=== PATIENT | female | born 1955 | race Two or more races ===

== ENCOUNTER → 2020-08-10 09:17 | Outpatient (BNVA) | payer OTHER, SELFPAY | PROVIDERS: Visit Provider Physician Assistant | DX: Z76.89 Persons encountering health services in other specified circumstances (principal) ==

== ENCOUNTER 2020-08-29 14:42 | Outpatient (REF) | payer OTHER, SELFPAY | END 2020-08-29 14:43 | disposition home or self-care (01) | LOC: HO.LAB 14:42 | PROVIDERS: PCP Internal Medicine Geriatric Medicine; Visit Provider Internal Medicine | DX: Z20.828 Contact with and (suspected) exposure to other viral communicable diseases (principal) | CPT/HCPCS: C9803; U0003 ==

== ENCOUNTER 2020-11-08 14:18 | Outpatient (REF) | payer MEDICARE, MEDICAID, SELFPAY ==
--- NOTE | ~2020-11-08 | MM_ITS ---
EXAMINATION: MM SCREENING DIGITAL BREAST TOMOSYNTHESIS, BILATERAL CLINICAL INFORMATION: Screening. Asymptomatic. The lifetime risk of breast cancer based on the Tyrer-Cuzick Model is 3%. COMPARISON: Mammography: 05/26/2019 ([place]). TECHNIQUE: Digital breast tomosynthesis is performed in both the craniocaudal and mediolateral oblique views along with computer-aided detection (CAD). Synthesized 2D images are generated from the tomosynthesis. FINDINGS: There are scattered areas of fibroglandular density (ACR BI-RADS breast composition Category b). There are no significant masses, abnormal calcifications, or other abnormalities. Parenchymal pattern is similar to prior studies. No significant changes. MM/MM tomosynthesis screening BI IMPRESSION: No mammographic evidence of malignancy. ASSESSMENT: BI-RADS 1: Negative RECOMMENDATION: Routine annual mammography screening. This patient's information was entered into a reminder system with a target due date for their next mammogram.
== END 2020-11-08 14:19 | disposition home or self-care (01) ==
LOC: HO.MAMMO 14:18
PROVIDERS: Visit Provider Nurse Practitioner Family
DX: Z12.31 Encounter for screening mammogram for malignant neoplasm of breast (principal)
CPT/HCPCS: 77063; 77067

== ENCOUNTER 2020-11-27 14:33 | Outpatient (REF) | payer MEDICARE, MEDICAID, SELFPAY | END 2020-11-27 14:34 | disposition home or self-care (01) | LOC: HO.LAB 14:33 | PROVIDERS: Visit Provider Internal Medicine | DX: Z20.822 Contact with and (suspected) exposure to COVID-19 (principal) | CPT/HCPCS: 36415; C9803; U0003; U0005 ==

== ENCOUNTER → 2022-01-01 10:37 | Outpatient (RCR) | payer OTHER, SELFPAY | END | disposition home or self-care (01) | LOC: HO.OT 06-14 10:16 | PROVIDERS: Visit Provider General Practice | DX: M65.342 Trigger finger, left ring finger (principal) | CPT/HCPCS: 97110; 97760 ==

== ENCOUNTER 2022-01-03 16:26 | Outpatient (REF) | payer OTHER, SELFPAY ==
--- NOTE | ~2022-01-03 | MM_ITS ---
EXAMINATION: MM SCREENING DIGITAL BREAST TOMOSYNTHESIS, BILATERAL CLINICAL INFORMATION: Screening. Asymptomatic. The lifetime risk of breast cancer based on the Tyrer-Cuzick Model is 3.2%. COMPARISON: Mammography: November 08, 2020 and May 26, 2019 TECHNIQUE: Digital breast tomosynthesis is performed in both the craniocaudal and mediolateral oblique views along with computer-aided detection (CAD). Synthesized 2D images are generated from the tomosynthesis. FINDINGS: The breasts are heterogeneously dense, which may obscure small masses (ACR BI-RADS breast composition Category c). There are no significant masses, abnormal calcifications, or other abnormalities. MM/MM tomosynthesis screening BI IMPRESSION: There are no significant changes from prior study. ASSESSMENT: BI-RADS 1: Negative RECOMMENDATION: Routine annual mammography screening. This patient's information was entered into a reminder system with a target due date for their next mammogram.
== END 2022-01-03 16:27 | disposition home or self-care (01) ==
LOC: HO.MAMMO 16:26
PROVIDERS: Visit Provider Internal Medicine Geriatric Medicine
DX: Z12.31 Encounter for screening mammogram for malignant neoplasm of breast (principal)
CPT/HCPCS: 77063; 77067

== ENCOUNTER → 2022-01-14 21:16 | Outpatient (REF) | payer OTHER, SELFPAY | LOC: HO.SL 21:16 | PROVIDERS: Visit Provider Registered Nurse | DX: G47.33 Obstructive sleep apnea (adult) (pediatric) (principal) | CPT/HCPCS: 95811 ==

== ENCOUNTER 2022-04-18 10:13 | Outpatient (REF) | payer OTHER, SELFPAY ==
--- NOTE | 2022-04-18 10:12 | EMG_ITS ---
Bilateral median and ulnar motor and sensory studies were performed. Bilateral radial sensory studies were performed and paraspinal muscles were tested with a needle. IMPRESSION: 1. Eens-ya-oegsudxt bilateral median neuropathy across carpal tunnel. 2. Mild bilateral ulnar neuropathy across cubital tunnel. 3. Bilateral Deepak-Delvin anastomosis and normal variant. MD MICKEY Dubon/KATHERINE / [id number]
== END 2022-04-18 10:14 | disposition home or self-care (01) ==
LOC: HO.NEURO 10:13
PROVIDERS: Visit Provider Registered Nurse
DX: R20.2 Paresthesia of skin (principal)
CPT/HCPCS: 95886; 95911

== ENCOUNTER → 2022-07-08 15:06 | Outpatient (BNVA) | payer OTHER, SELFPAY | PROVIDERS: Visit Provider Physician Assistant | DX: G56.02 Carpal tunnel syndrome, left upper limb (principal); G56.22 Lesion of ulnar nerve, left upper limb | CPT/HCPCS: 99202 ==

== ENCOUNTER → 2022-07-16 15:25 | Outpatient (BNVA) | payer OTHER, SELFPAY | PROVIDERS: PCP Registered Nurse; Visit Provider Surgery Vascular Surgery | DX: I83.12 Varicose veins of left lower extremity with inflammation (principal) | CPT/HCPCS: 99202 ==

== ENCOUNTER 2023-04-28 09:39 | Outpatient (REF) | payer OTHER, SELFPAY ==
--- NOTE | ~2023-04-28 | XR_ITS ---
EXAMINATION: XR KNEE, LEFT CLINICAL INFORMATION: Left knee pain for 3 months. COMPARISON: None available. TECHNIQUE: Four views of the left knee. FINDINGS: Mild tricompartmental degenerative joint changes are seen most pronounced in the medial femoral-tibial compartment. There is no acute fracture or dislocation. Possible trace suprapatellar joint effusion. The soft tissues are unremarkable. XR/XR knee LT 3V IMPRESSION: Mild tricompartmental degenerative joint changes most consistent with osteoarthritis. Possible trace suprapatellar joint effusion. No acute fracture.
== END 2023-04-28 09:40 | disposition home or self-care (01) ==
LOC: HO.HHCX 09:39
PROVIDERS: Visit Provider Internal Medicine
DX: M17.12 Unilateral primary osteoarthritis, left knee (principal)
CPT/HCPCS: 73562

== ENCOUNTER 2023-05-19 13:55 | Outpatient (AMB) | payer OTHER, SELFPAY ==
--- NOTE | 2023-05-19 13:59 | MHC.OFFVIS ---
Intake Intake Visit Reasons: New Prob- OA of left knee Intake Note: Debby is a 68 year old female who presents today for a new problem visit with complaints of left knee pain. Patient reports that she has had ongoing left knee pain for a few months now, she feels a stabbing pain as well as locking of the knee. She has tried Diclofenac in the past with mild relief, as well as a knee brace. She found mild relief with these. Biomedical Engineering Internship Required: Yes Biomedical Engineering Internship Name: [id number] Allergies Penicillins Allergy (Verified 07/16/22 15:32) hives HPI New Prob- OA of left knee HPI Details Debby is a Greenlandic speaking 68 year old female who presents today for a new problem visit with complaints of left knee pain. Interested in injection today. She describes pain with stairs and extended ambulation. She denies injury. 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 Site was prepped using aseptic technique. Patient tolerated the procedure well. Primary Site: left knee Approach Used: anterolateral Coding 28060 - Large joint Procedure code (CPT) selection complete Results Reviewed Results Reviewed: 05/19/23 14:29 BUPivacaine MPF 0.25 % [Sensorcaine-MPF 0.25% 10 ML] 10 ml .ROUTE .STK-MED ONE Lidocaine HCl 2 % MPF [Xylocaine 2 % MPF] 5 ml .ROUTE .STK-MED ONE dexAMETHasone sod phosphate [Decadron] 4 mg .ROUTE .STK-MED ONE I personally reviewed relevant radiographs. Moderate to severe medial comaprtment OA, left knee Assessment & Plan Assessment & Plan (1) Osteoarthritis of left knee: Code(s): M17.12 - Unilateral primary osteoarthritis, left knee Plan: 68 yo with left knee OA. She is limited by pain and I injected her knee. I dsicussed surgical and non surgical options including arthroplasty. She will return to see me for treatment if her pain continues. Coding Level of Care Code Est Pt Level 4 (93882) Diagnoses Osteoarthritis of left knee M17.12 CPT Codes Coding - 01829 Large joint: 32751 - Large joint ([id number])
== END 2023-05-19 14:39 | disposition home or self-care (01) ==
PROVIDERS: PCP Registered Nurse; Visit Provider Orthopaedic Surgery
DX: M17.12 Unilateral primary osteoarthritis, left knee (principal)
CPT/HCPCS: 20610; 99214

== ENCOUNTER → 2023-05-19 13:55 | Outpatient (BNVA) | payer OTHER, SELFPAY | PROVIDERS: PCP Registered Nurse; Visit Provider Orthopaedic Surgery | DX: M17.12 Unilateral primary osteoarthritis, left knee (principal) | CPT/HCPCS: 20610; 99212; J1100 ==

== ENCOUNTER 2023-06-02 10:24 | Outpatient (REF) | payer OTHER, SELFPAY ==
[2023-06-02 15:23] LABS: Vitamin B12 > 2000 pg/mL (200-900)
== END 2023-06-02 10:25 | disposition home or self-care (01) ==
LOC: HO.CHCLDS 10:24
PROVIDERS: Visit Provider Registered Nurse
DX: Z00.00 Encounter for general adult medical examination without abnormal findings (principal)
CPT/HCPCS: 36415; 82607

== ENCOUNTER 2023-06-24 11:47 | Outpatient (REF) | payer OTHER, SELFPAY ==
[2023-06-24 14:39] LABS: Vitamin B12 > 2000 pg/mL (200-900)
== END 2023-06-24 11:48 | disposition home or self-care (01) ==
LOC: HO.HHCL 11:47
PROVIDERS: Visit Provider Registered Nurse
DX: Z90.3 Acquired absence of stomach [part of] (principal)
CPT/HCPCS: 36415; 82607

== ENCOUNTER 2023-07-17 09:47 | Outpatient (AMB) | payer OTHER, SELFPAY ==
--- NOTE | 2023-07-17 10:49 | A.OFFVIS_ITS ---
Intake Intake Visit Reasons: ov- Osteoarthritis of left knee Intake Note: Debby is a 68 year old female who presents today for a follow up of her left knee, Last injection done 05/19/23. Patient reports that this injection was only helpful for about 2 days. She has been having increased pain, and is asking about other treatment options. Allergies Penicillins Allergy (Verified 07/16/22 15:32) hives HPI ov- Osteoarthritis of left knee HPI Details Debby is a 68 year old woman who returns to discuss her left knee OA pain. She was last seen, and injected, on 05/19/23, with only ~2 days of relief. She complains of pain with daily activity, worse with prolonged ambulation or using stairs. She found mild relief from NSAIDs or bracing. She feels that she cannot live with this pain as she is unable to ambulate without severe discomfort. The quality of her life suffers and she feels that nothing works. 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 Review of Systems Const All systems reviewed & are unremarkable except as noted in HPI and below Physical Exam Const General: no acute distress, alert and awake Orientation/consciousness: patient oriented x3 HEENT Head: Yes normocephalic and Yes atraumatic Eyes EOM: EOMs intact bilaterally Resp Effort & Inspection: normal respiratory effort and able to speak in complete sentences Cardio Jugular venous distension: no JVD Skin General skin exam: turgor normal Rashes: no rashes Neuro General: patient oriented x3 Extrem Other: TTP medial compartment Mild effusion Psych Appearance: grossly normal Affect: normal affect Attitude: cooperative Results Reviewed Results Reviewed: I personally reviewed relevant radiographs. Tricompartmental OA with Moderate to severe medial compartment OA, left knee Assessment & Plan Assessment & Plan (1) Osteoarthritis of left knee: Code(s): M17.12 - Unilateral primary osteoarthritis, left knee Plan: This is a 68 year old woman with moderate-severe left knee OA. She has pain with daily activity, worse with prolonged ambulation or using stairs. She has a hx of relief from steroid injections in the past, her most recent on 05/19/23 gave only ~2 days of relief. She has failed conservative treatment options and feels her QOL is diminished. I discussed her diagnosis and treatment options. She is 68 and would like to be more active. I recommend left TKA. I discussed the risks, benefits, and alternatives including, but not limited to, the risk of pain, infection, stiffness, need for further surgery as well as potential medical comp lications such as blood clots, pulmonary embolism and cardiac complications. I discussed the recovery timeline and process as well as the importance of PT. Debby is a good candidate for this surgery, and she wishes to proceed with this decision. She will speak with Zuleyka to schedule this procedure. Coding Level of Care Code Est Pt Level 4 (99962) Diagnoses Osteoarthritis of left knee M17.12
== END 2023-07-17 11:35 | disposition home or self-care (01) ==
PROVIDERS: PCP Registered Nurse; Visit Provider Orthopaedic Surgery
DX: M17.12 Unilateral primary osteoarthritis, left knee (principal)
CPT/HCPCS: 99214

== ENCOUNTER → 2023-07-17 09:47 | Outpatient (BNVA) | payer OTHER, SELFPAY | PROVIDERS: PCP Registered Nurse; Visit Provider Orthopaedic Surgery | DX: M17.12 Unilateral primary osteoarthritis, left knee (principal) | CPT/HCPCS: 99212 ==

== ENCOUNTER 2023-07-22 13:26 | Outpatient (AMB) | payer OTHER, SELFPAY ==
--- NOTE | 2023-07-22 13:42 | A.OFFVIS_ITS ---
Intake Vital Signs 07/22/23 13:43 Height 5 ft 2 in Weight 159 lb BMI 29.1 BP 117/70 Blood Pressure Location Lt brachial Position Sitting Pulse 55 Intake Visit Reasons: Abdominal pain Last seen 08/2020 Intake Note: Patient presents to in office visit today for abdominal pain. She reports that while she was in [facility] in October this year she underwent EGD and was diagnosed with Barrets esophagus, and found to have a hiatal hernia. She also was treated for H pylori while in [facility]. Patient reports GERD, epigastric burning and pain. She also reports occasional constipation and blood when wiping. Allergies Penicillins Allergy (Verified 07/22/23 13:51) hives Medication List - Last Reconciled 07/22/23 by Domi Ansari PA-C acetaminophen 1,000 mg PO Q8H PRN multivitamin with folic acid 400 mcg (Daily-Yumi (with folic acid)) 1 tab PO DAILY pantoprazole 40 mg PO DAILY HPI HPI Comments History of Present Illness Details A 68 y/o female s/p gastric sleeve- ( 2014), history of colon polyps last encounter 2019- last colonoscopy at about 7 years. she complains of acid reflux -dyspepsia pantoprazole -occasion was some swallow ing difficulty, unable to detail- dietary modification She describes EGD -done on [place] October 2022- bacteria-treated - never had caty she has records ([place]) from GI- - showing Barretts- to repeat 6 months-she also says she was to have surgery- she is unclear of the details Appetite is good- small portions-trying to maintain her weight Plans to go back to: The at some point have another weight loss surgery she is uncertain of any details. Bowels are normal No nausea, vomiting, hematemesis, hematochezia fever chills PFS Medical History (Updated 07/23/23 @ 09:32 by Domi Ansari PA-C) Osteoarthritis of left knee Left knee pain Vitamin D deficiency Surgical History (Updated 07/22/23 @ 14:22 by Domi Ansari PA-C) H/O colonoscopy History of esophagogastroduodenoscopy (EGD) H/O bariatric surgery History of total abdominal hysterectomy History of cholecystectomy Family History Unknown No family history of colorectal cancer Mother Uterus cancer Household Members Other:: Lives with her son Alcohol intake: never Patient Tobacco Use Status: Never used Tobacco Current occupational status: employed 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 Review of Systems Const All systems reviewed & are unremarkable except as noted in HPI and below Card Denies chest pain and Denies dyspnea Resp Denies dyspnea GI Denies abdominal pain, Reports dyspepsia, Reports heartburn, Denies diarrhea, Denies nausea and Denies vomiting Physical Exam Vital Signs: Last Vital Signs Pulse 55 07/22/23 13:43 BP 117/70 07/22/23 13:43 BMI result Body Mass Index 29.1 Const General: cooperative, healthy appearing, comfortable and no acute distress Orientation/consciousness: patient oriented x3 Limitations: language barrier Eyes Sclerae: sclerae normal Resp Effort & Inspection: normal respiratory effort and able to speak in complete sentences Auscultation: clear to auscultation bilaterally, no rales, no rhonchi and no wheezes Cardio Rate: regular rate Rhythm: regular rhythm Heart sounds: S1 normal heart sound present and S2 normal heart sound present GI Palpation (GI): Soft to palpation and nontender Auscultation: normal bowel sounds Neuro General: patient oriented x3 Extrem General: Yes full ROM Psych Appearance: grossly normal and well kempt Mental Status: mental status grossly normal Speech and movement: Normal speech and movement present and Clear speech present Affect: normal affect Attitude: cooperative Thought process: Normal thought process present Thought content: Normal thought content present Insight: Good insight present (Psych) Judgement: Good judgement present (Psych) Assessment & Plan Assessment & Plan (1) Horner's esophagus determined by endoscopy: Comment: GI hx- unclear- despite staff interpreter Code(s): K22.70 - Horner's esophagus without dysplasia (2) Colon polyps: Code(s): K63.5 - Polyp of colon Plan: Polyp surveillance colonoscopy (3) Acid reflux: Code(s): K21.9 - Gastro-esophageal reflux disease without esophagitis Plan: Continue PPI EGD Upper GI series (4) H/O bariatric surgery: Comment: Gastric sleeve,[id number]-[id number]-[id number] issues Code(s): Z98.84 - Bariatric surgery status Plan: EGD Plan UGI series EGD/ colon- MG prep labs Continue ppi Orders: Orders Complete Blood Count Auto Diff 07/22/23 K21.9 - Gastro-esophageal reflux disease without esophagitis, K22.70 - Horner's esophagus without dysplasia, K63.5 - Polyp of colon Comprehensive Met. Panel 07/22/23 K58.9 - Irritable bowel syndrome without diarrhea FL small bowel follow through 07/22/23 K21.9 - Gastro-esophageal reflux disease without esophagitis, Z98.84 - Bariatric surgery status EGD/[place] Combo - GI Use Only 07/22/23 K21.9 - Gastro-esophageal reflux disease without esophagitis, K22.70 - Horner's esophagus without dysplasia, K63.5 - Polyp of colon Medications: New bisacodyl (Dulcolax (bisacodyl)) Day before procedure, prep day Take 4 tablets by mouth upon awakening followed by large glass of water 20 mg (4 x 5 mg) PO ONCE 1 day 4 tabs 0RF colonoscopy prep Z12.11 - Encounter for screening for malignant neoplasm of colon polyethylene glycol 3350 (Miralax) Take as directed by mouth the day before your procedure. 238 grams PO ONCE 1 day PRN 238 grams 0RF laxative effect Patient Instructions: 68-year-old female GI history unclear-will get UGI for clarification, and see back She has well will be scheduled for a EGD/ colonoscopy She will continue PPI Avoid culprits She is agreeable with the plan Assisted by staff interpreter- Coding Level of Care Code New Pt Level 4 (59882) Diagnoses Horner's esophagus determined by endoscopy K22.70 Colon polyps K63.5 Acid reflux K21.9 H/O bariatric surgery Z98.84 Time Spent (min) 35 Comment [id number]
[2023-07-22 13:43] VITALS: BP 117/70; PULSE 55; BMI 29.1
== END 2023-07-22 14:37 | disposition home or self-care (01) ==
PROVIDERS: PCP Registered Nurse; Visit Provider Physician Assistant
DX: K22.70 Barrett's esophagus without dysplasia (principal); Z86.010 Personal history of colon polyps; K21.9 Gastro-esophageal reflux disease without esophagitis; Z98.84 Bariatric surgery status
CPT/HCPCS: 99214

== ENCOUNTER → 2023-07-22 13:26 | Outpatient (BNVA) | payer OTHER, SELFPAY | PROVIDERS: PCP Registered Nurse; Visit Provider Physician Assistant | DX: K22.70 Barrett's esophagus without dysplasia (principal); K63.5 Polyp of colon; K21.9 Gastro-esophageal reflux disease without esophagitis; Z98.84 Bariatric surgery status | CPT/HCPCS: 99212 ==

== ENCOUNTER 2023-08-01 09:16 | Outpatient (AMB) | payer OTHER, SELFPAY ==
[2023-08-01 09:29] VITALS: BP 116/74; PULSE 67; O2SAT 94; BMI 29.5
--- NOTE | 2023-08-01 09:29 | MHC.OFFVIS ---
Intake Vital Signs 08/01/23 09:29 Height 5 ft 2 in Weight 161 lb 8 oz BMI 29.5 BP 116/74 Blood Pressure Location Rt brachial Position Sitting Pulse 67 Pulse Source Pulse Oximeter Pulse Oximetry (%) 94 Oxygen Delivery Method Room Air Intake Visit Reasons: Obstructive sleep apnea Intake Note: Pt presents to the office today for a new patient visit for DODIE. Associate Sales Manager Required: Yes Associate Sales Manager Language: Secondary Spanish Teacher Name: Pamela ([id number]) Allergies Penicillins Allergy (Verified 08/01/23 09:33) hives HPI HPI Comments History of Present Illness Details 68 y/o female patient presents for new in-person visit to manage sleep apnea. clinical research physician Pamela [phone] utilized. Pt had split night sleep study done in Dec, 2019. The baseline portion of the sleep study was significant for a severe degree of sleep apnea. The AHI was 32/hr and oxygen garry was 74%. Pt trailed CPAP at 4-6 and her breathing and oxygenation stabilized with the both pressure. Pt started CPAP at 6cmH2O, however she is not tolerate the CPAP. She can't sleep with CPAP more than 2 hrs. She feels chocking and lack of oxygen. She tried melatonin but it did not help her to stay sleep. Sleep hygiene questionnaire: What is your usual sleep routine? Usual bedtime is at 9-10 pm; Usual wake up time is at 3, 4, 5 am. Do you take naps? No. Is your sleep environment cool, dark, and quiet? Yes. Do you exercise? No. Do you take caffeine or other stimulants? No. Do you use electronics in bed? Yes. What is your work schedule? 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 Review of Systems Const All systems reviewed & are unremarkable except as noted in HPI and below ENT Reports Normal hearing present Neuro Reports Normal hearing present Physical Exam Vital Signs: Last Vital Signs Pulse 67 08/01/23 09:29 BP 116/74 08/01/23 09:29 Pulse Ox 94 08/01/23 09:29 Oxygen Delivery Method Room Air 08/01/23 09:29 BMI result Body Mass Index 29.5 Const General: cooperative Nutritional Appearance: obese Orientation/consciousness: patient oriented x3 Limitations: language barrier Neck Neck: Yes full ROM and Yes supple Resp Effort & Inspection: normal respiratory effort and able to speak in complete sentences Neuro General: patient oriented x3, gait normal and moves all extremities Cranial nerves: Yes Bilaterally intact EOM present, Yes Normal facial strength present, Yes Midline tongue present, Yes Symmetric palate elevation present, Yes Normal hearing present and Yes Ability to bilaterally rotate head present Cognition (Neuro): normal cognition Gait exam (Neuro): Normal gait present Motor exam (neuro): 5/5 motor strength present throughout, Pronator motor function not present and no tremor noted Psych Appearance: grossly normal Mental Status: mental status grossly normal Speech and movement: Normal speech and movement present Affect: normal affect Attitude: cooperative Assessment & Plan Assessment & Plan (1) DODIE on CPAP: Comment: Severe degree of sleep apnea. The AHI was 32/hr and oxygen garry was 74% Code(s): G47.33 - Obstructive sleep apnea (adult) (pediatric) Plan Pt is advised to undergo in lab sleep study to reassess for the severe degree of sleep apnea. Will f/u with pt after study to discuss results and appropriate treatment options. Will consider to refer for inspire. Sleep hygiene education provided. Limit caffeine intake and electronic use before bedtime. Advised patient to try magnesium 400 mg q HS to help her sleep. Pt to call with any worsening concerns or questions. Orders: Orders RT PSG in-lab sleep study Today G47.33 - Obstructive sleep apnea (adult) (pediatric) Medications: New magnesium oxide 400 mg PO DAILY 30 days 30 tabs 2RF Coding Level of Care Code New Pt Level 3 (37336) Diagnoses DODIE on CPAP G47.33
== END 2023-08-01 10:22 | disposition home or self-care (01) ==
PROVIDERS: PCP Registered Nurse; Visit Provider Nurse Practitioner Family
DX: G47.33 Obstructive sleep apnea (adult) (pediatric) (principal)
CPT/HCPCS: 99203

== ENCOUNTER → 2023-08-01 09:16 | Outpatient (BNVA) | payer OTHER, SELFPAY | PROVIDERS: PCP Registered Nurse; Visit Provider Nurse Practitioner Family | DX: G47.33 Obstructive sleep apnea (adult) (pediatric) (principal) | CPT/HCPCS: 99202 ==

== ENCOUNTER → 2023-08-14 14:15 | Outpatient (BNV) | payer OTHER, SELFPAY | PROVIDERS: PCP Registered Nurse; Visit Provider Psychiatry & Neurology Neurology | DX: G47.33 Obstructive sleep apnea (adult) (pediatric) (principal) | CPT/HCPCS: 95810 ==

== ENCOUNTER → 2023-08-14 20:30 | Outpatient (REF) | payer OTHER, SELFPAY | LOC: HO.SL 20:30 | PROVIDERS: PCP Registered Nurse; Visit Provider Nurse Practitioner Family | DX: G47.33 Obstructive sleep apnea (adult) (pediatric) (principal) | CPT/HCPCS: 95810 ==

== ENCOUNTER → 2023-08-27 08:40 | Outpatient (BNVA) | payer OTHER, SELFPAY | PROVIDERS: PCP Registered Nurse; Visit Provider Orthopaedic Surgery ==

== ENCOUNTER 2023-09-11 14:39 | Outpatient (AMB) | payer OTHER, SELFPAY ==
--- NOTE | 2023-09-11 14:49 | MHC.OFFVIS ---
Intake Vital Signs 09/11/23 14:52 Height 5 ft 2 in Weight 160 lb 7.944 oz BMI 29.4 BP 102/70 Blood Pressure Location Lt brachial Position Sitting Pulse 49 L Intake Visit Reasons: Preop/ LTKA/ Patt Intake Note: NPV w/ EKG Technical Operations Vice President Required: Yes Technical Operations Vice President Language: Veneer Jointer Name: Toshia [id number] Accompanied by: Self / Same As Patient Allergies Penicillins Allergy (Verified 09/11/23 14:53) hives Medication List - Last Reconciled 09/11/23 by Az Holland MD acetaminophen 1,000 mg PO Q8H PRN bisacodyl (Dulcolax (bisacodyl)) 20 mg (4 x 5 mg) PO ONCE 1 day magnesium oxide 400 mg PO DAILY 30 days multivitamin with folic acid 400 mcg (Daily-Yumi (with folic acid)) 1 tab PO DAILY pantoprazole 40 mg PO DAILY polyethylene glycol 3350 (Miralax) 238 grams PO ONCE PRN 1 day walker Folding Front wheeled walker HPI HPI Comments History of Present Illness Details Debby is here for consultation regarding preoperative risk stratification for knee surgery. She does not have any known cardiac issues. No history of any coronary artery disease or myocardial infarction or cardiomyopathy. No major comorbidities. Within limits of her activity, she has not noticed any chest pain or shortness of breath or in fact anything cardiac sounding. She states she can walk as much as 30 minutes or so and has not noticed any symptoms from cardiac. 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 Review of Systems Const Denies weakness ENT Denies dizziness Card Denies chest pain, Denies chest pain with activity, Denies syncope, Denies rapid heart rate, Denies pedal edema, Denies edema, Denies leg edema, Denies lightheadedness, Denies palpitations, Denies dyspnea, Denies dyspnea on exertion and Denies orthopnea Resp Denies cough, Denies dyspnea and Denies dyspnea on exertion GI Denies hematochezia and Denies change in stool character Musc Denies abnormal gait, Denies muscle cramps, Denies muscle weakness, Denies numbness, Denies radiating pain into limb and Denies tingling Neuro Denies abnormal gait, Denies dizziness, Denies syncope, Denies numbness, Denies tingling and Denies weakness Endo Denies palpitations Physical Exam Vital Signs: Last Vital Signs Pulse 49 L 09/11/23 14:52 BP 102/70 09/11/23 14:52 BMI result Body Mass Index 29.4 Const General: comfortable and no acute distress Orientation/consciousness: patient oriented x3 HEENT Other: Unremarkable Head: Yes normal to inspection Neck Neck: Yes normal visual inspection Chest Chest palpation & inspection: normal inspection of the chest Resp Auscultation: clear to auscultation bilaterally Cardio Palpation: normal PMI Heart sounds: S1 normal heart sound present, S2 normal heart sound present, no gallops, no murmurs and no rubs GI Palpation (GI): Soft to palpation Back/Spine/Pelvis Other: unremarkable Skin General skin exam: no rashes or lesions noted Neuro General: patient oriented x3 Extrem General: Yes normal to inspection Psych Mental Status: mental status grossly normal Office Procedures EKG Details: EKG with sinus bradycardia at 49/Min; no significant ST-T changes and otherwise unremarkable. [place] [id number], Complete Assessment & Plan Assessment & Plan (1) Preoperative cardiovascular examination: Code(s): Z01.810 - Encounter for preprocedural cardiovascular examination (2) Sinus bradycardia: Code(s): R00.1 - Bradycardia, unspecified Plan Asymptomatic sinus bradycardia. She does not really have any symptoms at all. May proceed with knee surgery as planned. Low cardiac risk. Coding Level of Care Code New Pt Level 3 (35466) Diagnoses Preoperative cardiovascular examination Z01.810 Sinus bradycardia R00.1 CPT Codes EKG - CPT: 20164-[id number], Complete ([id number])
[2023-09-11 14:52] VITALS: BP 102/70; PULSE 49; BMI 29.4
== END 2023-09-11 15:08 | disposition home or self-care (01) ==
PROVIDERS: PCP Registered Nurse; Visit Provider Internal Medicine
DX: Z01.810 Encounter for preprocedural cardiovascular examination (principal); R00.1 Bradycardia, unspecified
CPT/HCPCS: 93010; 99203

== ENCOUNTER → 2023-09-11 14:39 | Outpatient (BNVA) | payer OTHER, SELFPAY | PROVIDERS: PCP Registered Nurse; Visit Provider Internal Medicine | DX: Z01.810 Encounter for preprocedural cardiovascular examination (principal); R00.1 Bradycardia, unspecified | CPT/HCPCS: 93005; 99202 ==

== ENCOUNTER 2023-09-18 12:18 | Outpatient (AMB) | payer OTHER, SELFPAY ==
--- NOTE | 2023-09-18 12:43 | MHC.OFFVIS ---
Intake Vital Signs 09/18/23 12:44 Height 5 ft 2 in Weight 160 lb BMI 29.3 Intake Visit Reasons: Preop LT TKA 09/24/23 NE Intake Note: Debby is a 68 year old female who presents today for a pre op appointment for her left TKA 09/24/23 NE. Allergies Penicillins Allergy (Intermediate, Verified 09/18/23 12:48) hives NSAIDS (Non-Steroidal Anti-Inflamma Allergy (Verified 09/18/23 12:48) Gastrointestinal Upset HPI Preop LT TKA 09/24/23 NE HPI Details 68-year-old female, who is Polish speaking, presents in the office today for her preoperative history and physical exam prior to a left total knee arthroplasty to be performed on 09/24/[address] Jay Beltre. 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 -Varicose veins of the left lower extremity -Osteoporosis -Elevated parathyroid hormone -Vitamin D deficiency Patient has a surgical history, as follows: -Hx of non-cataract eye surgery; left -Hx of carpal tunnel repair; right -History of esophagogastroduodenoscopy (EGD) -H/O bariatric surgery; Gastric sleeve,[id number] issues -History of total abdominal hysterectomy -History of cholecystectomy Patient has a social history, as follows: - Currently works at the [employer] Medical History (Updated 09/16/23 @ 12:36 by Uzma Mcnamara RN) Back pain Osteoporosis Elevated parathyroid hormone GERD (gastroesophageal reflux disease) Numbness and tingling in left arm DODIE on CPAP Osteoarthritis of left knee Left knee pain Vitamin D deficiency Surgical History (Updated 09/16/23 @ 12:28 by Uzma Mcnamara RN) Hx of non-cataract eye surgery Hx of carpal tunnel repair History of esophagogastroduodenoscopy (EGD) H/O bariatric surgery History of total abdominal hysterectomy History of cholecystectomy Family History Unknown No family history of colorectal cancer Mother Uterus cancer Social History (Updated 09/17/23 @ 15:46 by Uzma Mcnamara RN) Household Members: None Household Members Other:: Lives with her son Housing: Apartment Are you a primary nurse care manager to a significant other at home: No Do you presently have visiting nurse or other home services: No 75 years or older and lives alone: No Alcohol intake: never Comment: aware of trip hazard Patient Tobacco Use Status: Never used Tobacco Current occupational status: employed 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 Review of Systems Const All systems reviewed & are unremarkable except as noted in HPI and below Physical Exam Vital Signs: BMI result Body Mass Index 29.3 Const General: cooperative, healthy appearing, comfortable, no acute distress, well developed, alert and awake Orientation/consciousness: patient oriented x3 HEENT Head: Yes normal to inspection, Yes normocephalic and Yes atraumatic Eyes General: appearance normal, both eyes and all related structures EOM: EOMs intact bilaterally Neck Neck: Yes normal visual inspection and Yes no lymphadenopathy Resp Effort & Inspection: normal respiratory effort and able to speak in complete sentences Cardio Jugular venous distension: no JVD Rate: regular rate Peripheral pulses: Peripheral pulses 2+ throughout GI Inspection: Yes normal to inspection Palpation (GI): Soft to palpation Skin General skin exam: no rashes or lesions noted Rashes: no rashes Neuro General: patient oriented x3 Extrem Other: TTP medial compartment Mild effusion Psych Appearance: grossly normal Mental Status: mental status grossly normal Affect: normal affect Attitude: cooperative Assessment & Plan Assessment & Plan (1) Osteoarthritis of left knee: Code(s): M17.12 - Unilateral primary osteoarthritis, left knee Plan Ms. Guardado is a 68-year-old female, who is Polish speaking, presents in the office today for her preoperative history and physical exam prior to a left total knee arthroplasty to be performed on 09/24/[address] Jay Beltre. 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 I discussed in detail the procedure and what to expect pre and post operatively. We discussed the risks, benefits and alternatives to the surgery as well as the rehabilitation course. The risks; which include, but are not limited to infection, bleeding, nerve injury, ongoing pain, swelling, and stiffness, perioperative risk of injury to bones and soft tissues, and blood clots. I have answered all questions and with their understanding they have consented to move forward with a left total knee arthroplasty to be performed on 09/24/[address] Jay Beltre. Follow up will be at the post operative appointment on 10/09/2023 at 3:00 pm, or sooner if needed. Medications: Refilled [grab bars for the shower] As directed 1 ea 0RF left knee osteoarthritis Patient Instructions: Scribed for Radha Davis PA-C by Josefina Neves medical examiner, on 09/18/2023 at 12:28 pm, EST. Coding Level of Care Code Global (49698) Diagnoses Osteoarthritis of left knee M17.12
[2023-09-18 12:44] VITALS: BMI 29.3
== END 2023-09-18 13:09 | disposition home or self-care (01) ==
PROVIDERS: PCP Registered Nurse; Visit Provider Physician Assistant
DX: M17.12 Unilateral primary osteoarthritis, left knee (principal)
CPT/HCPCS: 99024

== ENCOUNTER → 2023-09-18 12:18 | Outpatient (BNVA) | payer OTHER, SELFPAY | PROVIDERS: PCP Registered Nurse; Visit Provider Physician Assistant | DX: Z01.818 Encounter for other preprocedural examination (principal); M17.12 Unilateral primary osteoarthritis, left knee | CPT/HCPCS: 99212 ==

== ENCOUNTER 2023-09-24 06:24 | Inpatient (IN) | payer OTHER, SELFPAY ==
[2023-09-16 12:05] VITALS: BP 127/76; PULSE 55; RESP 16; O2SAT 96; BMI 29.4
--- NOTE | 2023-09-16 12:48 | P.CONAN_ITS ---
Documented by User: Marilou Stone NP 09/23/23 12:11 HPI - Anesthesia Eval Consult details Narrative: 68yo F for Left?Knee Replacement Total, 09/24/23 PCP cleared. Cardiac cleared No recent illness No CP/SOB with walking ~30 mins until knee pain prevents Severe DODIE. Occassional CPAP. Encouraged to use every sleep leading up to surgery. [place] [facility] [place]. Well controlled with ppi PMFSH Active Problems Active Problems: All Active Problems (Updated 09/16/23 @ 12:36 by Uzma Mcnamara RN) Sinus bradycardia (Acute) Preoperative cardiovascular examination (Acute) DODIE on CPAP (Acute) Acid reflux (Acute) Colon polyps (Acute) Horner's esophagus determined by endoscopy (Acute) Varicose veins of left lower extremity with inflammation (Acute) Cubital tunnel syndrome on left (Acute) Carpal tunnel syndrome on left (Acute) Encounter for screening colonoscopy (Acute) H/O bariatric surgery (Acute) Osteoarthritis of left knee (Acute) Left knee pain (Acute) Vitamin D deficiency (Acute) Past Medical History Medical History Back pain Osteoporosis Elevated parathyroid hormone GERD (gastroesophageal reflux disease) Numbness and tingling in left arm DODIE on CPAP Osteoarthritis of left knee Left knee pain Vitamin D deficiency Family History Family History Unknown No family history of colorectal cancer Mother Uterus cancer Family history of problems with anesthesia: No Surgical History Surgical History Hx of non-cataract eye surgery Hx of carpal tunnel repair History of esophagogastroduodenoscopy (EGD) H/O bariatric surgery History of total abdominal hysterectomy History of cholecystectomy History of Problems with Anesthesia: No Social History Social History Household Members: None Household Members Other:: Lives with her son Housing: Apartment Are you a primary healthcare representative to a significant other at home: No Do you presently have visiting nurse or other home services: No Alcohol intake: never Comment: aware of trip hazard Patient Tobacco Use Status: Never used Tobacco Use of substances other than those prescribed or required for medical reasons: No Have you been hit, kicked, punched, or otherwise hurt by someone within the past year? 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 Meds Allergies Allergy/AdvReac Type Severity Reaction Status Date / Time Penicillins Allergy Intermediate hives Verified 09/24/23 06:54 NSAIDS (Non-Steroidal Allergy Gastrointestinal Verified 09/24/23 06:54 Anti-Inflamma Upset Home Medications Medication Instructions Recorded Confirmed Last Taken Type multivitamin with folic acid 400 1 tab PO DAILY 07/08/22 09/24/23 09/19/23 History mcg tablet (Daily-Yumi (with folic acid)) acetaminophen 500 mg tablet 1,000 mg PO Q8H PRN pain 07/22/23 09/16/23 Unknown History pantoprazole 40 mg granules 40 mg PO DAILY 07/22/23 09/16/23 09/24/23 History delayed-release for susp in packet cholecalciferol (vitamin D3) 25 25 mcg PO DAILY 09/16/23 09/24/23 09/19/23 His tory mcg (1,000 unit) capsule (Vitamin D3) Exam Height,Weight and Vital Signs: Height 5 ft 2 in Weight 73 kg Last Vital Signs Pulse 55 09/16/23 12:05 Resp 16 09/16/23 12:05 BP 127/76 09/16/23 12:05 Pulse Ox 96 09/16/23 12:05 O2 Del Method Room Air 09/16/23 12:05 Pertinent Lab Results Pertinent Lab Results: Lab Results 09/16/23 09/16/23 09/16/23 Range/Units 12:30 13:23 13:35 WBC 6.8 (4.8-10.8) X10*3/uL RBC 4.47 (4.20-5.50) X10*6/uL Hgb 13.8 (12.0-16.0) g/dl Hct 41.9 (37.0-47.0) % MCV 93.7 (80.0-98.0) fL MCH 30.9 (27.0-33.0) pg MCHC 32.9 (31.0-35.0) g/dl RDW 13.4 (11.0-16.0) % Plt Count 254 (160-400) X10*3/uL MPV 9.8 (9.4-12.3) fL Absolute Nucleated RBC 0.000 (0.0-0.012) X10*3/uL Nucleated RBC % (auto) 0.0 (0.0-0.2) /100WBC Sodium 140 (135-145) mmol/L Potassium 3.9 (3.3-5.1) mmol/L Chloride 104 (96-108) mmol/L Carbon Dioxide 29 (22-29) mmol/L Anion Gap 11 L (12-20) BUN 14 (9-16) mg/dL Creatinine 0.70 (0.5-1.4) mg/dL Estim Creat Clear Calc 70.9 Estimated GFR > 60 Random Glucose 93 (60-115) mg/dL Estimat Average Glucose 108 mg/dL Hemoglobin A1c % 5.4 (<6.0) % Calcium 9.2 (8.4-10.2) mg/dL Nasal Screen MRSA (PCR) NEGATIVE (Negative) Nasal S. aureus Screen NEGATIVE (Negative) Nasal MRSA/S.aureus Interp SEE NOTE Blood Type B Positive Antibody Screen NEGATIVE Narrative Narrative: EKG 09/2023 SB @ 49 Airway Mallampati Class: I TM Dist: >3cm Neck ROM: Full Loose/Missing/Broken Teeth: Yes (Molars pulled, permanent bridge upper) Heart: Ted, RR Lungs: CTAB Assessment and Plan Assessment Anesthesia Assessment: Anesthesia Plan Discussed and PAT Visit Final Anesthetic Review Family History of Problems with Anesthesia: No History of Problems with Anesthesia: No Documented by User: Kat Sin MD 09/24/23 08:06 [facility] Past Medical History Medical History Back pain Osteoporosis Elevated parathyroid hormone GERD (gastroesophageal reflux disease) Numbness and tingling in left arm DODIE on CPAP Osteoarthritis of left knee Left knee pain Vitamin D deficiency Family History Family History Unknown No family history of colorectal cancer Mother Uterus cancer Surgical History Surgical History Hx of non-cataract eye surgery Hx of carpal tunnel repair History of esophagogastroduodenoscopy (EGD) H/O bariatric surgery History of total abdominal hysterectomy History of cholecystectomy Social History Social History Household Members: None Household Members Other:: Lives with her son Housing: Apartment Are you a primary healthcare representative to a significant other at home: No Do you presently have visiting nurse or other home services: No Alcohol intake: never Comment: aware of trip hazard Patient Tobacco Use Status: Never used Tobacco Use of substances other than those prescribed or required for medical reasons: No Have you been hit, kicked, punched, or otherwise hurt by someone within the past year? 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 Meds Allergies Allergy/AdvReac Type Severity Reaction Status Date / Time Penicillins Allergy Intermediate hives Verified 09/24/23 06:54 NSAIDS (Non-Steroidal Allergy Gastrointestinal Verified 09/24/23 06:54 Anti-Inflamma Upset Home Medications Medication Instructions Recorded Confirmed Last Taken Type multivitamin with folic acid 400 1 tab PO DAILY 07/08/22 09/24/23 09/19/23 History mcg tablet (Daily-Yumi (with folic acid)) acetaminophen 500 mg tablet 1,000 mg PO Q8H PRN pain 07/22/23 09/16/23 Unknown History pantoprazole 40 mg granules 40 mg PO DAILY 07/22/23 09/16/23 09/24/23 History delayed-release for susp in packet cholecalciferol (vitamin D3) 25 25 mcg PO DAILY 09/16/23 09/24/23 09/19/23 History mcg (1,000 unit) capsule (Vitamin D3) Assessment and Plan Assessment Anesthesia Assessment: Chart Reviewed Final Anesthetic Review NPO: Yes ASA Class: III Final Preanesthetic Review: No Changes in Pt Med Stat, Meds/Allgs Chart Reviewed, Consent Obtained/Reviewed and Anes Risks/Benef Reviewed Patient Risk: Intermediate Procedure Risk: Intermediate Anesthetic Plan Anesthetic Plan: Spinal and Regional Block Disposition: Standard PACU
[2023-09-16 14:15] LABS: Hematocrit 41.9 % (37.0-47.0); Hemoglobin 13.8 g/dl (12.0-16.0); Mean Corpuscular HGB Conc 32.9 g/dl (31.0-35.0); Mean Corpuscular Hemoglobin 30.9 pg (27.0-33.0); Mean Corpuscular Volume 93.7 fL (80.0-98.0); Mean Platelet Volume 9.8 fL (9.4-12.3); Platelet Count 254 X10*3/uL (160-400); Red Blood Count 4.47 X10*6/uL (4.20-5.50); Red Cell Distribution Width 13.4 % (11.0-16.0); White Blood Count 6.8 X10*3/uL (4.8-10.8)
[2023-09-16 14:22] LABS: Estimated Average Glucose 108 mg/dL; Hemoglobin A1c % 5.4 % (<6.0)
[2023-09-16 14:38] LABS: Anion Gap 11 (12-20); Blood Urea Nitrogen 14 mg/dL (9-16); Calcium 9.2 mg/dL (8.4-10.2); Carbon Dioxide 29 mmol/L (22-29); Chloride 104 mmol/L (96-108); Creatinine Clr Calc Pharmacy 70.9; Estimated Glomerular Filt Rate > 60; Glucose Random 93 mg/dL (60-115); Potassium 3.9 mmol/L (3.3-5.1); Sodium 140 mmol/L (135-145)
[2023-09-16 15:00] LABS: MRSA Nasal PCR NEGATIVE (Negative); SA Nasal PCR NEGATIVE (Negative)
[2023-09-24] VITALS (13 sets, daily range): BP systolic 105–118; BP diastolic 57–68; PULSE 51–76; RESP 15–18; TEMP 35.9–36.7; O2SAT 93–98; BMI 29.4
--- NOTE | ~2023-09-24 | XR_ITS ---
EXAMINATION: XR KNEE, LEFT CLINICAL INFORMATION: Status post total knee arthroplasty COMPARISON: Left knee x-ray on 04/20/2023 TECHNIQUE: Three views of the left knee. FINDINGS: BONES: Bony structures are intact. There is no focal bone destruction or periosteal reaction seen. JOINTS: There is normal alignment of total knee arthroplasty prostheses with patellar resurfacing. SOFT TISSUE: Anterior left knee surgical skin herman are seen. Air fluid collection is seen in left knee joint space. XR/XR knee LT 2V IMPRESSION: 1. Interval successful left total knee arthroplasty with normal alignment of Left total knee arthroplasty prostheses. 2. No fracture or dislocation or signs of loosening are found. 3. Interval appearance of anterior left knee surgical skin herman and left knee joint postoperative air fluid collection.
[2023-09-24 07:02] LABS: Hematocrit 41.5 % (37.0-47.0); Hemoglobin 13.8 g/dl (12.0-16.0)
--- NOTE | 2023-09-24 07:15 | PHA.MEDREC ---
Pharmacy Consult ? Medication Reconciliation Pharmacy has completed the medication reconciliation. Reviewed med rec done by nursing
--- NOTE | 2023-09-24 07:32 | MHC.SHP ---
Pre-Procedural Eval Section A Date of Service: 09/24/23 The patient is an INPATIENT: No Changes since office visit: No Cold of Flu in the past 2 weeks, No New Medical Problems, No Changes in Medication and No Patient answered all questions The History & Physical has been completed within 30 days and I have reviewed it.: Yes Section B Chief Complaint: LT TKA Allergies: Allergies Allergy/AdvReac Type Severity Reaction Status Date / Time Penicillins Allergy Intermediate hives Verified 09/24/23 06:54 NSAIDS (Non-Steroidal Allergy Gastrointestinal Verified 09/24/23 06:54 Anti-Inflamma Upset Plan I have reviewed the history and physical and performed a pertinent physical examination on my patient. No changes have occurred unless specified. Time Spent With Patient Time: Total time managing care of this patient today ____ minutes.
[2023-09-24] MEDS: Lactated Ringers 1,000 ML 100 ML IVCONT ×3 (07:41→23:22)
--- NOTE | 2023-09-24 07:50 | PC.NURSE ---
[facility] called for CPAP Check. Confirmation # [id number].
--- NOTE | 2023-09-24 11:24 | P.BOP_ITS ---
Brief Operative Note Date of Service: 09/24/23 Pre-op diagnosis: left knee OA Post-op diagnosis: same Procedure: Left TKA Implants: Eitzen Triathlon press fit cruciate retaining (cemented) Surgeon: Jay Beltre MD Anesthesia: regional and spinal Was an Commercial Lines Account Executive used for this Procedure?: Yes Commercial [employer] Account Executive: Radha Davis Estimated blood loss (mL): 20 Tourniquet time (min): 45 IV fluids (mL): 800 Pathology: other Condition: stable Disposition: PACU
[2023-09-24] MEDS: HYDROmorphone HCl 0.5 MG/0.5 ML SYRINGE 0.25 MG IVPUSH ×2 (13:53→20:16)
[2023-09-24] MEDS: oxyCODONE HCl Immed Release 5 MG TABLET PO (16:05)
[2023-09-24] MEDS: ceFAZolin Sodium/Dextrose,Iso 2 GM/50 ML PIGGYBACK IV (16:07)
[2023-09-24] MEDS: Docusate Sodium 100 MG CAPSULE PO (20:17)
[2023-09-24] MEDS: 0.9 % Sodium Chloride Flush 3 ML SYRINGE IVFLUSH (20:17)
[2023-09-24] MEDS: Celecoxib 200 MG CAPSULE PO (20:17)
[2023-09-24] MEDS: oxyCODONE HCl ER 10 MG TAB.ER.12H PO (20:17)
[2023-09-25] MEDS: oxyCODONE HCl Immed Release 5 MG TABLET PO ×2 (03:00→10:31)
[2023-09-25 03:17] VITALS: BP 127/69; PULSE 69; RESP 16; TEMP 36.3; O2SAT 93
[2023-09-25 05:33] LABS: MANUAL DIFF FLAG NO
[2023-09-25 05:39] LABS: Basophils Percent Auto 0.1 % (0-2); Eosinophils Percent Auto 0.1 % (0-4); Hematocrit 39.6 % (37.0-47.0); Hemoglobin 13.2 g/dl (12.0-16.0); Imm Gran Abs Auto 0.04 X10*3/uL (0.00-0.03); Imm Gran Pct Auto 0.4 % (0.0-0.4); Lymphocytes Absolute Auto 1.2 X10*3/uL (1.2-4.9); Lymphocytes Percent Auto 11.5 % (20-40); Mean Corpuscular HGB Conc 33.3 g/dl (31.0-35.0); Mean Corpuscular Hemoglobin 31.6 pg (27.0-33.0); Mean Corpuscular Volume 94.7 fL (80.0-98.0); Mean Platelet Volume 10.1 fL (9.4-12.3); Monocytes Percent Auto 10.1 % (2-11); Neutrophils Absolute Auto 8.1 x10*3/uL (2.0-8.3); Neutrophils Percent Auto 77.8 % (45-73); Platelet Count 201 X10*3/uL (160-400); Red Blood Count 4.18 X10*6/uL (4.20-5.50); Red Cell Distribution Width 13.6 % (11.0-16.0); White Blood Count 10.3 X10*3/uL (4.8-10.8)
[2023-09-25 05:53] LABS: Anion Gap 11 (12-20); Blood Urea Nitrogen 12 mg/dL (9-16); Calcium 9.2 mg/dL (8.4-10.2); Carbon Dioxide 27 mmol/L (22-29); Chloride 101 mmol/L (96-108); Creatinine Clr Calc Pharmacy 74.1; Estimated Glomerular Filt Rate > 60; Glucose Fasting 132 mg/dL (60-99); Potassium 4.4 mmol/L (3.3-5.1); Sodium 135 mmol/L (135-145)
[2023-09-25] MEDS: HYDROmorphone HCl 0.5 MG/0.5 ML SYRINGE 0.25 MG IVPUSH (05:53)
[2023-09-25 07:28] VITALS: BP 127/69; PULSE 69; O2SAT 93
--- NOTE | 2023-09-25 07:32 | HO.PM.IMCN ---
History of Present Illness Data of Consult Service Date: 09/25/23 Requesting physician: Jay Beltre Primary Care Provider: VENITA Morrell HPI Reason for consult: routine medical management 68 y/o F with pmhx osteoporosis, GERD, DODIE on CPAP, osteoarthritis of left knee-consultation was called for medical management. She is status post left knee surgery due to OA, says she has some left knee pain otherwise denies any chest pain or shortness a breath or abdominal pain or fever or chills. Review of Systems Review of Systems: Yes all other systems are reviewed and are negative [facility] Medical History Back pain Osteoporosis Elevated parathyroid hormone GERD (gastroesophageal reflux disease) Numbness and tingling in left arm DODIE on CPAP Osteoarthritis of left knee Left knee pain Vitamin D deficiency Family History Unknown No family history of colorectal cancer Mother Uterus cancer Surgical History Hx of non-cataract eye surgery Hx of carpal tunnel repair History of esophagogastroduodenoscopy (EGD) H/O bariatric surgery History of total abdominal hysterectomy History of cholecystectomy Social History Household Members: Children Household Members Other:: Lives with her son Housing: House Are you a primary critical care paramedic to a significant other at home: No Do you presently have visiting nurse or other home services: No 75 years or older and lives alone: No Alcohol intake: never Comment: aware of trip hazard Patient Tobacco Use Status: Never used Tobacco Current occupational status: employed 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 Meds Allergies Allergy/AdvReac Type Severity Reaction Status Date / Time Penicillins Allergy Intermediate hives Verified 09/24/23 06:54 NSAIDS (Non-Steroidal Allergy Gastrointestinal Verified 09/24/23 06:54 Anti-Inflamma Upset Active Medications: Current Medications Acetaminophen (Acetaminophen 325 Mg Tablet) 650 mg PO Q6H PRN PRN Reason: Pain, Mild (Pain Scale 1-3) Celecoxib (Celecoxib 200 Mg Capsule) 200 mg PO BID [facility] Last Admin: 09/24/23 20:17 Dose: 200 mg Docusate Sodium (Docusate Sodium 100 Mg Capsule) 100 mg PO BID [facility] Last Admin: 09/24/23 20:17 Dose: 100 mg Enoxaparin Sodium (Enoxaparin Sodium 40 Mg/0.4 Ml Syringe) 40 mg SUBCUT Q24H [facility] Hydromorphone HCl (Hydromorphone Hcl 0.5 Mg/0.5 Ml Syringe) 0.25 mg IVPUSH Q4H PRN; Protocol PRN Reason: Pain, Severe (Pain Scale 7-10) Last Admin: 09/25/23 05:53 Dose: 0.25 mg Lactated Ringer's (Lr) 1,000 mls @ 100 mls/hr IVCONT .Q10H [facility] Last Admin: 09/24/23 23:22 Dose: 100 mls/hr Magnesium Oxide (Magnesium Oxide 400 Mg Tablet) 400 mg PO DAILY [facility] Omeprazole (Omeprazole 20 Mg Capsule.Dr) 20 mg PO DAILY@0630 [facility] Oxycodone HCl (Oxycodone Hcl Immed Release 5 Mg Tablet) 5 mg PO Q4H PRN PRN Reason: Pain, Moderate(Pain Scale 4-6) Last Admin: 09/25/23 03:00 Dose: 5 mg Oxycodone HCl (Oxycodone Hcl Er 10 Mg Tab.Er.12h) 10 mg PO BID [facility] Last Admin: 09/24/23 20:17 Dose: 10 mg Sodium Chloride (0.9 % Sodium Chloride Flush 3 Ml Syringe) 3 ml IVFLUSH QSHIFT [facility] Last Admin: 09/24/23 20:17 Dose: 3 ml Home Medications Medication Instructions Recorded Confirmed Last Taken Type multivitamin with folic acid 400 1 tab PO DAILY 07/08/22 09/24/23 09/19/23 History mcg tablet (Daily-Yumi (with folic acid)) pantoprazole 40 mg granules 40 mg PO DAILY 07/22/23 09/16/23 09/24/23 History delayed-release for susp in packet cholecalciferol (vitamin D3) 25 25 mcg PO DAILY 09/16/23 09/24/23 09/19/23 History mcg (1,000 unit) capsule (Vitamin D3) Physical Exam Vital Signs and Narrative: Vital Signs: Last Vital Signs Temp 97.4 F 09/25/23 03:17 Pulse 69 09/25/23 03:17 Resp 16 09/25/23 03:17 BP 127/69 09/25/23 03:17 Pulse Ox 93 09/25/23 03:17 O2 Del Method Room Air 09/25/23 03:17 O2 Flow Rate 6 09/24/23 11:44 BMI result Body Mass Index 29.4 Appearance: Alert.? Oriented X3.? cvs: rrr, [id number]. res: clear to auscultation ,no rhonchii or wheezing abd: no rebound or guarding ,nt, bs present. ext pulses present , no cyanosis left knee s/psurgery wrapped . neuro: axo3 , nonfocal. Results Labs 09/25/23 04:51 09/25/23 04:51 Labs: Laboratory Results - last 24 hr 09/25/23 04:51 MCV 94.7 MCH 31.6 MCHC 33.3 RDW 13.6 Plt Count 201 MPV 10.1 Immature Gran % (Auto) 0.4 Neut % (Auto) 77.8 H Lymph % (Auto) 11.5 L Meigs % (Auto) 10.1 Eos % (Auto) 0.1 Baso % (Auto) 0.1 Lymph # (Auto) 1.2 Meigs # (Auto) 1.0 Eos # (Auto) 0.0 Baso # (Auto) 0.0 Abs Immat Gran (auto) 0.04 H Absolute Neuts (auto) 8.1 Absolute Nucleated RBC 0.000 Nucleated RBC % (auto) 0.0 Anion Gap 11 L Estim Creat Clear Calc 74.1 Estimated GFR > 60 Fasting Glucose 132 H Calcium 9.2 Imaging Radiologist's Impressions: Impressions Knee X-Ray 09/24/23 12:44 IMPRESSION: 1. Interval successful left total knee arthroplasty with normal alignment of Left total knee arthroplasty prostheses. 2. No fracture or dislocation or signs of loosening are found. 3. Interval appearance of anterior left knee surgical skin herman and left knee joint postoperative air fluid collection. Assessment and Plan (1) Acid reflux: Qualifiers: Esophagitis presence: without esophagitis Qualified Code(s): K21.9 - Gastro-esophageal reflux disease without esophagitis Status: Acute (2) DODIE on CPAP: Status: Acute Plan 68 y/o F with pmhx osteoporosis, GERD, DODIE on CPAP, osteoarthritis of left knee-consultation was called for medical management. Left knee OA: S/P LTKA Pain and dvt prophylax management as per primary team. Gerd: continue omeprazole. dodie on cpap: if stay will add cpap Will sign off now please call us for any questions.
[2023-09-25 07:43] VITALS: BP 140/74; PULSE 66; RESP 18; TEMP 36.6; O2SAT 95
[2023-09-25] MEDS: Magnesium Oxide 400 MG TABLET PO (08:07)
[2023-09-25] MEDS: Omeprazole 20 MG CAPSULE.DR PO (08:07)
[2023-09-25] MEDS: Docusate Sodium 100 MG CAPSULE PO (08:07)
[2023-09-25] MEDS: oxyCODONE HCl ER 10 MG TAB.ER.12H PO (08:07)
[2023-09-25] MEDS: Lactated Ringers 1,000 ML 100 ML IVCONT (08:08)
[2023-09-25] MEDS: Celecoxib 200 MG CAPSULE PO (08:08)
--- NOTE | 2023-09-25 09:02 | PM.PNORT ---
Subjective Subjective Date of Service: 09/25/23 Interval history: POD1 s/p LTKA Patient is resting in bed comfortably No overnight events Pain is managed No additional complaints Physical Exam Vital Signs: Vital Signs: Last Vital Signs Temp 97.8 F 09/25/23 07:43 Pulse 66 09/25/23 07:43 Resp 18 09/25/23 07:43 BP 140/74 H 09/25/23 07:43 Pulse Ox 95 09/25/23 07:43 O2 Del Method Room Air 09/25/23 07:43 O2 Flow Rate 6 09/24/23 11:44 BMI result Body Mass Index 29.4 Const: General: cooperative, healthy appearing and no acute distress Resp: Effort & Inspection: normal respiratory effort and able to speak in complete sentences Cardio: Rate: regular rate Peripheral pulses: Peripheral pulses 2+ throughout GI: Palpation (GI): Soft to palpation Skin: Lesions: no lesions Rashes: no rashes Extrem: Other: left knee dressing is c/d/i. Able to dorsi/plantar flex. Calf is supple and nontender. Sensation intact. Pedal pulse intact. Procedures Date of Service Date of Service: 09/25/23 Progress Note: A&P Assessment and plan (1) Status post total knee replacement, left: Status: Acute Plan Continue pain mgmnt Begin Lovenox for dvt ppx begin PT for LTKA Dispo planning- PT, pain mgmnt, rehab placement, cleared for rehab from ortho perspective Time Spent With Patient Time: Total time managing care of this patient today ____ minutes. Quality Stroke Does the patient have a stroke diagnosis?: No VTE Prior VTE?: No VTE Risk Level:: Medical - moderate - high VTE Device Contraindication: N/A - Device Ordered VTE Drug Contraindication: N/A - Med Ordered
--- NOTE | 2023-09-25 09:32 | MHC.CM.PN ---
Addendum entered by Anabelle Thacker 09/25/23 12:25: TRANSPORT BOOKED FOR 1400 HOURS PT, RN, AND SNF AWARE Addendum entered by Anabelle Thacker 09/25/23 11:13: [facility] HAS CONFIRMED THEY CAN TAKE PT ON THE WAIVER ORTHO PA AWARE AND DC ORDERED CM AWAITING THE ARRIVAL OF A REFINERY OPERATOR [employer] TO DISCUSS DC TIME WITH PT BLS TRANSPORT WILL BE ARRANGED VIA [place] Original Note: CM INFORMED PT WILL NEED STR CM MET WITH PT WITH REFINERY OPERATOR [employer] TO DISCUSS PLAN PT AWARE THE SNF WILL REQUIRE A HCP AND SHE COMPLETED ONE NAMING DEBORAH GONZALEZ HER AGENT NOW ON FILE PT IS AWARE [facility] BOTH OFFERED A REHAB BED SHE HAS ACCEPTED THE BED AT [facility] SHE PREFERS TO BE IN [place] HER HOME THE SNF HAS SUBMITTED FOR AUTH HCP SENT TO SNF PT WILL NEED TO BRING HER CPAP WITH HER
[2023-09-25] MEDS: Enoxaparin Sodium 40 MG/0.4 ML SYRINGE SUBCUT (10:29)
--- NOTE | 2023-09-25 11:03 | P.DS_ITS ---
DS: Providers Provider Date of Service: 09/25/23 Date of admission: 09/24/23 06:24 Primary care physician: VENITA Morrell Consults: 09/24/23 12:53 Consult to Hospitalist Routine Comment: Consulting Provider: Hospitalist Reason For Exam: routine medical management DS: Diagnosis Discharge Diagnosis (1) Status post total knee replacement, left: Status: Acute DS: Summary Hospital Course Hospital Course: The patient underwent a successful left total knee arthroplasty, they were transferred to PACU and then to the floor to recover. During their stay, their vitals were stable, afebrile at 97.8. Labs were unremarkable, H/H 13.2/39.6. POD 1 they were started on Aspirin 325mg po bid for DVT ppx, they also received Physical Therapy services twice a day. Prior to discharge, their dressing was clean dry and intact, and the plan was to be discharged to short term rehab. Time Attestation Discharge coordination time: Less than 30 minutes Quality: Safe Use of Opioids Does Pt have an Active Cancer Diagnosis on the Problem List?: No Quality: Stroke Does the patient have a stroke diagnosis?: No Physical Exam Vital Signs: Vital Signs: Last Vital Signs Temp 97.8 F 09/25/23 07:43 Pulse 66 09/25/23 07:43 Resp 18 09/25/23 07:43 BP 140/74 H 09/25/23 07:43 Pulse Ox 95 09/25/23 07:43 O2 Del Method Room Air 09/25/23 07:43 O2 Flow Rate 6 09/24/23 11:44 BMI result Body Mass Index 29.4 Const: General: cooperative, healthy appearing and no acute distress Resp: Effort & Inspection: normal respiratory effort and able to speak in complete sentences Cardio: Rate: regular rate Peripheral pulses: Peripheral pulses 2+ throughout GI: Palpation (GI): Soft to palpation Skin: Lesions: no lesions Rashes: no rashes Extrem: Other: left knee dressing is c/d/i. Able to dorsi/plantar flex. Calf is supple and nontender. Sensation intact. Pedal pulse intact. DS: Data Data Completed and Pending Pending studies at discharge: Pending at discharge 09/24/23 10:39 Surgical [PTH] Routine Labs on day of discharge: Laboratory Results - last 24 hr 09/25/23 04:51 WBC 10.3 RBC 4.18 L Hgb 13.2 Hct 39.6 MCV 94.7 MCH 31.6 MCHC 33.3 RDW 13.6 Plt Count 201 MPV 10.1 Immature Gran % (Auto) 0.4 Neut % (Auto) 77.8 H Lymph % (Auto) 11.5 L [place] % (Auto) 10.1 Eos % (Auto) 0.1 Baso % (Auto) 0.1 Lymph # (Auto) 1.2 [place] # (Auto) 1.0 Eos # (Auto) 0.0 Baso # (Auto) 0.0 Abs Immat Gran (auto) 0.04 H Absolute Neuts (auto) 8.1 Absolute Nucleated RBC 0.000 Nucleated RBC % (auto) 0.0 Sodium 135 Potassium 4.4 Chloride 101 Carbon Dioxide 27 Anion Gap 11 L BUN 12 Creatinine 0.67 Estim Creat Clear Calc 74.1 Estimated GFR > 60 Fasting Glucose 132 H Calcium 9.2 Discharge Plan Discharge Anticipated Discharge Date/Time: 09/25/23 14:59 Patient Disposition: Xfer [facility] Discharge Diagnosis: s/p LTKA Referrals: Radha Davis PA-C [Physician Weight And Test Bar Clerk] - 2 Weeks (10/09/23 3:00 [facility] Orthopedic Surgeons Radha Davis PA-C) Discharge Medications: New celecoxib 200 mg Capsule 200 mg PO BID 30 Days Qty: 60 0RF acetaminophen 325 mg Tablet 650 mg PO Q6H PRN (Reason: Pain, Mild (Pain Scale 1-3)) 30 Days Qty: 240 0RF docusate sodium 100 mg Capsule 100 mg PO BID 30 Days Qty: 60 0RF oxycodone 5 mg Tablet 5 mg PO Q4H PRN (Reason: Pain, Moderate(Pain Scale 4-6)) 7 Days Qty: 42 0RF Rx Instructions: Partial Fill upon patient request. enoxaparin 40 mg/0.4 mL Syringe 40 mg subcut Q24H 42 Days Qty: 16.8 0RF Continued (DME) walker Misc See Rx Instructions .MEDSUPPLY Qty: 1 0RF Rx Instructions: Folding Front wheeled walker (DME) shower chair See Rx Instructions .ROUTE .MEDSUPPLY Qty: 1 0RF Rx Instructions: As directed (DME) commode See Rx Instructions .ROUTE .MEDSUPPLY Qty: 1 0RF Rx Instructions: versaframe commode cholecalciferol (vitamin D3) [Vitamin D3] 25 mcg (1,000 unit) Capsule 25 mcg PO DAILY multivitamin with folic acid [Daily-Yumi (with folic acid)] 400 mcg tablet 1 tab PO DAILY pantoprazole [address] for susp in packet 40 mg PO DAILY bisacodyl [Dulcolax (bisacodyl)] 5 mg tablet,delayed release (DR/EC) 20 mg PO ONCE 1 Days Qty: 4 0RF Rx Instructions: Day before procedure, prep day Take 4 tablets by mouth upon awakening followed by large glass of water polyethylene glycol 3350 [Miralax] 17 gram/dose powder 238 g PO ONCE PRN (Reason: laxative effect) 1 Days Qty: 238 0RF Rx Instructions: Take as directed by mouth the day before your procedure. (DME) grab bars for the shower See Rx Instructions .ROUTE .MEDSUPPLY Qty: 1 0RF Rx Instructions: As directed magnesium oxide 400 mg magnesium tablet 400 mg PO DAILY 30 Days Qty: 30 2RF Discontinued acetaminophen 500 mg tablet 1,000 mg PO Q8H PRN (Reason: pain) Discharge Orders: Discharge Order (Routine); Ordered 09/25/23 Ordered By: Radha Davis Diet: Advance to usual diet Activity on Discharge: Use cane or walker Stand Alone Forms: Patient Portal Discharge page Care Plan Goals: restore fxn to left knee Health Concerns: None Plan of Treatment: Physical Therapy for Total knee arthroplasty: WBAT, gait training, ROM 0-12, quad strength * Limit stair climbing * No showering, no tub bath-keep dressing clean, dry and intact * No driving x6 weeks * Continue Aspirin twice a day x 6 weeks * Follow up with [facility] Orthopedics in 2 weeks: 10/09/23 3:00 [facility] Orthopedic SurgeonsRadha Davis PA-C * --you will also have your first out patient PT eval on the day of your post op appt-so please plan on being in the office that day for an extended period of time. Assessment: Stable for discharge
--- NOTE | 2023-09-25 12:01 | W.PM.OPN ---
Operative Note Operative Note Date of Service: 09/24/23 Narrative: Date of Service: 09/24/23 Pre-op diagnosis: left knee OA Post-op diagnosis: same Procedure: Left TKA Implants: [place] Triathlon press fit cruciate retaining (cemented) Surgeon: Jay Beltre MD Anesthesia: regional and spinal Was an Head Of Design used for this Procedure?: Yes Head Of Design: Radha Davis Estimated blood loss (mL): 20 Tourniquet time (min): 45 IV fluids (mL): 800 Pathology: other Condition: stable Disposition: PACU Procedure in detail: The patient was brought to the operating room and prepped and draped in standard sterile fashion. A time-out was called to identify proper site proper procedure proper surgeon and IV antibiotics were administered. 1 g of IV tranexamic acid was administered. I began by making a midline incision to the retinaculum and performed a medial parapatellar arthrotomy. The patella was translated laterally and the knee was flexed up. The medial comaprtment and anterior compartment were eburnated. . I performed a small medial peel and resected the infrapatellar fat pad. [place]'s line was then used to drill my intramedullary femoral guide and my distal femur cut of 10 mm was made in 5 degrees of valgus while protecting the soft tissues. I then measured a # 3 femur and placed my cutting guide and made my anterior posterior and chamfer cuts protecting the soft tissues at all times. Once I was satisfied with my cuts I turned my attention to the tibia. I removed the meniscus medially and laterally and , using an external cutting guide, in line with the tibial crest and the third ray, I made my distal tibial cut in 3 deg slope of while protecting the PCL the posterior soft tissues at all times. An extension block was used to confirm appropriate amount of bony resection. I then sized a #3 tibia and once I was satisfied that there was complete tibial coverage I placed my trial and with the trial femur in place took the knee through range of motion. I was satisfied with the extension and flexion as well as the stability and balance at 0, 30 and 90 degrees. I then turned my attention to the patella where I removed 1 cm from the undersurface of the patella and then trialed a 27s patellar button. Again the knee was taken through range of motion I was satisfied with the tracking. One bag of bone cement was mixed on the back table and the patella was cemented. I then returned to the femur and drilled my femoral lug holes and prepared the tibia. A femoral bone plug was placed and the knee was irrigated copiously. I then press fit the patella, tibia and femur in standard fashion. I trialed different inserts until I selected a #9 insert. The final insert was placed and 9 local TXA was administered. A Werewolf cautery wand was used to maintain hemostasis over the capsule and meniscal beds, the gutters and peripatellar soft tissues. The knee was then closed with a running Quill suture, a 3 0 Vicryl and herman on the skin. Patient was then placed in sterile dressing and brought to recovery room in stable condition there were no known complications.
--- NOTE | 2023-09-25 15:00 | HO.POSTANES ---
Post Anesthesia Evaluation Post Anesthesia Evaluation Date of Service: 09/25/23 Vital Signs: Vital Signs Temp Pulse Resp BP Pulse Ox O2 Del Method 09/25/23 07:43 97.8 F 66 18 140/74 H 95 Room Air 09/25/23 07:28 69 127/69 93 09/25/23 03:17 97.4 F 69 16 127/69 93 Room Air Anesthesia: Spinal and Nerve Block Mental Status: Awake Pain Control: Satisfactory Nausea/Vomiting: None Hydration: Adequate Anesthesia-Related Issues: No Anes. Related Issues
== END 2023-09-25 14:22 | disposition skilled nursing facility (03) | DRG 470 ==
LOC: HO.SSSA 06:29 → HO.S3 11:39
PROVIDERS: Nurse Practitioner; Physician Assistant; Admitting Provider Orthopaedic Surgery; PCP Registered Nurse; Visit Provider Orthopaedic Surgery
PROC: 0SRD0J9 Replacement of Left Knee Joint with Synthetic Substitute, Cemented, Open Approach (ICD-10-PCS; CPT 27447; principal; 2023-09-24 08:40)
DX: M17.12 Unilateral primary osteoarthritis, left knee (principal); G89.18 Other acute postprocedural pain; K21.9 Gastro-esophageal reflux disease without esophagitis; G47.33 Obstructive sleep apnea (adult) (pediatric); Z79.899 Other long term (current) drug therapy
CPT/HCPCS: 36415; 73560; 80048; 83036; 85014; 85018; 85025; 85027; 86850; 86900; 86901; 87640; 87641; 88305; 88311; 97116; 97162; 97530; 99024; C1713; C1776; J0131; J0665; J0690; J1100; J1170; J1596; J1650; J2250; J2405; J2704; J7120

== ENCOUNTER → 2023-09-24 06:24 | Outpatient (BNV) | payer OTHER, SELFPAY | PROVIDERS: Admitting Provider Orthopaedic Surgery; PCP Registered Nurse; Visit Provider Orthopaedic Surgery | DX: Z96.652 Presence of left artificial knee joint (principal) | CPT/HCPCS: 27447; 99024 ==

== ENCOUNTER → 2023-09-24 06:24 | Outpatient (BNV) | payer OTHER, SELFPAY | PROVIDERS: Admitting Provider Orthopaedic Surgery; PCP Registered Nurse; Visit Provider Internal Medicine | DX: K21.9 Gastro-esophageal reflux disease without esophagitis (principal); G47.33 Obstructive sleep apnea (adult) (pediatric); Z47.1 Aftercare following joint replacement surgery | CPT/HCPCS: 99221 ==

== ENCOUNTER 2023-10-09 14:57 | Outpatient (AMB) | payer OTHER, SELFPAY ==
--- NOTE | 2023-10-09 08:42 | A.OFFVIS_ITS ---
Intake Intake Visit Reasons: PO-LT TKA 09/24/23 NE Intake Note: Dayo is a 68 year old female who presents today for a post op appointment s/p left TKA 09/24/22 NE. Patient reports she is doing well, however she is having discomfort where the herman are. She states that icing the knee helps her with the pain. Allergies Penicillins Allergy (Intermediate, Verified 10/09/23 15:07) hives NSAIDS (Non-Steroidal Anti-Inflamma Allergy (Verified 10/09/23 15:07) Gastrointestinal Upset HPI PO-LT TKA 09/24/23 NE HPI Details 68-year-old female returns to the office today status post left total knee arthroplasty 09/24/[address] Beltre. She remains in short-term rehab and will be discharged this coming Friday with home VNA. She states she is doing well with physical therapy she is working on her exercises daily and has no concerns today. [facility] Medical History Back pain Osteoporosis Elevated parathyroid hormone GERD (gastroesophageal reflux disease) Numbness and tingling in left arm DODIE on CPAP Osteoarthritis of left knee Left knee pain Vitamin D deficiency Surgical History Hx of non-cataract eye surgery Hx of carpal tunnel repair History of esophagogastroduodenoscopy (EGD) H/O bariatric surgery History of total abdominal hysterectomy History of cholecystectomy Family History Unknown No family history of colorectal cancer Mother Uterus cancer Social History Household Members: Children Household Members Other:: Lives with her son Housing: House Are you a primary healthcare social worker to a significant other at home: No Do you presently have visiting nurse or other home services: No 75 years or older and lives alone: No Alcohol intake: never Comment: aware of trip hazard Patient Tobacco Use Status: Never used Tobacco Current occupational status: employed 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 No erythema or drainage. Range of motion is 0-90 degrees. She has good quad activation with straight leg raise. Calf supple nontender. Neurovascular intact. Results Reviewed Results Reviewed: Brief Operative Note Date of Service: 09/24/23 Pre-op diagnosis: left knee OA Post-op diagnosis: same Procedure: Left TKA Implants: [place] Triathlon press fit cruciate retaining (cemented) Surgeon: Jay Beltre MD Assessment & Plan Assessment & Plan (1) Status post total knee replacement, left: Code(s): Z96.652 - Presence of left artificial knee joint Plan: Reynolds removed, steri strips applied. She will continue with physical therapy exercises and should have home VNA once discharged from rehab to continue working on ROM and quad strength. No driving for another 4 weeks. She will require ppx abx for dental procedures. She will f/u in 4 weeks, sooner if needed. Coding Level of Care Code Global (15458) Diagnoses Status post total knee replacement, left Z96.652
== END 2023-10-09 15:27 | disposition home or self-care (01) ==
PROVIDERS: PCP Registered Nurse; Visit Provider Physician Assistant
DX: Z96.652 Presence of left artificial knee joint (principal)
CPT/HCPCS: 99024

== ENCOUNTER → 2023-10-09 14:57 | Outpatient (BNVA) | payer OTHER, SELFPAY | PROVIDERS: PCP Registered Nurse; Visit Provider Physician Assistant | DX: Z47.1 Aftercare following joint replacement surgery (principal); Z96.652 Presence of left artificial knee joint | CPT/HCPCS: 99212 ==

== ENCOUNTER 2023-11-06 12:48 | Outpatient (AMB) | payer OTHER, SELFPAY ==
--- NOTE | 2023-11-06 13:05 | A.OFFVIS_ITS ---
Intake Intake Visit Reasons: PO-LT TKA 09/24/23 NE Intake Note: Debby a 68 year old female presents today for a postoperative left TKA 09/24/22 NE. Patient reports that she has been experiencing pain on both side of her knee, stating most of her pain is on the medial aspect of knee. She is scheduled to start outpatient PT on 11/20/23 at [facility]. Allergies Penicillins Allergy (Intermediate, Verified 11/06/23 13:11) hives NSAIDS (Non-Steroidal Anti-Inflamma Allergy (Verified 11/06/23 13:11) Gastrointestinal Upset HPI PO-LT TKA 09/24/23 NE HPI Details 68-year-old female who returns to the [facility] today with an business reporting developer for post-op left TKA, 09/24/[address] Beltre. She states she has pain at the medial aspect of her bilateral knees. She is scheduled for outpatient physical therapy starting from 11/20/23 at [facility]. She is doing well otherwise and has no other concerns today. [facility] Medical History Back pain Osteoporosis Elevated parathyroid hormone GERD (gastroesophageal reflux disease) Numbness and tingling in left arm DODIE on CPAP Osteoarthritis of left knee Left knee pain Vitamin D deficiency Surgical History Hx of non-cataract eye surgery Hx of carpal tunnel repair History of esophagogastroduodenoscopy (EGD) H/O bariatric surgery History of total abdominal hysterectomy History of cholecystectomy Family History Unknown No family history of colorectal cancer Mother Uterus cancer Social History Household Members: Children Household Members Other:: Lives with her son Housing: House Are you a primary child care cook to a significant other at home: No Do you presently have visiting nurse or other home services: No 75 years or older and lives alone: No Alcohol intake: never Comment: aware of trip hazard Patient Tobacco Use Status: Never used Tobacco Current occupational status: employed 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 She has small amount of redness and tenderness to palpation around the knee. ROM is 0-90 degrees. No extension lag noted. Calf supple, nontender. NVI. Assessment & Plan Assessment & Plan (1) Status post total knee replacement, left: Code(s): Z96.652 - Presence of left artificial knee joint Plan Dr. Beltre was available to see the patient with me today. There is no evidence of infection. I did stress the importance of working with physical therapy to improve her ROM and function. She will see me back in [address] Beltre and new x-rays, sooner if needed. Patient Instructions: Scribed for Carlene Velez PA-C, by Law Mcclendon medical assistant dermatology, on 11/06/2023 at 1:30 PM EST. Carlene Peres PA-C, have personally reviewed and agree with the information entered by the scribe. Coding Level of Care Code Global (41420) Diagnoses Status post total knee replacement, left Z96.652
== END 2023-11-06 13:35 | disposition home or self-care (01) ==
PROVIDERS: PCP Registered Nurse; Visit Provider Physician Assistant
DX: Z96.652 Presence of left artificial knee joint (principal)
CPT/HCPCS: 99024

== ENCOUNTER → 2023-11-06 12:48 | Outpatient (BNVA) | payer OTHER, SELFPAY | PROVIDERS: PCP Registered Nurse; Visit Provider Physician Assistant | DX: Z47.1 Aftercare following joint replacement surgery (principal); Z96.652 Presence of left artificial knee joint | CPT/HCPCS: 99212 ==

== ENCOUNTER 2023-11-07 09:25 | Outpatient (AMB) | payer OTHER, SELFPAY ==
--- NOTE | 2023-11-07 09:27 | A.OFFVIS_ITS ---
Intake Vital Signs 11/07/23 09:40 Height 5 ft 4 in Weight 160 lb 8 oz BMI 27.5 BP 124/74 Blood Pressure Location Rt brachial Position Sitting Pulse 78 Pulse Source Pulse Oximeter Pulse Oximetry (%) 94 Oxygen Delivery Method Room Air Intake Visit Reasons: 3M DODIE Intake Note: Patient presents for 3 month DODIE. Allergies Penicillins Allergy (Intermediate, Verified 11/07/23 09:37) hives NSAIDS (Non-Steroidal Anti-Inflamma Allergy (Verified 11/07/23 09:37) Gastrointestinal Upset HPI HPI Comments History of Present Illness Details 68 y/o female patient presents for follo w up of sleep study. edge trimmer ID #[id number] utilized. The PSG sleep study result was significant for a severe degree of sleep apnea. The AHI was 31/hr and oxygen garry was 69%. APAP [id number] ordered. However, she did not get CPAP, she did not pay for copay yet. She had knee replacement surgery done lately and was in rehab for a while. Pt states that she will pay the copay next month, holding CPAP order now. [facility] Medical History (Updated 11/09/23 @ 08:07 by Adria Ashford CNP) DODIE on CPAP Back pain Osteoporosis Elevated parathyroid hormone GERD (gastroesophageal reflux disease) Numbness and tingling in left arm DODIE on CPAP Osteoarthritis of left knee Left knee pain Vitamin D deficiency Surgical History (Updated 11/07/23 @ 09:40 by Radha Alvarez CMA) History of knee replacement Hx of non-cataract eye surgery Hx of carpal tunnel repair History of esophagogastroduodenoscopy (EGD) H/O bariatric surgery History of total abdominal hysterectomy History of cholecystectomy Family History Unknown No family history of colorectal cancer Mother Uterus cancer Social History Household Members: Children Household Members Other:: Lives with her son Housing: House Are you a primary lead care manager to a significant other at home: No Do you presently have visiting nurse or other home services: No 75 years or older and lives alone: No Alcohol intake: never Comment: aware of trip hazard Patient Tobacco Use Status: Never used Tobacco Current occupational status: employed 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 Review of Systems Const All systems reviewed & are unremarkable except as noted in HPI and below ENT Reports Normal hearing present Neuro Reports Normal hearing present Physical Exam Vital Signs: Last Vital Signs Pulse 78 11/07/23 09:40 BP 124/74 11/07/23 09:40 Pulse Ox 94 11/07/23 09:40 Oxygen Delivery Method Room Air 11/07/23 09:40 BMI result Body Mass Index 27.5 Const General: cooperative Nutritional Appearance: obese Orientation/consciousness: patient oriented x3 Limitations: language barrier Neck Neck: Yes full ROM and Yes supple Resp Effort & Inspection: normal respiratory effort and able to speak in complete sentences Neuro General: patient oriented x3, gait normal and moves all extremities Cranial nerves: Yes Bilaterally intact EOM present, Yes Normal facial strength present, Yes Midline tongue present, Yes Symmetric palate elevation present, Yes Normal hearing present and Yes Ability to bilaterally rotate head present Cognition (Neuro): normal cognition Gait exam (Neuro): Normal gait present Motor exam (neuro): 5/5 motor strength present throughout, Pronator motor function not present and no tremor noted Psych Appearance: grossly normal Mental Status: mental status grossly normal Speech and movement: Normal speech and movement present Affect: normal affect Attitude: cooperative Assessment & Plan Assessment & Plan (1) DODIE (obstructive sleep apnea): Comment: Severe degree of sleep apnea. The AHI was 31/hr and oxygen garry was 69% Code(s): G47.33 - Obstructive sleep apnea (adult) (pediatric) Plan Discussed regarding the sleep study result and untreated sleep apnea can increase chronic heart disease. Pt states that she will pay for the copay and will get CPAP next month. Stressed compliance, use CPAP nightly and more than 4 hrs. Coding Level of Care Code Est Pt Level 3 (52180) Diagnoses DODIE (obstructive sleep apnea) G47.33
[2023-11-07 09:40] VITALS: BP 124/74; PULSE 78; O2SAT 94; BMI 27.5
== END 2023-11-07 09:57 | disposition home or self-care (01) ==
PROVIDERS: PCP Registered Nurse; Visit Provider Nurse Practitioner Family
DX: G47.33 Obstructive sleep apnea (adult) (pediatric) (principal)
CPT/HCPCS: 99213

== ENCOUNTER → 2023-11-07 09:25 | Outpatient (BNVA) | payer OTHER, SELFPAY | PROVIDERS: PCP Registered Nurse; Visit Provider Nurse Practitioner Family | DX: G47.33 Obstructive sleep apnea (adult) (pediatric) (principal) | CPT/HCPCS: 99212 ==

== ENCOUNTER 2023-12-03 10:14 | Day surgery (SDC) | payer OTHER, SELFPAY ==
[2023-12-03] VITALS (14 sets, daily range): BP systolic 99–124; BP diastolic 55–82; PULSE 60–81; RESP 14–20; TEMP 36.4–36.9; O2SAT 95–100; BMI 30.5; BMI 28.5
--- NOTE | ~2023-12-03 | CT_ITS ---
EXAMINATION: CT ABDOMEN AND PELVIS WITH CONTRAST CLINICAL INFORMATION: Right lower quadrant pain COMPARISON: None available. TECHNIQUE: Multidetector volumetric images were obtained from the superior aspect of the liver through the pubic symphysis following administration 85 mL of Omnipaque 350 intravenous contrast. Sagittal and coronal reformatted images were obtained on the technologist's workstation. Oral contrast: No This CT examination was performed using dose optimization techniques as appropriate, variously including the following: *Automated exposure control *Adjustment of mA and/or kV according to patient size (this includes techniques or standardized protocols for targeted exams where dose is matched to indication/reason for exam; i.e. extremities or head) *Use of iterative reconstruction technique DLP: 503 mGy-cm FINDINGS: MOBILE HOME MECHANIC: Nonspecific bowel pattern. Multiple surgical clips, left hemipelvic and right iliac densities. LUNG BASES: Mild basilar atelectasis. Prominent heart. No pericardial effusion. LIVER, GALLBLADDER, AND BILIARY TREE: The liver is normal in size, shape, and attenuation. No focal hepatic lesion or biliary ductal dilatation is present. Status post cholecystectomy. PANCREAS: 1.2 cm pancreatic body cystic lesion. No pancreatic ductal dilatation, very pancreatic inflammatory changes or fluid. SPLEEN: Unremarkable. ADRENAL GLANDS: Unremarkable. KIDNEYS AND URETERS: The kidneys are normal in size, shape, and attenuation. No hydronephrosis, hydroureter, or calculi seen. No perinephric stranding. BLADDER: Decompressed. GASTROINTESTINAL TRACT: Hiatal hernia. Anastomotic suture line small caliber stomach. Lungs are mildly dilated left mid abdominal nonthickened small bowel loops measuring up to 2.9 cm in diameter. Possible cecal anastomotic suture lines and clips. Thickened appendix to 1.0 cm containing appendicolith. Surrounding inflammatory stranding and small amount of free pelvic fluid. Decompressed colon. ABDOMINAL WALL: Rectus diastasis LYMPH NODES: Normal. VASCULAR: Mild atherosclerotic calcifications not aneurysmal aorta and tortuous iliac arteries. Unremarkable inferior vena cava and iliac veins. Patent portal system. PELVIC VISCERA: Unremarkable. OSSEOUS AND SOFT TISSUE STRUCTURES: Buttock granulomata. Grade 1 anterolisthesis L4 on L5. CT/CT abdomen pelvis w IV con IMPRESSION: Acute appendicitis. 1.2 cm pancreatic body cystic lesion. Malignancy needs to be excluded. Pancreatic protocol MRI recommended. Fleischner guidelines were followed. At the time of this dictation, PSA service alerted to contact referring physician.
[2023-12-03 10:36] LABS: MANUAL DIFF FLAG NO
[2023-12-03 10:37] LABS: Basophils Percent Auto 0.3 % (0-2); Eosinophils Absolute Auto 0.1 X10*3/uL (0.0-0.4); Eosinophils Percent Auto 1.1 % (0-4); Hemoglobin 13.7 g/dl (12.0-16.0); Imm Gran Abs Auto 0.02 X10*3/uL (0.00-0.03); Imm Gran Pct Auto 0.2 % (0.0-0.4); Lymphocytes Absolute Auto 1.8 X10*3/uL (1.2-4.9); Lymphocytes Percent Auto 17.4 % (20-40); Mean Corpuscular HGB Conc 33.4 g/dl (31.0-35.0); Mean Corpuscular Hemoglobin 31.1 pg (27.0-33.0); Mean Corpuscular Volume 93.2 fL (80.0-98.0); Mean Platelet Volume 9.4 fL (9.4-12.3); Monocytes Absolute Auto 0.9 X10*3/uL (0.1-1.2); Monocytes Percent Auto 8.9 % (2-11); Neutrophils Absolute Auto 7.5 x10*3/uL (2.0-8.3); Neutrophils Percent Auto 72.1 % (45-73); Platelet Count 229 X10*3/uL (160-400); Red Cell Distribution Width 14.2 % (11.0-16.0); White Blood Count 10.4 X10*3/uL (4.8-10.8)
[2023-12-03 11:17] LABS: Influenza A PCR NEGATIVE (Negative); Influenza B PCR NEGATIVE (Negative); Resp Syncy Virus RNA Qual PCR NEGATIVE (Negative); SARS COV2 PCR INHOUSE NEGATIVE (Negative)
[2023-12-03 11:31] LABS: Alanine Aminotransferase 18 U/L (0-31); Albumin Level 3.7 g/dL (3.5-5.0); Alkaline Phosphatase 94 U/L (39-117); Anion Gap 12 (12-20); Aspartate Amino Transferase 26 U/L (5-31); Bilirubin Total 0.7 mg/dL (0.0-1.0); Blood Urea Nitrogen 19 mg/dL (9-16); Calcium 9.2 mg/dL (8.4-10.2); Carbon Dioxide 26 mmol/L (22-29); Chloride 101 mmol/L (96-108); Creatinine Clr Calc Pharmacy 51.8; Estimated Glomerular Filt Rate > 60; Glucose Random 99 mg/dL (60-115); Magnesium 2.3 mg/dL (1.6-2.6); Potassium 3.5 mmol/L (3.3-5.1); Sodium 135 mmol/L (135-145); Total Protein 7.2 g/dL (6.5-8.0)
--- NOTE | 2023-12-03 12:10 | ED_ITS ---
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 Patient states that over the last 3 days she has had right sided abdominal pain with chills and headaches. Patient denies any dizziness, lightheadedness, nausea, vomiting, fever, blurry vision, double vision, loss of vision, chest pain, difficulty breathing, shortness of breath, back pain, night sweats, pain with urination, increased urinary frequency, increased urinary urgency, blood in her urine or stool, syncope or a near syncopal episode, recent trauma or falls, bowel incontinence, bladder incontinence, bowel retention, bladder retention, or any other complaints at this time. MD elicited complaint: abdominal pain Pertinent past history: none Onset (ago): day(s) (3) Pain Consistency: constant Location: RLQ Severity: moderate Pain scale (0-10): 6 Quality: sharp Radiation: none Exacerbating factors: movement Relieving factors: nothing Associated symptoms: chills Related Data Home Medications Medication Instructions Recorded Confirmed multivitamin with folic acid 400 1 tab PO DAILY 07/08/22 09/24/23 mcg tablet (Daily-Yumi (with folic acid)) pantoprazole 40 mg granules 40 mg PO DAILY 07/22/23 09/16/23 delayed-release for susp in packet cholecalciferol (vitamin D3) 25 25 mcg PO DAILY 09/16/23 09/24/23 mcg (1,000 unit) capsule (Vitamin D3) Previous Rx's Medication Instructions Recorded bisacodyl 5 mg tablet,delayed 20 mg (4 x 5 mg) PO ONCE 07/22/23 release (Dulcolax (bisacodyl)) colonoscopy prep 1 day #4 tabs polyethylene glycol 3350 17 238 g PO ONCE PRN laxative effect 07/22/23 gram/dose oral powder (Miralax) 1 day #238 grams walker #1 ea 08/29/23 shower chair #1 ea 09/15/23 grab bars for the shower #1 ea 09/18/23 commode #1 ea 09/19/23 acetaminophen 325 mg tablet 650 mg (2 x 325 mg) PO Q6H PRN 09/25/23 Pain, Mild (Pain Scale 1-3) 30 days #240 tabs celecoxib 200 mg capsule 200 mg PO BID 30 days #60 caps 09/25/23 docusate sodium 100 mg capsule 100 mg PO BID 30 days #60 caps 09/25/23 enoxaparin 40 mg/0.4 mL 40 mg (0.4 mL) subcut Q24H 42 days 09/25/23 subcutaneous syringe #16.8 mL magnesium oxide 400 mg PO DAILY 30 days #30 tabs 10/27/23 Allergies Allergy/AdvReac Type Severity Reaction Status Date / Time NSAIDS (Non-Steroidal Allergy Intermediate Gastrointestinal Verified 12/03/23 14:36 Anti-Inflamma Upset Penicillins Allergy Intermediate hives Verified 12/03/23 14:36 Review of Systems Constitutional: Reports no additional constitutional complaints, Denies chills, Denies fever(s), Reports headache(s) and Denies night sweats Eyes: Reports no additional eye complaints, Denies blurry vision, Denies change in vision, Denies diplopia, Denies eye discharge, Denies loss of vision and Denies eye pain Denies dizziness and Reports headache(s) Cardiovascular: Reports no additional cardiovascular complaints, Denies chest pain, Denies lightheadedness, Denies Loss of Consciousness and Denies dyspnea Respiratory: Reports no additional respiratory complaints and Denies dyspnea Gastrointestinal: Reports no additional gastrointestinal complaints, Reports abdominal pain, Denies melena, Denies hematochezia, Denies change in bowel habits and Denies change in stool character Genitourinary: Denies hematuria, Denies urinary frequency, Denies dysuria, Denies urinary incontinence, Denies urinary hesitancy and Denies urinary urgency Musculoskeletal: Reports no additional musculoskeletal complaints, Denies numbness and Denies tingling Denies dizziness, Reports headache(s), Denies loss of vision, Denies numbness and Denies tingling Psychiatric: Reports no additional psychiatric complaints Endocrine: Reports no additional endocrine complaints Hematologic/Lymphatic: Reports no additional hematologic/lymphatic complaints Allergic/Immunologic: Reports no additional allergic/immunologic complaints PMFSH Past Medical History Attestation statement: The following information was validated with the patient. Source: old records reviewed and nursing notes reviewed Medical History Sinus bradycardia Preoperative cardiovascular examination Left knee pain Encounter for screening colonoscopy DODIE on CPAP Back pain Osteoporosis Elevated parathyroid hormone GERD (gastroesophageal reflux disease) Numbness and tingling in left arm DODIE on CPAP Osteoarthritis of left knee Vitamin D deficiency Surgical History History of knee replacement Hx of non-cataract eye surgery Hx of carpal tunnel repair History of esophagogastroduodenoscopy (EGD) H/O bariatric surgery History of total abdominal hysterectomy History of cholecystectomy Family History Family History Unknown No family history of colorectal cancer Mother Uterus cancer Social History Social History Household Members: Children Household Members Other:: Lives with her son Housing: House Are you a primary critical care nurse practitioner to a significant other at home: No Do you presently have visiting nurse or other home services: No 75 years or older and lives alone: No Alcohol intake: never Comment: aware of trip hazard Patient Tobacco Use Status: Never used Tobacco Advance Directives Date on File: 09/26/23 Current occupational status: employed 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 Physical Exam ED Vital Signs: Vital Signs - 24 hr 12/03/23 10:22 12/03/23 13:57 12/03/23 14:00 Temperature 97.9 F 97.9 F Pulse Rate 81 72 Respiratory Rate 20 18 18 Blood Pressure 124/82 121/73 Pulse Oximetry 98 98 Oxygen Delivery Method Room Air Room Air 12/03/23 14:44 Temperature 98.5 F Pulse Rate 75 Respiratory Rate 16 Blood Pressure 107/70 Pulse Oximetry 96 Oxygen Delivery Method Room Air BMI result Body Mass Index 28.5 Const General: cooperative, no acute distress, alert and awake Nutritional Appearance: well nourished Orientation/consciousness: patient oriented x3 Limitations: no limitations HENMT Head: Yes normal to inspection and Yes atraumatic Ears: hearing grossly normal bilaterally and external ears normal General nose exam: Normal external nose present, no nasal discharge noted and no epistaxis Face and sinus: Yes normal facial exam, No abrasion and No laceration Mouth: Normal oral and palatal mucosa present, no drooling and no muffled voice Eyes General: appearance normal, both eyes and all related structures Periorbital: periorbital findings normal Eyelids: Yes eyelids normal Conjunctivae: conjunctivae normal Pupils: Equal, round and reactive pupils present EOM: EOMs intact bilaterally Neck Neck: Yes normal visual inspection, Yes full ROM and Yes no lymphadenopathy Chest Chest palpation & inspection: normal inspection of the chest Resp Effort & Inspection: normal respiratory effort and able to speak in complete sentences GI Inspection: Yes normal to inspection Palpation (GI): Soft to palpation, not firm, Tenderness to palpation present (GI) in the RLQ, Guarding due to palpation present (GI) and not rigid Neuro General: patient oriented x3 and moves all extremities Cranial nerves: Yes Equal, round and reactive pupils present Cognition (Neuro): normal cognition Motor exam (neuro): 5/5 motor strength present throughout Sensory Exam: Normal double simultaneous stimulation for sensation Coordination: [id number] test normal Extrem General: Yes normal to inspection, Yes full ROM and Yes capillary refill normal Psych Appearance: grossly normal Mental Status: mental status grossly normal Affect: normal affect Attitude: cooperative Thought process: Normal thought process present Thought content: Normal thought content present Insight: Good insight present (Psych) Course Course Course Narrative: This is an RME: Additional HPI, ROS, PE not included below will be deferred to primary provider. This is a 68 y/o malay speaking female who presents to the ER with a complaint of right lower abdominal pain x 3 days. She endorses chills and subjective fevers. No urinary symptoms. Was seen by UC and was told to come to the ER due to concerns for appendicitis. TTP overlying RLQ. Plan: Labs, CT abd/pelvis Medical Decision Making Medical Decision Making MDM Narrative: Patient is a 68 year old assigned female at with a history of GERD and gastric sleeve years ago presenting to the emergency department today with abdominal pain. Patient's physical exam was as noted in the physical exam portion of this note. Patient's blood work was unremarkable. Patient's urine showed no acute process. Patient's CT abdomen/pelvis showed acute appendicitis as well as a 1.2cm pancreatic mass. I spoke to the general surgery team who recommended she have an appendectomy. I explained my physical exam findings as well as all test results to the patient and the patient's son. I answered all questions asked by the patient and the patient's son. I stressed the importance of the patient following up on the incidental 1.2cm pancreatic mass finding on her abdomen/pelvis CT on an outpatient basis with a GI specialist, her primary care provider, and the heme/onc team. Patient and the patient's son verbalized agreement and understanding with this treatment plan and transfer to the operating room. Differential Diagnosis Differential Diagnoses: The differential diagnosis associated with the presentation includes Appendicitis Abdominal pain Admission/Observation Consideration of admission/observation: Escalation of care including admission/observation considered Patient going to the OR with Dr. Navarrete Consult Healthcare Provider Management of the patient was discussed with: Restaurant Shift Leader (spoke with the surgical team as noted in the MDM Rationale portion of this note.) Lab Data [facility] Lab Attestation statement: I reviewed the patient's lab results. My interpretation of these results are in the MDM Rationale portion of this note. 12/03/23 10:30 12/03/23 10:30 Labs: Lab Results 12/03/23 12/03/23 Range/Units 10:30 14:12 WBC 10.4 (4.8-10.8) X10*3/uL RBC 4.40 (4.20-5.50) X10*6/uL Hgb 13.7 (12.0-16.0) g/dl Hct 41.0 (37.0-47.0) % MCV 93.2 (80.0-98.0) fL MCH 31.1 (27.0-33.0) pg MCHC 33.4 (31.0-35.0) g/dl RDW 14.2 (11.0-16.0) % Plt Count 229 (160-400) X10*3/uL MPV 9.4 (9.4-12.3) fL Immature Gran % (Auto) 0.2 (0.0-0.4) % Neut % (Auto) 72.1 (45-73) % Lymph % (Auto) 17.4 L (20-40) % Hardeman % (Auto) 8.9 (2-11) % Eos % (Auto) 1.1 (0-4) % Baso % (Auto) 0.3 (0-2) % Lymph # (Auto) 1.8 (1.2-4.9) X10*3/uL Hardeman # (Auto) 0.9 (0.1-1.2) X10*3/uL Eos # (Auto) 0.1 (0.0-0.4) X10*3/uL Baso # (Auto) 0.0 (0.0-0.2) X10*3/uL Abs Immat Gran (auto) 0.02 (0.00-0.03) X10*3/uL Absolute Neuts (auto) 7.5 (2.0-8.3) x10*3/uL Absolute Nucleated RBC 0.000 (0.0-0.012) X10*3/uL Nucleated RBC % (auto) 0.0 (0.0-0.2) /100WBC Sodium 135 (135-145) mmol/L Potassium 3.5 D (3.3-5.1) mmol/L Chloride 101 (96-108) mmol/L Carbon Dioxide 26 (22-29) mmol/L Anion Gap 12 (12-20) BUN 19 H (9-16) mg/dL Creatinine 0.90 (0.5-1.4) mg/dL Estim Creat Clear Calc 51.8 Estimated GFR > 60 Random Glucose 99 (60-115) mg/dL Calcium 9.2 (8.4-10.2) mg/dL Magnesium 2.3 (1.6-2.6) mg/dL Total Bilirubin 0.7 (0.0-1.0) mg/dL AST 26 (5-31) U/L ALT 18 (0-31) U/L Alkaline Phosphatase 94 (39-117) U/L Total Protein 7.2 (6.5-8.0) g/dL Albumin 3.7 (3.5-5.0) g/dL Amylase 61 (28-100) U/L Lipase 38 (8-78) U/L Urine Color Yellow Urine Appearance Clear Urine pH 5.0 (5.0-9.0) Ur Specific Clayton >= 1.030 H (1.005-1.025) Urine Protein Negative (Neg-Trace) mg/dL Urine Glucose (UA) Negative (Negative) mg/dL Urine Ketones 15 (Negative) mg/dL Urine Blood Small (1+) H (Negative) Urine Nitrite Negative (Negative) Ur Leukocyte Esterase Negative (Negative) Urine RBC 0-2 (0-2) /HPF Urine WBC 0-5 (0-5) /HPF Ur Squamous Epith Cells 0-2 (0-2) /HPF Urine Bacteria None Seen (None Seen) Hyaline Casts 0-2 (0-2) /LPF Influenza Type A (PCR) NEGATIVE (Negative) Influenza Type B (PCR) NEGATIVE (Negative) RSV RNA Qual (PCR) NEGATIVE (Negative) SARS-CoV-2 RNA (RT-PCR) NEGATIVE (Negative) Independent Interpretation I performed an independent interpretation of an: CT Scan Interpretation: My interpretation is in agreement with the radiologist's impression of this imaging study. - EXAMINATION: CT ABDOMEN AND PELVIS WITH CONTRAST CLINICAL INFORMATION: Right lower quadrant pain COMPARISON: None available. TECHNIQUE: Multidetector volumetric images were obtained from the superior aspect of the liver through the pubic symphysis following administration 85 mL of Omnipaque 350 intravenous contrast. Sagittal and coronal reformatted images were obtained on the technologist's workstation. Oral contrast: No This CT examination was performed using dose optimization techniques as appropriate, variously including the following: *Automated exposure control *Adjustment of mA and/or kV according to patient size (this includes techniques or standardized protocols for targeted exams where dose is matched to indication/reason for exam; i.e. extremities or head) *Use of iterative reconstruction technique DLP: 503 mGy-cm FINDINGS: STOCK PARTS FABRICATOR: Nonspecific bowel pattern. Multiple surgical clips, left hemipelvic and right iliac densities. LUNG BASES: Mild basilar atelectasis. Prominent heart. No pericardial effusion. LIVER, GALLBLADDER, AND BILIARY TREE: The liver is normal in size, shape, and attenuation. No focal hepatic lesion or biliary ductal dilatation is present. Status post cholecystectomy. PANCREAS: 1.2 cm pancreatic body cystic lesion. No pancreatic ductal dilatation, very pancreatic inflammatory changes or fluid. SPLEEN: Unremarkable. ADRENAL GLANDS: Unremarkable. KIDNEYS AND URETERS: The kidneys are normal in size, shape, and attenuation. No hydronephrosis, hydroureter, or calculi seen. No perinephric stranding. BLADDER: Decompressed. GASTROINTESTINAL TRACT: Hiatal hernia. Anastomotic suture line small caliber stomach. Lungs are mildly dilated left mid abdominal nonthickened small bowel loops measuring up to 2.9 cm in diameter. Possible cecal anastomotic suture lines and clips. Thickened appendix to 1.0 cm containing appendicolith. Surrounding inflammatory stranding and small amount of free pelvic fluid. Decompressed colon. ABDOMINAL WALL: Rectus diastasis LYMPH NODES: Normal. VASCULAR: Mild atherosclerotic calcifications not aneurysmal aorta and tortuous iliac arteries. Unremarkable inferior vena cava and iliac veins. Patent portal system. PELVIC VISCERA: Unremarkable. OSSEOUS AND SOFT TISSUE STRUCTURES: Buttock granulomata. Grade 1 anterolisthesis L4 on L5. CT/CT abdomen pelvis w IV con IMPRESSION: Acute appendicitis. 1.2 cm pancreatic body cystic lesion. Malignancy needs to be excluded. Pancreatic protocol MRI recommended. Fleischner guidelines were followed. At the time of this dictation, PSA service alerted to contact referring physician. Dictated By: Caitlin Barahona MD Signed By: Electronically signed by Caitlin Barahona MD 12/03/23 1326 Radiology Impression Discussion of test interpretation with radiology: I have reviewed the radiologist's reading. Independent Historian Clinical information obtained from an independent historian. History obtained from or confirmed by: Other (patient's son provided additional history and confirmed the history provided by the patient.) Medications Administered Generic Name Dose Route Start Last Admin Trade Name Freq PRN Reason Stop Dose Admin Lactated Ringer's 1,000 mls @ 100 mls/hr 12/03/23 14:00 12/03/23 14:46 Lr IVCONT 100 mls/hr .Q10H MATTI Administration Discontinued Medications Generic Name Dose Route Start Last Admin Trade Name Freq PRN Reason Stop Dose Admin Iohexol 100 ml 12/03/23 12:21 12/03/23 12:24 Iohexol 350 Mg/Ml 100 Ml Infus..Btl IV 12/03/23 12:22 85 ml ONCE ONE Administration Morphine Sulfate 4 mg 12/03/23 13:03 12/03/23 13:57 Morphine Sulfate 4 Mg/Ml Cartridge IVPUSH 12/03/23 13:04 4 mg ONCE ONE Administration Protocol Ondansetron HCl 4 mg 12/03/23 13:03 12/03/23 13:57 Ondansetron Hcl 4 Mg/2 Ml Vial IVPUSH 12/03/23 13:04 4 mg ONCE ONE Administration Critical Care Time Critical Care Time Critical Care Time: Yes Total Critical Care Time: 131 Attestation: I spent 131 minutes of Critical Care Time with this patient. This does not include time spent on separately reported billable procedures. Discharge Plan Discharge Clinical Impression: Acute appendicitis, Mass of pancreas Patient Disposition: Admitted As Inpatient Interventions: Admission Worksheet (ED) Last Done: 12/03/23 14:22 Discharge Date/Time: 12/03/23 14:20
[2023-12-03] MEDS: iohexoL 350 MG/ML 100 ML INFUS..BTL IV (12:24)
[2023-12-03] MEDS: Morphine Sulfate 4 MG/ML CARTRIDGE IVPUSH (13:57)
[2023-12-03] MEDS: ondansetron HCL 4 MG/2 ML VIAL IVPUSH (13:57)
--- NOTE | 2023-12-03 14:01 | PM.HPGS ---
History of Present Illness History of Present Illness Date of Service: 12/03/23 Chief complaint: Sent by Dr Taniya kirk pain & chills 3 days Narrative: Debby Gallardo is a 68 year old female presenting with complaints of abdominal pain in the right lower quadrant. The pain began on Friday and increased in severity over the next 2 days. She presented to the emergency department at [facility] yesterday but was never evaluated and subsequently went home. She was seen by [facility] today and diagnosed with possible appendicitis. Subsequent presentation to the emergency department at [facility] confirmed tenderness in the right lower quadrant and left lower quadrant, normal WBC but CT significant for inflamed appendix with fecalith. Incidentally noted was a pancreatic mass which will require further evaluation. Patient's past history is significant for laparoscopic sleeve gastrectomy performed in [place]. She is also status post hysterectomy and cholecystectomy. Review of Systems Review of Systems: Yes all other systems are reviewed and are negative Gastrointestinal: Gastrointestinal: Reports abdominal pain PMFSH Past Medical History Medical History Sinus bradycardia Preoperative cardiovascular examination Left knee pain Encounter for screening colonoscopy DODIE on CPAP Back pain Osteoporosis Elevated parathyroid hormone GERD (gastroesophageal reflux disease) Numbness and tingling in left arm DODIE on CPAP Osteoarthritis of left knee Vitamin D deficiency Family History Family History Unknown No family history of colorectal cancer Mother Uterus cancer Surgical History Surgical History History of knee replacement Hx of non-cataract eye surgery Hx of carpal tunnel repair History of esophagogastroduodenoscopy (EGD) H/O bariatric surgery History of total abdominal hysterectomy History of cholecystectomy Social History Social History Household Members: Children Household Members Other:: Lives with her son Housing: House Are you a primary career discovery teacher to a significant other at home: No Do you presently have visiting nurse or other home services: No Alcohol intake: never Comment: aware of trip hazard Patient Tobacco Use Status: Never used Tobacco Advance Directives: Yes Advance Directives on File: Yes Advance Directives Date on File: 09/26/23 Current occupational status: employed 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 Meds Allergies Allergy/AdvReac Type Severity Reaction Status Date / Time Penicillins Allergy Intermediate hives Verified 11/07/23 09:37 NSAIDS (Non-Steroidal Allergy Gastrointestinal Verified 11/07/23 09:37 Anti-Inflamma Upset Active Medications: Current Medications Lactated Ringer's (Lr) 1,000 mls @ 100 mls/hr IVCONT .Q10H MATTI Metronidazole (Flagyl) 500 mg in 100 mls @ 100 mls/hr IV PREOP ONE Stop: 12/03/23 14:56 Home Medications Medication Instructions Recorded Confirmed Last Taken Type multivitamin with folic acid 400 1 tab PO DAILY 07/08/22 09/24/23 09/19/23 History mcg tablet (Daily-Yumi (with folic acid)) pantoprazole 40 mg granules 40 mg PO DAILY 07/22/23 09/16/23 09/24/23 History delayed-release for susp in packet cholecalciferol (vitamin D3) 25 25 mcg PO DAILY 09/16/23 09/24/23 09/19/23 History mcg (1,000 unit) capsule (Vitamin D3) Physical Exam Vital Signs: Vital Signs: Last Vital Signs Temp 97.9 F 12/03/23 14:00 Pulse 72 12/03/23 14:00 Resp 18 12/03/23 14:00 BP 121/73 12/03/23 14:00 Pulse Ox 98 12/03/23 14:00 O2 Del Method Room Air 12/03/23 14:00 BMI result Body Mass Index 30.5 Const: General: cooperative and no acute distress Nutritional Appearance: well nourished Orientation/consciousness: patient oriented x3 Limitations: no limitations HEENT: Head: Yes normocephalic and Yes atraumatic Ears: hearing grossly normal bilaterally Resp: Effort & Inspection: normal respiratory effort, no audible wheezes, no cough and no respiratory distress Cardio: Jugular venous distension: no JVD GI: Inspection: Yes normal to inspection Palpation (GI): Soft to palpation, Tenderness to palpation present (GI) in the LLQ, in the RUQ, with rebound tenderness and Rovsing's sign positive, Guarding due to palpation present (GI), not rigid and No hepatosplenomegaly present Percussion: Yes normal to percussion Auscultation: normal bowel sounds Rectal Exam - Female: deferred Skin: Other: Warm, dry, no rash Neuro: General: patient oriented x3 Extrem: General: Yes no clubbing, cyanosis or edema Results Results Labs: Short CBC 12/03/23 Range/Units 10:30 WBC 10.4 (4.8-10.8) X10*3/uL Hgb 13.7 (12.0-16.0) g/dl Hct 41.0 (37.0-47.0) % Plt Count 229 (160-400) X10*3/uL BMP 12/03/23 10:30 Sodium 135 Potassium 3.5 D Chloride 101 Carbon Dioxide 26 BUN 19 H Creatinine 0.90 Calcium 9.2 Liver Function 12/03/23 Range/Units 10:30 Total Bilirubin 0.7 (0.0-1.0) mg/dL AST 26 (5-31) U/L ALT 18 (0-31) U/L Alkaline Phosphatase 94 (39-117) U/L Albumin 3.7 (3.5-5.0) g/dL Abdomen CT scan report/results: image reviewed CT scan - pelvis: image reviewed Assessment and Plan (1) Acute appendicitis: Qualifiers: Acute appendicitis type: with localized peritonitis Appendicitis gangrene presence: without gangrene Appendicitis perforation presence: without perforation Appendicitis abscess presence: without abscess Qualified Code(s): K35.30 - Acute appendicitis with localized peritonitis, without perforation or gangrene Status: Acute Plan 68-year-old female patient presenting with a 3 day history of abdominal pain radiating into the right lower quadrant found to be tender in the right lower quadrant. CT abdomen and pelvis confirmed acute appendicitis with a fecalith. WBC is normal. I recommended a laparoscopic or possible open appendectomy and after discussion of the procedure, risks, and alternatives, she consents to the procedure. She has been added onto the operative schedule for today. Quality Stroke Does the patient have a stroke diagnosis?: No VTE Prior VTE?: No VTE Risk Level:: Surgical - moderate VTE Device Contraindication: N/A - Device Ordered VTE Drug Contraindication: Treatment Not Indicated Procedures Date of Service Date of Service: 12/03/23
[2023-12-03 14:05] LABS: Amylase 61 U/L (28-100); Lipase 38 U/L (8-78)
[2023-12-03 14:23] LABS: Appearance Urine Clear; Color Urine Yellow; Glucose Urine UA Negative (Negative); Leukocyte Esterase Urine Negative (Negative); Nitrite Urine Negative (Negative); Specific Gravity - Urine >= 1.030 (1.005-1.025); UMIC TRIGGER UACC YES; Urine Blood Small (1+) (Negative); Urine Ketones 15 mg/dL (Negative); Urine Protein Negative (Neg-Trace)
--- NOTE | 2023-12-03 14:25 | HO.ANESPROP2 ---
HPI - Anesthesia Eval Consult details Narrative: 68 yo female patient with acute appendicitis.For laparoscopic appendectomy PMFSH Active Problems Active Problems: All Active Problems (Updated 12/03/23 @ 14:27 by Azalia Andre MD) Acute appendicitis (Acute). Denies nausea or vomiting DODIE (obstructive sleep apnea) (Acute)- severe. Not using CPAP Machine Status post total knee replacement, left (Acute) 09/2023. 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 (Acute) Varicose veins of left lower extremity with inflammation (Acute) Cubital tunnel syndrome on left (Acute) Carpal tunnel syndrome on left (Acute) H/O bariatric surgery (Acute) Osteoarthritis of left knee (Acute) Vitamin D deficiency (Acute) lncidental finding of pancreatic mass on CT scan which will require further evaluation Past Medical History Medical History (Updated 12/03/23 @ 15:45 by Azalia Andre MD) Sinus bradycardia Preoperative cardiovascular examination Left knee pain Encounter for screening colonoscopy DODIE on CPAP Back pain Osteoporosis Elevated parathyroid hormone GERD (gastroesophageal reflux disease) Numbness and tingling in left arm Osteoarthritis of left knee Vitamin D deficiency Family History Family History Unknown No family history of colorectal cancer Mother Uterus cancer Family history of problems with anesthesia: No Surgical History Surgical History History of knee replacement Hx of non-cataract eye surgery Hx of carpal tunnel repair History of esophagogastroduodenoscopy (EGD) H/O bariatric surgery History of total abdominal hysterectomy History of cholecystectomy History of Problems with Anesthesia: No Social History Social History Household Members: Children Household Members Other:: Lives with her son Housing: House Are you a primary certified social workers in health care to a significant other at home: No Do you presently have visiting nurse or other home services: No 75 years or older and lives alone: No Alcohol intake: never Comment: aware of trip hazard Patient Tobacco Use Status: Never used Tobacco Advance Directives Date on File: 09/26/23 Current occupational status: employed 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 Meds Allergies Allergy/AdvReac Type Severity Reaction Status Date / Time NSAIDS (Non-Steroidal Allergy Intermediate Gastrointestinal Verified 12/03/23 14:36 Anti-Inflamma Upset Penicillins Allergy Intermediate hives Verified 12/03/23 14:36 Active Medications: Current Medications Lactated Ringer's (Lr) 1,000 mls @ 100 mls/hr IVCONT .Q10H MATTI Metronidazole (Flagyl) 500 mg in 100 mls @ 100 mls/hr IV PREOP ONE Stop: 12/03/23 14:56 Home Medications Medication Instructions Recorded Confirmed Last Taken Type multivitamin with folic acid 400 1 tab PO DAILY 07/08/22 09/24/23 09/19/23 History mcg tablet (Daily-Yumi (with folic acid)) pantoprazole 40 mg granules 40 mg PO DAILY 07/22/23 09/16/23 09/24/23 History delayed-release for susp in packet cholecalciferol (vitamin D3) 25 25 mcg PO DAILY 09/16/23 09/24/23 09/19/23 History mcg (1,000 unit) capsule (Vitamin D3) Exam Height,Weight and Vital Signs: Height 5 ft 2 Weight 70.76 kg Last Vital Signs Temp 97.9 F 12/03/23 14:00 Pulse 72 12/03/23 14:00 Resp 18 12/03/23 14:00 BP 121/73 12/03/23 14:00 Pulse Ox 98 12/03/23 14:00 O2 Del Method Room Air 12/03/23 14:00 Vital Signs Temp Pulse Resp BP Pulse Ox O2 Del Method 12/03/23 14:44 98.5 F 75 16 107/70 96 Room Air 12/03/23 14:00 97.9 F 72 18 121/73 98 Room Air 12/03/23 13:57 18 12/03/23 10:22 97.9 F 81 20 124/82 98 Room Air Pertinent Lab Results Pertinent Lab Results: Laboratory Tests 12/03/23 12/03/23 10:30 14:12 WBC 10.4 RBC 4.40 Hgb 13.7 Hct 41.0 MCV 93.2 MCH 31.1 MCHC 33.4 RDW 14.2 Plt Count 229 MPV 9.4 Immature Gran % (Auto) 0.2 Neut % (Auto) 72.1 Lymph % (Auto) 17.4 L [place] % (Auto) 8.9 Eos % (Auto) 1.1 Baso % (Auto) 0.3 Lymph # (Auto) 1.8 [place] # (Auto) 0.9 Eos # (Auto) 0.1 Baso # (Auto) 0.0 Abs Immat Gran (auto) 0.02 Absolute Neuts (auto) 7.5 Absolute Nucleated RBC 0.000 Nucleated RBC % (auto) 0.0 Sodium 135 Potassium 3.5 D Chloride 101 Carbon Dioxide 26 Anion Gap 12 BUN 19 H Creatinine 0.90 Estim Creat Clear Calc 51.8 Estimated GFR > 60 Random Glucose 99 Calcium 9.2 Magnesium 2.3 Total Bilirubin 0.7 AST 26 ALT 18 Alkaline Phosphatase 94 Total Protein 7.2 Albumin 3.7 Amylase 61 Lipase 38 Urine Color Yellow Urine Appearance Clear Urine pH 5.0 Ur Specific [place] >= 1.030 H Urine Protein Negative Urine Glucose (UA) Negative Urine Ketones 15 Urine Blood Small (1+) H Urine Nitrite Negative Ur Leukocyte Esterase Negative Influenza Type A (PCR) NEGATIVE Influenza Type B (PCR) NEGATIVE RSV RNA Qual (PCR) NEGATIVE SARS-CoV-2 RNA (RT-PCR) NEGATIVE Airway Mallampati Class: II TM Dist: >3cm Neck ROM: Full Loose/Missing/Broken Teeth: No (Permanent bridge intact. Denies broken, loose teeth) Heart: RRR Lungs: CTAB Assessment and Plan Assessment Anesthesia Assessment: Anesthesia Plan Discussed and Chart Reviewed Final Anesthetic Review Family History of Problems with Anesthesia: No History of Problems with Anesthesia: No NPO: Yes ASA Class: III and Emergency Final Preanesthetic Review: No Changes in Pt Med Stat, Meds/Allgs Chart Reviewed, Consent Obtained/Reviewed and Anes Risks/Benef Reviewed Patient Risk: Intermediate Procedure Risk: Intermediate Assessment/Block/Sedation in : Assess/Block/Sedation- Anesthetic Plan Anesthetic Plan: GA Disposition: Standard PACU and Inp. Admit - Standard Bed
[2023-12-03 14:29] LABS: Bacteria Urine None Seen (None Seen); Hyaline Casts Urine 0-2 /LPF (0-2); RBC Urine 0-2 /HPF (0-2); Squamous Epithelial Cell Urine 0-2 /HPF (0-2); WBC Urine 0-5 /HPF (0-5)
--- NOTE | 2023-12-03 14:41 | P.OP_ITS ---
Operative Note Operative Note Date of Service: 12/03/23 Narrative: Preoperative diagnosis: Acute appendicitis Postoperative diagnosis: Same Procedure: Laparoscopic appendectomy Surgeon: Cesar Yeung MD Prestressed Concrete Laborer:Nicole Denson PA-C; JUSTA Freedman Anesthesia: General endotracheal Indications for procedure: 68-year-old female patient presenting with complaints of abdominal pain in the right lower quadrant of 2 days' duration. Patient was found to have tenderness in the right lower quadrant over McBurney's point. CT abdomen and pelvis confirmed acute appendicitis with fecalith. Operative findings: Dense adhesions from prior pelvic surgery requiring ext ensive lysis of adhesions. Dropped clip from previous procedure noted with an abdomen removed. Acute appendicitis with surrounding phlegmon but without perforation or abscess identified. Gangrenous appendix at base at site of fecalith. Specimen: Appendix Estimated blood loss: 3 mL Complications: None Procedure details: Patient was brought to the OR and placed in a supine position. After administering general anesthesia the patient's abdomen was prepped with ChloraPrep and draped in a sterile fashion. A surgical time-out was called and consent confirmed. Patient received preoperative antibiotics and Venodyne boots were in place. Local anesthesia consisting of 0.5% Sensorcaine with epinephrine was infiltrated in periumbilical region. A 5 mm incision was made below the umbilicus and carried down through subcutaneous tissue. A Veress needle was then inserted while elevating abdominal cavity with towel clips. After a positive drop test the abdomen was insufflated to a pressure of 15 mm of mercury. The Veress needle was removed and a 5 mm trocar inserted. The camera was then inserted in the abdomen explored. A 2nd 5 mm trocars placed in the lower midline. A 12 mm trocar was then placed in the left lower quadrant. The patient was then placed in a Trendelenburg position and rotated to the left. The dense adhesions were taken down off of the anterior abdominal wall using LigaSure to allow better visualization of the right lower quadrant. A drop clip was identified within the omentum and removed. This appears to be a hemoclip, previous procedure. The appendix was identified in the right lower quadrant and brought up using blunt dissecting clamps. The mesentery of the appendix was then divided using the LigaSure. The appendiceal artery was cauterized and divided using the LigaSure. Dissection was continued down to the base of the cecum. An Endo-EDGAR stapler with a purple reload was then used to divide the appendix at the base with the cecum. The appendix was then placed in Endo-Catch bag and brought out through the left lower quadrant incision. The abdomen was then irrigated with saline solution and suctioned dry. Wounds were checked for hemostasis. CO2 was then evacuated from the abdominal cavity and all trocars removed. Fascia was closed in the left lower quadrant incision using a [id number] 0 Polysorb suture. Skin was closed at all incisions using a subcuticular 4-0 Polysorb suture. Steri-Strips 2 x 2 gauze and Tegaderm were then applied. The patient tolerated the procedure well. Sponge, instrument, needle counts repo rted as correct. The patient was transferred to PACU in stable condition.
[2023-12-03] MEDS: Lactated Ringers 1,000 ML 100 ML IVCONT ×2 (14:46→18:21)
--- NOTE | 2023-12-03 15:07 | PC.NURSE ---
Per patient request, sayra Friend contacted via phone. Phuc made aware that patient is having surgical procedure today and is currently in the OR.
[2023-12-03] MEDS: Acetaminophen 1,000 MG/100 ML PIGGYBACK 400 MG IV ×3 (16:35→23:34)
[2023-12-03] MEDS: fentaNYL citrate/PF 100 MCG/2 ML VIAL 25 MCG IVPUSH ×2 (16:40→16:45)
[2023-12-03] MEDS: 0.9 % Sodium Chloride Flush 3 ML SYRINGE IVFLUSH (18:32)
[2023-12-04] MEDS: Lactated Ringers 1,000 ML 100 ML IVCONT (02:24)
[2023-12-04 02:41] VITALS: BP 98/60; PULSE 57; RESP 16; TEMP 36.7; O2SAT 96
[2023-12-04] MEDS: oxyCODONE HCl Immed Release 5 MG TABLET PO ×2 (02:57→16:12)
[2023-12-04] MEDS: Acetaminophen 1,000 MG/100 ML PIGGYBACK 400 MG IV ×2 (06:02→11:56)
[2023-12-04 06:56] VITALS: BP 97/53; PULSE 55; RESP 16; TEMP 36.5; O2SAT 93
--- NOTE | 2023-12-04 11:53 | P.DS_ITS ---
DS: Providers Provider Date of Service: 12/04/23 Primary care physician: VENITA Morrell Admitting clinician: Cesar Yeung Discharging clinician: Cesar Yeung DS: Diagnosis Discharge Diagnosis (1) Acute appendicitis: Status: Acute DS: Summary Hospital Course Hospital Course: 68-year-old female patient presenting to the emergency department with complaints of right lowerQuadrant abdominal pain. The pain began approximately 3 days prior to presentation in was located mainly in the right lower quadrant. Over the next several days the pain increased in severity and is associated with nausea and vomiting. She subsequently presented to the emergency department on 12/03/2023. Evaluation revealed a normal WBC however CT abdomen and pelvis was significant for a thickened appendix with fecalith. on examination she was noted to be tender in the right lower quadrant with localized rebound and guarding. Findings were suggestive of acute appendicitis. She was subsequently taken to the OR on 12/03/2023 for laparoscopic appendectomy. Operative findings were consistent with acute appendicitisWithout perforation. She underwent an uneventful appendectomy and subsequently transferred to PACU in stable condition. She tolerated regular diet on the evening of postoperative day 0. On postoperative day 1 she is tolerating regular diet and is comfortable using oral pain medication. She denies nausea or vomiting and was able to ambulate independently. She will be discharged to home today and will follow-up in the office in approximately 2 weeks. She will be given a prescription for oxycodone as needed for pain. She should also take MiraLax as needed for constipation. I recommended she call the office for follow-up appointment. She should also call for fever, chills, nausea, vomiting, or other abdominal symptoms. She was also noted to have a possible mass in the pancreas in the body which will need further workup. She will need to follow-up with Gastroenterology and oncology as an outpatient. Patient was informed of the findings by the ER Physician. Status at Discharge Functional status at discharge: independent ambulation Overall status at discharge: patient is back to baseline Time Attestation Discharge Coordination Time (in mins): 25 Quality: Safe Use of Opioids Does Pt have an Active Cancer Diagnosis on the Problem List?: No Quality: Stroke Does the patient have a stroke diagnosis?: No Physical Exam Vital Signs: Vital Signs: Last Vital Signs Temp 97.7 F 12/04/23 06:56 Pulse 55 12/04/23 06:56 Resp 16 12/04/23 06:56 BP 97/53 L 12/04/23 06:56 Pulse Ox 93 12/04/23 06:56 O2 Del Method Room Air 12/04/23 06:56 O2 Flow Rate 3 12/03/23 17:02 BMI result Body Mass Index 28.5 Const: General: no acute distress Nutritional Appearance: well nourished Orientation/consciousness: patient oriented x3 Limitations: no limitations Resp: Effort & Inspection: normal respiratory effort GI: Other: Soft and nondistended. Trocar incisions are clean, dry, and intact with intact dressings. Neuro: General: patient oriented x3 Extrem: Other: No peripheral edema DS: Data Data Completed and Pending Completed studies during hospitalization [Text1]: Procedures Introduction of Anesthetic Agent into Peripheral Nerves and Plexi, Percutaneous Approach (09/24/23) Replacement of Left Knee Joint with Synthetic Substitute, Cemented, Open Joseph valdez (09/24/23) Pending studies at discharge: Pending at discharge 12/03/23 15:57 Surgical [PTH] Routine Labs on day of discharge: Laboratory Results - last 24 hr 12/03/23 12/03/23 10:30 14:12 Amylase 61 Lipase 38 Urine Color Yellow Urine Appearance Clear Urine pH 5.0 Ur Specific [place] >= 1.030 H Urine Protein Negative Urine Glucose (UA) Negative Urine Ketones 15 Urine Blood Small (1+) H Urine Nitrite Negative Ur Leukocyte Esterase Negative Urine RBC 0-2 Urine WBC 0-5 Ur Squamous Epith Cells 0-2 Urine Bacteria None Seen Hyaline Casts 0-2 Discharge Plan Discharge Patient Disposition: Home, Self-Care Referrals: Cesar Yeung MD [Physician] - 2 Weeks Dot Landaverde FNP [Primary Care Provider] - 1 Week Discharge Medications: New oxycodone 5 mg tablet 5 mg PO Q6H PRN (Reason: pain (scale score 7-10)) Qty: 15 0RF Rx Instructions: Partial Fill upon patient request. Continued (DME) walker Misc See Rx Instructions .MEDSUPPLY Qty: 1 0RF Rx Instructions: Folding Front wheeled walker (DME) shower chair See Rx Instructions .ROUTE .MEDSUPPLY Qty: 1 0RF Rx Instructions: As directed (DME) commode See Rx Instructions .ROUTE .MEDSUPPLY Qty: 1 0RF Rx Instructions: versaframe commode magnesium oxide 400 mg magnesium tablet 400 mg PO DAILY 30 Days Qty: 30 2RF cholecalciferol (vitamin D3) [Vitamin D3] 25 mcg (1,000 unit) Capsule 25 mcg PO DAILY acetaminophen 325 mg Tablet 650 mg PO Q6H PRN (Reason: Pain, Mild (Pain Scale 1-3)) 30 Days Qty: 240 0RF multivitamin with folic acid [Daily-Yumi (with folic acid)] 400 mcg tablet 1 tab PO DAILY pantoprazole [address] for susp in packet 40 mg PO DAILY bisacodyl [Dulcolax (bisacodyl)] 5 mg tablet,delayed release (DR/EC) 20 mg PO ONCE 1 Days Qty: 4 0RF Rx Instructions: Day before procedure, prep day Take 4 tablets by mouth upon awakening followed by large glass of water polyethylene glycol 3350 [Miralax] 17 gram/dose powder 238 g PO ONCE PRN (Reason: laxative effect) 1 Days Qty: 238 0RF Rx Instructions: Take as directed by mouth the day before your procedure. (DME) grab bars for the shower See Rx Instructions .ROUTE .MEDSUPPLY Qty: 1 0RF Rx Instructions: As directed Discharge Orders: Discharge Order (Routine); Ordered 12/04/23 Ordered By: Cesar Yeung Diet: Advance to usual diet Activity on Discharge: No heavy lifting Activity Restrictions/Additional Instructions: No lifting > 10 pounds for 2 weeks No driving for one week Use warm compress or heating pad on low as needed Take Tylenol Extra-strength 1-2 tabs every 6 hours for the first day, then prn Oxycodone every 6-8 hours as needed for pain Miralax as needed for constipation Remove dressing in 3 days Follow up in office in two weeks. Print Language: Russian
[2023-12-04] MEDS: polyethylene glycoL 3350 17 GM POWD.PACK PO (11:55)
--- NOTE | 2023-12-04 12:50 | MHC.CM.PN ---
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
--- NOTE | 2023-12-04 14:39 | HO.POSTANES ---
Post Anesthesia Evaluation Post Anesthesia Evaluation Date of Service: 12/04/23 Vital Signs: Vital Signs Temp Pulse Resp BP Pulse Ox O2 Del Method 12/04/23 06:56 97.7 F 55 16 97/53 L 93 Room Air 12/04/23 02:41 98.1 F 57 16 98/60 96 Room Air Anesthesia: General Endotracheal-GETA Mental Status: Awake Pain Control: Satisfactory Nausea/Vomiting: None Hydration: Adequate Anesthesia-Related Issues: No Anes. Related Issues
[2023-12-04 14:56] VITALS: BP 102/58; PULSE 58; RESP 18; TEMP 36.7; O2SAT 94
--- NOTE | 2023-12-04 16:56 | PC.NURSE ---
Pt seen for discharge instructions at approx 1700. Waste Cotton Cleaner at beside with RN. Pt's son is also at bedside accompanying pt home. Pt A&Ox3. Pain addressed, rating pain at 7/10 s/p PRN oxycodone administration. Pt educated on activity level and medications upon discharge, as well as follow-up with Dr. Yeung. Discharge packet given to pt. Pt offers no questions or concerns.
== END 2023-12-04 17:41 | disposition home or self-care (01) ==
LOC: HO.ED 13:59 → HO.SSS 14:09 → HO.S3 15:35
PROVIDERS: Physician Assistant Medical; Emergency Provider Emergency Medicine; PCP Registered Nurse; Visit Provider Surgery
PROC: 0DTJ4ZZ Resection of Appendix, Percutaneous Endoscopic Approach (ICD-10-PCS; CPT 44970; principal; 2023-12-03 14:20)
DX: K35.80 Unspecified acute appendicitis (principal); K38.1 Appendicular concretions; N99.4 Postprocedural pelvic peritoneal adhesions; K86.2 Cyst of pancreas; K44.9 Diaphragmatic hernia without obstruction or gangrene; M62.08 Separation of muscle (nontraumatic), other site; J98.11 Atelectasis; Z98.890 Other specified postprocedural states; Z90.49 Acquired absence of other specified parts of digestive tract; Z98.84 Bariatric surgery status; Z11.52 Encounter for screening for COVID-19; Z20.828 Contact with and (suspected) exposure to other viral communicable diseases
CPT/HCPCS: 44970; 49329; 0241U; 74177; 80053; 81001; 82150; 83690; 83735; 85025; 88304; 96374; 96375; 99284; 99285; J0131; J0330; J0665; J1100; J1836; J2270; J2405; J2704; J3010; J7120; Q9967

== ENCOUNTER → 2023-12-03 14:07 | Outpatient (BNV) | payer OTHER, SELFPAY | PROVIDERS: Emergency Provider Emergency Medicine; PCP Registered Nurse; Visit Provider Surgery | DX: K35.30 Acute appendicitis with localized peritonitis, without perforation or gangrene (principal) | CPT/HCPCS: 44970; 99024; 99222 ==

== ENCOUNTER 2023-12-10 09:40 | Outpatient (AMB) | payer OTHER, SELFPAY ==
--- NOTE | 2023-12-10 09:41 | A.OFFVIS_ITS ---
Intake Vital Signs 12/10/23 09:56 Height 5 ft 2 in BP 132/70 Blood Pressure Location Rt brachial Position Sitting Pulse 65 Intake Visit Reasons: s/p lap appy Intake Note: This patient presents for a post-op assessment status post laparoscopic appendectomy. Pt c/o; reports pain LLQ, reports no appetite, reports no problems with bowel movements. 12/03/2023: Lap appendectomy Air Hammer Operator Required: Yes Air Hammer Operator Language: Pet Care Associate Name: Keyla Information Interpreted: non-clinical & clinical Accompanied by: Self / Same As Patient Allergies NSAIDS (Non-Steroidal Anti-Inflamma Allergy (Intermediate, Verified 12/10/23 10:03) Gastrointestinal Upset Penicillins Allergy (Intermediate, Verified 12/10/23 10:03) hives HPI s/p lap appy HPI Details 68-year-old female here for follow-up. She underwent laparoscopic appendectomy with Dr. Yeung last 12/03/2023. She is here for postop visit. She has good oral intake. She says she has pain on her incisions especially on the left lower quadrant. She seems to be doing well overall. [facility] Medical History Sinus bradycardia Preoperative cardiovascular examination Left knee pain Encounter for screening colonoscopy DODIE on CPAP Back pain Osteoporosis Elevated parathyroid hormone GERD (gastroesophageal reflux disease) Numbness and tingling in left arm Osteoarthritis of left knee Vitamin D deficiency Surgical History History of laparoscopic appendectomy (~12/03/23) History of knee replacement Hx of non-cataract eye surgery Hx of carpal tunnel repair History of esophagogastroduodenoscopy (EGD) H/O bariatric surgery History of total abdominal hysterectomy History of cholecystectomy Family History Unknown No family history of colorectal cancer Mother Uterus cancer Social History Household Members: Family Household Members Other:: Lives with her son Housing: House Are you a primary wild animal caretaker to a significant other at home: No Do you presently have visiting nurse or other home services: No 75 years or older and lives alone: No Alcohol intake: never Comment: aware of trip hazard Patient Tobacco Use Status: Never used Tobacco Advance Directives Date on File: 09/26/23 service: No Current occupational status: employed 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 Review of Systems Const Denies chills and Denies fever(s) Card Denies chest pain, Denies dyspnea and Denies dyspnea on exertion Resp Denies cough, Denies dyspnea and Denies dyspnea on exertion GI Denies hematochezia and Denies change in bowel habits Denies hematuria Musc Denies back pain and Denies limited range of motion Neuro Denies focal weakness and Denies convulsions Psych Denies depression and Denies mood swings Physical Exam Const Other: Using a cane - had left knee replacement last September, Resp Effort & Inspection: normal respiratory effort Cardio Rate: regular rate GI Other: All incisions clean and dry, not infected, some tenderness on incisions mostly in the left lower quadrant, no pus, some induration on the incision on the left lower quadrant likely from a hematoma or seroma but no cellulitis Palpation (GI): Soft to palpation, not firm and no guarding Assessment & Plan Assessment & Plan (1) Acute appendicitis: Code(s): K35.80 - Unspecified acute appendicitis Plan: Status post laparoscopic appendectomy. She seems to be doing well clinically. All incisions are well healed and not infected. She has a little bit of induration on the left lower quadrant incision which may be from a seroma or fat necrosis I instructed her on 1 compresses to the area. She is to avoid lifting. She is scheduled to see Dr. Yeung again in 2 weeks. She had a pancreatic cyst on CT scan and an MRI was recommended by the radiologist. I will schedule this for her. Coding Level of Care Code Global (27921) Diagnoses Acute appendicitis with localized peritonitis, without perforation, abscess, or gangrene K35.80
[2023-12-10 09:56] VITALS: BP 132/70; PULSE 65
== END 2023-12-10 09:59 | disposition home or self-care (01) ==
PROVIDERS: PCP Registered Nurse; Visit Provider Surgery
DX: K35.80 Unspecified acute appendicitis (principal)
CPT/HCPCS: 99024

== ENCOUNTER → 2023-12-10 09:40 | Outpatient (BNVA) | payer OTHER, SELFPAY | PROVIDERS: PCP Registered Nurse; Visit Provider Surgery | DX: K35.80 Unspecified acute appendicitis (principal) | CPT/HCPCS: 99212 ==

== ENCOUNTER 2023-12-12 12:14 | Outpatient (REF) | payer OTHER, SELFPAY ==
--- NOTE | ~2023-12-12 | XR_ITS ---
EXAMINATION: XR KNEE, LEFT CLINICAL INFORMATION: Pain in left knee COMPARISON: Left knee 09/24/2023 TECHNIQUE: Standing AP view both knees, lateral sunrise views of the left knee FINDINGS: No fracture. Small left knee joint effusion. There is normal alignment of the left total knee arthroplasty with patellar resurfacing. No evidence of periprosthetic lucency. There is mild narrowing of the right medial joint space compartment. XR/XR knee LT 3V IMPRESSION: 1. Satisfactory appearance of left total knee arthroplasty. 2. Mild osteoarthritis of the right knee.
== END 2023-12-12 12:15 | disposition home or self-care (01) ==
LOC: HO.HOSX 12:14
PROVIDERS: PCP Registered Nurse; Visit Provider Physician Assistant
DX: M25.562 Pain in left knee (principal); Z47.1 Aftercare following joint replacement surgery; Z96.652 Presence of left artificial knee joint
CPT/HCPCS: 73562; 99212

== ENCOUNTER 2023-12-12 12:14 | Outpatient (AMB) | payer OTHER, SELFPAY ==
--- NOTE | 2023-12-12 12:36 | A.OFFVIS_ITS ---
Intake Vital Signs 12/12/23 12:43 Height 5 ft 2 in Intake Visit Reasons: PO-LT TKA 09/24/23 NE Intake Note: Debby a 68 year old female who presents today for a post operative left TKA on 09/24/23 NE. Patient reports she is doing well however she continues to have pain at the medial aspect of left knee. She continues to work with PT. Allergies NSAIDS (Non-Steroidal Anti-Inflamma Allergy (Intermediate, Verified 12/12/23 12:42) Gastrointestinal Upset Penicillins Allergy (Intermediate, Verified 12/12/23 12:42) hives HPI PO-LT TKA 09/24/23 NE HPI Details 68-year-old female who returns to the [facility] today with an despatch clerk for post-op left TKA, 09/24/[address] Beltre. She states she has pain at the medial aspect of her knee however she is doing well otherwise. She continues to work with physical therapy as instructed. She has no other concerns today. [facility] Medical History Sinus bradycardia Preoperative cardiovascular examination Left knee pain Encounter for screening colonoscopy DODIE on CPAP Back pain Osteoporosis Elevated parathyroid hormone GERD (gastroesophageal reflux disease) Numbness and tingling in left arm Osteoarthritis of left knee Vitamin D deficiency Surgical History History of laparoscopic appendectomy (~12/03/23) History of knee replacement Hx of non-cataract eye surgery Hx of carpal tunnel repair History of esophagogastroduodenoscopy (EGD) H/O bariatric surgery History of total abdominal hysterectomy History of cholecystectomy Family History Unknown No family history of colorectal cancer Mother Uterus cancer Social History Household Members: Family Household Members Other:: Lives with her son Housing: House Are you a primary child care counselor to a significant other at home: No Do you presently have visiting nurse or other home services: No 75 years or older and lives alone: No Alcohol intake: never Comment: aware of trip hazard Patient Tobacco Use Status: Never used Tobacco Advance Directives Date on File: 09/26/23 service: No Current occupational status: employed 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 She does have a moderate sized joint effusion. She also has significant tenderness over the medial aspect of the knee. No surrounding erythema. ROM is 0-115 degrees. Calf supple, nontender. NVI. Results Reviewed Results Reviewed: Xrays were obtained in the office today and personally reviewed by me of the left knee show intact prosthesis without evidence of loosening. Assessment & Plan Assessment & Plan (1) Status post total knee replacement, left: Code(s): Z96.652 - Presence of left artificial knee joint Plan A prescription of Celebrex was sent to her pharmacy which she will take twice a day for 2 weeks to see if it helps with her swelling. She will return to see Dr. Beltre in 2 weeks to evaluate the swelling and discomfort. She is content with this plan and will see back as discussed. Orders: Orders XR knee LT 3V Today M25.562 - Pain in left knee Medications: New celecoxib (Celebrex) 200 mg PO BID 60 caps 3RF 30 days Patient Instructions: Scribed for Carlene Velez PA-C, by Law [facility] medical and health services manager, on 12/12/2023 at 12:30 PM EST. ICarlene PA-C, have personally reviewed and agree with the information entered by the scribe. Coding Level of Care Code Global (52384) Diagnoses Status post total knee replacement, left Z96.652
== END 2023-12-12 13:08 | disposition home or self-care (01) ==
LOC: HO.HOS 12:14
PROVIDERS: PCP Registered Nurse; Visit Provider Physician Assistant
DX: Z96.652 Presence of left artificial knee joint (principal)
CPT/HCPCS: 99024

== ENCOUNTER 2023-12-23 07:31 | Outpatient (REF) | payer OTHER, SELFPAY ==
--- NOTE | ~2023-12-23 | FL_ITS ---
EXAMINATION: FL SMALL BOWEL SERIES CLINICAL INFORMATION: Abdominal pain COMPARISON: None available. Correlation made with CT abdomen and pelvis 12/03/2023. TECHNIQUE: Following a fox farmer image of the abdomen, contrast was administered orally, and interval abdominal radiographs were performed to assess for contrast progression through the small bowel. Following contrast transit through the small bowel and into the colon, the patient was placed on the fluoroscopy table, and multiple spot images were obtained. FINDINGS: Sign Maker image of the abdomen demonstrates a normal bowel gas pattern. Surgical clips are present in the right upper quadrant, left upper quadrant, and right lower quadrant. Injection granulomata are seen in the left buttocks. Chain sutures are seen in the region of the proximal stomach from prior sleeve procedure. Mild linear atelectasis in the left lung base. Mild elevation of the right hemidiaphragm. Immediate overhead view demonstrates normal contrast transit into the proximal ileum, with normal caliber of small bowel and normal feathery appearance of the jejunum. Contrast is seen in the colon at 30 minutes. Spot images demonstrate small bowel loops are of normal caliber throughout the abdomen and pelvis. The jejunal and ileal fold patterns are normal, without evidence of abnormal thickening. No strictures or masses are seen. The terminal ileum demonstrates a normal appearance. Transverse colon is slightly redundant. FLUOROSCOPY TIME: 1 minute 4 seconds DOSE AREA PRODUCT: 2586 uGy-m2 (microgray-meter squared) FL/FL small bowel follow through IMPRESSION: 1. Unremarkable small bowel series. No obstruction or small bowel dilatation. No strictures or masses are present. 2. Contrast seen in the colon at the 30 minute film, slightly rapid transit of uncertain significance.
== END 2023-12-23 07:32 | disposition home or self-care (01) ==
LOC: HO.XRAY 07:31
PROVIDERS: PCP Registered Nurse; Visit Provider Physician Assistant
DX: K21.9 Gastro-esophageal reflux disease without esophagitis (principal); Z98.84 Bariatric surgery status
CPT/HCPCS: 74250

== ENCOUNTER → 2023-12-23 07:33 | Outpatient (BNV) | payer OTHER, SELFPAY | PROVIDERS: PCP Registered Nurse; Visit Provider Physician Assistant Surgical | DX: R10.9 Unspecified abdominal pain (principal) | CPT/HCPCS: 74250 ==

== ENCOUNTER 2023-12-25 14:55 | Outpatient (REF) | payer OTHER, SELFPAY ==
--- NOTE | ~2023-12-25 | MR_ITS ---
EXAMINATION: MR ABDOMEN WITHOUT AND WITH CONTRAST CLINICAL INFORMATION: Pancreatic lesion. COMPARISON: CT abdomen/pelvis 12/03/2023 TECHNIQUE: MR abdomen was performed without and with use of 7 mL intravenous Gadavist gadolinium contrast. Postcontrast images are performed in multiphase dynamic sequences. Imaging was performed in 3 planes. MRCP was also performed. FINDINGS: LUNG BASES: No pleural or pericardial effusion. LIVER, GALLBLADDER, AND BILIARY TREE: Loss of signal on opposed phase imaging compatible with hepatic steatosis. No focal hepatic lesion or biliary ductal dilatation is present. The gallbladder is surgically absent. PANCREAS: Cystic lesion in the body of the pancreas measures 1.1 x 1.2 x 1.2 cm. No definite communication with the main pancreatic duct. No abnormal enhancement. No dilatation of the main pancreatic duct. SPLEEN: Not enlarged. Surgical clips in the splenic hilum. ADRENAL GLANDS: No adrenal mass. KIDNEYS AND URETERS: The kidneys are normal in size, shape, and enhance symmetrically. No hydronephrosis. No perinephric stranding. GASTROINTESTINAL TRACT: Status post sleeve gastrectomy. No bowel obstruction. No ascites or fluid collection. LYMPH NODES: No bulky lymphadenopathy. VASCULAR: Normal caliber abdominal aorta. MR/MR abdomen wo/w con IMPRESSION: 1.1 x 1.2 x 1.2 cm cystic lesion in the body of the pancreas. No abnormal enhancement. No definite communication with the main pancreatic duct. Follow-up imaging in 24 months is advised. Hepatic steatosis.
[2023-12-25] MEDS: gadobutroL 7.5 ML VIAL IVPUSH (15:57)
== END 2023-12-25 14:56 | disposition home or self-care (01) ==
LOC: HO.MRI 14:55
PROVIDERS: PCP Registered Nurse; Visit Provider Registered Nurse
DX: K86.9 Disease of pancreas, unspecified (principal)
CPT/HCPCS: 74183; A9585

== ENCOUNTER 2024-01-02 09:39 | Outpatient (AMB) | payer OTHER, SELFPAY ==
--- NOTE | 2024-01-02 10:00 | MHC.OFFVIS ---
Vital Signs 01/02/24 10:00 Height 5 ft 2 in Intake Visit Reasons: PO-LT TKA-pain and swelling-DOS 09/24/23 Allergies NSAIDS (Non-Steroidal Anti-Inflamma Allergy (Intermediate, Verified 12/12/23 12:42) Gastrointestinal Upset Penicillins Allergy (Intermediate, Verified 12/12/23 12:42) hives HPI HPI PO-LT TKA-pain and swelling-DOS 09/24/23: Details: 3 mo post op mild swelling but denies fever/chills/pain she is going to the gym and feels improvement daily [facility] Medical History Acute appendicitis Sinus bradycardia Preoperative cardiovascular examination Left knee pain Encounter for screening colonoscopy DODIE on CPAP Back pain Osteoporosis Elevated parathyroid hormone GERD (gastroesophageal reflux disease) Numbness and tingling in left arm Osteoarthritis of left knee Vitamin D deficiency Surgical History History of laparoscopic appendectomy (12/03/23) History of knee replacement Hx of non-cataract eye surgery Hx of carpal tunnel repair History of esophagogastroduodenoscopy (EGD) H/O bariatric surgery History of total abdominal hysterectomy History of cholecystectomy Family History Unknown No family history of colorectal cancer Mother Uterus cancer Social History Household Members: Family Household Members Other:: Lives with her son Housing: House Are you a primary healthcare economics manager to a significant other at home: No Do you presently have visiting nurse or other home services: No 75 years or older and lives alone: No Alcohol intake: never Comment: aware of trip hazard Patient Tobacco Use Status: Never used Tobacco Advance Directives Date on File: 09/26/23 service: No Current occupational status: employed 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
== END 2024-01-02 11:05 | disposition home or self-care (01) ==
PROVIDERS: PCP Registered Nurse; Visit Provider Orthopaedic Surgery
DX: Z47.1 Aftercare following joint replacement surgery (principal); Z96.652 Presence of left artificial knee joint
CPT/HCPCS: 99212

== ENCOUNTER → 2024-01-02 09:39 | Outpatient (BNVA) | payer OTHER, SELFPAY | PROVIDERS: PCP Registered Nurse; Visit Provider Orthopaedic Surgery | DX: Z47.1 Aftercare following joint replacement surgery (principal); Z96.652 Presence of left artificial knee joint | CPT/HCPCS: 99212 ==

== ENCOUNTER → 2024-01-06 10:28 | Outpatient (BNVA) | payer OTHER, SELFPAY | PROVIDERS: PCP Registered Nurse; Visit Provider Surgery | DX: Z09 Encounter for follow-up examination after completed treatment for conditions other than malignant neoplasm (principal); Z87.19 Personal history of other diseases of the digestive system | CPT/HCPCS: 99212 ==

== ENCOUNTER 2024-01-06 10:29 | Outpatient (AMB) | payer OTHER, SELFPAY ==
--- OUTSIDE RECORDS SUMMARY | 2024-01-06 10:30 | XMS_ITS | Continuity of Care Document ---
Author Organization [facility] ter Address [address] [place] [address]- Care Team Providers Care Band Tier Name Role Phone Not on Staff, PCP Primary Care Physician Unavail able Encounter [facility] [place] Date(s): 12/02/23 - 12/03/[address] [address]- Discharge Disposition: A-D/C AMA Attending Physician: Usha Wilson DO Admitting Physician: Usha Wilson DO Referring Physician: Not on Staff, Referring MD Allergies, Adverse Reactions, Alerts Substance Reaction Severity Status penicillin Active Vital Signs Most recent to oldest [Reference Range]: 1 2 Height 157.2 cm (12/02/23 4:53 PM) 157.2 cm (12/02/23 2:04 PM) Oxygen Saturation [94-100 %] 93 % *L* (12/02/23 4:53 PM) 95 % (12/02/23 2:04 PM) Pulse Rate [55-90 bpm] 93 bpm *H* (12/02/23 4:53 PM) 110 bpm *H* (12/02/23 2:04 PM) Blood Pressure [90-138/55-84 mm Hg] 112/ 61mm Hg (12/02/23 4:53 PM) 102/57mm Hg (12/02/23 2:04 PM) Respiratory Rate [16-30 br/min] 18 br/mi n (12/02/23 4:53 PM) 18 br/min (12/02/23 2:04 PM) Temperature [96.8-100.4 DegF] 99.8 DegF (12/02/23 4:53 PM) 100.1 DegF (12/02/23 2:04 PM) Mode of Delivery (Oxygen) Room air (12/02/23 4:53 PM) Room air (12/02/23 2:04 PM) Blood pressure sites Arm, left (12/02/23 4:53 PM) Arm, left (12/02/23 2:04 PM) Temperature Route Oral (12/02/23 4:53 PM) Oral (12/02/23 2:04 PM) Dry Weight 70.8 kg (12/02/23 4:53 PM) 70.8 kg (12/02/23 2:04 PM) Dry Weight Obtained Via Patient/family s tated (12/02/23 2:04 PM) Patient Care team information Care Team Personnel Name: Not on Staff, PCP Position: S Physician (General Medicine) Member Role: PCP
--- NOTE | 2024-01-06 10:37 | A.OFFVIS_ITS ---
Vital Signs 01/06/24 10:45 Height 5 ft 2 in Weight 159 lb BMI 29.1 BP 117/72 Blood Pressure Location Rt brachial Position Sitting Pulse 68 Intake Visit Reasons: one month follow up visit, post lap appy Intake Note: This patient presents for a one month follow-up status post laparoscopic appendectomy. Pt c/o; reports no complaints. Consumer Marketing Specialist Required: Yes Consumer Marketing Specialist Language: Cloud Security Architect Name: Keyla Information Interpreted: non-clinical & clinical Accompanied by: Self / Same As Patient Allergies NSAIDS (Non-Steroidal Anti-Inflamma Allergy (Intermediate, Verified 12/12/23 12:42) Gastrointestinal Upset Penicillins Allergy (Intermediate, Verified 12/12/23 12:42) hives Medication List - Last Reconciled 01/06/24 by Cesar Yeung MD acetaminophen 650 mg (2 x 325 mg) PO Q6H PRN 30 days bisacodyl (Dulcolax (bisacodyl)) 20 mg (4 x 5 mg) PO ONCE 1 day celecoxib (Celebrex) 200 mg PO BID 30 days cholecalciferol (vitamin D3) (Vitamin D3) 25 mcg PO DAILY [commode versaframe commode] docusate sodium (Colace) 100 mg PO DAILY [grab bars for the shower As directed] magnesium oxide 400 mg PO DAILY 30 days multivitamin with folic acid 400 mcg (Daily-Yumi (with folic acid)) 1 tab PO DAILY oxycodone 5 mg PO Q6H PRN pantoprazole DR 40 mg PO DAILY polyethylene glycol 3350 (Miralax) 238 grams PO ONCE PRN 1 day [shower chair As directed] walker Folding Front wheeled walker HPI Comments Details: 68-year-old female patient returning following a laparoscopic appendectomy for acute appendicitis. She was incidentally noted to have a cystic lesion of the pancreas for which he subsequently underwent MRI. Pathology of the appendix revealed: Appendix, appendectomy: -Acute gangrenous appendicitis with mucosal hyperplasia (see comment). Comment: The entire appendix has been submitted for histologic evaluation. The proximal margin is necrotic with no mucosa present for evaluation. The mucosal hyperplasia appears localized to a portion of the mucosa. There is no dysplasia and no mucus extravasation. The lesion does not have features of low-grade appendiceal mucinous neoplasm. However, appendiceal hyperplastic lesions can be associated with colonic neoplasia and screening colonoscopy is warranted. Patient was provided with a copy of the pathology report. Patient is due to follow up with Gastroenterology next week to discuss colonoscopy as well. [facility] Medical History Acute appendicitis Sinus bradycardia Preoperative cardiovascular examination Left knee pain Encounter for screening colonoscopy DODIE on CPAP Back pain Osteoporosis Elevated parathyroid hormone GERD (gastroesophageal reflux disease) Numbness and tingling in left arm Osteoarthritis of left knee Vitamin D deficiency Surgical History History of laparoscopic appendectomy (12/03/23) History of knee replacement Hx of non-cataract eye surgery Hx of carpal tunnel repair History of esophagogastroduodenoscopy (EGD) H/O bariatric surgery History of total abdominal hysterectomy History of cholecystectomy Family History Unknown No family history of colorectal cancer Mother Uterus cancer Social History Household Members: Family Household Members Other:: Lives with her son Housing: House Are you a primary intensive care anaesthetist to a significant other at home: No Do you presently have visiting nurse or other home services: No 75 years or older and lives alone: No Alcohol intake: never Comment: aware of trip hazard Patient Tobacco Use Status: Never used Tobacco Advance Directives Date on File: 09/26/23 service: No Current occupational status: employed 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 Skin Other: Warm, dry, no rash Neuro General: patient oriented x3 Extrem Other: No edema Assessment & Plan Assessment & Plan (1) Acute appendicitis: Code(s): K35.80 - Unspecified acute appendicitis Category: Medical Qualifiers: Acute appendicitis type: with localized peritonitis Appendicitis gangrene presence: with gangrene Appendicitis perforation presence: without perforation Appendicitis abscess presence: without abscess Qualified Code(s): K35.31 - Acute appendicitis with localized peritonitis and gangrene, without perforation Plan 68-year-old female patient status post laparoscopic appendectomy for acute appendicitis. Pathology as noted above, colonoscopy recommended. Patient due to follow-up with Gastroenterology next week. Patient is wounds are well healed with no evidence of infection or hernia. She may resume normal activity without restrictions. She should follow up as needed. Coding Level of Care Code Global (60403) Diagnoses Acute appendicitis with localized peritonitis and gangrene, without perforation or abscess K35.31 Acute appendicitis type: with localized peritonitis Appendicitis gangrene presence: with gangrene Appendicitis perforation presence: without perforation Appendicitis abscess presence: without abscess
[2024-01-06 10:45] VITALS: BP 117/72; PULSE 68; BMI 29.1
== END 2024-01-06 10:55 | disposition home or self-care (01) ==
PROVIDERS: PCP Registered Nurse; Visit Provider Surgery
DX: K35.31 Acute appendicitis with localized peritonitis and gangrene, without perforation (principal)
CPT/HCPCS: 99024

== ENCOUNTER 2024-01-12 10:00 | Outpatient (RCR) | payer OTHER, SELFPAY ==
--- NOTE | 2023-11-12 12:04 | MHC.PT.EP ---
[employer] [employer] [place] Office [place] Office [place] Office [address] [phone] F: [phone] F: [phone] F: [phone] F: [phone] Physical Therapy Plan of Care Date of Evaluation: 11/12/23 Date of Surgery: 09/24/23 Diagnosis: S/P L TKA Assessment: Debby is a 68 year old female who is referred to PT for s/p L TKA . She had the surgery on 09/24/23. She is 7 weeks post op. She had home PT after surgery. She was d/c from home PT last week. On PT examination she presented with TTP along medial joint line, along suture site and proximal tibia- L side, 7/10 pain with prolonged sitting, standing, walking and stairs, decreased L knee ROM, decreased L LE strength, altered posture, balance and gait. She lives with her son but is by herself most of the day. She does not work. She is independent with ADLs but needs frequent rest breaks. She would benefit from skilled PT to address the aforementioned impairments and improve tolerance to functional activities. Frequency and Duration: The patient will be seen 2/week for 5 weeks Short Term Goals: 1. Pt will have 50% decrease in pain which will enable her to sit without pain in 2 weeks. 2. Pt will be able to move her knee through full range of motion without pain which will enable her to negotiate stairs without difficulty in 3 weeks. Tire Worker Goals: 1. Pt will demonstrate an increase in muscle strength by 1 grade which will enable her to ambulate without AD in 5 weeks. 2. Pt will be independent with all HEP for symptom management and maintenance following d/c in 5 weeks. Treatment Plan: Modalities to reduce pain, spasms and effusion. Manual therapy to restore motion and function. Therapeutic exercise to improve strength and flexibility. Neuromuscular re-education for posture and balance. Therapeutic activities to return to functional activities of daily living. Electronically signed by: Thelma Triana PT DPT Please sign and return to therapist. Thank you for your referral.
--- NOTE | 2024-04-13 08:26 | MHC.PT.DC ---
[facility] [place] Office [place] Office [place] Office [address] [phone] F: [phone] F: [phone] F: [phone] F: [phone] Physical Therapy Discharge Report Diagnosis: S/P L TKA Date of Surgery: 09/24/23 Date of Evaluation: 11/12/23 Date of Discharge: 04/13/24 Treatments to Date: 16 Cancellations to Date: 0 No Shows to Date: 1 Discharge Status: Achieved Goals Improved Function Independent with HEP Discharge Summary: Debby completed 16 PT visits and made significant improvements. She has achieved all goals set for her. She is therefore being d/c from PT. Electronically signed by: Thelma Tirana, PT DPT Please sign and return to therapist. Thank you for your referral.
== END 2024-04-13 08:27 | disposition home or self-care (01) ==
LOC: HO.PT 10:00
PROVIDERS: PCP Internal Medicine Geriatric Medicine; Visit Provider Physician Assistant
DX: Z96.652 Presence of left artificial knee joint (principal)
CPT/HCPCS: 97110; 97140; 97161; 97530

== ENCOUNTER 2024-01-15 07:16 | Outpatient (AMB) | payer OTHER, SELFPAY ==
--- NOTE | 2024-01-15 07:25 | MHC.OFFVIS ---
Vital Signs 01/15/24 07:28 Height 5 ft 2 in Weight 157 lb BMI 28.7 BP 99/46 L Blood Pressure Location Lt brachial Position Sitting Pulse 73 Intake Visit Reasons: follow up acid reflex Intake Note: Patient follow up for GERD. Patient cc: fullness, acid reflex with burning sensation on and off, nauseas, abdominal pain and some constipation. Denies any other GI issues. Catering Convention Services Manager Required: Yes Accompanied by: Self / Same As Patient Allergies NSAIDS (Non-Steroidal Anti-Inflamma Allergy (Intermediate, Verified 01/15/24 07:24) Gastrointestinal Upset Penicillins Allergy (Intermediate, Verified 01/15/24 07:24) hives Medication List - Last Reconciled 01/15/24 by Domi Ansari PA-C acetaminophen 650 mg (2 x 325 mg) PO Q6H PRN 30 days bisacodyl (Dulcolax (bisacodyl)) 20 mg (4 x 5 mg) PO ONCE 1 day celecoxib (Celebrex) 200 mg PO BID 30 days cholecalciferol (vitamin D3) (Vitamin D3) 25 mcg PO DAILY [commode versaframe commode] docusate sodium (Colace) 100 mg PO DAILY [grab bars for the shower As directed] magnesium oxide 400 mg PO DAILY 30 days multivitamin with folic acid 400 mcg (Daily-Yumi (with folic acid)) 1 tab PO DAILY pantoprazole DR 40 mg PO DAILY polyethylene glycol 3350 (Miralax) 238 grams PO ONCE PRN 1 day [shower chair As directed] walker Folding Front wheeled walker HPI Comments Details: A 68 y/o female seen 09/2022- with acid reflux- referred for EGD/ colon- she dis not follow through She described EGD -done on October 2022- bacteria-treated - never had caty she has records ([place]) from GI- - showing Bar[place]- to repeat 6 months-she also says she was to have surgery- she is unclear of the details-we discussed no further details She has history of colon polyps Sjhe had a TKR -09/2023- appendectomy 4in November-recovery has gone very well Had an MRI -incidental pancratic lesion- repeat -24 mos Pantoprazole for acid reflux- some benefit she is made dietary modifications Appetite is good- sometimes not great- Bowel- good with bowel regimen- No N/V/ d- abdominal pain hematemesis, hematochezia fever PFSH Medical History (Updated 01/15/24 @ 08:35 by Domi Ansari PA-C) Acute appendicitis Sinus bradycardia Preoperative cardiovascular examination Left knee pain Encounter for screening colonoscopy DODIE on CPAP Back pain Osteoporosis Elevated parathyroid hormone GERD (gastroesophageal reflux disease) Numbness and tingling in left arm Osteoarthritis of left knee Vitamin D deficiency Surgical History History of laparoscopic appendectomy (12/03/23) History of knee replacement Hx of non-cataract eye surgery Hx of carpal tunnel repair History of esophagogastroduodenoscopy (EGD) H/O bariatric surgery History of total abdominal hysterectomy History of cholecystectomy Family History Unknown No family history of colorectal cancer Mother Uterus cancer Social History Household Members: Family Household Members Other:: Lives with her son Housing: House Are you a primary physician primary care sports medicine to a significant other at home: No Do you presently have visiting nurse or other home services: No 75 years or older and lives alone: No Alcohol intake: never Comment: aware of trip hazard Patient Tobacco Use Status: Never used Tobacco Advance Directives Date on File: 09/26/23 service: No Current occupational status: employed 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 Review of Systems Const All systems reviewed & are unremarkable except as noted in HPI and below Card Denies chest pain and Denies dyspnea Resp Denies dyspnea GI Denies abdominal pain, Denies hematochezia, Reports constipation, Reports heartburn, Denies nausea and Denies vomiting Musc Reports abnormal gait, Reports joint swelling and Reports limited range of motion Neuro Reports abnormal gait Physical Exam Vital Signs: Last Vital Signs Pulse 73 01/15/24 07:28 BP 99/46 L 01/15/24 07:28 BMI result Body Mass Index 28.7 Const General: cooperative, healthy appearing, comfortable and no acute distress Orientation/consciousness: patient oriented x3 Limitations: language barrier and ambulation with cane Eyes Sclerae: sclerae normal Resp Effort & Inspection: normal respiratory effort and able to speak in complete sentences Auscultation: no rales, no rhonchi and no wheezes Cardio Rate: regular rate Rhythm: regular rhythm Heart sounds: S1 normal heart sound present and S2 normal heart sound present GI Palpation (GI): Soft to palpation and nontender Auscultation: normal bowel sounds Skin General skin exam: no rashes or lesions noted Neuro General: patient oriented x3 Psych Appearance: grossly normal and well kempt Mental Status: mental status grossly normal Speech and movement: Normal speech and movement present and Clear speech present Affect: normal affect Attitude: cooperative Thought process: Normal thought process present Thought content: Normal thought content present Insight: Good insight present (Psych) Judgement: Good judgement present (Psych) Results Reviewed Results Reviewed: Seen by Sonali Sotelo- 01/06/24 post-op MR/MR abdomen wo/w con IMPRESSION: 1.1 x 1.2 x 1.2 cm cystic lesion in the body of the pancreas. No abnormal enhancement. No definite communication with the main pancreatic duct. Follow-up imaging in 24 months is advised. Hepatic steatosis. FL/FL small bowel follow through IMPRESSION: 1. Unremarkable small bowel series. No obstruction or small bowel dilatation. No strictures or masses are present. 2. Contrast seen in the colon at the 30 minute film, slightly rapid transit of uncertain significance. 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: Comment: GI hx- unclear- despite course developer Code(s): K22.70 - Horner's esophagus without dysplasia Category: Medical Plan: Will reschedule EGD and colonoscopy (3) H/O bariatric surgery: Comment: Gastric sleeve,2969-[id number] issues Code(s): Z98.84 - Bariatric surgery status Category: Surgical (4) Colon polyps: Comment: GI history unclear history of colon polyps Will reschedule colonoscopy Discussed procedures, rare risks need for escort Code(s): K63.5 - Polyp of colon Category: Medical Plan: Polyp surveillance colonoscopy Plan EGD and colonoscopy anesthesia consult DODIE Continue consistent bowel regimen Continue PPI Reflux precautions reviewed Place reminder for MRI 1 year pancreatic lesion Medications: New psyllium husk (Metamucil) mix into at least 8 oz of water or juice before administering 1 tbsp PO DAILY 30 days PRN 660 grams 5RF constipation Refilled bisacodyl (Dulcolax (bisacodyl)) Day before procedure, prep day Take 4 tablets by mouth upon awakening followed by large glass of water 20 mg (4 x 5 mg) PO ONCE 1 day 4 tabs 0RF colonoscopy prep Z12.11 - Encounter for screening for malignant neoplasm of colon polyethylene glycol 3350 (Miralax) Take as directed by mouth the day before your procedure. 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
[2024-01-15 07:28] VITALS: BP 99/46; PULSE 73; BMI 28.7
== END 2024-01-15 09:06 | disposition home or self-care (01) ==
PROVIDERS: PCP Registered Nurse; Visit Provider Physician Assistant
DX: K86.89 Other specified diseases of pancreas (principal); K22.70 Barrett's esophagus without dysplasia; Z98.84 Bariatric surgery status; K63.5 Polyp of colon
CPT/HCPCS: 99214

== ENCOUNTER → 2024-01-15 07:16 | Outpatient (BNVA) | payer OTHER, SELFPAY | PROVIDERS: PCP Registered Nurse; Visit Provider Physician Assistant | DX: K86.89 Other specified diseases of pancreas (principal); K22.70 Barrett's esophagus without dysplasia; K21.9 Gastro-esophageal reflux disease without esophagitis; Z79.899 Other long term (current) drug therapy; Z98.84 Bariatric surgery status | CPT/HCPCS: 99212 ==

== ENCOUNTER 2024-03-01 09:55 | Outpatient (AMB) | payer OTHER, SELFPAY ==
--- NOTE | 2024-03-01 10:04 | A.OFFVIS_ITS ---
Vital Signs 03/01/24 10:17 Height 5 ft 2 in Weight 157 lb BMI 28.7 Intake Visit Reasons: ov-LT TKA-pain and swelling-DOS 09/24/23 Intake Note: Debby is a 69 year old female who presents today for a follow up s/p Left TKA 09/24/23. Patient reports she is doing well, she started going to the gym and would like to know what exercises she should do that would not hurt her knee. She has been taking the celecoxib as needed. She is requesting another refill on her stool softners. Jewelry Racker Required: Yes Jewelry Racker Name: [id number] Allergies NSAIDS (Non-Steroidal Anti-Inflamma Allergy (Intermediate, Verified 03/01/24 10:16) Gastrointestinal Upset Penicillins Allergy (Intermediate, Verified 03/01/24 10:16) hives HPI HPI ov-LT TKA-pain and swelling-DOS 09/24/23: Details: Debby is a 69 year old female who presents today for a follow up s/p Left TKA 09/24/23. Patient reports she is doing well, she started going to the gym and would like to know what exercises she should do that would not hurt her knee. She has been taking the celecoxib as needed. She is requesting another refill on her stool softners [facility] Medical History Acute appendicitis Sinus bradycardia Preoperative cardiovascular examination Left knee pain Encounter for screening colonoscopy DODIE on CPAP Back pain Osteoporosis Elevated parathyroid hormone GERD (gastroesophageal reflux disease) Numbness and tingling in left arm Osteoarthritis of left knee Vitamin D deficiency Surgical History History of laparoscopic appendectomy (12/03/23) History of knee replacement Hx of non-cataract eye surgery Hx of carpal tunnel repair History of esophagogastroduodenoscopy (EGD) H/O bariatric surgery History of total abdominal hysterectomy History of cholecystectomy Family History Unknown No family history of colorectal cancer Mother Uterus cancer Social History Household Members: Family Household Members Other:: Lives with her son Housing: House Are you a primary after school caregiver to a significant other at home: No Do you presently have visiting nurse or other home services: No 75 years or older and lives alone: No Alcohol intake: never Comment: aware of trip hazard Patient Tobacco Use Status: Never used Tobacco Advance Directives Date on File: 09/26/23 service: No Current occupational status: employed 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 She is much improved from prior and we had a long discussion regarding knee friendly exercises. She is going on holiday in about 3 months and worried about the walking she will have to do. I recommend that she rides a stationary bike, walk and aquatic exercises are also recommended. She expressed understanding and she will follow up as needed. Coding Level of Care Code Est Pt Level 3 (27146) Diagnoses Status post total knee replacement, left Z96.652
[2024-03-01 10:17] VITALS: BMI 28.7
== END 2024-03-01 10:36 | disposition home or self-care (01) ==
PROVIDERS: PCP Registered Nurse; Visit Provider Orthopaedic Surgery
DX: Z47.1 Aftercare following joint replacement surgery (principal); Z96.652 Presence of left artificial knee joint
CPT/HCPCS: 99213

== ENCOUNTER → 2024-03-01 09:55 | Outpatient (BNVA) | payer OTHER, SELFPAY | PROVIDERS: PCP Registered Nurse; Visit Provider Orthopaedic Surgery | DX: M25.562 Pain in left knee (principal); Z96.652 Presence of left artificial knee joint | CPT/HCPCS: 99212 ==

== ENCOUNTER 2024-05-06 08:45 | Outpatient (AMB) | payer OTHER, SELFPAY ==
--- NOTE | 2024-05-06 08:49 | MHC.OFFVIS ---
Vital Signs 05/06/24 08:50 Height 5 ft 2 in Weight 162 lb 4 oz BMI 29.7 BP 120/80 Blood Pressure Location Rt brachial Position Sitting Respiration 16 Pulse 66 Pulse Source Pulse Oximeter Pulse Oximetry (%) 97 Oxygen Delivery Method Room Air Intake Visit Reasons: follow up DODIE Intake Note: Pt presents to the office for a 6 month follow up for DODIE. Pipe Bowls Paint Trimmer Required: Yes Pipe Bowls Paint Trimmer Services: Pipe Bowls Paint Trimmer Present Pipe Bowls Paint Trimmer Name: Alia, MALENA Allergies NSAIDS (Non-Steroidal Anti-Inflamma Allergy (Intermediate, Verified 05/06/24 08:50) Gastrointestinal Upset Penicillins Allergy (Intermediate, Verified 05/06/24 08:50) hives Medication List - Last Reconciled 05/06/24 by Marva Hunt MD acetaminophen 650 mg (2 x 325 mg) PO Q6H PRN 30 days alendronate 10 mg PO DAILY bisacodyl (Dulcolax (bisacodyl)) 20 mg (4 x 5 mg) PO ONCE 1 day bupropion HCl 100 mg PO BID celecoxib 200 mg PO BID cholecalciferol (vitamin D3) (Vitamin D3) 25 mcg PO DAILY [commode versaframe commode] docusate sodium (Colace) 100 mg PO DAILY gabapentin 300 mg PO BEDTIME [grab bars for the shower As directed] magnesium oxide 400 mg PO DAILY 30 days multivitamin with folic acid 400 mcg (Daily-Yumi (with folic acid)) 1 tab PO DAILY pantoprazole DR 40 mg PO DAILY polyethylene glycol 3350 (Miralax) 238 grams PO ONCE PRN 1 day psyllium husk (Metamucil) 1 tbsp PO DAILY PRN 30 days [shower chair As directed] walker Folding Front wheeled walker HPI Comments Details: 69 y/o female patient presents for follow up of sleep apnea. she did not start CPAP due to concern of not being able to sleep and copay. sign language interpreter ID #[id number] utilized. The PSG sleep study result was significant for a severe degree of sleep apnea. The AHI was 31/hr and oxygen garry was 69%. [facility] Medical History Acute appendicitis Sinus bradycardia Preoperative cardiovascular examination Left knee pain Encounter for screening colonoscopy DODIE on CPAP Back pain Osteoporosis Elevated parathyroid hormone GERD (gastroesophageal reflux disease) Numbness and tingling in left arm Osteoarthritis of left knee Vitamin D deficiency Surgical History History of laparoscopic appendectomy (12/03/23) History of knee replacement Hx of non-cataract eye surgery Hx of carpal tunnel repair History of esophagogastroduodenoscopy (EGD) H/O bariatric surgery History of total abdominal hysterectomy History of cholecystectomy Family History Unknown No family history of colorectal cancer Mother Uterus cancer Social History Household Members: Family Household Members Other:: Lives with her son Housing: House Are you a primary auto care center manager to a significant other at home: No Do you presently have visiting nurse or other home services: No 75 years or older and lives alone: No Alcohol intake: never Comment: aware of trip hazard Patient Tobacco Use Status: Never used Tobacco Advance Directives Date on File: 09/26/23 service: No Current occupational status: employed 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 Review of Systems ENT Reports Normal hearing present Neuro Reports Normal hearing present Physical Exam Vital Signs: Last Vital Signs Pulse 66 05/06/24 08:50 Resp 16 05/06/24 08:50 BP 120/80 05/06/24 08:50 Pulse Ox 97 05/06/24 08:50 Oxygen Delivery Method Room Air 05/06/24 08:50 BMI result Body Mass Index 29.7 Const General: cooperative Nutritional Appearance: obese Orientation/consciousness: patient oriented x3 Limitations: language barrier Neck Neck: Yes full ROM and Yes supple Resp Effort & Inspection: normal respiratory effort and able to speak in complete sentences Neuro General: patient oriented x3, gait normal and moves all extremities Cranial nerves: Yes Bilaterally intact EOM present, Yes Normal facial strength present, Yes Midline tongue present, Yes Symmetric palate elevation present, Yes Normal hearing present and Yes Ability to bilaterally rotate head present Cognition (Neuro): normal cognition Gait exam (Neuro): Normal gait present Motor exam (neuro): 5/5 motor strength present throughout, Pronator motor function not present and no tremor noted Assessment & Plan Assessment & Plan (1) DODIE (obstructive sleep apnea): Comment: Severe degree of sleep apnea. The AHI was 31/hr and oxygen garry was 69% Code(s): G47.33 - Obstructive sleep apnea (adult) (pediatric) Category: Medical Plan Discussed regarding the sleep study result and untreated sleep apnea can increase chronic heart disease, HTN, increase risk of stroke etc.. Will resend prescription for CPAP to. regional home care Stressed compliance, use CPAP nightly and more than 4 hrs. Info on [employer] ( [employer] ) given. Medications: New gabapentin 300 mg PO BEDTIME 30 caps 6RF Coding Level of Care Code Est Pt Level 4 (24541) Diagnoses DODIE (obstructive sleep apnea) G47.33
[2024-05-06 08:50] VITALS: BP 120/80; PULSE 66; RESP 16; O2SAT 97; BMI 29.7
== END 2024-05-06 09:14 | disposition home or self-care (01) ==
PROVIDERS: PCP Registered Nurse; Visit Provider Psychiatry & Neurology Neurology
DX: G47.33 Obstructive sleep apnea (adult) (pediatric) (principal)
CPT/HCPCS: 99214

== ENCOUNTER → 2024-05-06 08:45 | Outpatient (BNVA) | payer OTHER, SELFPAY | PROVIDERS: PCP Registered Nurse; Visit Provider Psychiatry & Neurology Neurology | DX: G47.33 Obstructive sleep apnea (adult) (pediatric) (principal) | CPT/HCPCS: 99212 ==

== ENCOUNTER 2024-06-21 12:59 | Outpatient (AMB) | payer OTHER, SELFPAY ==
--- NOTE | 2024-06-21 13:05 | MHC.OFFVIS ---
Intake Visit Reasons: NewProb- Chronic B/L Shoulder pain Intake Note: Debby is a 69 year old -- hand dominant female who presents today for a new problem visit with complaints of bilateral shoulder pain. Allergies NSAIDS (Non-Steroidal Anti-Inflamma Allergy (Intermediate, Verified 05/06/24 08:50) Gastrointestinal Upset Penicillins Allergy (Intermediate, Verified 05/06/24 08:50) hives HPI HPI NewProb- Chronic B/L Shoulder pain: Details: Debby comes in today with complaints of right > left bilateral shoulder pain. She denies injury. She describes pain with lifting and with trying jeff sleep. There is no associated numbness or tingling. She has not been treated for this. [facility] Medical History Acute appendicitis Sinus bradycardia Preoperative cardiovascular examination Left knee pain Encounter for screening colonoscopy DODIE on CPAP Back pain Osteoporosis Elevated parathyroid hormone GERD (gastroesophageal reflux disease) Numbness and tingling in left arm Osteoarthritis of left knee Vitamin D deficiency Surgical History History of laparoscopic appendectomy (12/03/23) History of knee replacement Hx of non-cataract eye surgery Hx of carpal tunnel repair History of esophagogastroduodenoscopy (EGD) H/O bariatric surgery History of total abdominal hysterectomy History of cholecystectomy Family History Unknown No family history of colorectal cancer Mother Uterus cancer Social History Household Members: Family Household Members Other:: Lives with her son Housing: House Are you a primary chronic care nurse to a significant other at home: No Do you presently have visiting nurse or other home services: No 75 years or older and lives alone: No Alcohol intake: never Comment: aware of trip hazard Patient Tobacco Use Status: Never used Tobacco Advance Directives Date on File: 09/26/23 service: No Current occupational status: employed 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 Physical Exam Const General: cooperative, healthy appearing, no acute distress and well groomed Orientation/consciousness: oriented to person and oriented to place HEENT Head: Yes normal to inspection, Yes normocephalic and Yes atraumatic Eyes General: appearance normal, both eyes and all related structures Alignment and Position: alignment normal Conjunctivae: conjunctivae normal EOM: EOMs intact bilaterally Neck Neck: Yes normal visual inspection and Yes trachea midline Resp Other: No rerpiratory distress Effort & Inspection: normal respiratory effort and able to speak in complete sentences Cardio Other: Palpable radial pulse with no appreciable rythmic abnormalities GI Other: No abdominal distension Back/Spine/Pelvis Cervical Spine: normal cervical lordosis and cervical ROM normal Skin General skin exam: no rashes or lesions noted Neuro General: oriented to person, oriented to place and gait normal Extrem Other: 45/90/150/L5 + H/N R>L Neg EC Assessment & Plan Assessment & Plan (1) Impingement syndrome of right shoulder: Code(s): M75.41 - Impingement syndrome of right shoulder Category: Medical Plan: Bilateral shoulder pain at night wihout trauma. Discussed injections but will wait. PT ordered. F/u post PT if pain persists. Orders: Orders PT Evaluation and Treatment 06/21/24 M75.41 - Impingement syndrome of right shoulder Coding Level of Care Code Est Pt Level 3 (64957) Diagnoses Impingement syndrome of right shoulder M75.41
== END 2024-06-21 13:44 | disposition home or self-care (01) ==
PROVIDERS: PCP Registered Nurse; Visit Provider Orthopaedic Surgery
DX: M75.41 Impingement syndrome of right shoulder (principal)
CPT/HCPCS: 99213

== ENCOUNTER → 2024-06-21 12:59 | Outpatient (BNVA) | payer OTHER, SELFPAY | PROVIDERS: PCP Registered Nurse; Visit Provider Orthopaedic Surgery | DX: M75.41 Impingement syndrome of right shoulder (principal) | CPT/HCPCS: 99212 ==

== ENCOUNTER 2024-07-15 08:07 | Outpatient (REF) | payer OTHER, SELFPAY ==
[2024-07-15] MEDS: gadobutroL 7.5 ML VIAL IVPUSH (09:06)
== END 2024-07-15 08:08 | disposition home or self-care (01) ==
LOC: HO.MRI 08:07
PROVIDERS: PCP Registered Nurse; Visit Provider Physician Assistant
DX: K86.89 Other specified diseases of pancreas (principal)
CPT/HCPCS: 74183; A9585

== ENCOUNTER 2024-07-20 06:44 | Day surgery (SDC) | payer OTHER, SELFPAY ==
[2024-07-15 16:46] VITALS: BMI 29.6
--- NOTE | 2024-07-16 14:32 | P.CONAN_ITS ---
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 (Acute) Varicose veins of left lower extremity with inflammation (Acute) Cubital tunnel syndrome on left (Acute) Carpal tunnel syndrome on left (Acute) H/O bariatric surgery (Acute) Osteoarthritis of left knee (Acute) Vitamin D deficiency (Acute) Past Medical History Medical History Hx of thyroid nodule Acute appendicitis Back pain Osteoporosis Elevated parathyroid hormone GERD (gastroesophageal reflux disease) Numbness and tingling in left arm Sinus bradycardia Preoperative cardiovascular examination DODIE on CPAP Osteoarthritis of left knee Left knee pain Encounter for screening colonoscopy Vitamin D deficiency Family History Family History Unknown No family history of colorectal cancer Mother Uterus cancer Family history of problems with anesthesia: No Surgical History Surgical History History of total left knee replacement (TKR) (09/24/23) History of laparoscopic appendectomy (12/03/23) Hx of non-cataract eye surgery Hx of carpal tunnel repair History of esophagogastroduodenoscopy (EGD) H/O bariatric surgery History of total abdominal hysterectomy History of cholecystectomy History of Problems with Anesthesia: No Social History Social History Household Members: Family Household Members Other:: Lives with her son Housing: House Are you a primary student career development specialist to a significant other at home: No Do you presently have visiting nurse or other home services: No 75 years or older and lives alone: No Alcohol intake: never Comment: aware of trip hazard Patient Tobacco Use Status: Never used Tobacco Advance Directives Date on File: 09/26/23 service: No Current occupational status: unemployed Sexual orientation: Straight/Heterosexual Gender identity: Female Meds Allergies Allergy/AdvReac Type Severity Reaction Status Date / Time NSAIDS (Non-Steroidal Allergy Intermediate Gastrointestinal Verified 07/21/24 08:05 Anti-Inflamma Upset Penicillins Allergy Intermediate hives Verified 07/21/24 08:05 Home Medications ?Medication ?Instructions ?Recorded ?Confirmed ?Last Taken ?Type multivitamin with folic acid 400 1 tab PO DAILY 07/08/22 05/06/24 12/01/23 History mcg tablet (Daily-Yumi (with folic acid)) pantoprazole 40 mg granules 40 mg PO DAILY 07/22/23 05/06/24 12/03/23 History delayed-release for susp in packet cholecalciferol (vitamin D3) 25 25 mcg PO DAILY 09/16/23 05/06/24 12/01/23 History mcg (1,000 unit) capsule (Vitamin D3) alendronate 10 mg tablet 10 mg PO DAILY 05/06/24 05/06/24 Unknown History bupropion HCl 100 mg tablet 100 mg PO BID 05/06/24 05/06/24 Unknown History Exam Height,Weight and Vital Signs: Height 5 ft 2 in Weight 73.482 kg Assessment and Plan Assessment Anesthesia Assessment: Chart Reviewed Final Anesthetic Review Family History of Problems with Anesthesia: No History of Problems with Anesthesia: No
[2024-07-20 07:24] VITALS: BMI 28.2
[2024-07-20 07:39] VITALS: BP 128/70; PULSE 50; RESP 15; TEMP 36.7; O2SAT 95
[2024-07-20] MEDS: Lactated Ringers 1,000 ML 100 ML IVCONT (07:49)
--- NOTE | 2024-07-20 07:55 | P.CONAN_ITS ---
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 (Acute) Varicose veins of left lower extremity with inflammation (Acute) Cubital tunnel syndrome on left (Acute) Carpal tunnel syndrome on left (Acute) H/O bariatric surgery (Acute) Osteoarthritis of left knee (Acute) Vitamin D deficiency (Acute) Past Medical History Medical History Hx of thyroid nodule Acute appendicitis Back pain Osteoporosis Elevated parathyroid hormone GERD (gastroesophageal reflux disease) Numbness and tingling in left arm Sinus bradycardia Preoperative cardiovascular examination DODIE on CPAP Osteoarthritis of left knee Left knee pain Encounter for screening colonoscopy Vitamin D deficiency Functional capacity: independent ambulation Family History Family History Unknown No family history of colorectal cancer Mother Uterus cancer Family history of problems with anesthesia: No Surgical History Surgical History History of total left knee replacement (TKR) (09/24/23) History of laparoscopic appendectomy (12/03/23) Hx of non-cataract eye surgery Hx of carpal tunnel repair History of esophagogastroduodenoscopy (EGD) H/O bariatric surgery History of total abdominal hysterectomy History of cholecystectomy History of Problems with Anesthesia: No Social History Social History Household Members: Family Household Members Other:: Lives with her son Housing: House Are you a primary career law clerk to a significant other at home: No Do you presently have visiting nurse or other home services: No Alcohol intake: never Comment: aware of trip hazard Patient Tobacco Use Status: Never used Tobacco Use of substances other than those prescribed or required for medical reasons: No Are you DNR?: No Advance Directives: No Advance Directives Information Provided: Yes Advance Directives Date on File: 09/26/23 Recently lost weight without trying: No service: No Current occupational status: employed 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 Meds Allergies Allergy/AdvReac Type Severity Reaction Status Date / Time NSAIDS (Non-Steroidal Allergy Intermediate Gastrointestinal Verified 07/20/24 07:18 Anti-Inflamma Upset Penicillins Allergy Intermediate hives Verified 07/20/24 07:18 Active Medications: Current Medications Lactated Ringer's (Lr) 1,000 mls @ 100 mls/hr IVCONT .Q10H MATTI Last Admin: 07/20/24 07:49 Dose: 100 mls/hr Home Medications ?Medication ?Instructions ?Recorded ?Confirmed ?Last Taken ?Type multivitamin with folic acid 400 1 tab PO DAILY 07/08/22 05/06/24 12/01/23 History mcg tablet (Daily-Yumi (with folic acid)) pantoprazole 40 mg granules 40 mg PO DAILY 07/22/23 05/06/24 12/03/23 History delayed-release for susp in packet cholecalciferol (vitamin D3) 25 25 mcg PO DAILY 09/16/23 05/06/24 12/01/23 History mcg (1,000 unit) capsule (Vitamin D3) alendronate 10 mg tablet 10 mg PO DAILY 05/06/24 05/06/24 Unknown History bupropion HCl 100 mg tablet 100 mg PO BID 05/06/24 05/06/24 Unknown History Exam Height,Weight and Vital Signs: Height 5 ft 2 in Weight 69.853 kg Last Vital Signs Temp 98.0 F 07/20/24 07:39 Pulse 50 07/20/24 07:39 Resp 15 07/20/24 07:39 BP 128/70 07/20/24 07:39 Pulse Ox 95 07/20/24 07:39 O2 Del Method Room Air 07/20/24 07:39 Airway Mallampati Class: II TM Dist: >3cm Neck ROM: Full Heart: RRR Lungs: CTA Assessment and Plan Assessment Anesthesia Assessment: Anesthesia Plan Discussed and Chart Reviewed Final Anesthetic Review Family History of Problems with Anesthesia: No History of Problems with Anesthesia: No NPO: Yes ASA Class: II Final Preanesthetic Review: Meds/Allgs Chart Reviewed, Consent Obtained/Reviewed and Anes Risks/Benef Reviewed Patient Risk: Low Procedure Risk: Low Anesthetic Plan Anesthetic Plan: MAC: Disposition: Standard PACU
--- NOTE | 2024-07-20 08:03 | MHC.SHP ---
Pre-Procedural Eval Section A - 24 Hr Update-Section A only Date of Service: 07/20/24 Section B - Complete if H&P > 30 days Chief Complaint: Horner's esophagus, history of polyps Details of Present Illness: Acute appendicitis Sinus bradycardia Preoperative cardiovascular examination Left knee pain Encounter for screening colonoscopy DODIE on CPAP Back pain Osteoporosis Elevated parathyroid hormone GERD (gastroesophageal reflux disease) Numbness and tingling in left arm Osteoarthritis of left knee Vitamin D deficiency Surgical History History of laparoscopic appendectomy (12/03/23) History of knee replacement Hx of non-cataract eye surgery Hx of carpal tunnel repair History of esophagogastroduodenoscopy (EGD) H/O bariatric surgery History of total abdominal hysterectomy History of cholecystectomy Present Medications: see Short Stay Collaborative assessment Allergies: Allergies Allergy/AdvReac Type Severity Reaction Status Date / Time NSAIDS (Non-Steroidal Allergy Intermediate Gastrointestinal Verified 07/20/24 07:18 Anti-Inflamma Upset Penicillins Allergy Intermediate hives Verified 07/20/24 07:18 Review of Systems Review of Systems Comment: 10 point ROS negative Exam Exam Comment: Gen appear: No acute distress HEENT: no icterus Chest: No overt resp distress Abd: soft, nontender, nondistended Psych: Stable affect, answering questions appropriately Neuro: A/Ox3 noted to move all extremities spontaneously Ext: no peripheral edema Plan Diagnosis/Plan: Unchanged I have reviewed the history and physical and performed a pertinent physical examination on my patient. No changes have occurred unless specified. Time Spent With Patient Time: Total time managing care of this patient today ____ minutes.
[2024-07-20 09:27] VITALS: BP 96/56; PULSE 70; RESP 16; TEMP 36.6; O2SAT 96
--- NOTE | 2024-07-20 09:29 | P.OPN-COLO_ITS ---
Colonoscopy Operative Note Operative Note Date of Service: 07/20/24 Narrative: Procedure: Upper endoscopy and colonoscopy Indication: Hx of BE, hx of polyps Endoscopist: Cuca Wheat MD Anesthesia Provider: Dr Citlalli Connor Anesthesia type: MAC Instrument: [id number] and [id number]-[id number] EGD Procedure:?? The procedure, indications, preparation and potential complications were reviewed with the patient, who indicated understanding and gave written informed consent to proceed with the help of end frazer. The endoscope was introduced through the mouth, and advanced to the 2nd part of the duodenum. The mucosa was carefully examined on slow withdrawal of the endoscope. The patient tolerated the procedure well. There were no immediate complications.? EGD Findings:? * Esophagus:? Normal esophageal mucosa was noted. The Z-line was at 35 cm and mildly irregular. Cold forceps biopsies were taken from GEJ to rule out rea's esophagus. * Stomach:? Erythema and erosions in the cardia. Also noted was erythema in a reticular pattern suspicious for H pylori infection vs atrophic gastritis. Retroflexion was performed in the cardia that showed Hill grade II hiatal hernia. Random cold forceps biopsies were taken from the stomach. * Duodenum:? Normal duodenal mucosa. Cold forceps biopsies were taken from the duodenal bulb and 2nd portion of the duodenum to rule out celiac sprue. Colonoscopy Procedure:? The patient was then turned for the colonoscopy. A digital rectal exam was performed which was normal.? A distal attachment cap was affixed to the tip of the scope and the colonoscope was then inserted through the anus and advanced through the colon and advanced to the cecum at 75 cm and terminal ileum.? Appendiceal orifice and ileocecal valve were identified. Mucosa was carefully examined under high definition white light as the instrument was slowly withdrawn in a retrograde panoramic fashion. Retroflexion was performed in rectum. The procedure was not difficult. The quality of the prep was BBPS: 3+2+3 = adequate Withdrawal time 9 minutes Limitations: No limitations Findings: Mucosa: Loss of normal vascular pattern and mild edema was noted throughout the colon. R>L. Cold forceps biopsies were taken to rule out microscopic colitis. Protruding lesions: * Small internal hemorrhoids without stigmata of recent bleeding. Excavated lesions: * Scattered few diverticula in sigmoid colon. Impression: 1. Irregular Z line (biopsy) 2. Hiatal hernia 3. Gastritis (biopsy) 4. Normal duodenum (biopsy) 5. Normal colon and terminal ileum mucosa (biopsy) 6. Internal and external hemorrhoids 7. Diverticulosis Recommendations:?? * Follow-up path results * Avoid NSAIDs * H Pylori treatment if biopsies + * Repeat colonoscopy for CRC screening in 10 years.
[2024-07-20 09:42] VITALS: BP 113/78; PULSE 65; RESP 16; O2SAT 98
[2024-07-20 09:57] VITALS: BP 122/75; PULSE 66; RESP 16; TEMP 36.6; O2SAT 98
--- NOTE | 2024-07-20 11:08 | HO.POSTANES ---
Post Anesthesia Evaluation Post Anesthesia Evaluation Date of Service: 07/20/24 Vital Signs: Vital Signs Temp Pulse Resp BP Pulse Ox O2 Del Method 07/20/24 09:57 97.9 F 66 16 122/75 98 Room Air 07/20/24 09:42 65 16 113/78 98 Room Air 07/20/24 09:27 97.9 F 70 16 96/56 L 96 Room Air 07/20/24 07:39 98.0 F 50 15 128/70 95 Room Air Anesthesia: Monitored Mental Status: Awake Pain Control: Satisfactory Nausea/Vomiting: None Hydration: Adequate Anesthesia-Related Issues: No Anes. Related Issues
== END 2024-07-20 11:06 | disposition home or self-care (01) ==
PROVIDERS: PCP Registered Nurse; Visit Provider Internal Medicine
PROC: (CPT 45380; principal; 2024-07-20 08:20)
DX: Z12.11 Encounter for screening for malignant neoplasm of colon (principal); Z86.0101 Personal history of adenomatous and serrated colon polyps; K57.30 Diverticulosis of large intestine without perforation or abscess without bleeding; K64.8 Other hemorrhoids; K64.4 Residual hemorrhoidal skin tags; K63.5 Polyp of colon; K21.9 Gastro-esophageal reflux disease without esophagitis; K22.70 Barrett's esophagus without dysplasia; K44.9 Diaphragmatic hernia without obstruction or gangrene; K22.89 Other specified disease of esophagus; K29.50 Unspecified chronic gastritis without bleeding; Q39.8 Other congenital malformations of esophagus; M81.0 Age-related osteoporosis without current pathological fracture; G47.33 Obstructive sleep apnea (adult) (pediatric); Z79.899 Other long term (current) drug therapy; Z99.89 Dependence on other enabling machines and devices; Z98.84 Bariatric surgery status; Z90.49 Acquired absence of other specified parts of digestive tract; Z56.0 Unemployment, unspecified; Z88.0 Allergy status to penicillin; Z88.6 Allergy status to analgesic agent
CPT/HCPCS: 45380; 43239; 88305; 88313; 88341; 88342; J2003; J2704

== ENCOUNTER → 2024-07-20 06:44 | Outpatient (BNV) | payer OTHER, SELFPAY | PROVIDERS: PCP Registered Nurse; Visit Provider Internal Medicine | DX: Z12.11 Encounter for screening for malignant neoplasm of colon (principal); Z86.0100 Personal history of colon polyps, unspecified; K57.30 Diverticulosis of large intestine without perforation or abscess without bleeding; K64.8 Other hemorrhoids; K22.70 Barrett's esophagus without dysplasia; K29.70 Gastritis, unspecified, without bleeding | CPT/HCPCS: 43239; 45380 ==

== ENCOUNTER 2024-07-21 07:56 | Outpatient (AMB) | payer OTHER, SELFPAY ==
--- NOTE | 2024-07-21 08:03 | A.OFFVIS_ITS ---
Vital Signs 07/21/24 08:04 Height 5 ft 2 in Weight 156 lb BMI 28.5 Intake Visit Reasons: New patient [facility]OP [facility]OPER annual exam / per yoon Intake Note: no concerns Nuisance Wildlife Control Operator Required: Yes Nuisance Wildlife Control Operator Language: Restaurant Operations Manager Services: Nuisance Wildlife Control Operator Present (in person) Information Interpreted: non-clinical & clinical Manager Of Regulatory Affairs: Manager Of Regulatory Affairs Present (Yoon Ramachandran CARLEE ) Accompanied by: Self / Same As Patient Allergies NSAIDS (Non-Steroidal Anti-Inflamma Allergy (Intermediate, Verified 07/21/24 08:05) Gastrointestinal Upset Penicillins Allergy (Intermediate, Verified 07/21/24 08:05) hives Post menopausal: Yes HPI Comments Details: Presenting for annual exam. No complaints. Last Pap/HPV was many years ago, no history of abnormal Pap smear, the patient is status post hysterectomy 26 years ago Last Mammogram was in 01/20 was BI-RADS 1 Last Colonoscopy was done yesterday Last DEXA scan was 2 years ago and was started on alendronate, no reports available [facility] Medical History Hx of thyroid nodule Acute appendicitis Back pain Osteoporosis Elevated parathyroid hormone GERD (gastroesophageal reflux disease) Numbness and tingling in left arm Sinus bradycardia Preoperative cardiovascular examination DODIE on CPAP Osteoarthritis of left knee Left knee pain Encounter for screening colonoscopy Vitamin D deficiency Surgical History History of total left knee replacement (TKR) (09/24/23) History of laparoscopic appendectomy (12/03/23) Hx of non-cataract eye surgery Hx of carpal tunnel repair History of esophagogastroduodenoscopy (EGD) H/O bariatric surgery History of total abdominal hysterectomy History of cholecystectomy Family History Unknown No family history of colorectal cancer Mother Uterus cancer Social History Household Members: Family Household Members Other:: Lives with her son Housing: House Are you a primary women's health care nurse practitioner to a significant other at home: No Do you presently have visiting nurse or other home services: No Alcohol intake: never Comment: aware of trip hazard Patient Tobacco Use Status: Never used Tobacco Advance Directives Date on File: 01/26/24 service: No Current occupational status: unemployed Sexual orientation: Straight/Heterosexual Gender identity: Female Female Reproductive History Menstrual Menopause type: surgical Total pregnancies: 5 Full term: 3 Number of Living Children: 3 Ab spontaneous: 2 Review of Systems Const All systems reviewed & are unremarkable except as noted in HPI and below Card Reports as per HPI and Reports no additional complaints Resp Reports as per HPI and Reports no additional complaints GI Reports as per HPI and Reports no additional complaints Reports as per HPI Physical Exam Vital Signs: BMI result Body Mass Index 28.5 Const General: cooperative, healthy appearing and comfortable General: Yes bladder normal to palpation External Female Exam: No lesion Speculum Exam - Vagina: normal appearance of the vagina, normal vaginal discharge, not erythematous and other (Greenish vaginal discharge) Speculum Exam - Cervix: Cervix absent Bimanual exam- vagina & uterus: bladder normal to palpation and uterus absent Bimanual Exam- Adnexa, other: Other (No masses detected) Assessment & Plan Assessment & Plan (1) Well woman exam: Code(s): Z01.419 - Encounter for gynecological examination (general) (routine) without abnormal findings Category: Medical Plan: Co testing not indicated since the patient 's age is above 65 with no history of abnormal Pap smears last 25 years. Counseled the patient about the recommended dietary allowance of 1200 mg of Calcium & 800 IU of vitamin D. Mammogram ordered. Will order DEXA scan . The patient was instructed to perform monthly self-breast exams and to schedule a 2 week DEXA scan follow-up appointment and an annual exam in a year; All questions answered and the patient verbalized understanding. (2) Vaginal discharge: Code(s): N89.8 - Other specified noninflammatory disorders of vagina Category: Medical Plan: BV panel collected, will check the results and treat accordingly Orders: Orders XR DEXA axial skeleton Today Z78.0 - Asymptomatic menopausal state MM tomosynthesis screening BI Today Z12.31 - Encounter for screening mammogram for malignant neoplasm of breast Coding Level of Care Code New Pt Prev Care >65yr (50210) Diagnoses Well woman exam Z01.419 Vaginal discharge N89.8
[2024-07-21 08:04] VITALS: BMI 28.5
== END 2024-07-21 08:45 | disposition home or self-care (01) ==
LOC: HO.HWS 07:56
PROVIDERS: PCP Registered Nurse; Visit Provider Obstetrics & Gynecology
DX: Z01.419 Encounter for gynecological examination (general) (routine) without abnormal findings (principal); N89.8 Other specified noninflammatory disorders of vagina
CPT/HCPCS: 99387

== ENCOUNTER 2024-07-21 07:56 | Outpatient (REF) | payer OTHER, SELFPAY ==
[2024-07-22 11:45] LABS: Bacterial Vaginosis PCR NEGATIVE (Negative); Candida Group PCR NOT DETECTED (Not Detect); Candida glab krusei PCR NOT DETECTED (Not Detect); Trichomonas vaginalis PCR NOT DETECTED (Not Detect)
== END 2024-07-21 07:57 | disposition home or self-care (01) ==
LOC: HO.LNP 07:56
PROVIDERS: PCP Registered Nurse; Visit Provider Obstetrics & Gynecology
DX: N89.8 Other specified noninflammatory disorders of vagina (principal); Z01.419 Encounter for gynecological examination (general) (routine) without abnormal findings
CPT/HCPCS: 0352U; 99387

== ENCOUNTER 2024-08-04 09:56 | Outpatient (RCR) | payer OTHER, SELFPAY ==
--- NOTE | 2024-07-13 13:02 | MHC.PT.EP ---
[facility] [place] Office [place] Office [place] Office [address] [phone] F: [phone] F: [phone] F: [phone] F: [phone] Physical Therapy Plan of Care Date of Evaluation: 07/12/24 Date of Surgery: n/a Diagnosis: Impingement syndrome of right shoulder Assessment: Pt is a pleasant 69yo F who presents to PT with right shoulder pain. She presents to PT with current impairments in pain, decreased shoulder ROM, decreased UE strength, soft tissue restrictions, and impaired posture. She is limited functionally by lifting, reaching, reaching behind back, overhead ADLs, and sleeping. She is a good candidate for skilled PT in order to address current impairments to facilitate return to PLOF. She is recommended to be seen 2x/week for 4 weeks and will be reassessed at that time Frequency and Duration: The patient will be seen 2x/week for 4 weeks Short Term Goals: Pt will be I with HEP to promote self management of symptoms Pt will improve R shoulder AROM flexion by at least 10 degrees Networks Software Consultant Goals: Pt will achieve shoulder AROM flexion 130 degrees to assist with reaching Pt will perform overhead ADLs with minimal to no compensation Pt will demonstrate improvements in function as evidenced by statistically significant improvement in SPADI outcome measure Treatment Plan: Modalities to reduce pain, spasms and effusion. Manual therapy to restore motion and function. Therapeutic exercise to improve strength and flexibility. Neuromuscular re-education for posture and balance. Therapeutic activities to return to functional activities of daily living. Electronically signed by: Pati Owusu, PT, DPT Please sign and return to therapist. Thank you for your referral.
--- NOTE | 2024-08-04 16:27 | MHC.PT.DC ---
[facility] [place] Office [place] Office [place] Office [address] [phone] F: [phone] F: [phone] F: [phone] F: [phone] Physical Therapy Discharge Report Diagnosis: Impingement syndrome of right shoulder Date of Surgery: n/a Date of Evaluation: 07/12/24 Date of Discharge: 08/04/24 Treatments to Date: 4 Cancellations to Date: No Shows to Date: Discharge Status: Improved Function Independent with HEP Discharge Summary: Pt is motivated to participate in PT and has made progress. She is going away for > 1 month and therefore today is her last day of PT. We reviewed her exercises and she demonstrates good form overall. I provided pt with printed, updated copy of HEP and yellow theraband and discussed the importance of continuing with HEP to tolerance. I discussed with pt that if she continues to have pain when she returns from vacation to follow up with her doctor for new referral to PT as appropriate. Pt reports no further questions or concerns for PT at this time Electronically signed by: Pati Owusu, PT, DPT Please sign and return to therapist. Thank you for your referral.
== END 2024-08-04 16:26 | disposition home or self-care (01) ==
LOC: HO.PT 09:56
PROVIDERS: PCP Registered Nurse; Visit Provider Orthopaedic Surgery
DX: M75.41 Impingement syndrome of right shoulder (principal)
CPT/HCPCS: 97110; 97140; 97162

== ENCOUNTER 2024-10-05 08:59 | Outpatient (REF) | payer OTHER, SELFPAY ==
--- NOTE | ~2024-10-05 | MM_ITS ---
EXAMINATION: MM SCREENING DIGITAL BREAST TOMOSYNTHESIS, BILATERAL CLINICAL INFORMATION: Screening. Asymptomatic. COMPARISON: Mammography: Comparison is made with available priors TECHNIQUE: Digital breast mammography with tomosynthesis is performed in both the craniocaudal and mediolateral oblique views along with computer-aided detection (CAD). FINDINGS: The breasts are heterogeneously dense, which may obscure small masses (ACR BI-RADS breast composition Category c). There are no significant masses, abnormal calcifications, or other abnormalities. MM/MM tomosynthesis screening BI IMPRESSION: No mammographic evidence of malignancy. ASSESSMENT: BI-RADS BI-RADS 1 - Negative RECOMMENDATION: Routine annual mammography screening. 1 year F/U This examination should not preclude the clinical evaluation of a suspicious palpable abnormality. This patient's information was entered into a reminder system with a target due date for their next mammogram. Electronically signed by: Luba Ontiveros DO 10/11/2024 05:07 PM ADI
--- NOTE | ~2024-10-05 | MM_ITS ---
EXAMINATION: DXA BONE DENSITY AXIAL HISTORY: Estrogen deficiency TECHNIQUE: [employer] Dual energy absorptiometry (DEXA) of the lumbar spine, total left hip, and femoral neck was performed. COMPARISON: Comparison is made with the prior examination dated 04/06/2020. FINDINGS: The bone mineral density of the lumbar spine is 0.867 with a T-score of -2.6, and a Z-score of -1.2. This represents a BMD change of -8.4% compared to the prior exam. This is statistically significant. The bone mineral density of the left total hip is 0.800 with a T-score of -1.6, and a Z-score of -0.3. This represents BMD change of -5.2% compared to the prior exam. This is statistically significant. The bone mineral density of the left femoral neck is 0.695 with a T-score of -2.5, and a Z-score of -0.9. This represents BMD change of -5.6% compared to the prior exam. MM/XR DEXA axial skeleton IMPRESSION: Based on bone mineral density, and according to World Health Organization (WHO) criteria, the diagnosis is consistent with osteoporosis. All bone density values are in grams per centimeter squared (g/cm2). Statistically, 68% of repeat scans fall within 1 SD (+/- 0.010 g/cm2 for AP spine L1-L4) and 1 SD (+/- 0.012 g/cm2 for femur total) FRAX is a trademark of the [employer] [place] for Metabolic Bone Disease, a World Health Organization (WHO) Collaborating Center. Electronically signed by: Wilfredo Rodas MD 10/07/2024 07:31 AM [facility]
--- OUTSIDE RECORDS SUMMARY | 2024-10-05 09:20 | XMS_ITS | Encounter Summary ---
Author Organization [employer] Address [address] [place] [address] Care Team Providers Care Fitter Type Bar And Segment Name Role Phone Dot Landaverde VENITA Primary Care Provider [phone] Encounter Details Date Type Department Care Team (Late st Contact Info) Description 07/15/2024 Orders Only [facility] External Provider, [facility] Social History Tobacco Use Types Packs/Day Years Used Date Smoking Tobacco: Never Passive Smoke Exposure: Never Smokeless Tobacco: Never Alcohol Answer Date Recorded Frequency of Alcohol Consumption Not on file 12/08/2023 Average Number of Drinks Not on file 024 Frequency of Binge Drinking Not on file 04/2024 Score 0 12/08/2023 Depression Answer Date Recorded Patient Health Questionnaire-9 Score 5 12/08/2023 Patient Health Questionnaire-9 Score 5 12/08/2023 Last PHQ-9: Questionnaire Data Not on file 0 12/08/2023 Housing Stability Answer Date Recorded What is your housing situation today? I have viola chamberlain 12/08/[address] you li ve. Do you have problems with any of the following? None of the above 12/08/2023 Food Insecurity Answer Date Recorded Within the past 12 months, y ou worried that your food would run out before you got money to buy more: Never True 12/08/2023 Within the past 12 months,th e food you bought just didn't last and you didn't have enough money to get more: Never True 04/2024 Transportation Answer Date Recorded In the past 12 months, has l ack of transportation kept you from medical appts, meetings, work or from getting things needed for daily living? No 12/08/2023 Utilities Answer Date Recorded In the past 12 months, has t he electric, gas, oil or water company threatened to shut off services in your home? No 12/08/2023 Depression Answer Date Recorded Patient Health Questionnaire-2 Score 2 12/08/2023 Comments No Sex and Gender Information Value Date Recorded Sex Assigned at Female 07/01/2022 10:36 AM EDT Legal Sex Female 10:36 AM EDT Gender Identity Female 07/01/2022 10:36 AM EDT Sexual Orientation Straight 07/01/2022 10 :36 AM EDT documented as of this encounter Plan of Treatment Upcoming Encounters Date Type Department Care Team (Late st Contact Info) Description 10/08/2024 10:00 AM EST Office Visit [facility] [address] [place] [address] Dot Landaverde, VENITA [address] [place] [address] documented as of this encounter Procedures Procedure Name Priority Date/Time Associated Diagnosis Comments MR ABDOMEN W AND WO CONTRAST Routine 07/15/2024 8:29 AM EST documented in this encounter Results * MR Abdomen w/ and w/o Contrast (07/15/2024 8:29 AM EST) Anatomical Region Laterality Modality Abdomen Magnetic Resonan ce 07/15/2024 8:29 AM EST Narrative 09/13/2024 2:31 PM EST ? [facility] ?[address] ?[place] [address] ? Magnetic Resonance Report ? Signed ? Patient: Sami,Debby ?MR#: [id number] ?? 7 ? : 1955 ?Acct:[id number] ? Age/Sex: 69 / F ?ADM Date: 11/14/24 ? Loc: HO.MRI ? Attending Dr: Domi Ansari PA-C ? Ordering Physician: Domi Ansari PA-C ?? Date of Service: 07/15/24 ?? Procedure(s): MR abdomen wo/w con ?? Accession Number(s): [id number] ? cc: Domi Ansari PA-C; Dot Landaverde ? EXAMINATION: ?? MR ABDOMEN WITHOUT AND WITH CONTRAST ?? MR CHOLANGIOPANCREATOGRAPHY ? CLINICAL INFORMATION: ?? Follow-up pancreatic cyst ? COMPARISON: ?? MRI abdomen on 12/25/2023 ? TECHNIQUE: ?? Examination was performed in a high field strength MRI scanner. ?? Multiplanar multisequence MR imaging of the abdomen was performed ?? without IV contrast enhancement. ?? Multiphasic Axial T1-weighted fat-suppressed images of the upper ?? abdomen were obtained after IV injection of 7 mL Gadavist. Coronal ?? T1-weighted fat-suppressed images of the abdomen were obtained ?? following the dynamic axial series. ? MR cholangiopancreatography was performed with heavily T2 weighted ?? sequences. ?? 3-dimensional reconstruction of image data was performed. This was ?? performed under concurrent direct supervision and monitoring by ?? radiologist. ?? Maximum intensity projection images were constructed. ? FINDINGS: ?? MR CHOLANGIOPANCREATOGRAPHY: ?? Gallbladder is surgically absent. ?? Bilateral intra hepatic bile ducts, common hepatic duct and common bile ?? duct are normal in size without filling defects. ? Pancreatic duct is normal in size. There is connection between the ?? pancreatic body cyst and the pancreatic duct. ? LIVER: The liver shows no focal lesion. ? The calculated hepatic fat percentage is 3.0%, compatible with normal. ? PANCREAS: A persistent lobulated T2 hyperintense nonenhancing cystic ?? lesion with a single septation is seen in mid pancreatic body measuring ?? 1.0 cm in AP diameter, 1.3 cm in width, 1.6 cm in vertical height ?? (previously 1.1 x 1.2 x 1.2 cm), series 5 image #18, series 3 image ?? #16.. ? SPLEEN: Spleen is normal in size without focal lesion. ? ADRENAL: Bilateral adrenal glands are normal in shape and size. ? KIDNEYS: Bilateral kidneys are normal in size without focal lesion. ? Mild grade one L4-L5 anterolisthesis with exposure of intervertebral ?? disc is seen. ? MR/MR abdomen wo/w con ?? IMPRESSION: ?? 1. 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 Follow-up pre ?? and postcontrast MRI abdomen with MRCP sequence every 2 years x5 to ?? document stability over 10 years is recommended by [employer] [employer] ?? radiology. ?? 2. ??Status post cholecystectomy. ?? 3. ??Mild grade one L4-L5 anterolisthesis with exposure of ?? intervertebral disc. ? Electronically signed by: ??Juliet Verduzco MD ??09/13/2024 02:29 PM EST ?? RP ? Dictated By: ?Juliet Verduzco ? Signed By: ?<Electronically signed by Juliet Verduzco in OV> ? 09/13/24 1429 ? DD/ 0829 ? TD/TT: 07/15/24 0849 ? Services Advisor: ? Procedure Note Nolan, Image - 09/13/2024 [place] [address] Magnetic Resonance Report Signed Patient: Heydi Gallardo#: [id number] 7 : 1955cct:[id number] Age/Sex: 69 / FADM Date: 07/15/24 Loc: HO.MRI Attending Dr: Domi Ansari PA-C Ordering Physician: Domi Ansari PA-C Date of Service: 07/15/24 Procedure(s): MR abdomen wo/w con Accession Number(s): [id number] cc: Domi Ansari PA-C; Dot Landaverde EXAMINATION: MR ABDOMEN WITHOUT AND WITH CONTRAST MR CHOLANGIOPANCREATOGRAPHY CLINICAL INFORMATION: Follow-up pancreatic cyst COMPARISON: MRI abdomen on 12/25/2023 TECHNIQUE: Examination was performed in a high field strength MRI scanner. Multiplanar multisequence MR imaging of the abdomen was performed without IV contrast enhancement. Multiphasic Axial T1-weighted fat-suppressed images of the upper abdomen were obtained after IV injection of 7 mL Gadavist. Coronal T1-weighted fat-suppressed images of the abdomen were obtained following the dynamic axial series. MR cholangiopancreatography was performed with heavily T2 weighted sequences. 3-dimensional reconstruction of image data was performed. This was performed under concurrent direct supervision and monitoring by radiologist. Maximum intensity projection images were constructed. FINDINGS: MR CHOLANGIOPANCREATOGRAPHY: Gallbladder is surgically absent. Bilateral intra hepatic bile ducts, common hepatic duct and common bile duct are normal in size without filling defects. Pancreatic duct is normal in size. There is connection between the pancreatic body cyst and the pancreatic duct. LIVER: The liver shows no focal lesion. The calculated hepatic fat percentage is 3.0%, compatible with normal. PANCREAS: A persistent lobulated T2 hyperintense nonenhancing cystic lesion with a single septation is seen in mid pancreatic body measuring 1.0 cm in AP diameter, 1.3 cm in width, 1.6 cm in vertical height (previously 1.1 x 1.2 x 1.2 cm), series 5 image #18, series 3 image #16.. SPLEEN: Spleen is normal in size without focal lesion. ADRENAL: Bilateral adrenal glands are normal in shape and size. KIDNEYS: Bilateral kidneys are normal in size without focal lesion. Mild grade one L4-L5 anterolisthesis with exposure of intervertebral disc is seen. MR/MR abdomen wo/w con IMPRESSION: 1. 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 Follow-up pre and postcontrast MRI abdomen with MRCP sequence every 2 years x5 to document stability over 10 years is recommended by [employer] [employer]. 2. Status post cholecystectomy. 3. Mild grade one L4-L5 anterolisthesis with exposure of intervertebral disc. Electronically signed by: Juliet Verduzco MD 09/13/2024 02:29 PM [facility] Dictated By: Juliet Verduzco Signed By: <Electronically signed by Juliet Verduzco in OV> 09/13/24 1429 DD/ 0829 TD/TT: 07/15/24 0849 Services Advisor: [facility] External Provider IMG MRI PROCEDURES Final Result documented in this encounter Visit Diagnoses Not on filedocumented in this encounter Additional Health Concerns Assessment Noted Time PHQ-9 Depression Total Score: 5 12/08/19 24 10:24 AM EDT documented as of this encounter Care Teams Fitter Type Bar And Segment Relationship Specialty Start Date End Date Dot Landaverde FNP [address] [place] [address] PCP - General Family Medicine 06/22/21 documented as of this encounter
--- OUTSIDE RECORDS SUMMARY | 2024-10-05 09:20 | XMS_ITS | Clinical Summary ---
Author Organization [facility] Address [address] [place] [address] Care Team Providers Care .Net Developer Name Role Phone Name, Alfredo SORENSON Primary Care Provider [phone] Surgical History Surgery Date Site/Laterality Comments GASTRIC BYPASS 05/2015 PROCEDURE: MD GASTRIC RSTCV W/BYP W/SM INT RCNSTJ LIMIT ABSRPJ OTHER SURGICAL HISTORY PROCEDURE: MD TOTAL ABDOMINAL HYSTERECT W/WO RMVL TUBE OVARY; COMMENT: 43 yo CHOLECYSTECTOMY PROCEDURE: HISTORICAL CHOLECYSTECTOMY; COMMENT: 43 yo COLONOSCOPY 03/25/2017 PROCEDURE: HISTORICAL COLONOSCOPY; COMMENT: polyp CARPAL TUNNEL RELEASE 01/19/2019 Right PROCEDURE: MD NEUROPLASTY &/TRANSPOS MEDIAN NRV CARPAL TUNNE; COMMENT: Dr. Mullins Medical History Medical History Date Comments Hypertension DX:Hypertension; COMMENT: no longer on meds since gastric bypass Osteoporosis 12/31/2016 DX:Osteoporosis Family History Medical History Relation Name Comments No Known Problems Aunt Arthritis Mother Hypertension Mother diabetes, endom etrial CA No Known Problems Other No Known Problems Uncle Blindness Neg Hx Cataracts Neg Hx Glaucoma Neg Hx Macular degeneration Neg Hx Strabismus Neg Hx Relation Name Status Comments Aunt Mother Other Uncle Social History Tobacco Use Types Packs/Day Years Used Date Smoking Tobacco: Never Smokeless Tobacco: Never Alcohol Use Standard Drinks/Week Comments No 0 (1 standard drink = 0.6 oz pur e alcohol) Sex and Gender Information Value Date Recorded Sex Assigned at Not on file Gender Identity Not on file Sexual Orientation Not on file Obstetrics History Plan of Treatment Health Maintenance Due Date Last Done Comments Zoster Vaccines (1 of 2) 08/26/2012 07/01/2012 Pneumococcal Vaccine: 65+ Ye ars (1 of 1 - PCV) 2019 Breast Cancer Screening 05/26/2021 05/26/2019 DTaP,Tdap,and Td Vaccines (2 - Td or Tdap) 07/01/2022 07/01/2012 Cholesterol Screening (Lipid Panel) 08/14/2022 Colorectal Cancer Screening: Colonoscopy 08/14/2022 Depression Screening 08/14/2022 Falls Risk Assessment 08/14/2022 Hepatitis C Screening 08/14/2022 Hypertension/CHF/CAD Annual BMP Blood Test 08/14/2022 Social Influencers of Health Screening 08/14/2022 COVID-19 Vaccine ( - 2023-2 5 season) 2024 Influenza Vaccine (#1) 2024 07/01/2012 Osteoporosis Screening (Bone Density Screening) 04/01/2028 04/01/2018 RSV Immunization Patients 60 + Years Old (1 - 1-dose 75+ series) 2029 Varicella Vaccines Aged Out 07/01/2012 No longer eligible based on patient's age to complete this topic HIB Vaccines Aged Out No longer eligi ble based on patient's age to complete this topic HPV Vaccines Aged Out No longer eligi ble based on patient's age to complete this topic Hepatitis A Vaccines Aged Out No long er eligible based on patient's age to complete this topic Hepatitis B Vaccines Aged Out No long er eligible based on patient's age to complete this topic IPV Vaccines Aged Out No longer eligi ble based on patient's age to complete this topic MMR Vaccines Aged Out No longer eligi ble based on patient's age to complete this topic Meningococcal ACWY Vaccine Aged Out N o longer eligible based on patient's age to complete this topic RSV Immunization Patients Un chris 20 months Aged Out No longer eligible b ased on patient's age to complete this topic Procedures Procedure Name Priority Date/Time Associated Diagnosis Comments SCR MAMMO BI INCL CAD Routine 05/26/2019 4:13 PM EDT Encounter for screening mammogram for malignant neoplasm of breast DXA BONE DENSITY STUDY 1+ SITS AXIAL SKEL Routine 04/01/2018 11:44 AM EDT Age-related osteoporosis without current pathological fracture from Last 3 Months or Most Recently Relevant to Health Maintenance Results * SCR MAMMO BI INCL CAD (05/26/2019 4:13 PM EDT) Anatomical Region Laterality Modality Radiographic Carie ging 12/18/2018 1:43 PM EDT Narrative 05/27/2019 9:34 AM EDT This is a summary report. The complete report is available in the patient's medical record. If you cannot access the medical record, please contact the sending organization for a detailed fax or copy. Baseline screening, full field digital mammography, reviewed with CAD. ??The breasts are composed of fatty and fibroglandular tissue. ??No suspicious mass, architectural distortion or suspicious calcifications are identified. IMPRESSION: : No mammographic evidence of malignancy. BIRADS 1-Negative; N. 5 year breast cancer risk assessment 1.6 % Lifetime breast cancer risk assessment 6.5 % Breast cancer risk category Low (<15%) Procedure Note Manoj Reyes - 08/20/2022 This is a summary report. The complete report is available in thepatient's medical record. If you cannot access the medical record, pleasecontact the sending organization for a detailed fax or copy. Baseline screening, full field digital mammography, reviewed with CAD.The breasts are composed of fatty and fibroglandular tissue. Nosuspicious mass, architectural distortion or suspicious calcifications areidentified. IMPRESSION: : No mammographic evidence of malignancy. BIRADS 1-Negative; N. 5 year breast cancer risk assessment 1.6 % Lifetime breast cancer risk assessment 6.5 % Breast cancer risk category Low (<15%) Opal Garcia NP IMG XR PROCEDURES * DXA BONE DENSITY STUDY 1+ SITS AXIAL [facility] (04/01/2018 11:44 AM EDT) Anatomical Region Laterality Modality Bone Densitometr y 01/31/2018 1:06 PM EDT Narrative 04/01/2018 4:06 PM EDT DEXA SCAN: Lumbar Spine T-score is -2.2. ?? (SD relative to 20-29 y/o adult) Z-score is -0.5. ??(SD relative to age matched peers) This is considered osteopenia by WHO criteria. Left Femoral Neck T-score is -2.0. Z-score is -0.7. This is considered osteopenia by WHO criteria. Comparison exam(s): None available. IMPRESSION: Osteopenia by WHO criteria. This patient has a 5.6% risk of major osteoporotic fracture and a 0.7% risk of hip fracture over the next 10 years. (World Health Organization Fracture Risk Assessment) [facility] Department of Internal Medicine recommends using National Osteoporosis Foundation (NOF) guidelines in treatment decisions related to osteoporosis. NOF guidelines suggest considering treatment for postmenopausal women and men aged 50 or older presenting with the following: History of hip or vertebral fracture. T-score = -2.5 (DXA) at the femoral neck, total hip, or spine, after appropriate evaluation to exclude secondary causes. Low bone mass (T-score between -1.0 and -2.5 at the femoral neck or spine) AND a 10-year probability of a hip fracture = 3% OR a 10-year probability of a major osteoporosis-related fracture = 20% based on the [place]-adapted WHO algorithm Please note that all treatment decisions require clinical judgment and consideration of individual patient factors, including patient preferences, co-morbidities, previous drug use, risk factors not captured in the FRAX model (e.g., frailty, falls, vitamin D deficiency, increased bone turnover, interval significant decline in bone density) and possible under- or over-estimation of fracture risk by FRAX. Optional alternative screening schedule based on estephania Andrews., [facility] September 19, 2011 for patients with osteopenia (based on hip BMD T-score) is as follows: * ??advanced osteopenia (T scores -2.00 to -2.49), BMD testing every year * ??moderate osteopenia (T scores -1.50 to -1.99), BMD testing every 5 years mild osteopenia or normal BMD (T scores -1.50 and higher), BMD testing every 15 years Procedure Note Deborah Hodge, - 08/20/2022 DEXA SCAN: Lumbar Spine T-score is -2.2. (SD relative to 20-29 y/o adult) Z-score is -0.5. (SD relative to age matched peers) This is considered osteopenia by WHO criteria. Left Femoral Neck T-score is -2.0. Z-score is -0.7. This is considered osteopenia by WHO criteria. Comparison exam(s): None available. IMPRESSION: Osteopenia by WHO criteria. This patient has a 5.6% risk of majorosteoporotic fracture and a 0.7% risk of hip fracture over the next 10 years. (WorldHealth Organization Fracture Risk Assessment) [facility] Department of Internal Medicine recommendsusing National Osteoporosis Foundation (NOF) guidelines in treatment decisions related toosteoporosis. NOF guidelines suggest considering treatment for postmenopausal women and menaged 50 or older presenting with the following: History of hip or vertebral fracture. T-score = -2.5 (DXA) at the femoral neck, total hip, or spine, afterappropriate evaluation to exclude secondary causes. Low bone mass (T-score between -1.0 and -2.5 at the femoral neck or spine)AND a 10-year probability of a hip fracture = 3% OR a 10-year probability of a majorosteoporosis-related fracture = 20% based on the [place]-adapted WHO algorithm Please note that all treatment decisions require clinical judgment andconsideration of individual patient factors, including patient preferences, co- morbidities,previous drug use, risk factors not captured in the FRAX model (e.g., frailty, falls, vitaminD deficiency, increased bone turnover, interval significant decline in bone density) andpossible under- or over-estimation of fracture risk by FRAX. Optional alternative screening schedule based on douglas Andrews al., [facility] 2011 for patients with osteopenia (based on hip BMD T-score) is as follows: * advanced osteopenia (T scores -2.00 to -2.49), BMD testing every year * moderate osteopenia (T scores -1.50 to -1.99), BMD testing every 5years mild osteopenia or normal BMD (T scores -1.50 and higher), BMD testingevery 15 years Usha CLARK IMG DXA PROCEDURES from Last 3 Months or Most Recently Relevant to Health Maintenance Care Teams .Net Developer Relationship Specialty Start Date End Date Name, MD Alfredo [address] [place], [place] PCP - General Internal Medicine 10/31/19
--- OUTSIDE RECORDS SUMMARY | 2024-10-05 09:20 | XMS_ITS | Clinical Summary ---
Author Organization [employer] Address [address] [place] [address] Care Team Providers Care Talent Acquisition Associate Name Role Phone Dot Landaverde VENITA Primary Care Provider [phone] Allergies Active Allergy Reactions Criticality Noted Date Comments Nsaids High 11/12/2019 Other reaction(s): GI Problems Penicillin G 11/12/2019 Medications Acetaminophen Extra Strength 500 MG tablet TAKE 1-2 (500MG) BY ORAL ROUTE EVERY 8 HOURS NEEDED FOR PAIN 2 Active capsaicin (Zostrix) 0.025 % cream APPLY BY TOPICAL ROUTE UP TO 3 TIMES EVERY DAY TO THE AFFECTED AREA(S) NEEDED FOR PAIN 2 Active Diclofenac Sodium (Voltaren) 1 % gel Apply thin layer to left knee as needed for joint pain 50 g 2 3 Active calcium citrate 250 MG tablet Take 1 tablet (250 mg) by mouth Once daily. 90 tablet 1 3 Active celecoxib (CeleBREX) 200 MG capsuleIndications :Primary osteoarthritis of left knee TAKE 1 CAPSULE IF NEEDED EACH DAY FOR MODERATE PAIN. CAUTION SHOULD ONLY BE USED FOR A SHORT PERIOD. 30 capsule 4 Active buPROPion XL (Wellbutrin XL) 300 MG 24 hr tabletIndications: BMI 29.0-29.9,adult Take 300 mg by mouth Once per day. 4 Active gabapentin (Neurontin) 300 MG capsuleIndications :Sleep difficulties Take 1 capsule (300 mg) by mouth at bedtime. 90 capsule 1 4 025 Active Bisacodyl EC 5 MG EC tablet Take 1 tablet (5 mg) by mouth if needed each day for constipation. 90 tablet 1 4 Active cholecalciferol VITAMIN D (Vitamin D-3) 50 MCG (2000 UT) capsuleIndications :Vitamin D deficiency Take 1 capsule (50 mcg) by mouth Once per day. 90 capsule 1 4 Active alendronate (Fosamax) 70 MG tablet PLEASE SEE ATTACHED FOR DETAILED DIRECTIONS Active magnesium oxide (Mag-Ox) 400 (240 Mg) MG tablet Take 400 mg by mouth Once per day. 4 Active pantoprazole (ProtoNix) 40 MG EC tablet TAKE 1 TABLET BY MOUTH BEFORE BREAKFAST. DO NOT CRUSH, CHEW OR SPLIT. 90 tablet 1 4 Active Multiple Vitamin (Daily-Yumi Multivitamin) tablet TAKE 1 TABLET BY MOUTH EVERY DAY WITH FOOD 90 tablet 1 4 Active cyanocobalamin (Vitamin B-12) 1000 MCG tablet TAKE 1 TABLET BY MOUTH EVERY MORNING 90 tablet 1 4 Active Active Problems Problem Noted Date Diagnosed Date Osteoarthritis of right knee 05/20/2024 Overview (05/20/2024): 12/12/23: XR bilat knees showed mild oA right knee BMI 29.0-29.9,adult 05/20/2024 Assessment & Plan (05/20/2024 12:18 PM EDT): Following with [facility] for weight management History of gastric sleeve Continues with bupropion 300mg daily. Reports that med has been helpful for her anxiety as well as for helping her to not gain more weight. Denies med SE. Continues going to gym, aquatic therapy 2x/week Healthy, well balanced nutrition If BMI greater than 27, may try for GLP-1 authorization through [facility] per consult note Sleep difficulties 05/20/2024 Overview (05/20/2024): Magnesium 400mg nightly Gabapentin 300mg nightly. Reviewed med safety and SE. Chronic pain of both shoulders 05/20/2024 Overview (05/20/2024): Referral to [facility] Ortho and physical therapy placed on 05/19/24 Assessment & Plan (05/20/2024 12:27 PM EDT): Cont symptomatic management Hx of total knee arthroplasty, left 12/11/2023 Overview (12/11/2023): Left TKA 09/24/23 at [facility] w/ Dr. Beltre. Indication: OA Per ortho, plan for prophylactic abx prior to dental procedures Assessment & Plan (05/20/2024 12:00 PM EDT): Completed physical therapy sessions, and continues with home exercises Ambulating with cane Pancreatic lesion 12/11/2023 Overview (05/20/2024): 12/03/23: Incidental finding of 1.2 cm pancreatic body cystic lesion. Malignancy needs to be excluded. Urgent MRI ordered for further eval MRI 12/25/23: 1.1 x 1.2 x 1.2 cm cystic lesion in the body of the pancreas. No abnormal enhancement. No definite communication with the main pancreatic duct. Follow-up imaging in 24 months is advised. Currently following with [facility] GI with plan for routine repeat MRI Assessment & Plan (05/20/2024 12:04 PM EDT): -Currently following with [facility] GI. Plan for repeat MRI in 6 months per consult note in December 2023 History of appendectomy 12/11/2023 Overview (12/11/2023): Emergency appendectomy completed 12/03/23 Assessment & Plan (12/11/2023 12:06 PM EDT): Scheduled for follow up visit 12/10/23 with [facility] Surgeons No active sign of infx of incisions, avoid lifting. Elevated parathyroid hormone 06/09/2023 Overview (06/09/2023): ?? Noted during medical evaluation in [facility]. Comprehensive workup including ultrasound, biopsy, and PET scan negative for malignancy ?? Recommended follow up blood work (PTH) in Sep 2023 Other osteoporosis without current pathological fracture 06/09/2023 Assessment & Plan (05/20/2024 12:15 PM EDT): 04/2020: DEXA impression: osteopenia. 11/08/2022: Bone Density scan record from [facility] with impression of osteoporosis -Pt reports received Prolia injection while in [facility], continues on calcium and Vit D (through multivitamin) supplementation -Established with [facility] Wei - Dr. Gregg. Per consult note December 2023: denosumab not very effective on the hips (T-score -2.4 in hips). Suggested transition to alendronate 70mg weekly. Pt reports tolerating well -Next DXA: 11/08/24 at [place] Assessment & Plan (07/06/2023 11:36 AM EST): 04/2020: DEXA impression: osteopenia. 11/08/2022: Bone Density scan record from [facility] with impression of osteoporosis -Pt reports received Prolia injection while in [facility], continues on calcium and Vit D (through multivitamin) supplementation -With hx of Prolia injection, interruption or discontinuation of therapy may increase risk of fracture. Referral to Endo placed in Jun 2023, initial consult pending Assessment & Plan (06/09/2023 2:53 PM EDT): DEXA: 04/2020 osteopenia. Due April 2022. Previously ordered -Pt received ?Prolia injection while in [facility], continues on calcium and Vit D (through multivitamin) supplementation -If indeed was Prolia, interruption or discontinuation of therapy may increase risk of fracture -Will request most recent DEXA and refer to Endo given tx of bone health and PTH Healthcare maintenance 06/02/2023 Overview (05/20/2024): Pap: Total hysterectomy with ?bilateral oopherectomy (discrepancy about date, encouraged pt to please bring in any records or documentation). Pt interested in pelvic exam, referral to [facility] MORTGAGE COORDINATOR as requested. Colonoscopy: 2016 at [facility]. Pt reports normal, notes requested. Scheduled 07/19/24 at [facility] for colonoscopy. Mammogram: 01/03/22 BIRADS 1 DEXA: 04/2020 osteopenia. Subsequently completed in DR mares/ impression of osteoporosis. Plan to repeat DXA scan 11/08/24 at [place] OPH: UTD per patient report, follows with Dr. Craven. Dental: Established with dental home in [place], reports UTD with appts and care. Outstanding IZ: Flu, pneumococcal, Tdap, RSV, COVID, Zoster declined History of total hysterectomy 04/28/2023 Vitamin D deficiency 04/28/2023 Overview (05/20/2024): Tx with course of high dose Vit D 50,000 units weekly by Endo starting approx Oct 2023 Currently on Vit D 2000 units daily Following with [facility] Endo - Dr. Gregg Primary osteoarthritis of left knee 04/28/2023 Overview (12/11/2023): Left knee XR 04/28/23: IMPRESSION: Mild tricompartmental degenerative joint changes most consistent with osteoarthritis. Possible trace suprapatellar joint effusion. No acute fracture. Followed by [facility] Ortho - Dr. Beltre. Received steroid injection on 05/19/23 S/P left TKA on 09/24/[address] Beltre at [facility] ED. Per Ortho, pt will require prophylactic abx for dental procedures Assessment & Plan (09/01/2023 5:24 PM EST): -DME request for cane placed 07/06/23 -DME request for shower chair placed 09/01/23 -Plan for upcoming TKA 09/24/23 through [facility] Ortho Assessment & Plan (07/06/2023 11:34 AM EST): DME request for cane placed 07/06/23 Assessment & Plan (04/28/2023 9:46 AM EDT): Has effusion, ro ligament compromise. Counseled to walk with cane, avoid stressing left knee. Immobilization with bandage, can use knee brace once effusion is down. Elevate leg, I gave her a letter to be out of work for this week, avodi negotiating stairs. Refer to PT and orthopedics Order Xrays knee Will rx Celebrex given previous GI intolerance to other NSAIDs, can use tylenol prn + Diclofenac gel Counted to avoid opiates rx by provider in [facility], she has rx for tapenatdol which she says is only suing rarely for severe pain Obstructive sleep apnea syndrome 06/18/2022 Assessment & Plan (12/11/2023 11:47 AM EDT): - Sleep study: completed 01/14/22 at [facility] - Impression: The baseline portion of the sleep study was significant for a severe degree of sleep apnea. The total AHI was 32/hr and average oxygen was 91% with oxygen garry at 74%. Patient was trialed on CPAP 4 and 6 cm of water. The breathing and oxygenation improved with both settings. Recommendations: Start Patient on CPAP 6cm of water and follow up to ensure compliance and therapy response. - Pt received CPAP machine, and referred to sleep medicine 06/18/22 for further titrations and monitoring - Currently following with [facility] Neurology & Sleep Assessment & Plan (07/06/2023 11:38 AM EST): - Sleep study: completed 01/14/22 at [facility] - Impression: The baseline portion of the sleep study was significant for a severe degree of sleep apnea. The total AHI was 32/hr and average oxygen was 91% with oxygen garry at 74%. Patient was trialed on CPAP 4 and 6 cm of water. The breathing and oxygenation improved with both settings. Recommendations: Start Patient on CPAP 6cm of water and follow up to ensure compliance and therapy response. - Pt received CPAP machine, and referred to sleep medicine 06/18/22 for further titrations and monitoring. However, has not yet established -Re-referral sent 07/04/23 Assessment & Plan (06/09/2023 2:36 PM EDT): - Sleep study: completed 01/14/22 at [facility] - Impression: The baseline portion of the sleep study was significant for a severe degree of sleep apnea. The total AHI was 32/hr and average oxygen was 91% with oxygen garry at 74%. Patient was trialed on CPAP 4 and 6 cm of water. The breathing and oxygenation improved with both settings. Recommendations: Start Patient on CPAP 6cm of water and follow up to ensure compliance and therapy response. - Pt received CPAP machine, and referred to sleep medicine for further titrations and monitoring History of sleeve gastrectomy 12/04/2021 Assessment & Plan (06/09/2023 2:34 PM EDT): ?? History of sleeve gastrectomy, pt interested in revision with gastric bypass ?? Referred to Dr. Banks for further eval on 06/09/23 Encounters Date Type Department Care Team Description 08/17/2024 Telephone [facility] MEDICINE [address] [place] [address] Dot Landaverde FNP Med Refill 08/11/2024 Telephone [facility] MED & PEDS [address] [place] [address] Dot Landaverde FNP Reschedule 08/06/2024 Telephone [facility] [address] [place] [address] Dot Landaverde FNP Medication Question 07/21/2024 Orders Only [address] [address] Provider, MD Zoila 07/20/2024 Orders Only GENERIC EXTERNAL DATA DEPARTMENT Provider, Generic External Data 07/19/[address] [address] Dot Landaverde FNP Appointment Request 07/15/2024 Orders Only [facility] External Provider, [facility] from Last 3 Months Immunizations Name Administration Dates Next Due Influenza High-dose Quadrivalent Preservative Fr ee 05/17/2022 Pfizer Covid-19 Vaccine 12+ Bivalent 08/06/2022 Pfizer Covid-19 Vaccine 12+ john-sucrose (Rene Lynn ap) 06/07/2022,05/17/2022 Social History Tobacco Use Types Packs/Day Years Used Date Smoking Tobacco: Never Passive Smoke Exposure: Never Smokeless Tobacco: Never Tobacco Cessation:Counseling Given: Not Answered Alcohol Answer Date Recorded Frequency of Alcohol [...] your housing situation today? I have viola sing 12/08/[address] you li [...] Orientation Straight 07/01/2022 10 :36 AM EDT Last Filed Vital Signs Vital Sign Reading Time Taken Comments Blood Pressure 118/75 05/19/2024 10:58 AM EDT Pulse 55 05/19/2024 10:58 AM EDT Temperature 36.3 ??C (97.3 ??F) 05/19/2024 10:58 AM E DT Respiratory Rate 18 05/19/2024 10:58 AM EDT Oxygen Saturation 98% 05/19/2024 10:58 AM EDT Inhaled Oxygen Concentration - - Weight 73.5 kg (162 lb 2 oz) 05/19/2024 10:58 AM EDT Height 157.5 cm (5' 2 ) 05/19/2024 10:58 AM EDT Body Mass Index 29.65 05/19/2024 10:58 AM EDT Plan of Treatment Upcoming Encounters Date Type Department Care Team (Late st Contact Info) Description 10/08/2024 10:00 AM EST Office Visit [facility] MED & PEDS [address] [place] [address] Dot Landaverde, REINSURANCE CLAIMS ANALYST [address] [place] [address] Health Maintenance Due Date Last Done Comments CT Colonography 1955 FIT DNA/Cologuard 1955 FIT 1955 FOBT 1955 Sigmoidoscopy 1955 Mammogram 01/04/2024 01/03/2022, 11/08/2020 Alcohol/Substance Use Screening 12/07/2024 12/08/2023 Depression Screening 12/07/2024 12/08/2023, 12/08/2023 Pneumococcal Vaccine: 50+ Years (1 of 1 - PCV) 12/07/2024 Postponed from 12/31 (Patient Refused) SDOH Screening 12/07/2024 12/08/2023 Influenza Vaccine (#1) 2025 , 07/01/2012 Postponed from 05/02/2024 (Patient Refused) COVID-19 Vaccine (4 - 2023-2 5 season) 2025 08/06/2022, 06/07/2022, 05/17/2022 Postponed from 05/02/2024 (Patient Refused) DTaP/Tdap/Td Vaccines (2 - T d or Tdap) 05/20/2025 07/01/2012 Postponed from 07/01 (Patient Refused) Tobacco Screening 05/20/2025 05/20/2024 Zoster Vaccines (1 of 2) 05/20/2025 Pos tponed from 01/21/2004 (Patient Refused) Lipid Panel 02/05/2027 02/05/2022 RSV Patients and Patients Aged 60 years or older (1 - 1-dose 75+ series) 2029 Colonoscopy 07/20/2034 07/20/2024 Colorectal Cancer Screening 07/20/2034 Hepatitis C Screening Completed 02/05/2022 , 11/19/2019 HIB Vaccines Aged Out No longer eligi [...] patient's age to complete this topic Meningococcal Vaccine Aged Out No amanda suzan eligible based on patient's age to complete this topic RSV under 20 months Aged Out No longe r eligible based on patient's age to complete this topic Rotavirus Vaccines Aged Out No longer eligible based on patient's age to complete this topic Procedures Procedure Name Priority Date/Time Associated Diagnosis Comments BACTERIAL VAGINOSIS PANEL Routine 07/21/2024 7:46 AM EST HM COLONOSCOPY Routine 07/20/2024 3:14 PM EST HEMATOXYLIN AND EOSIN STAIN Routine 07/20/2024 9:09 AM EST MR ABDOMEN W AND WO CONTRAST Routine 07/15/2024 8:29 AM EST ZZZ HISTORICAL HEPATITIS C AB W/REFL TO HCV RNA, QN, PCR Routine 02/05/2022 8:19 AM EDT LIPID PANEL, STANDARD Routine 02/05/2022 8:19 AM EDT MAMMOGRAM GENERIC Routine 01/03/2022 4:4 5 PM EDT from Last 3 Months or Most Recently Relevant to Health Maintenance Results * Bacterial Vaginosis (07/21/2024 7:46 AM EST) TRICHOMONAS VAGINALIS DETECTION BY PCR NOT DETECTED Not Detect [facility] BACTERIAL VAGINOSIS DETECTION BY PCR NEGATIVE Negative [facility] Comment:The BV organism targ ets of the Xpert Xpress MVP test can becommensal in women; Xpert Xpress MVP positive results forbacterial vaginosis should be considered in conjunction withother clinical and patient information to determine thedisease status. Organisms that are not detected by the XpertXpress MVP test have also been reported to be associatedwith BV and aerobic vaginitis.The Xpert Xpress MVP test performance has not been evaluatedin patients under the age of 14. SALLY GROUP DETECTION BY PCR NOT DETECTED Not Detect [facility] Sally glab krusei PCR NOT DETECTED Not Detect [facility] 07/21/2024 7:46 AM EST 07/21/2024 3:42 PM EST Generic External Data Provider LAB MICROBIOLOGY - GENERAL ORDERABLES Final Result [facility] [address] [place] [address] [phone] * Hm Colonoscopy (07/20/2024 3:14 PM EST) Historical Provider HEALTH MAINTENANCE Final Result * Hematoxylin and Eosin Stain (07/20/2024 9:09 AM EST) 07/20/2024 9:09 AM EST 07/20/2024 9:43 AM EST Narrative [facility] - 08/02/2024 3:01 PM EST ----- ------- Name: Debby Gallardo ?Age/Sex: 69/F ? : 1955 Unit#: [id number] ?? Attend Dr: Cuca Wheat MD ?Re07/20/24 ?Status: DEP SDC ? Location: HO.SSS ?Disch: ? ----- ------- SPEC : [id number] ? RECD: 07/20/24 ? STATUS: ??SOUT ? REQ NUM: [id number] ? GARETH: 07/20/24 ? SUBM DR: Cuca Wheat MD ? ENTERED: ??07/20/24 ?SP TYPE: Surgical ? OTHR DR: Dot Landaverde REINSURANCE CLAIMS ANALYST ? ORDERED: ??HE Stain/15, Gross Micro L4/5, IHC, Add. immunos, Special st. 2/3, H. pylori, ?AB/PAS/3 COMMENTS: Block B sent to [facility] for Gastrin IHC on 07/22/24. ?Addendum Addendum ??1 ?Entered: 08/02/24-1500 By immunohistochemistry on part B, gastrin immunostain is nonreactive in one of the tissue fragments, consistent with atrophic gastritis. ??No other changes are made to the diagnoses. Technical services for immunohistochemistry studies performed at [facility] [employer] [address] Jag Manjarrez [place]; [place] #[id number] Addendum Signed (signature on file) Onesimo Billy MD 08/02/24 1501 ? ----- ------- ? Diagnosis ?? A. ??Duodenum, biopsy: ??Duodenal mucosa within normal limits. ? B. ??Stomach, random, biopsy: ??Antral-type mucosa with moderate chronic inactive ?? inflammation; no Helicobacter organisms seen. ? C. ??GE junction, biopsy: ?- Cardiofundic-type mucosa with moderate chronic inactive inflammation; no intestinal ?? metaplasia seen. ?- Squamous mucosa within normal limits. ? D. ??Colon, right, biopsy: ??Colonic mucosa within normal limits. ? E. ??Colon, left, biopsy: ??Colonic mucosa within normal limits. ? Comment: ??Gastrin immunostain is underway to evaluate for atrophic gastritis in part B; ?? results will be addended. 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 CONTINUED ON NEXT PAGE ----- ------- Name: Debby Gallardo ?Age/Sex: 69/F ? : 1955 Unit#: [id number] ?? Attend Dr: Cuca Wheat MD ?Re07/20/24 ?Status: DEP SDC ? Location: HO.SSS ?Disch: ? ----- ------- SPEC : [id number] ? RECD: 07/20/24 ? STATUS: ??SOUT ? REQ NUM: [id number] ? GARETH: 07/20/24 ? SUBM DR: Cuca Wheat MD ? ENTERED: ??07/20/24 ?SP TYPE: Surgical ? OTHR DR: Dot Landaverde REINSURANCE CLAIMS ANALYST ? ORDERED: ??HE Stain/15, Gross Micro L4/5, IHC, Add. immunos, Special st. 2/3, H. pylori, ?AB/PAS/3 COMMENTS: Block B sent to [facility] for Gastrin IHC on 07/22/24. ?Microscopic Description A-E. ??Microscopic sections examined. ??No metaplastic changes are seen, supported by AB/PAS stains (A, B and C); no Helicobacter organisms are seen, supported by H. pylori immunostain (B). ? Material Received ?? A. Duodenum bx's ?? B. Random gastric bx ?? C. GE junction bx r/o Horner's ?? D. Right side colon ?? E. Left side colon ? Gross Description Received in 5 parts. A. ??Received in formalin labeled ?duodenum biopsies? are 3 fragments of faust-white soft tissue measuring 0.3-0.4 cm in greatest dimension which are wrapped in lens paper and entirely submitted for microscopic examination, 3 pieces in cassette A. B. Received in formalin labeled ?random gastric biopsy? is a fragment of faust-white soft tissue measuring 0.3 cm in greatest dimension which is wrapped in lens paper and entirely submitted for microscopic examination, 1 piece in cassette B. C. Received in formalin labeled ?GE junction biopsy R/0 Horner's? are 4 fragments of faust- white soft tissue measuring 0.2-0.4 cm in greatest dimension which are wrapped in lens paper and entirely submitted for microscopic examination, 4 pieces in cassette C. D. Received in formalin labeled ?right side colon? are 3 fragments of faust-white soft tissue measuring 0.2-0.3 cm in greatest dimension which are wrapped in lens paper and entirely submitted for microscopic examination, 3 pieces in cassette D. E. Received in formalin labeled ?left side colon? are 4 fragments of translucent, faust-white soft tissue measuring 0.3-0.4 cm in greatest dimension which are wrapped in lens paper and entirely submitted for microscopic examination, 4 pieces in cassette E. ??smc Special studies ordered and performed: Immunostain for H. pylori on B; AB/PAS stains on A, B and C ? CONTINUED ON NEXT PAGE ----- ------- Name: Debby Gallardo ?Age/Sex: 69/F ? : 1955 Unit#: [id number] ?? Attend Dr: Cuca Wheat MD ?Re07/20/24 ?Status: DEP SDC ? Location: HO.SSS ?Disch: ? ----- ------- SPEC : [id number] ? RECD: 07/20/24 ? STATUS: ??SOUT ? REQ NUM: [id number] ? GARETH: 07/20/24 ? SUBM DR: Cuca Wheat MD ? ENTERED: ??07/20/24 ?SP TYPE: Surgical ? OTHR DR: Dot LandaverdeP ? ORDERED: ??HE Stain/15, Gross Micro L4/5, IHC, Add. immunos, Special st. 2/3, H. pylori, ?AB/PAS/3 COMMENTS: Block B sent to [facility] for Gastrin IHC on 07/22/24. ? Copies To: ?? Dot Landaverde REINSURANCE CLAIMS ANALYST ?? [address] [facility] ?? [place] [address] ?? [phone] ?? Cuca Wheat MD ?? [facility] Gastroenterology Services ?? [address] ?? [place] [address] ?? [phone] ?? [email or web address] ----- ------- Signed (signature on file) Onesimo Billy MD 07/22/24 1023 ? ----- ------- ? END OF REPORT ? us Generic External Data Provider LAB BLOOD ORDERAB LES Final Result [facility] [address] [place] [address] [phone] * MR Abdomen w/ and w/o Contrast (07/15/2024 8:29 AM EST) Anatomical Region Laterality Modality Abdomen Magnetic Resonan ce 07/15/2024 8:29 AM EST Narrative 09/13/2024 2:31 PM EST ? [facility] ?[address] ?[place] [address] ? Magnetic Resonance Report ? Signed ? Patient: Sami,Debby ?MR#: [id number] ?? 7 ? : 1955 ?Acct:[id number] ? Age/Sex: 69 / F ?ADM Date: 07/15/24 ? Loc: HO.MRI ? Attending Dr: Domi Ansari PA-C ? Ordering Physician: Domi Ansari PA-C ?? Date of Service: 07/15/24 ?? Procedure(s): MR abdomen wo/w con ?? Accession Number(s): [id number] ? cc: Domi Ansari PA-C; Dot Landaverde [...] stability over 10 years is recommended by [employer] ?? radiology. ?? 2. ??Status post cholecystectomy. ?? 3. ??Mild grade one L4-L5 anterolisthesis with exposure of ?? intervertebral disc. ? Electronically signed by: ??Juliet Verduzco MD ??09/13/2024 02:29 PM EST ? Dictated By: ?Juliet Verduzco ? Signed By: ?<Electronically signed by Juliet Verduzco in [place]> ? 09/13/24 1429 ? DD/ 0829 ? TD/TT: 07/15/24 0849 ? Cold Water Machine Operator: ? Procedure Note Lior Francisco - 09/13/[address] [address] Magnetic Resonance Report Signed Patient: Heydi Gallardo#: [id number] 7 : 4Acct:[id number] Age/Sex: 69 / FADM Date: 07/15/24 Loc: HO.MRI Attending Dr: Domi Ansari PA-C Ordering Physician: Domi Ansari PA-C Date of Service: 07/15/24 Procedure(s): MR abdomen wo/w con Accession Number(s): [id number] cc: Domi Ansari PA-C; Dot Landaverde EXAMINATION: [...] stability over 10 years is recommended by [employer]. 2. Status post cholecystectomy. 3. Mild grade one L4-L5 anterolisthesis with exposure of intervertebral disc. Electronically signed by: Juliet Verduzco MD 09/13/2024 02:29 PM [facility] Dictated By: Juliet Verduzco Signed By: <Electronically signed by Juliet Verduzco in OV> 09/13/24 1429 DD/ 0829 TD/TT: 07/15/24 0849 Cold Water Machine Operator: [facility] External Provider IMG MRI PROCEDURES Final Result * HEPATITIS C AB W/REFL TO HCV RNA, QN, PCR (02/05/2022 8:19 AM EDT) HEPATITIS C ANTIBODY NON-REACT MARY NON-REACT [facility] INDEX 0.02 <1.00 [facility] Comment: ?? HCV antibody was non-reactive. There is no laboratory ?? evidence of HCV infection. ?? In most cases, no further action is required. However, if recent HCV exposure is suspected, a test for HCV RNA (test code 40913) is suggested. ?? For additional information please refer to http://education.[employer]/faq/SXX47i7 (This link is being provided for informational/ educational purposes only.) ?? 02/05/2022 8:19 AM EDT Dot Landaverde REINSURANCE CLAIMS ANALYST HISTORICAL/NON ORDERABLE LABS Final Result [facility] [address] * LIPID PANEL, STANDARD (02/05/2022 8:19 AM EDT) Chol/HDLC Ratio 2.3 <5.0 (calc) [facility] Cholesterol, Total 170 <200 mg/dL [facility] HDL Cholesterol 73 > OR = 50 mg/dL [facility] LDL Cholesterol 79 mg/dL (calc) [facility] Comment: Reference range: <100 ?? Desirable range <100 mg/dL for primary prevention; ?? <70 mg/dL for patients with CHD or diabetic patients ?? with > or = 2 CHD risk factors. ?? LDL-C is now calculated using the Deepak-Navarrete ?? calculation, which is a validated novel method providing ?? better accuracy than the Friedewald equation in the ?? estimation of LDL-C. ?? Deepak LOPEZ et al. OREN. 2013;310(19): 1104-6882 ?? (http://[employer]ellarray/faq/DVY028) Non-HDL Cholesterol 97 <130 mg/dL (calc) [facility] Comment: For patients with diabetes plus 1 major ASCVD risk ?? factor, treating to a non-HDL-C goal of <100 mg/dL ?? (LDL-C of <70 mg/dL) is considered a therapeutic ?? option. Triglycerides 99 <150 mg/dL [facility] 02/05/2022 8:19 AM EDT Dot NATHAN LAB BLOOD ORDERABLES Final Res ult [facility] [address] * Mammography Report 1 (01/03/2022 4:45 PM EDT) Anatomical Region Laterality Modality Breast Bilateral Mammography 01/03/2022 4:45 PM EDT Narrative 01/07/2022 10:31 AM EDT Refer to the Notes tab for result details [facility] Procedure: Mammography Report 1 Procedure Note Provider, MD Zoila - 11/24/2022 Refer to the Notes tab for result details [facility] Procedure: Mammography Report 1 Dot NATHAN IMG BI PROCEDURES Final Result from Last 3 Months or Most Recently Relevant to Health Maintenance Insurance DUAL COMPLETE Care Teams Talent Acquisition Associate Relationship Specialty Start Date End Date Dot Landaverde FNP [address] [place] [address] PCP - General Family Medicine 06/22/21
--- OUTSIDE RECORDS SUMMARY | 2024-10-05 09:20 | XMS_ITS | Encounter Summary ---
Author Organization [employer] Address [address] [facility] 7t [place] [address] Care Team Providers Care Electronic Funds Transfer Coordinator Name Role Phone Dot Landaverde Primary Care Provider Reason for Visit * Reason Onset Date Comments Call Back Request 10/31/2023 Encounter Details Date Type Department Care Team (Late st Contact Info) Description 10/31/2023 Telephone [facility] MED & PEDS [address] [place] [address] Dot Landaverde FNP [address] [place] [address] Call Back Request Social History Tobacco Use Types Packs/Day Years Used Date Smoking Tobacco: Never Passive Smoke Exposure: Never Smokeless Tobacco: Never Comments Unknown Sex and Gender Information Value Date Recorded Sex Assigned at Female 07/01/2022 10:36 AM EDT Legal Sex Female 10:36 AM EDT Gender Identity Female 07/01/2022 10:36 AM EDT Sexual Orientation Straight 07/01/2022 10 :36 AM EDT documented as of this encounter Miscellaneous Notes * Telephone Encounter - Vivienne Conte - 10/31/2023 4:22 PM EST Tc from afshan with [facility] states pt was admitted on 07/26 and discharged on 10/14 from rehab. Afshan is requesting to speak with a nurse to review discharge medication Please contact afshan at [phone] documented in this encounter Plan of Treatment Upcoming Encounters Date Type Department Care Team (Late st Contact Info) Description 10/08/2024 10:00 AM EST Office Visit [facility] [address] [place], [place] [phone] Dot Landaverde FNP [address] [place] [address] documented as of this encounter Visit Diagnoses Not on filedocumented in this encounter Care Teams Electronic Funds Transfer Coordinator Relationship Specialty Start Date End Date Dot Landaverde FNP [address] [place] [address] PCP - General Family Medicine 06/22/21 documented as of this encounter
--- OUTSIDE RECORDS SUMMARY | 2024-10-05 09:20 | XMS_ITS | Encounter Summary ---
Author Organization [employer] Address [address] [facility] [place] [address] Care Team Providers Care Double End Sewer Name Role Phone Dot Landaverde Primary Care Provider [phone] Reason for Visit * Reason Onset Date Comments FYI 12/16/2023 Encounter Details Date Type Department Care Team ([facility] st Contact Info) Description 12/16/2023 Telephone [facility] MEDICINE [address] [place] [address] Dot Landaverde FNP [address] [place] [address] Social History Tobacco Use Types Packs/Day Years [...] encounter Miscellaneous Notes * Telephone Encounter - Claudine Pollard RN - 12/18/2023 2:56 PM EDT Telephone call placed to [facility] GI x3. They stated they got our V/M. Pt's appt has been pushed up to 12/31/23 at 1:30 and pt is aware. It is a colonoscopy consultation appt at which time they will schedule colonoscopy. * Telephone Encounter - Liudmila Barker RN - 12/17/2023 9:29 AM EDT TCx2PM placed to [facility] at [phone] per provider regarding appt/referral. No answer. Message left for [facility] to return call to [facility]. RN will forward to [facility] Team Nurses to third attempt. TCx1AM placed to [facility] at [phone] regarding message below per Dot NATHAN (GI referral noted 12/11/23.) No answer. Voice message left for return call to [facility]. RN will forward to [facility] Team Nurses to make second attempt. Please call [facility] - pt needs to be scheduled for colonoscopy due to abnormal findings on appendix path 12/03/23: However, appendiceal hyperplastic lesions can be associated with colonic neoplasia andscreening colonoscopy is warranted. Please let me know if they need new referral or anything on my end. Thank you! * Telephone Encounter - VENITA Morrell - 12/17/2023 7:52 AM EDT Please call [facility] - pt needs to be scheduled for colonoscopy due to abnormal findings on appendix path 12/03/23: However, appendiceal hyperplastic lesions can be associated with colonic neoplasia andscreening colonoscopy is warranted. Please let me know if they need new referral or anything on my end. Thank you! * Telephone Encounter - Hiral Smith - 12/16/2023 2:41 PM EDT Tc from [facility] Jean Marie Toney Jr, MD gastroenterology office would like to inform PCP that pt is has established care with [facility] Domi Ansari and pt will need to follow up with thatoffice and pt is scheduled for 03/17/24 and appt will be cancelled. Please contact at [phone] documented in this encounter Plan of Treatment Upcoming Encounters Date Type Department Care Team ([facility] st Contact Info) Description 10/08/2024 10:00 AM EST Office Visit [facility] MED & PEDS [address] [place] [address] Dot Landaverde FNP [address] [place] [address] documented as of this encounter Visit Diagnoses Not on filedocumented in this encounter Additional Health Concerns Assessment Noted Time PHQ-9 Depression Total Score: 5 12/08/19 10:24 AM EDT documented as of this encounter Care Teams Double End Sewer Relationship Specialty Start Date End Date Dot Landaverde FNP [address] [place] [address] PCP - General Family Medicine 06/22/21 documented as of this encounter
--- OUTSIDE RECORDS SUMMARY | 2024-10-05 09:20 | XMS_ITS | Encounter Summary ---
Author Organization [employer] Address [address] [facility] [address] [address] [place] [address] Care Team Providers Care Conveyor Attendant Name Role Phone Akhil Dot ELECTRICAL INSTRUMENT REPAIRER Primary Care Provider [phone] Encounter Details Date Type Department Care Team ([facility] st Contact Info) Description 07/21/[address] [facility] MEDICINE [address] [place] [address] Provider, MD Zoila Social History Tobacco Use Types Packs/Day Years [...] Upcoming Encounters Date Type Department Care Team ([facility] st Contact Info) Description 10/08/2024 10:00 AM EST Office Visit [facility] MED & PEDS [address] [place] [address] Dot Landaverde, ELECTRICAL INSTRUMENT REPAIRER [address] [place] [address] documented as of this encounter Procedures Procedure Name Priority Date/Time Associated Diagnosis Comments BACTERIAL VAGINOSIS PANEL Routine 07/21/2024 7:46 AM EST COLONOSCOPY Routine 07/20/2024 3:14 PM EST documented in this encounter Results * Bacterial Vaginosis (07/21/2024 7:46 AM EST) TRICHOMONAS VAGINALIS DETECTION BY PCR NOT DETECTED Not Detect [facility] BACTERIAL VAGINOSIS DETECTION BY PCR NEGATIVE Negative [facility] Comment:The BV organism targ ets [...] DETECTION BY PCR NOT DETECTED Not Detect [facility] Sally glab krusei PCR NOT DETECTED Not Detect [facility] 07/21/2024 7:46 AM EST 07/21/2024 3:42 PM EST us Generic External Data Provider LAB MICROBIOLOGY - GENERAL ORDERABLES Final Result [facility] [address] [place] [address] [phone] * Colonoscopy (07/20/2024 3:14 PM EST) us Historical Provider MD HEALTH MAINTENANCE Final Result documented in this encounter Visit Diagnoses Not on filedocumented in this encounter Additional Health Concerns Assessment Noted Time PHQ-9 Depression Total Score: 5 12/08/19 24 10:24 AM EDT documented as of this encounter Care Teams Conveyor Attendant Relationship Specialty Start Date End Date Dot Landaverde FNP [address] [place] [address] PCP - General Family Medicine 06/22/21 documented as of this encounter
== END 2024-10-05 09:00 | disposition home or self-care (01) ==
LOC: HO.MAMMO 08:59
PROVIDERS: PCP Registered Nurse; Visit Provider Obstetrics & Gynecology
DX: Z12.31 Encounter for screening mammogram for malignant neoplasm of breast (principal); Z13.820 Encounter for screening for osteoporosis; Z78.0 Asymptomatic menopausal state
CPT/HCPCS: 77063; 77067; 77080

== ENCOUNTER → 2024-10-05 09:15 | Outpatient (BNV) | CPT/HCPCS: 77063; 77067 ==

== ENCOUNTER 2024-10-26 08:14 | Outpatient (AMB) | payer OTHER, SELFPAY ==
--- OUTSIDE RECORDS SUMMARY | 2024-10-26 08:33 | XMS_ITS | Encounter Summary ---
Author Organization [employer] Address [address] [facility] [address] [place] [address] Care Team Providers Care Security Analyst Name Role Phone Dot Landaverde VENITA Primary Care Provider [phone] Encounter Details Date Type Department Care Team (Late st Contact Info) Description 10/05/2024 Orders Only [facility] External Provider, [facility] Social History Tobacco Use Types Packs/Day Years Used Date Smoking Tobacco: Never Passive Smoke Exposure: Never Smokeless Tobacco: Never Depression Answer Date Recorded Patient Health Questionnaire-9 [...] as of this encounter Plan of Treatment Not on file documented as of this encounter Procedures Procedure Name Priority Date/Time Associated Diagnosis Comments BD DEXA AXIAL Routine 10/05/2024 9:15 AM EST BI MAMMOGRAM SCREENING TOMOSYNTHESIS BILATERAL Routine 10/05/2024 9:02 AM EST documented in this encounter Results * BD DEXA Axial (10/05/2024 9:15 AM EST) Anatomical Region Laterality Modality Body Radiographic Carie ging 10/05/2024 9:15 AM EST Narrative 10/07/2024 7:34 AM EST ? [facility] ? [address] ?[place] [address] ? Mammography Report ? Signed ? Patient: Sami,Debby ?MR#: [id number] ?? 7 ? : 1955 ?Acct:[id number] ? Age/Sex: 69 / F ?ADM Date: 02/04/25 ? Loc: HO.MAMMO ? Attending Dr: Amandeep Sullivan MD ? Ordering Physician: Amandeep Sullivan MD ?Results: ? Date of Service: /04/25 ?Follow Up: ? Procedure(s): XR DEXA axial skeleton ?? Accession Number(s): [id number] ? cc: Dot Landaverde; Amandeep Sullivan MD ? EXAMINATION: ??DXA BONE DENSITY AXIAL ? HISTORY: ??Estrogen deficiency ? TECHNIQUE: [employer]ainers Dual energy absorptiometry (DEXA) ?? of the lumbar spine, total left hip, and femoral neck was performed. ? COMPARISON: Comparison is made with the prior examination dated ?? 04/06/2020. ? FINDINGS: ? The bone mineral density of the lumbar spine is 0.867 with a T-score of ?? -2.6, and a Z-score of -1.2. ? This represents a BMD change of -8.4% compared to the prior exam. ??This ?? is statistically significant. ? The bone mineral density of the left total hip is 0.800 with a T-score ?? of -1.6, and a Z-score of -0.3. ? This represents BMD change of -5.2% compared to the prior exam. ??This ?? is statistically significant. ? The bone mineral density of the left femoral neck is 0.695 with a ?? T-score of -2.5, and a Z-score of -0.9. ? This represents BMD change of -5.6% compared to the prior exam. ? MM/XR DEXA axial skeleton ?? IMPRESSION: ?? Based on bone mineral density, and according to World Health ?? Organization (WHO) criteria, the diagnosis is consistent with ?? osteoporosis. ? All bone density values are in grams per centimeter squared (g/cm2). ?? Statistically, 68% of repeat scans fall within 1 SD (+/- 0.010 g/cm2 ?? for AP spine L1-L4) and 1 SD (+/- 0.012 g/cm2 for femur total) ?? FRAX is a trademark of the [employer]'s ?? [place] for Metabolic Bone Disease, a World Health Organization (WHO) ?? Collaborating Center. ? Electronically signed by: ??Wilfredo Rodas MD ??10/07/2024 07:31 AM EST ?? RP ? Dictated By: ?Wilfredo Rodas MD ? Signed By: ?<Electronically signed by Wilfredo Rodas MD in OV> ?10/07/2431 ? DD/ 0915 ? TD/TT: 10/05/24 0945 ? Grapple Skidder Operator: ? Procedure Note Donotuseinterpreter, Image - 10/07/2024 [facility] [address] [place] [address] Mammography Report Signed Patient: Heydi Gallardo#: [id number] 7 : 4Acct:[id number] Age/Sex: 69 / FADM Date: 10/05/24 Loc: MAMMO Attending Dr: Amandeep Sullivan MD Ordering Physician: Amandeep Sullivan MDResults: Date of Service: 10/05/24Follow Up: Procedure(s): XR DEXA axial skeleton Accession Number(s): [id number] cc: Dot Landaverde; Amandeep Sullivan MD EXAMINATION: DXA BONE DENSITY AXIAL HISTORY: Estrogen deficiency TECHNIQUE: [employer]ainers Dual energy absorptiometry (DEXA) of the lumbar spine, total left hip, and femoral neck was performed. COMPARISON: Comparison is made with the prior examination dated 04/06/2020. FINDINGS: The bone mineral density of the lumbar spine is 0.867 with a T-score of -2.6, and a Z-score of -1.2. This represents a BMD change of -8.4% compared to the prior exam. This is statistically significant. The bone mineral density of the left total hip is 0.800 with a T-score of -1.6, and a Z-score of -0.3. This represents BMD change of -5.2% compared to the prior exam. This is statistically significant. The bone mineral density of the left femoral neck is 0.695 with a T-score of -2.5, and a Z-score of -0.9. This represents BMD change of -5.6% compared to the prior exam. MM/XR DEXA axial skeleton IMPRESSION: Based on bone mineral density, and according to World Health Organization (WHO) criteria, the diagnosis is consistent with osteoporosis. All bone density values are in grams per centimeter squared (g/cm2). Statistically, 68% of repeat scans fall within 1 SD (+/- 0.010 g/cm2 for AP spine L1-L4) and 1 SD (+/- 0.012 g/cm2 for femur total) FRAX is a trademark of the [employer] [place] for Metabolic Bone Disease, a World Health Organization (WHO) Collaborating Center. Electronically signed by: Wilfredo Rodas MD 10/07/2024 07:31 AM EST Dictated By: Wilfredo Rodas MD Signed By: <Electronically signed by Wilfredo Rodas MD in OV> 10/07/24 0731 DD/ 0915 TD/TT: 10/05/24 0945 Grapple Skidder Operator: [facility] External Provider IMG DXA PROCEDURES Edited Result - Final * BI Mammogram Screening Tomosynthesis Bilateral (10/05/2024 9:02 AM EST) Anatomical Region Laterality Modality Breast Bilateral Mammography 10/05/2024 9:02 AM EST Narrative 10/11/2024 5:10 PM EST ? [facility] ? [address] ?[place] [address] ? Mammography Report ? Signed ? Patient: Sami,Debby ?MR#: [id number] ?? 7 ? : 1955 ?Acct:[id number] ? Age/Sex: 69 / F ?ADM Date: 02/04/25 ? Loc: HO.MAMMO ? Attending Dr: Amandeep Sullivan MD ? Ordering Physician: Amandeep Sullivan MD ?Results: 1Negativ ?? e ? Date of Service: 10/05/24 ?Follow Up: 1 Year From Orig ?? inal Mammogram ? Procedure(s): MM tomosynthesis screening BI ?? Accession Number(s): [id number] ? cc: Dot LandaverdeP; Amandeep Sullivan MD ? EXAMINATION: ?? MM SCREENING DIGITAL BREAST TOMOSYNTHESIS, BILATERAL ? CLINICAL INFORMATION: ? Screening. Asymptomatic. ? COMPARISON: ?? Mammography: Comparison is made with available priors ? TECHNIQUE: ?? Digital breast mammography with tomosynthesis is performed in both the ?? craniocaudal and mediolateral oblique views along with computer-aided ?? detection (CAD). ? FINDINGS: ?? The breasts are heterogeneously dense, which may obscure small masses ?? (ACR BI-RADS breast composition Category c). ? There are no significant masses, abnormal calcifications, or other ?? abnormalities. ? MM/MM tomosynthesis screening BI ?? IMPRESSION: ?? No mammographic evidence of malignancy. ? ASSESSMENT: ? BI-RADS BI-RADS 1 - Negative ? RECOMMENDATION: ?? Routine annual mammography screening. ? 1 year F/U ? This examination should not preclude the clinical evaluation of a ?? suspicious palpable abnormality. ? This patient's information was entered into a reminder system with a ?? target due date for their next mammogram. ? Electronically signed by: ??Luba Ontiveros DO ??10/11/2024 05:07 PM EST ?? RP ? Dictated By: ?Luba Ontiveros DO ? Signed By: ?<Electronically signed by Luba Ontiveros, DO in OV> ? 10/11/241706 ? DD/ 1 ? TD/TT: 10/05/24 0932 ? Grapple Skidder Operator: ? Procedure Note Donnelidater, Image - 10/11/2024 [facility] [address] [place] [address] Mammography Report Signed Patient: Heydi Gallardo#: [id number] 7 : 4Acct:[id number] Age/Sex: 69 / FADM Date: 10/05/24 Loc: HO.MAMMO Attending Dr: Amandeep Sullivan MD Ordering Physician: Amandeep Sullivan MDResults: 1Negativ e Date of Service: 10/05/24Follow Up: 1 Year From Orig inal Mammogram Procedure(s): MM tomosynthesis screening BI Accession Number(s): [id number] cc: Dot Landaverde; Amandeep Sullivan MD EXAMINATION: MM SCREENING DIGITAL BREAST TOMOSYNTHESIS, BILATERAL CLINICAL INFORMATION: Screening. Asymptomatic. COMPARISON: Mammography: Comparison is made with available priors TECHNIQUE: Digital breast mammography with tomosynthesis is performed in both the craniocaudal and mediolateral oblique views along with computer-aided detection (CAD). FINDINGS: The breasts are heterogeneously dense, which may obscure small masses (ACR BI-RADS breast composition Category c). There are no significant masses, abnormal calcifications, or other abnormalities. MM/MM tomosynthesis screening BI IMPRESSION: No mammographic evidence of malignancy. ASSESSMENT: BI-RADS BI-RADS 1 - Negative RECOMMENDATION: Routine annual mammography screening. 1 year F/U This examination should not preclude the clinical evaluation of a suspicious palpable abnormality. This patient's information was entered into a reminder system with a target due date for their next mammogram. Electronically signed by: Luba Ontiveros DO 10/11/2024 05:07 PM [facility] Dictated By: Luba Ontiveros DO Signed By: <Electronically signed by Luba Ontiveros DO in OV> 10/11/24 1707 DD/ 0902 TD/TT: 10/05/24 0932 Grapple Skidder Operator: [facility] External Provider IMG BI PROCEDURES Final Result documented in this encounter Visit Diagnoses Not on filedocumented in this encounter Additional Health Concerns Assessment Noted Time PHQ-9 Depression Total Score: 5 12/08/19 24 10:24 AM EDT documented as of this encounter Care Teams Security Analyst Relationship Specialty Start Date End Date Dot Landaverde FNP [address] [place] [address] PCP - General Family Medicine 06/22/21 documented as of this encounter
--- OUTSIDE RECORDS SUMMARY | 2024-10-26 08:33 | XMS_ITS | Encounter Summary ---
Author Organization [employer] Address [address] [facility] 7t [place] [address] Care Team Providers Care Medical Office Worker Name Role Phone Dot Pedraza Primary Care Provider [phone] Reason for Referral * Consultation (Routine) - Closed Specialty Diagnoses / Procedures Referred By Kathrin joseph Referred To Contact Physical Therapy Diagnoses Impingement syndrome of right shoulder Chronic bilateral low back pain without sciatica Dot Pedraza FNP [address] [place] [address] Phone: tel: fax: [facility] Physical Therapy [address] [place] [address] Phone: tel: fax: Referral ID Status Reason Start Date Expiration Date V isits Requested Visits Authorized [id number] Closed Specialty Services Required 10/08/2024 10/08/2025 1 1 Encounter Details Date Type Department Care Team (Late st Contact Info) Description 10/08/2024 Telephone [facility] [employer] [address] [place] [address] Dot Pedraza FNP [address] [place] [address] Social History Tobacco Use Types Packs/Day Years [...] as of this encounter Miscellaneous Notes * Addendum Note - VENITA Morrell - 10/08/2024 4:54 PM ESTAddended by: DOT PEDRAZA on: 10/08/2024 04:54 PM Modules accepted: Orders * Telephone Encounter - VENITA Morrell - 10/08/2024 4:53 PM EST Thanks for checking! Physical therapy please (I just corrected the referral details). * Telephone Encounter - Debby Brenner - 10/08/2024 3:25 PM EST Good afternoon Dot, do you wish for patient to receive PT or be seen at [facility] orthopedics? Please advise, thank you. documented in this encounter Plan of Treatment Scheduled Referrals Name Type Priority Associated Diagnoses Orde r Schedule Referral to Physical Therapy Outpatient Referral Routine Impingement syndrome of right shoulder Chronic bilateral low back pain without sciatica Expected: 10/08/2024 (Approximate), Expires: 10/08/2025 documented as of this encounter Visit Diagnoses Diagnosis Impingement syndrome of right shoulder- Primary Chronic bilateral low back pain without sciatica documented in this encounter Additional Health Concerns Assessment Noted Time PHQ-9 Depression Total Score: 5 12/08/19 24 10:24 AM EDT documented as of this encounter Care Teams Medical Office Worker Relationship Specialty Start Date End Date Dot Pedraza FNP [address] [place] [id number] PCP - General Family Medicine 06/22/21 documented as of this encounter
--- OUTSIDE RECORDS SUMMARY | 2024-10-26 08:33 | XMS_ITS | Encounter Summary ---
Author Organization [employer] Address [address] [facility] [address] [address] [place] [address] Care Team Providers Care Iron Setter Name Role Phone Dot Landaverde VENITA Primary Care Provider [phone] Encounter Details Date Type Department Care Team (Latest Contact Info) Description 10/08/2024 Travel Social History Tobacco Use Types Packs/Day Years [...] on file documented as of this encounter Visit Diagnoses Not on filedocumented in this encounter Additional Health Concerns Assessment Noted Time PHQ-9 Depression Total Score: 5 12/08/19 24 10:24 AM EDT documented as of this encounter Care Teams Iron Setter Relationship Specialty Start Date End Date Dot Landaverde FNP [address] [place] [id number] PCP - General Family Medicine 06/22/21 documented as of this encounter
--- OUTSIDE RECORDS SUMMARY | 2024-10-26 08:33 | XMS_ITS | Encounter Summary ---
Author Organization [facility] Address [address] [facility] 7t [place] [address] Care Team Providers Care Carton And Can Supply Supervisor Name Role Phone Dot Landaverde Primary Care Provider [phone] Reason for Referral * Consultation (Routine) - Authorized Specialty Diagnoses / Procedures Referred By Kathrin joseph Referred To Contact Podiatry Diagnoses Abnormality of nail surface Dot Landaverde FNP [address] [place] [address] Phone: tel: fax: Kushal Sprague DPM [address] [place] [phone] Phone: tel: fax: Referral ID Status Reason Start Date Expiration Date Visits Requested Visits Authorized [id number] Authorized Specialty Services Required 10/08/2024 10/08/2025 1 1 Encounter Details Date Type Department Care Team (Latest Contact Info) Description 10/08/2024 10:00 AM EST Office Visit [facility] [address] [place], [place] [phone] Dot Landaverde FNP [address] [place], [place] [phone] Abnormality of nail surface (Primary Dx); BMI 29.0-29.9,adult; Vitamin D deficiency; Impingement syndrome of right shoulder; Chronic bilateral low back pain without sciatica; Sleep difficulties; Healthcare maintenance; Other osteoporosis without current pathological fracture; Chronic gastroesophageal reflux disease Social History Tobacco Use Types Packs/Day Years [...] AM EDT documented as of this encounter Last Filed Vital Signs Vital Sign Reading Time Taken Comments Blood Pressure 127/75 10/08/2024 9:32 AM EST Pulse 60 10/08/2024 9:32 AM EST Temperature 36.3 ??C (97.4 ??F) 10/08/2024 9:32 AM ES T Respiratory Rate 18 10/08/2024 9:32 AM EST Oxygen Saturation 96% 10/08/2024 9:32 AM EST Inhaled Oxygen Concentration - - Weight 74.1 kg (163 lb 6 oz) 10/08/2024 9:32 AM EST Height 158.8 cm (5' 2.5 ) 10/08/2024 9:32 AM EST Body Mass Index 29.41 10/08/2024 9:32 AM EST documented in this encounter Progress Notes * Dotliliana Landaverde, INSTRUCTOR PHYSICAL EDUCATION - 10/08/2024 10:00 AM EST Subjective Patient ID: Debby Gallardo is a 69 y.o. female with a history of DODIE, Vit D deficiency, gastric sleeve, total hysterectomy, left TKA, appendectomy, pancreatic lesion, and cholecystectomy who presents to the office for follow up visit - chronic conditions. HPI: Last PCP appt: 05/19/24. Reports that she traveled to [place] since last visit for vacation. While abroad, had acrylic toe nails, and when the acrylic was removed, left toe nails very weak and pulled off top half of nail. Currently has artificial superficial nail, painted. Reports tender and sensitive to palpation. No sign of infection. Interested in podiatry eval, referral placed. Impingement syndrome of right shoulder - following with Ortho. Received benefit with physical therapy and interested in returning to sessions. Also with chronic low back pain. Using heating pads at night, APAP PRN. No bowel/bladder incontinence or saddle paresthesia. Following with multiple specialists below, see A/P for latest updates. Specialists: Endo - [facility] (Dr. Gregg) - Following for Vit D deficiency, osteoporosis, and elevated PTH Surgery - [facility] (Dr. Pinon) - s/p appendectomy Ortho - [facility] (Dr. Beltre) - s/p Left TKA Neurology & Sleep - [facility] Gastro - [facility] (EDUARDO Ansari) - GERD, incidental finding of pancreatic mass OPH - Dr. 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 Fresh vegetable smoothie every morning. Living: Lives with adult son, when living in [facility]. Sexual activity: Not currently sexually active (last partner was her late ) Mental Health: Reports she has been doing well overall, denies SI/HI/thoughts of self harm Review of Systems Constitutional: Negative for chills and fever. HENT: Negative for congestion and sore throat. Respiratory: Negative for cough, shortness of breath and wheezing. Cardiovascular: Negative for chest pain and palpitations. Gastrointestinal: Negative for diarrhea, nausea and vomiting. Musculoskeletal: Positive for arthralgias and back pain. Neurological: Negative for dizziness. Psychiatric/Behavioral: Negative for suicidal ideas. Objective Visit Vitals BP 127/75 (BP Location: Left arm, Patient Position: Sitting, BP Cuff Size: Adult) Pulse 60 Temp 97.4 ??F (36.3 ??C) (Oral) Resp 18 Ht 5' 2.5 (1.588 m) Wt 163 lb 6 oz (74.1 kg) SpO2 96% BMI 29.41 kg/m?? OB Status Hysterectomy Smoking Status Never BSA 1.81 m?? Physical Exam Constitutional: Appearance: Normal appearance. HENT: Head: Atraumatic. Right Ear: External ear normal. Left Ear: External ear normal. Cardiovascular: Rate and Rhythm: Normal rate and regular rhythm. Pulmonary: Effort: Pulmonary effort is normal. Breath sounds: Normal breath sounds. Musculoskeletal: Lumbar back: Tenderness present. No bony tenderness. Comments: Back: no erythema, edema, or ecchymosis. TTP along paraspinal muscles lumbar region bilat Feet: Comments: Toe nails with nail persian, mild sensitivity to palpation over distal nail of bilateral great toe nails. No erythema, edema, or discharge. Neurological: Mental Status: She is alert and oriented to person, place, and time. Psychiatric: Mood and Affect: Mood normal. Behavior: Behavior normal. Assessment/Plan Problem List Items Addressed This Visit Nervous Sleep difficulties Overview Magnesium 400mg nightly Gabapentin 300mg nightly. Reviewed med safety and SE. Relevant Medications gabapentin (Neurontin) 300 MG capsule Digestive Chronic gastroesophageal reflux disease Overview Continues with pantoprazole 40 mg daily Following with [facility] GI - EDUARDO Ansari/Dr. Wheat EGD completed Jul 2024 - demonstrated grade II hiatal hernia and mild gastritis Musculoskeletal Other osteoporosis without current pathological fracture Current Assessment & Plan 04/2020: DEXA impression: osteopenia. 11/08/2022: Bone Density scan record from [facility] with impression of osteoporosis 10/05/24: DEXA impression: osteoporosis -Pt reports received Prolia injection while in [facility], continues on calcium and Vit D -Established with [facility] Endo - Dr. Gregg. Per consult note December 2023: denosumab not very effective on the hips (T-score -2.4 in hips). Suggested transition to alendronate 70mg weekly. Pt reports tolerating well Impingement syndrome of right shoulder Current Assessment & Plan Evaluated by [facility] Ortho-Dr. Beltre-June 2024 Plan for physical therapy, with consideration of injection after PT if pain persists Received benefit with PT, will refer to continue sessions at [facility] Relevant Orders Referral to Physical Therapy Endocrine/Metabolic Vitamin D deficiency Overview Tx with course of high dose Vit D 50,000 units weekly by Endo starting approx Oct 2023 Currently on Vit D 2000 units daily Following with [facility] Endo - Dr. Gregg Relevant Medications cholecalciferol VITAMIN D (Vitamin D-3) 50 MCG (1999) capsule BMI 29.0-29.9,adult Current Assessment & Plan Following with [facility] for weight management - HUMAN RES[employer] OPERATIONS DIRECTOR Yoko Milan. History of gastric sleeve Continues with bupropion 300mg daily. Reports that med has been helpful for her anxiety as well as for helping her to not gain more weight. Denies med SE. Continues going to gym, aquatic therapy 2x/week Healthy, well balanced nutrition Relevant Medications buPROPion XL (Wellbutrin XL) 300 MG 24 hr tablet Other Healthcare maintenance Overview Pap: s/p total hysterectomy, no records but pelvis exam completed Jul 2024 at [facility] and no cervix visualized on exam. Colonoscopy: 07/20/24 at [facility], repeat in 10 years Mammogram: 01/03/22 BIRADS 1 DEXA: 04/2020 osteopenia. Subsequently completed in DR mares/ impression of osteoporosis. Completed , osteoporisis. OPH: UTD per patient report, follows with Dr. Craven. Dental: Established with dental home in [place], reports UTD with appts and care. Outstanding IZ: Flu, pneumococcal, Tdap, RSV, COVID, Zoster declined Other Visit Diagnoses Abnormality of nail surface - Primary Relevant Orders Referral to Podiatry Chronic bilateral low back pain without sciatica Relevant Orders Referral to Physical Therapy Follow up: 3 months (extended), sooner as needed documented in this encounter Miscellaneous Notes * Assessment & Plan Note - VENITA Morrell - 10/08/2024 10:37 AM EST Associated Problem(s): BMI 29.0-29.9,adult Following with [facility] for weight management - HUMAN RESOURCES OPERATIONS DIRECTOR Yoko Milan. History of gastric sleeve Continues with bupropion 300mg daily. Reports that med has been helpful for her anxiety as well as for helping her to not gain more weight. Denies med SE. Continues going to gym, aquatic therapy 2x/week Healthy, well balanced nutrition * Assessment & Plan Note - VENITA Morrell - 10/08/2024 10:37 AM EST Associated Problem(s): Other osteoporosis without current pathological fracture 04/2020: DEXA impression: osteopenia. 11/08/2022: Bone Density scan record from [facility] with impression of osteoporosis 10/05/24: DEXA impression: osteoporosis -Pt reports received Prolia injection while in [facility], continues on calcium and Vit D -Established with [facility] Endo - Dr. Gregg. Per consult note December 2023: denosumab not very effective on the hips (T-score -2.4 in hips). Suggested transition to alendronate 70mg weekly. Pt reports tolerating well * Assessment & Plan Note - VENITA Morrell - 10/08/2024 10:17 AM EST Associated Problem(s): Impingement syndrome of right shoulder Evaluated by [facility] Ortho-Dr. Beltre-June 2024 Plan for physical therapy, with consideration of injection after PT if pain persists Received benefit with PT, will refer to continue sessions at [facility] documented in this encounter Plan of Treatment Scheduled Referrals Name Type Priority Associated Diagnoses Orde r Schedule Referral to Podiatry Outpatient Referral Routine Abnormality of nail surface Expected: 10/08/2024 (Approximate), Expires: 10/08/2025 documented as of this encounter Visit Diagnoses Diagnosis Abnormality of nail surface- Primary BMI 29.0-29.9,adult Vitamin D deficiency Impingement syndrome of right shoulder Chronic bilateral low back pain without sciatica Sleep difficulties Healthcare maintenance Other osteoporosis without current pathological fracture Chronic gastroesophageal reflux disease documented in this encounter Additional Health Concerns Assessment Noted Time PHQ-9 Depression Total Score: 5 12/08/19 24 10:24 AM EDT documented as of this encounter Care Teams Carton And Can Supply Supervisor Relationship Specialty Start Date End Date Dot Landaverde FNP [address] [place] [id number] PCP - General Family Medicine 06/22/21 documented as of this encounter
--- OUTSIDE RECORDS SUMMARY | 2024-10-26 08:33 | XMS_ITS | Encounter Summary ---
Author Organization [employer] Address [address] [facility] [address] [place] [address] Care Team Providers Care County Supervisor Name Role Phone Dot Landaverde UPPER DOUBLER Primary Care Provider [phone] Reason for Visit * Reason Onset Date Comments Chart Prep 10/05/2024 Encounter Details Date Type Department Care Team ([facility] st Contact Info) Description 10/05/2024 Telephone [facility] MED & PEDS [address] [place] [address] Benigno Paz MA Chart Prep Social History Tobacco Use Types Packs/Day Years [...] encounter Miscellaneous Notes * Telephone Encounter - Benigno Austin MA - 10/05/2024 5:14 PM EST Chart Prep Labs: done Images: done Vaccines due: no updates Referrals: complete Screenings: mammogram Overdue care gaps: Sbirt, SDOH, PHQ-9 documented in this encounter Plan of Treatment Not on file documented as of this encounter Visit Diagnoses Not on filedocumented in this encounter Additional Health Concerns Assessment Noted Time PHQ-9 Depression Total Score: 5 12/08/19 24 10:24 AM EDT documented as of this encounter Care Teams County Supervisor Relationship Specialty Start Date End Date Dot Landaverde FNP [address] [place] [address] PCP - General Family Medicine 06/22/21 documented as of this encounter
--- OUTSIDE RECORDS SUMMARY | 2024-10-26 08:33 | XMS_ITS ---
Author Organization [facility] Address [address] [place] [id number] Care Team Providers Care Panel Flow Machine Operator Name Role Phone KEIRA PEDRAZA MD Primary Care Provider Unavailhuber Toney Jr, Jean Marie Unavailable REASON FOR VISIT HYPERPLASTIC APPENDIX Encounters Encounter Location Date Provider Diagnosis [facility] [address] [place] [id number] 03/17/2024 Jean Marie Toney Jr PLAN OF TREATMENT No Information
--- OUTSIDE RECORDS SUMMARY | 2024-10-26 08:34 | XMS_ITS | Clinical Summary ---
Author Organization [employer] Address [address] [facility] [address] [place] [address] Care Team Providers Care Global Position System Technician Name Role Phone Dot Landaverde VENITA Primary Care Provider [phone] Allergies Active Allergy Reactions Criticality Noted Date Comments Nsaids High 11/12/2019 Other reaction(s): GI Problems Penicillin G 11/12/2019 Medications capsaicin (Zostrix) 0.025 % cream APPLY BY TOPICAL ROUTE UP TO 3 TIMES EVERY DAY TO THE AFFECTED AREA(S) NEEDED FOR PAIN 022 Active Diclofenac Sodium (Voltaren) 1 % gel Apply thin layer to left knee as needed for joint pain 50 g 2 023 Active calcium citrate 250 MG tablet Take 1 tablet (250 mg) by mouth Once daily. 90 tablet 1 023 Active celecoxib (CeleBREX) 200 MG capsuleIndication s:Primary osteoarthritis of left knee TAKE 1 CAPSULE IF NEEDED EACH DAY FOR MODERATE PAIN. CAUTION SHOULD ONLY BE USED FOR A SHORT PERIOD. 30 capsule 024 Active Bisacodyl EC 5 MG EC tablet Take 1 tablet (5 mg) by mouth if needed each day for constipation. 90 tablet 1 024 Active alendronate (Fosamax) 70 MG tablet PLEASE SEE ATTACHED FOR DETAILED DIRECTIONS Active magnesium oxide (Mag-Ox) 400 (240 Mg) MG tablet Take 400 mg by mouth Once per day. 024 Active cyanocobalamin (Vitamin B-12) 1000 MCG tablet TAKE 1 TABLET BY MOUTH EVERY MORNING 90 tablet 1 024 Active buPROPion XL (Wellbutrin XL) 300 MG 24 hr tabletIndications :BMI 29.0-29.9,adult Take 1 tablet (300 mg) by mouth Once per day. 90 tablet 1 025 Active Multiple Vitamin (Daily-Yumi Multivitamin) tablet TAKE 1 TABLET BY MOUTH EVERY DAY WITH FOOD 90 tablet 1 025 Active cholecalciferol VITAMIN D (Vitamin D-3) 50 MCG (2000 UT) capsuleIndication s:Vitamin D deficiency Take 1 capsule (50 mcg) by mouth Once per day. 90 capsule 1 025 Active pantoprazole (ProtoNix) 40 MG EC tablet TAKE 1 TABLET BY MOUTH BEFORE BREAKFAST. DO NOT CRUSH, CHEW OR SPLIT. 90 tablet 1 025 Active Acetaminophen Extra Strength 500 MG tablet TAKE 1-2 (500MG) BY ORAL ROUTE EVERY 8 HOURS NEEDED FOR PAIN 100 tablet 2 025 Active gabapentin (Neurontin) 300 MG capsuleIndication s:Sleep difficulties Take 1 capsule (300 mg) by mouth at bedtime. 90 capsule 1 025 2025 Active Acetaminophen Extra Strength 500 MG tablet TAKE 1-2 (500MG) BY ORAL ROUTE EVERY 8 HOURS NEEDED FOR PAIN 022 2024 Discontinued(R eorder (will not trigger notification to Pharmacy)) buPROPion XL (Wellbutrin XL) 300 MG 24 hr tabletIndications :BMI 29.0-29.9,adult Take 300 mg by mouth Once per day. 024 2024 Discontinued(R eorder (will not trigger notification to Pharmacy)) gabapentin (Neurontin) 300 MG capsuleIndication s:Sleep difficulties Take 1 capsule (300 mg) by mouth at bedtime. 90 capsule 1 024 2024 Discontinued(R eorder (will not trigger notification to Pharmacy)) cholecalciferol VITAMIN D (Vitamin D-3) 50 MCG (2000 UT) capsuleIndication s:Vitamin D deficiency Take 1 capsule (50 mcg) by mouth Once per day. 90 capsule 1 024 2024 Discontinued(R eorder (will not trigger notification to Pharmacy)) pantoprazole (ProtoNix) 40 MG EC tablet TAKE 1 TABLET BY MOUTH BEFORE BREAKFAST. DO NOT CRUSH, CHEW OR SPLIT. 90 tablet 1 10/01/31 Discontinued(R eorder (will not trigger notification to Pharmacy)) Multiple Vitamin (Daily-Yumi Multivitamin) tablet TAKE 1 TABLET BY MOUTH EVERY DAY WITH FOOD 90 tablet 1 2024 Discontinued(R eorder (will not trigger notification to Pharmacy)) Active Problems Problem Noted Date Diagnosed Date Impingement syndrome of right shoulder Assessment & Plan (10/08/2024 10:17 AM EST): Evaluated by [facility] Ortho-Dr. Beltre-June 2024 Plan for physical therapy, with consideration of injection after PT if pain persists Received benefit with PT, will refer to continue sessions at [facility] Chronic gastroesophageal reflux disease 10/08/19 Overview (10/08/2024): Continues with pantoprazole 40 mg daily Following with [facility] GI - EDUARDO Ansari/Dr. Wheat EGChio completed Jul 2024 - demonstrated grade II hiatal hernia and mild gastritis Osteoarthritis of right knee 05/20/2024 Overview (05/20/2024): 12/12/23: XR bilat knees showed mild oA right knee BMI 29.0-29.9,adult 05/20/2024 Assessment & Plan (10/08/2024 10:37 AM EST): Following with [facility] for weight management - DISTILLATION OPERATOR HELPER Yoko Milan. History of gastric sleeve Continues with bupropion 300mg daily. Reports that med has been helpful for her anxiety as well as for helping her to not gain more weight. Denies med SE. Continues going to gym, aquatic therapy 2x/week Healthy, well balanced nutrition Assessment & Plan (05/20/2024 12:18 PM EDT): Following with [facility] for weight management History of gastric sleeve Continues with bupropion 300mg daily. Reports that med has been helpful for her anxiety as well as for helping her to not gain more weight. Denies med SE. Continues going to gym, aquatic therapy 2x/week Healthy, well balanced nutrition If BMI greater than 27, may try for GLP-1 authorization through [facility] per consult note Sleep difficulties 05/20/2024 Overview (05/20/2024): Magnesium 400mg nightly Gabapentin 300mg nightly. Reviewed med safety and SE. Hx of total knee arthroplasty, left 12/11/2023 Overview (12/11/2023): Left TKA 09/24/23 at [facility] w/ Dr. Beltre. Indication: OA Per ortho, [...] 24 months is advised. Currently following with [facility] GI with plan for routine repeat MRI Assessment & Plan (05/20/2024 12:04 PM EDT): -Currently following with [facility] GI. Plan for repeat MRI in 6 months per consult note in December 2023 History of appendectomy 12/11/2023 Overview (12/11/2023): Emergency appendectomy completed 12/03/23 Assessment & Plan (12/11/2023 12:06 PM EDT): Scheduled for follow up visit 12/10/23 with [facility] Surgeons No active sign of infx of incisions, avoid lifting. Elevated parathyroid hormone 06/09/2023 Overview (06/09/2023): ?? Noted during medical evaluation in [facility]. Comprehensive workup including ultrasound, biopsy, and PET scan negative for malignancy ?? Recommended follow up blood work (PTH) in Sep 2023 Other osteoporosis without current pathological fracture 06/09/2023 Assessment & Plan (10/08/2024 10:37 AM EST): 04/2020: DEXA impression: osteopenia. 11/08/2022: Bone Density scan record from [facility] with impression of osteoporosis 10/05/24: DEXA impression: osteoporosis -Pt reports received Prolia injection while in [facility], continues on calcium and Vit D -Established with [facility] Wei Gregg. Per consult note December 2023: denosumab not very effective on the hips (T-score -2.4 in hips). Suggested transition to alendronate 70mg weekly. Pt reports tolerating well Assessment & Plan (05/20/2024 12:15 PM EDT): 04/2020: DEXA impression: osteopenia. 11/08/2022: Bone Density scan record from [facility] with impression of osteoporosis -Pt reports received Prolia injection while in [facility], continues on calcium and Vit D (through multivitamin) supplementation -Established with [facility] Wei Gregg. Per consult note December 2023: denosumab not very effective on the hips (T-score -2.4 in hips). Suggested transition to alendronate 70mg weekly. Pt reports tolerating well -Next DXA: 11/08/24 at [place] Assessment & Plan (07/06/2023 11:36 AM EST): 04/2020: DEXA impression: osteopenia. 11/08/2022: Bone Density scan record from [facility] with impression of osteoporosis -Pt reports received Prolia injection while in [facility], continues on calcium and Vit D (through multivitamin) supplementation -With hx of Prolia injection, interruption or discontinuation of therapy may increase risk of fracture. Referral to Endo placed in Jun 2023, initial consult pending Assessment & Plan (06/09/2023 2:53 PM EDT): DEXA: 04/2020 osteopenia. Due April 2022. Previously ordered -Pt received ?Prolia injection while in [facility], continues on calcium and Vit D (through multivitamin) supplementation -If indeed was Prolia, interruption or discontinuation of therapy may increase risk of fracture -Will request most recent DEXA and refer to Endo given tx of bone health and PTH Healthcare maintenance 06/02/2023 Overview (10/08/2024): Pap: s/p total hysterectomy, no records but pelvis exam completed Jul 2024 at [facility] and no cervix visualized on exam. Colonoscopy: 07/20/24 at [facility], repeat in 10 years Mammogram: 01/03/22 BIRADS 1 DEXA: 04/2020 osteopenia. Subsequently completed in DR mares/ impression of osteoporosis. Completed Oct 2024, osteoporisis. OPH: UTD per patient report, follows with Dr. Craven. Dental: Established with dental home in [place], reports UTD with appts and care. Outstanding IZ: Flu, pneumococcal, Tdap, RSV, COVID, Zoster declined History of total hysterectomy 04/28/2023 Vitamin D deficiency 04/28/2023 Overview (05/20/2024): Tx with course of high dose Vit D 50,000 units weekly by Endo starting approx Oct 2023 Currently on Vit D 2000 units daily Following with [facility] Endo - Dr. Gregg Primary osteoarthritis of left knee 04/28/2023 Overview (12/11/2023): Left knee XR 04/28/23: IMPRESSION: Mild tricompartmental degenerative joint changes most consistent with osteoarthritis. Possible trace suprapatellar joint effusion. No acute fracture. Followed by [facility] Ortho - Dr. Beltre. Received steroid injection on 05/19/23 S/P left TKA on 09/24/[address] Beltre at [facility] ED. Per Ortho, pt will require prophylactic abx for dental procedures Assessment & Plan (09/01/2023 5:24 PM EST): -DME request for cane placed 07/06/23 -DME request for shower chair placed 09/01/23 -Plan for upcoming TKA 09/24/23 through [facility] Ortho Assessment & Plan (07/06/2023 11:34 AM [...] to avoid opiates rx by provider in [facility], she has rx for tapenatdol which she says is only suing rarely for severe pain Obstructive sleep apnea syndrome 06/18/2022 Assessment & Plan (12/11/2023 11:47 AM EDT): - Sleep study: completed 01/14/22 at [facility] - Impression: The baseline portion of the [...] titrations and monitoring - Currently following with [facility] Neurology & Sleep Assessment & Plan (07/06/2023 11:38 AM EST): - Sleep study: completed 01/14/22 at [facility] - Impression: The baseline portion of the [...] EDT): - Sleep study: completed 01/14/22 at [facility] - Impression: The baseline portion of the [...] Dr. Banks for further eval on 06/09/23 Resolved Problems Problem Noted Date Diagnosed Date Resolved Date Chronic pain of both shoulders 05/20/2024 10/08/2024 Overview (05/20/2024): Referral to [facility] Ortho and physical therapy placed on 05/19/24 Assessment & Plan (05/20/2024 12:27 PM EDT): Cont symptomatic management Encounters Date Type Department Care Team Description 10/08/2024 10:00 AM EST Office Visit [facility] MED & PEDS [address] [place] [address] Dot Landaverde FNP Abnormality of nail surface (Primary Dx); BMI 29.0-29.9,adult; Vitamin D deficiency; Impingement syndrome of right shoulder; Chronic bilateral low back pain without sciatica; Sleep difficulties; Healthcare maintenance; Other osteoporosis without current pathological fracture; Chronic gastroesophageal reflux disease 10/08/2024 Telephone [facility] [employer] [facility] [address] [place], [place] [phone] Dot Landaverde FNP 10/08/2024 Travel 10/05/2024 Orders Only [facility] External Provider, [facility] 10/05/2024 Telephone [facility] MED & PEDS [address] [place], [place] [phone] Benigno Paz MA Chart Prep 08/17/2024 Telephone [facility] MEDICINE [address] [place] [address] Dot Landaverde FNP Med Refill 08/11/2024 Telephone [facility] & PEDS [address] [place] [address] Dot Landaverde FNP Reschedule 08/06/2024 Telephone [facility] [address] [place] [address] Dot Landaverde FNP Medication Question from Last 3 Months Immunizations Name Administration Dates Next Due Influenza High-dose Quadrivalent Preservative Fr ee 05/17/2022 Pfizer Covid-19 Vaccine 12+ Bivalent 08/06/2022 Pfizer Covid-19 Vaccine 12+ john-sucrose (Rene voss) 06/07/2022,05/17/2022 Social History Tobacco Use Types Packs/Day Years Used Date Smoking Tobacco: Never Passive Smoke Exposure: Never Smokeless Tobacco: Never Tobacco Cessation:Counseling Given: Not Answered Depression Answer Date Recorded Patient Health Questionnaire-9 [...] Mass Index 29.41 10/08/2024 9:32 AM EST Plan of Treatment Health Maintenance Due Date Last Done Comments CT Colonography 1955 FIT DNA/Cologuard 1955 FIT 1955 FOBT 1955 Sigmoidoscopy 1955 Alcohol/Substance Use Screening 12/07/2024 12/08/2023 Depression Screening [...] 05/20/2025 07/01/2012 Postponed from 07/01 (Patient Refused) Zoster Vaccines (1 of 2) 05/20/2025 Pos tponed from 01/21/2004 (Patient Refused) Mammogram 10/05/2025 10/05/2024, 01/03/2022, 11/08/2020 Tobacco Screening 10/08/2025 10/08/2024 Lipid Panel 02/05/2027 02/05/2022 RSV Patients and [...] TOMOSYNTHESIS BILATERAL Routine 10/05/2024 9:02 AM EST HM COLONOSCOPY Routine 07/20/2024 3:14 PM EST ZZZ HISTORICAL HEPATITIS C AB W/REFL TO HCV RNA, QN, PCR Routine 02/05/2022 8:19 AM EDT LIPID PANEL, STANDARD Routine 02/05/2022 8:19 AM EDT from Last 3 Months or Most Recently Relevant to Health Maintenance Results * BD DEXA Axial (10/05/2024 9:15 AM EST) Anatomical Region Laterality Modality Body Radiographic Carie ging 10/05/2024 9:15 AM EST Narrative 10/07/2024 7:34 AM EST ? [place] [facility] ? [address] ?[place] [address] ? Mammography Report ? Signed ? Patient: Sami,Debby ?MR#: [id number] ?? 7 ? : 1955 ?Acct:[id number] ? Age/Sex: 69 / F ?ADM Date: 10/05/24 ? Loc: HO.MAMMO ? Attending Dr: Amandeep Sullivan MD ? Ordering Physician: Amandeep Sullivan MD ?Results: ? Date of Service: 10/05/24 ?Follow Up: ? Procedure(s): XR DEXA axial skeleton ?? Accession Number(s): [id number] ? cc: Dot Landaverde INTERNATIONAL AFFAIRS VICE PRESIDENT; Amandeep Sullivan MD ? EXAMINATION: ??DXA BONE DENSITY AXIAL ? HISTORY: ??Estrogen deficiency ? TECHNIQUE: [employer] Dual energy absorptiometry (DEXA) ?? of the [...] is a trademark of the [employer]'s ?? [facility] Metabolic Bone Disease, a World Health Organization (WHO) ?? Collaborating Center. ? Electronically signed by: ??Wilfredo Rodas MD ??10/07/2024 07:31 AM EST ?? RP ? Dictated By: ?Wilfredo Rodas MD ? Signed By: ?<Electronically signed by Wilfredo Rodas MD in OV> ?10/07/24 0731 ? DD/ 0915 ? TD/TT: 10/05/24 0945 ? Can Line Examiner: ? Procedure Note Nolan, Image - 10/07/2024 [facility] [facility] [address] [place] [address] Mammography Report Signed Patient: Heydi Gallardo#: [id number] 7 : 4Acct:[id number] Age/Sex: 69 / FADM Date: 10/05/24 Loc: [facility] Attending Dr: Amandeep Sullivan MD Ordering Physician: Amandeep Sullivanesults: Date of Service: 10/05/24Follow Up: Procedure(s): XR DEXA axial skeleton Accession Number(s): [id number] cc: Dot Landaverde; Amandeep Sullivan MD EXAMINATION: DXA BONE DENSITY AXIAL HISTORY: Estrogen deficiency TECHNIQUE: [employer] Dual energy absorptiometry (DEXA) of the lumbar [...] of the [employer]'s [facility] Metabolic [employer] Disease, a World Health Organization (WHO) Collaborating Center. Electronically signed by: Wilfredo Rodas MD 10/07/2024 07:31 AM EST RP Dictated By: Wilfredo Rodas MD Signed By: <Electronically signed by Wilfredo Rodas MD in OV> 10/07/24 0731 DD/ TD/TT: 10/05/24 0945 Can Line Examiner: [facility] External Provider IMG DXA PROCEDURES Edited Result - Final * BI Mammogram Screening Tomosynthesis Bilateral (10/05/2024 9:02 AM EST) Anatomical Region Laterality Modality Breast Bilateral Mammography 10/05/2024 9:02 AM EST Narrative 10/11/2024 5:10 PM EST ? [facility] ? [address] ?[place] [address] ? Mammography Report ? Signed ? Patient: Sami,Debby ?MR#: [id number] ?? 7 ? : 1955 ?Acct:[id number] ? Age/Sex: 69 / F ?ADM Date: 10/05/ ? Loc: HO.MAMMO ? Attending Dr: Amandeep Sullivan MD ? Ordering Physician: Amandeep Sullivan MD ?Results: 1Negativ ?? e ? Date of Service: // ?Follow Up: 1 Year From Orig ?? inal Mammogram ? Procedure(s): MM tomosynthesis screening BI ?? Accession Number(s): [id number] ? cc: Dot LandaverdeP; Amandeep Sullivan MD [...] ??Luba Ontiveros DO ??10/11/2024 05:07 PM EST ? Dictated By: ?Luba Ontiveros DO ? Signed By: ?<Electronically signed by Luba Ontiveros DO in OV> ? 10/11/24 1707 ? DD/ 0902 ? TD/TT: 10/05/24 0932 ? Can Line Examiner: ? Procedure Note Nolan, Image - 10/11/2024 [facility] [address] [place] [address] [place] [address] Mammography Report Signed Patient: Heydi Gallardo#: [id number] 7 : 4Acct:[id number] Age/Sex: 69 / FADM Date: 10/05/24 Loc: ZEINAO Attending Dr: Amandeep Sullivan MD Ordering Physician: Amandeep Sullivan MDResults: 1Negativ e Date of Service: 10/05/24Follow Up: 1 Year From Orig inal Mammogram Procedure(s): MM tomosynthesis screening BI Accession Number(s): [id number] cc: Dot Landaverde; Amandeep Sullivan MD EXAMINATION: [...] by: Luba Ontiveros DO 10/11/2024 05:07 PM EST Dictated By: Luba Ontiveros DO Signed By: <Electronically signed by Luba Ontiveros DO in OV> 10/11/24 1707 DD/ 0902 TD/TT: 10/05/24 0932 Can Line Examiner: [facility] External Provider IMG BI PROCEDURES Final Result * Hm Colonoscopy (07/20/2024 3:14 PM EST) Historical Provider HEALTH MAINTENANCE Final Result * HEPATITIS C AB W/REFL TO HCV RNA, QN, PCR (02/05/2022 8:19 AM EDT) HEPATITIS C ANTIBODY NON-REACT MARY NON-REACT MARY [facility] INDEX 0.02 <1.00 [facility] Comment: ?? HCV antibody was non-reactive. There is no laboratory ?? evidence of HCV infection. ?? In most cases, no further action is required. However, if recent HCV exposure is suspected, a test for HCV RNA (test code 89470) is suggested. ?? For additional information please refer to http://[employer].I-CAN Systems/faq/JXF03y2 (This link is being provided for informational/ educational purposes only.) ?? 02/05/2022 8:19 AM EDT Dot Landaverde INTERNATIONAL AFFAIRS VICE PRESIDENT HISTORICAL/NON ORDERABLE LABS Final Result [facility] [address] * LIPID PANEL, STANDARD (02/05/2022 8:19 AM EDT) Chol/HDLC Ratio 2.3 <5.0 (calc) [facility] Cholesterol, Total 170 <200 mg/dL [facility] HDL Cholesterol 73 > OR = 50 mg/dL [facility] LDL Cholesterol 79 mg/dL (calc) [facility] Comment: Reference range: <100 ?? Desirable range <100 mg/dL for primary prevention; ?? <70 mg/dL for patients with CHD or diabetic patients ?? with > or = 2 CHD risk factors. ?? LDL-C is now calculated using the Viral ?? calculation, which is a validated novel method providing ?? better accuracy than the Friedewald equation in the ?? estimation of LDL-C. ?? Deepak LOPEZ et al. OREN. 2013;310(19): 2409-2086 ?? (http://[employer].A's Child/faq/FFF363) Non-HDL Cholesterol 97 <130 mg/dL (calc) [facility] Comment: For patients with diabetes plus 1 major ASCVD risk ?? factor, treating to a non-HDL-C goal of <100 mg/dL ?? (LDL-C of <70 mg/dL) is considered a therapeutic ?? option. Triglycerides 99 <150 mg/dL [facility] 02/05/2022 8:19 AM EDT us Dot NATHAN LAB BLOOD ORDERABLES Final Res [facility] [address] from Last 3 Months or Most Recently Relevant to Health Maintenance Insurance DUAL COMPLETE Care Teams Global Position System Technician Relationship Specialty Start Date End Date Dot Landaverde FNP [address] [place] [id number] PCP - General Family Medicine 06/22/21
--- OUTSIDE RECORDS SUMMARY | 2024-10-26 08:34 | XMS_ITS | Patient Health Record ---
Author Organization [facility] Address [address] [place] [phone] Care Team Providers Care Casing In Line Feeder Name Role Phone KEILA SORENSON, KEIRA Primary Care Provider Trey Toney Jr, Jean Marie Denise [phone] REASON FOR REFERRAL No Information SOCIAL HISTORY Sex Assigned At : Social History Observation Description Sex Assigned At Unknown Encounters Encounter Location Date Provider Diagnosis [facility] [address] [facility] [address] [place] [phone] 03/17/2024 Jean Marie Toney Jr PLAN OF TREATMENT No Information Insurance Providers Payer Name Payer Address Payer Phone Subscriber Number Group Number Insured Name Patient Relationship to Insured Coverage Start Date Coverage End Date [facility] [address] [address] [place] [address] [phone] [id number] [employer] Self - patient is the insured
--- OUTSIDE RECORDS SUMMARY | 2024-10-26 08:34 | XMS_ITS | Encounter Summary ---
Author Organization [employer] Address [address] [place] [address] Care Team Providers Care Tool Room Lathe Operator Name Role Phone Dot Landaevrde Primary Care Provider Encounter Details Date Type Department Care Team (Late st Contact Info) Description 07/21/2024 Orders Only [facility] MEDICINE [address] [place] [address] Provider, MD Zoila Social History Tobacco Use [...] HM COLONOSCOPY Routine 07/20/2024 3:14 PM EST documented in this encounter Results * Bacterial Vaginosis (07/21/2024 7:46 AM EST) TRICHOMONAS VAGINALIS DETECTION BY PCR NOT DETECTED Not Detect [facility] BACTERIAL VAGINOSIS DETECTION BY PCR NEGATIVE Negative [facility] Comment:The BV organism targ ets [...] DETECTION BY PCR NOT DETECTED Not Detect [facility] Sally glab krusei PCR NOT DETECTED Not Detect [facility] 07/21/2024 7:46 AM EST 07/21/2024 3:42 PM EST us Generic External Data Provider LAB MICROBIOLOGY - GENERAL ORDERABLES Final Result [facility] [address] [place] [phone] * Colonoscopy (07/20/2024 3:14 PM EST) us Historical Provider HEALTH MAINTENANCE Final Result documented in this encounter Visit Diagnoses Not on filedocumented in this encounter Additional Health Concerns Assessment Noted Time PHQ-9 Depression Total Score: 5 12/08/19 24 10:24 AM EDT documented as of this encounter Care Teams Tool Room Lathe Operator Relationship Specialty Start Date End Date Dot Landaverde FNP [address] [place] [address] PCP - General Family Medicine 06/22/21 documented as of this encounter
--- OUTSIDE RECORDS SUMMARY | 2024-10-26 08:35 | XMS_ITS | Encounter Summary ---
Author Organization [facility] Address [address] 7 [place] [address] Care Team Providers Care Stringer Up Soldering Machine Name Role Phone Dot Landaverde Primary Care Provider [phone] Reason for Visit * Reason Onset Date Comments Call Back Request 10/31/2023 Encounter Details Date Type Department Care Team ([facility] st Contact Info) Description 10/31/2023 Telephone [facility] [address] [place] [address] Dot Landaverde FNP [address] [place] [address] Call Back Request Social History Tobacco Use [...] 4:22 PM EST Tc from afshan with [facility] states pt was admitted on 07/26 and discharged on 10/14 from rehab. Afshan is requesting to speak with a nurse to review discharge medication Please contact afshan at [phone] documented in this encounter Plan of Treatment Not on file documented as of this encounter Visit Diagnoses Not on filedocumented in this encounter Care Teams Stringer Up Soldering Machine Relationship Specialty Start Date End Date Dot Landaverde FNP [address] [place] [address] PCP - General Family Medicine 06/22/21 documented as of this encounter
--- OUTSIDE RECORDS SUMMARY | 2024-10-26 08:35 | XMS_ITS | Clinical Summary ---
Author Organization [address] [facility] Address [address] [place] [address] Phone Care Team Providers Care Bobcat Driver/Labor Name Role Phone Name, Alfredo SORENSON Primary Care Provider [phone] Surgical History Surgery Date Site/Laterality Comments GASTRIC BYPASS 05/2015 PROCEDURE: SC GASTRIC RSTCV W/BYP W/SM INT RCNSTJ LIMIT ABSRPJ OTHER SURGICAL HISTORY PROCEDURE: SC TOTAL ABDOMINAL HYSTERECT W/WO RMVL TUBE OVARY; COMMENT: 43 yo CHOLECYSTECTOMY PROCEDURE: HISTORICAL CHOLECYSTECTOMY; COMMENT: 43 yo COLONOSCOPY 03/25/2017 PROCEDURE: HISTORICAL COLONOSCOPY; COMMENT: polyp CARPAL TUNNEL RELEASE 01/19/2019 Right PROCEDURE: SC NEUROPLASTY &/TRANSPOS MEDIAN NRV CARPAL TUNNE; COMMENT: [...] drink = 0.6 oz pur e alcohol) Comments Unknown Sex and Gender Information Value Date Recorded Sex Assigned at Not on file Legal Sex Female 5:41 PM EST Gender Identity Not on file Sexual Orientation Not on file Obstetrics History Plan of Treatment Upcoming Encounters Date Type Department Care Team ([facility] Contact Info) Description 12/13/2024 3:15 PM EDT Consult Orthopedic Surgery [facility] [address] [place] [id number] Kushal Sprague, DPM [address] [place] [address] Health Maintenance Due Date Last Done Comments Pneumococcal Vaccine: 50+ Ye ars (1 of 1 - PCV) 01/21/2004 Zoster Vaccines (1 of 2) 08/26/2012 07/01/2012 Breast Cancer Screening 05/26/2021 05/26/2019 DTaP,Tdap,and Td Vaccines (2 - Td or Tdap) 07/01/2022 07/01/2012 Cholesterol Screening (Lipid Panel) 08/14/2022 Colorectal Cancer Screening: Colonoscopy 08/14/2022 Depression Screening 08/14/2022 Falls Risk Assessment 08/14/2022 Hepatitis C Screening 08/14/2022 Hypertension/CHF/CAD Annual BMP Blood Test 08/14/2022 Medicare Annual Wellness Visit 08/14/2022 Social Influencers of Health Screening 08/14/2022 COVID-19 Vaccine (1 - 2023-2 5 season) 2024 Influenza Vaccine [...] patient's age to complete this topic Meningococcal B Vacine Aged Out No lo nger eligible based on patient's age to complete [...] (<15%) Opal Garcia NP IMG XR PROCEDURES Final Result * DXA BONE DENSITY STUDY 1+ SITS AXIAL SKEL (04/01/2018 11:44 AM EDT) Anatomical Region Laterality [...] (World Health Organization Fracture Risk Assessment) [facility] Department of Internal Medicine recommends using National [...] alternative screening schedule based on estephania Andrews., [facility] September 19, 2011 for patients with osteopenia (based on hip BMD T-score) is as follows: * ??advanced osteopenia (T scores -2.00 to -2.49), BMD testing every year * ??moderate osteopenia (T scores -1.50 to -1.99), BMD testing every 5 years mild osteopenia or normal BMD (T scores -1.50 and higher), BMD testing every 15 years Procedure Note Deborah Hodge DO - 08/20/2022 DEXA SCAN: Lumbar Spine T-score [...] years. (WorldHealth Organization Fracture Risk Assessment) [facility] Department of Internal Medicine recommendsusing National Osteoporosis [...] alternative screening schedule based on estephania Andrews., NEJMJanuary 2011 for patients with osteopenia (based on hip BMD T-score) is as follows: * advanced osteopenia (T scores -2.00 to -2.49), BMD testing every year * moderate osteopenia (T scores -1.50 to -1.99), BMD testing every 5years mild osteopenia or normal BMD (T scores -1.50 and higher), BMD testingevery 15 years Usha CLARK IMG DXA PROCEDURES Final Re sult from Last 3 Months or Most Recently Relevant to Health Maintenance Insurance MEDICAID - [place] [employer] MEDICARE [facility] [place] [id number] Care Teams Bobcat Driver/Labor Relationship Specialty Start Date End Date Name, MD Alfredo [address] [place], [place] PCP - General Internal Medicine 10/31/19
--- NOTE | 2024-10-26 08:41 | A.OFFVIS_ITS ---
Vital Signs 10/26/24 08:42 Height 5 ft 2 in Weight 156 lb BMI 28.5 Intake Visit Reasons: DEXA follow up Tapering Machine Operator Required: Yes Tapering Machine Operator Language: [employer]: Tapering Machine Operator Present (in person) Tapering Machine Operator Name: Blanca BEJARANO Information Interpreted: non-clinical & clinical Accompanied by: Self / Same As Patient Allergies NSAIDS (Non-Steroidal Anti-Inflamma Allergy (Intermediate, Verified 10/26/24 08:43) Gastrointestinal Upset Penicillins Allergy (Intermediate, Verified 10/26/24 08:43) hives Post menopausal: Yes HPI Comments Details: Presenting for DEXA scan follow-up which showed the following: The bone mineral density of the lumbar spine is 0.867 with a T-score of -2.6, and a Z-score of -1.2. This represents a BMD change of -8.4% compared to the prior exam. This is statistically significant. The bone mineral density of the left total hip is 0.800 with a T-score of -1.6, and a Z-score of -0.3. This represents BMD change of -5.2% compared to the prior exam. This is statistically significant. The bone mineral density of the left femoral neck is 0.695 with a T-score of -2.5, and a Z-score of -0.9. This represents BMD change of -5.6% compared to the prior exam. [place] [facility] [place], [place] DEXA scan showed osteporosis according to the pt, Alendronate 10 mg po qd was started, no records avaiable [facility] Medical History Hx of thyroid nodule Acute appendicitis Back pain Osteoporosis Elevated parathyroid hormone GERD (gastroesophageal reflux disease) Numbness and tingling in left arm Sinus bradycardia Preoperative cardiovascular examination DODIE on CPAP Osteoarthritis of left knee Left knee pain Encounter for screening colonoscopy Vitamin D deficiency Surgical History History of total left knee replacement (TKR) (09/24/23) History of laparoscopic appendectomy (12/03/23) Hx of non-cataract eye surgery Hx of carpal tunnel repair History of esophagogastroduodenoscopy (EGD) H/O bariatric surgery History of total abdominal hysterectomy History of cholecystectomy Family History Unknown No family history of colorectal cancer Mother Uterus cancer Social History Household Members: Family Household Members Other:: Lives with her son Housing: House Are you a primary tire care manager to a significant other at home: No Do you presently have visiting nurse or other home services: No 75 years or older and lives alone: No Alcohol intake: never Comment: aware of trip hazard Patient Tobacco Use Status: Never used Tobacco Advance Directives Date on File: 09/26/23 service: No Current occupational status: unemployed Sexual orientation: Straight/Heterosexual Gender identity: Female Review of Systems Const All systems reviewed & are unremarkable except as noted in HPI and below Reports as per HPI and Reports no additional complaints GI Reports no additional complaints Reports no additional complaints Physical Exam Vital Signs: BMI result Body Mass Index 28.5 Assessment & Plan Assessment & Plan (1) Osteoporosis: Code(s): M81.0 - Age-related osteoporosis without current pathological fracture Category: Medical Plan: Discussed with the patient the finding on DEXA scan showing a bone mineral density of more than 5% compare to DEXA scan done in 04/2020. in all measured sites, since the patient is on alendronate with worsening bone mineral density, will refer to Rheumatology for further management. Instructed the patient to call our office back in case a referral appointment is not scheduled, missed or canceled so that we will assist on rescheduling another appointment, the patient verbalized understanding agreed with the plan. Orders: Referrals Rheumatology Referral M81.0 - Age-related osteoporosis without current pathological fracture Coding Level of Care Code Est Pt Level 3 (34569) Diagnoses Osteoporosis M81.0
[2024-10-26 08:42] VITALS: BMI 28.5
== END 2024-10-26 08:55 | disposition home or self-care (01) ==
LOC: HO.HWS 08:14
PROVIDERS: PCP Registered Nurse; Visit Provider Obstetrics & Gynecology
DX: M81.0 Age-related osteoporosis without current pathological fracture (principal)
CPT/HCPCS: 99213

== ENCOUNTER → 2024-10-26 08:14 | Outpatient (BNVA) | payer OTHER, SELFPAY | PROVIDERS: PCP Registered Nurse; Visit Provider Obstetrics & Gynecology | DX: M81.0 Age-related osteoporosis without current pathological fracture (principal) | CPT/HCPCS: 99212 ==

== ENCOUNTER 2024-11-22 08:45 | Outpatient (AMB) | payer OTHER, SELFPAY ==
--- NOTE | 2024-11-22 09:04 | MHC.OFFVIS ---
Vital Signs 11/22/24 09:07 Height 5 ft 2 in Weight 167 lb 2 oz BMI 30.6 BP 104/70 Blood Pressure Location Lt brachial Position Sitting Pulse 86 Pulse Source Pulse Oximeter Pulse Oximetry (%) 97 Oxygen Delivery Method Room Air Intake Visit Reasons: follow up DODIE Intake Note: Patient presents for follow up DODIE. using CPAP.concerns with stress Veneer Jointer Offbearer Required: Yes Veneer Jointer Offbearer Name: Katlin [id number] Information Interpreted: non-clinical & clinical Allergies NSAIDS (Non-Steroidal Anti-Inflamma Allergy (Intermediate, Verified 11/22/24 09:14) Gastrointestinal Upset Penicillins Allergy (Intermediate, Verified 11/22/24 09:14) hives HPI Comments Details: 69 y/o female patient presents for follow up of PSG results and severe sleep apnea. 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 The AHI was 31/hr and oxygen garry was 69%. Sleep is intermittent and poor, wakes up fatigued most days. Mask has been tight around her face and leaves indentations, so she has difficulty using it at night. She goes to sleep at 12 midnight and 5-6 am, with one bathroom break, snores loudly, choking and gasping for air. Denies parasomnias Denies RLS, numbness tingling pain, she had a TKR last year. Memory word finding on going, denies forgetting names getting lost while driving. Mood is normal. Diet is normal. She cleans her mask, changes the filters and replaces distilled water in reservoir as needed. DODIE Compliance Data Requested: 09/25/2024 - 11/22/2024 [facility] Medical History (Updated 11/22/24 @ 10:09 by Barrett Dao PA-C) Fatigue due to sleep pattern disturbance Left knee pain Hx of thyroid nodule Acute appendicitis Back pain Osteoporosis Elevated parathyroid hormone GERD (gastroesophageal reflux disease) Numbness and tingling in left arm Sinus bradycardia Preoperative cardiovascular examination DODIE on CPAP Osteoarthritis of left knee Encounter for screening colonoscopy Vitamin D deficiency Surgical History History of total left knee replacement (TKR) (09/24/23) History of laparoscopic appendectomy (12/03/23) Hx of non-cataract eye surgery Hx of carpal tunnel repair History of esophagogastroduodenoscopy (EGD) H/O bariatric surgery History of total abdominal hysterectomy History of cholecystectomy Family History Unknown No family history of colorectal cancer Mother Uterus cancer Other Left knee pain Social History Household Members: Family Household Members Other:: Lives with her son Housing: House Are you a primary healthcare customer service to a significant other at home: No Do you presently have visiting nurse or other home services: No 75 years or older and lives alone: No Alcohol intake: never Comment: aware of trip hazard Patient Tobacco Use Status: Never used Tobacco Advance Directives Date on File: 09/26/23 service: No Current occupational status: unemployed Sexual orientation: Straight/Heterosexual Gender identity: Female Review of Systems ENT Reports Normal hearing present Neuro Reports Normal hearing present Physical Exam Vital Signs: Last Vital Signs Pulse 86 11/22/24 09:07 BP 104/70 11/22/24 09:07 Pulse Ox 97 11/22/24 09:07 Oxygen Delivery Method Room Air 11/22/24 09:07 BMI result Body Mass Index 30.6 Const General: cooperative Nutritional Appearance: obese Orientation/consciousness: patient oriented x3 Limitations: language barrier Eyes Pupils: Equal, round and reactive pupils present Neck Neck: Yes full ROM and Yes supple Resp Effort & Inspection: normal respiratory effort and able to speak in complete sentences Neuro General: patient oriented x3, gait normal and moves all extremities Cranial nerves: Yes Equal, round and reactive pupils present, Yes Bilaterally intact EOM present, Yes Normal facial strength present, Yes Midline tongue present, Yes Symmetric palate elevation present, Yes Normal hearing present and Yes Ability to bilaterally rotate head present Cognition (Neuro): normal cognition Gait exam (Neuro): Normal gait present Motor exam (neuro): Pronator motor function not present, no tremor noted, Abnormal motor strength present and Abnormal muscle tone present Deep tendon reflexes (DTR's): Right triceps reflex intensity grade: 2+, Left triceps reflex intensity grade: 2+, Rt Biceps (C5, C6): 2+, Left biceps reflex intensity grade: 2+, Right brachioradialis reflex intensity grade: 2+, Left brachioradialis reflex intensity grade: 2+, Right patellar reflex intensity grade: 2+ and Left patellar reflex intensity grade: 2+ Coordination: [id number] test normal Extrem Right upper extremity: shoulder/upper arm (RUE pain on ext and flexion) Left lower extremity: knee (L. knee pain on extension / flexion) Details: tenderness and swelling Psych Appearance: grossly normal Thought process: Normal thought process present Thought content: Normal thought content present Results Reviewed Results Reviewed: 2021 NCS /EMG IMPRESSION: 1. [id number] bilateral median neuropathy across carpal tunnel. 2. Mild bilateral ulnar neuropathy across cubital tunnel. 3. Bilateral Deepak-Delvin anastomosis and normal variant. CPAP Compliance Data: Assessment & Plan Assessment & Plan (1) Fatigue due to sleep pattern disturbance: Code(s): R53.83 - Other fatigue; G47.9 - Sleep disorder, unspecified Category: Medical (2) Fatigue due to sleep pattern disturbance: Code(s): R53.83 - Other fatigue; G47.9 - Sleep disorder, unspecified Category: Medical (3) Fatigue due to sleep pattern disturbance: Code(s): R53.83 - Other fatigue; G47.9 - Sleep disorder, unspecified Category: Medical (4) Fatigue due to sleep pattern disturbance: Code(s): R53.83 - Other fatigue; G47.9 - Sleep disorder, unspecified Category: Medical (5) Left knee pain: Code(s): M25.562 - Pain in left knee Category: Medical Qualifiers: Chronicity: chronic Qualified Code(s): M25.562 - Pain in left knee; G89.29 - Other chronic pain (6) DODIE (obstructive sleep apnea): Comment: Severe degree of sleep apnea. The AHI was 31/hr and oxygen garry was 69% Code(s): G47.33 - Obstructive sleep apnea (adult) (pediatric) Category: Medical Plan DODIE Will send prescription for nose mask trial. Stressed compliance, use CPAP nightly and more than 4 hrs. PT for Knee pain, encouraged patient to wear a knee brace when traversing stairs. Fatigue, Labs r/o deficiencies Orders: Orders PT Evaluation and Treatment Today M25.562 - Pain in left knee Ferritin Today G47.9 - Sleep disorder, unspecified, R53.83 - Other fatigue Homocysteine Today G47.9 - Sleep disorder, unspecified, R53.83 - Other fatigue IRON PROFILE Today G47.9 - Sleep disorder, unspecified, R53.83 - Other fatigue Complete Blood Count no Diff Today G47.9 - Sleep disorder, unspecified, R53.83 - Other fatigue Comprehensive Met. Panel Today G47.9 - Sleep disorder, unspecified, R53.83 - Other fatigue Hemoglobin A1c Today G47.9 - Sleep disorder, unspecified, R53.83 - Other fatigue Methylmalonic Acid Today G47.9 - Sleep disorder, unspecified, R53.83 - Other fatigue Vitamin D 25-OH Total Today E55.9 - Vitamin D deficiency, unspecified Vitamin B12 and Folate Today G47.9 - Sleep disorder, unspecified, R53.83 - Other fatigue TSH reflex Free T4 Today G47.9 - Sleep disorder, unspecified, R53.83 - Other fatigue Lipid Panel with Reflex Today G47.9 - Sleep disorder, unspecified, R53.83 - Other fatigue Patient Instructions: Patient Education: Discussed regarding the sleep study result and untreated sleep apnea can increase chronic heart disease, HTN, increase risk of stroke and Alzheimer's dementia. CPAP Compliance was emphasized today as PSG showed severe sleep apnea AHI 31, and O2 was Garry at 69%, will send for a nose mask fitting and adjustment of mask. Fatigue, complete labs to r/o deficiencies. PT for L. Knee Pain, strengthening and wearing a brace. Coding Level of Care Code Est Pt Level 4 (67292) Diagnoses Fatigue due to sleep pattern disturbance R53.83; G47.9 Chronic pain of left knee M25.562; G89.29 Chronicity: chronic DODIE (obstructive sleep apnea) G47.33 Time Spent (min) 20
[2024-11-22 09:07] VITALS: BP 104/70; PULSE 86; O2SAT 97; BMI 30.6
== END 2024-11-22 09:54 | disposition home or self-care (01) ==
LOC: HO.HSMS 08:45
PROVIDERS: Absent Provider Physician Assistant Medical; PCP Registered Nurse; Visit Provider Physician Assistant Medical
DX: R53.83 Other fatigue (principal); G47.9 Sleep disorder, unspecified; M25.562 Pain in left knee; G89.29 Other chronic pain; G47.33 Obstructive sleep apnea (adult) (pediatric)
CPT/HCPCS: 99214

== ENCOUNTER → 2024-11-22 08:45 | Outpatient (BNVA) | payer OTHER, SELFPAY | PROVIDERS: Absent Provider Physician Assistant Medical; PCP Registered Nurse; Visit Provider Physician Assistant Medical | DX: G47.33 Obstructive sleep apnea (adult) (pediatric) (principal); R53.83 Other fatigue; M25.562 Pain in left knee; G89.29 Other chronic pain; E55.9 Vitamin D deficiency, unspecified; Z99.89 Dependence on other enabling machines and devices | CPT/HCPCS: 99212 ==

== ENCOUNTER 2024-12-21 09:09 | Outpatient (RCR) | payer OTHER, SELFPAY ==
--- NOTE | 2024-11-23 13:25 | MHC.PT.EP ---
[facility] [place] Office [place] Office [place] Office [address] Shanthi Phillips [address] [phone] F: [phone] F: [phone] F: [phone] F: [phone] Physical Therapy Plan of Care Date of Evaluation: 11/19/24 Date of Surgery: Diagnosis: 69 y/o female with chronic R shoulder pain and low back pain. Referral for [facility] for further management, thank you signed by VENITA Morrell date of referral 10/08/24 [ End ] Assessment: Pt is a RHD Namibian speaking female with PMH significant for VIT D deficiency, osteoporosis, elevated PTH, s/p appendectomy, s/p L TKA 09/23, GERD, incidental finding of pancreatic mass, referred to PT for treatment of chronic back pain and chronic R shoulder pain. Pt reports worsening pain and inability to raise R UE when lifting. Pt expresses history of having x-rays in [place]. Pt is s/p L TKA with decreased AROM flexion. Pt reports intolerance for household tasks such as cleaning, bending. Poor tolerance for prolonged walking. Pt would benefit from attending skilled PT services 2x/week x 4 weeks. Pt may benefit from orthopedic referral to rule out RTC pathology as pt has poor PROM/AROM tolerance and reports near constant pain in her R shoulder and bilateral LE. Pt's lack of L knee/hip AROM flexion ROM may be contributing factor for L lumbar sx. 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 Frequency and Duration: The patient will be seen 2x/week x 4 weeks Short Term Goals: 1. Pt will demonstrate AAROM R shoulder flexion to 110 degrees. (IR: AROM 70, PROM 90 limited by pain). 2. Pt will demonstrate AAROM L knee flexion to 115 degrees. (IR: 100 with pain in lumbar region). 3. Pt will demonstrate a hooklying bridge with good tolerance/ability. 4. Pt will demonstrate centralization of sx to the L LE. Tubular Splitting Machine Tender Goals: 1. I HEP self care for lower back/R shoulder. 2. Strengthen hip abd to 5/5. (IR: sx 3/5) 3. Pt will rise from chair on first attempt with min UE support with good dynamic balance. (IR: Increased trunk flexion with stand). 4. Pt will demonstrate R shoulder strength 5/5 flexion/abd. Treatment Plan: Modalities to reduce pain, spasms and effusion. Manual therapy to restore motion and function. Therapeutic exercise to improve strength and flexibility. Neuromuscular re-education for posture and balance. Therapeutic activities to return to functional activities of daily living. Electronically signed by: Belgica Stanley, PT, DPT Please sign and return to therapist. Thank you for your referral.
--- NOTE | 2024-12-09 12:04 | MHC.PT.OD ---
[facility] [place] Office [place] [facility] [place] Office [address] Shanthi Phillips [address] [phone] F: [phone] F: [phone] F: [phone] F: [phone] Physical Therapy Daily Note Diagnosis: 69 y/o female with chronic R shoulder pain and low back pain. Referral for [facility] for further management, thank you signed by VENITA Morrell date of referral 10/08/24 [ End ] Date of Surgery: Date of Evaluation: 11/19/24 Date of Treatment: 12/09/24 Treatments to Date: Cancellations to Date: No Shows to Date: Authorized Visits: 7 Insurance End Date: Precautions/ Contraindications:[place] speaking needs handcrew foreman hx TKA - hx osteoporosis Subjective: Pt reports her back and knee are doing better. Ongoing R shoulder pain. Pain Score and Location: 8 10 Objective Flowsheet: Tests & Measures R shoulder flexion 95 degrees R shoulder abduction 90 degrees sx Apley ER C6 sx APley IR L4=3 Exercises SEATED on SCI-FIT bike seat #5 for gentle revolution/warm-up for warm-up x 10 minutes. Review of AAROM flexion for stretch x 5R x 20 sec hold. AAROM cane scaption x 5R x 20 sec hold, isometric scapular retraction x 2 sets 10R, education and encouragement for patient to contact PCP office to request/inquire about orthopedic referral due to ongoing sx, Positioned in sitting with pillow support under R UE for STM at start of session in effort to address/pain STM to R UT/lateral arm in effort to increase tissue extensibility. Self care, benefit of getting back into walking program, aquatic program, movement every hour, avoidance of sitting/standing too long in one position. Modalities Assessment: 12/09/24: Pt has attended 7 session of PT to date, reports ongoing R shoulder pain at rest, worse at night. Pt continues to be unable to lift arm laterally and has difficulty reaching overhead. 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 Due to history of lifting injury, duration of onset, ongoing sx, and severe pain at night, no signficant change in ROM with AAROM program, pt will benefit from an orthopedic referral to address concern for R RTC pathology. Pt was educated to call her PCP office to express ongoing sx and was encouraged to make a follow up appt (reports she is not scheduled until January of this year). Pt will be decreasing her frequency to 1x/week from 2x/week. 12/07/24: Pt presents with her friend during session (friend spoke S, panish/Occitan). Pt defer handcrew foreman. Pt challenged with SL hip abd. Ongoing shoulder pain, therapist recommending patient follow up with PCP for R shoulder pain- may benefit from orthopedic referral due to limited gains. 12/03/24 Pt improving in flexibility/strength overall. Pt reports good compliance with HEP. Issued SL open book and trunk rotation for HEP program this date. 11/30/24: Pt was challenged with 4 way resisted hip/trunk exercise but reports she is doing better with respect of her knee/back. She was given information about a restorator in effort to obtain a pedal cycle for home/self-care. 11/25/24: Pt progressing in AAROM of R shoulder in supine today ~110 flexion but reports near constant pain rated as 7/10. Pt reports mutiple areas of pain back, R shoulder, and L knee. 11/23/24: Pt with positive response to home program. Pt to research ice pack to obtain for home due to positive response- using ice for self-care management of sx. Pt is a RHD [place] speaking female with PMH significant for VIT D deficiency, osteoporosis, elevated PTH, s/p appendectomy, s/p L TKA 09/23, GERD, incidental finding of pancreatic mass, referred to PT for treatment of chronic back pain and chronic R shoulder pain. Pt reports worsening pain and inability to raise R UE when lifting. Pt expresses history of having xrays in [place]. Pt is s/p L TKA with decreased AROM flexion. Pt reports intolerance for household tasks such as cleaning, bending. Poor tolerance for prolonged walking. Pt would benefit from attending skilled PT services 2x/week x 4 weeks to address impairments, activities, and mobility tolerance to resume PLOF. Pt may benefit from orthopedic referral to rule out RTC pathology as pt has poor PROM/AROM tolerance and reports near constant pain in her R shoulder and bilateral LE. Pt's lack of L knee/hip AROM flexion ROM may be contributing factor for L lumbar sx. 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 PT Plan: 2x/week x 4 weeks lumbar stab program, flexibility L LE, manual therapy Has not had xrays L hip- poor tolerance for PROM L hip ER/IR; sx L lumbar with PROM L hip Short Term Goals: 1. Pt will demonstrate AAROM R shoulder flexion to 110 degrees. (IR: AROM 70, PROM 90 limited by pain). 2. Pt will demonstrate AAROM L knee flexion to 115 degrees. (IR: 100 with pain in lumbar region). 3. Pt will demonstrate a hooklying bridge with good tolerance/ability. 4. Pt will demonstrate centralization of sx to the L LE. Bioinformatics Technician Goals: 1. I HEP self care for lower back/R shoulder. 2. Strengthen hip abd to 5/5. (IR: sx 3/5) 3. Pt will rise from chair on first attempt with min UE support with good dynamic balance. (IR: Increased trunk flexion with stand). 4. Pt will demonstrate R shoulder strength 5/5 flexion/abd. Electronically signed by: Belgica Stanley, PT, DPT
== END 2024-12-27 07:02 | disposition home or self-care (01) ==
LOC: HO.PTS 09:09
PROVIDERS: PCP Registered Nurse; Visit Provider Registered Nurse
DX: M75.41 Impingement syndrome of right shoulder (principal); M54.50 Low back pain, unspecified; G89.29 Other chronic pain
CPT/HCPCS: 97110; 97140; 97162; 97530; 97535

== ENCOUNTER 2025-01-27 14:16 | Outpatient (REF) | payer OTHER, SELFPAY ==
--- OUTSIDE RECORDS SUMMARY | 2025-01-27 14:24 | XMS_ITS ---
Author Organization [facility] Address [address] [place] [phone] Care Team Providers Care Fuel Assembler Name Role Phone KEILA SORENSON, KEIRA Primary Care Provider Trey Toney Jr, Jean Marie Denise [phone] REASON FOR VISIT HYPERPLASTIC APPENDIX Encounters Encounter Location Date Provider Diagnosis [facility] [address] [place] [phone] 03/17/2024 Jean Marie Toney Jr Plan Of Treatment No Information Progress Notes * MILDRED IQBALDOB:1955 (70 yo F)Acc No.[id number]:03/17/2024 Progress Notes Patient:?MILDRED IQBAL Provider:?Jean Marie Toney MD :1955???Age:69 Y???Sex:Female D ate:03/17/2024 Address:[address] [place], [place] [id number] Pcp:KEIRA PEDRAZA MD Subjective: * Chief Complaints: * ???1. HYPERPLASTIC APPENDIX. * Medical History:? Objective: * Vitals:? Assessment: Plan: * Treatment: * * The named appointment provid er may or may not be the originator of this progress note, and it is not deemed complete until electronically signed by the appointment provider. Sign off status: Pending * Provider:?Jean Marie Toney MD Date:?0 03/17/2024 Generated for Yaneth elliott/Gracy/eTjoellensmitting on:?01/27/2025 08:47 AM EDT
[2025-01-27 17:36] LABS: MANUAL DIFF FLAG NO
[2025-01-27 17:46] LABS: Basophils Percent Auto 0.5 % (0-2); Eosinophils Absolute Auto 0.2 X10*3/uL (0.0-0.4); Eosinophils Percent Auto 3.4 % (0-4); Hematocrit 39.6 % (37.0-47.0); Imm Gran Abs Auto 0.01 X10*3/uL (0.00-0.03); Imm Gran Pct Auto 0.2 % (0.0-0.4); Lymphocytes Absolute Auto 2.3 X10*3/uL (1.2-4.9); Lymphocytes Percent Auto 38.7 % (20-40); Mean Corpuscular HGB Conc 32.8 g/dl (31.0-35.0); Mean Corpuscular Hemoglobin 31.3 pg (27.0-33.0); Mean Corpuscular Volume 95.2 fL (80.0-98.0); Mean Platelet Volume 10.1 fL (9.4-12.3); Monocytes Absolute Auto 0.6 X10*3/uL (0.1-1.2); Monocytes Percent Auto 10.7 % (2-11); Neutrophils Absolute Auto 2.7 x10*3/uL (2.0-8.3); Neutrophils Percent Auto 46.5 % (45-73); Platelet Count 227 X10*3/uL (160-400); Red Blood Count 4.16 X10*6/uL (4.20-5.50); Red Cell Distribution Width 14.5 % (11.0-16.0); White Blood Count 5.8 X10*3/uL (4.8-10.8)
[2025-01-27 18:04] LABS: Alanine Aminotransferase 12 U/L (0-31); Albumin Level 3.6 g/dL (3.5-5.0); Alkaline Phosphatase 76 U/L (39-117); Anion Gap 9 (12-20); Aspartate Amino Transferase 27 U/L (5-31); Bilirubin Total 0.3 mg/dL (0.0-1.0); Blood Urea Nitrogen 14 mg/dL (9-16); Calcium 9.1 mg/dL (8.4-10.2); Carbon Dioxide 29 mmol/L (22-29); Chloride 109 mmol/L (96-108); Cholesterol 178 mg/dL (<200); Estimated Glomerular Filt Rate > 60; Glucose Random 85 mg/dL (60-115); HDL Cholesterol 62 mg/dL (>40); LDL Cholesterol Calculated 81 mg/dL (<100); Potassium 4.2 mmol/L (3.3-5.1); Sodium 143 mmol/L (135-145); Total Protein 6.5 g/dL (6.5-8.0); Triglycerides 175 mg/dL (<150)
[2025-01-27 18:20] LABS: TSH reflex Free T4 1.44 uIU/mL (0.32-4.0)
[2025-01-30 18:58] LABS: TS Negative Control Passed; TS Panel A 0; TS Panel B 0; TS Positive Control Passed; TSpotTB Negative (Negative)
== END 2025-01-27 14:17 | disposition home or self-care (01) ==
LOC: HO.CHCLDS 14:16
PROVIDERS: Visit Provider Internal Medicine
DX: Z00.00 Encounter for general adult medical examination without abnormal findings (principal)
CPT/HCPCS: 36415; 80053; 80061; 84443; 85025; 86481

== ENCOUNTER 2025-01-31 08:25 | Outpatient (REF) | payer OTHER, SELFPAY ==
--- NOTE | ~2025-01-31 | XR_ITS ---
EXAMINATION: XR SHOULDER, RIGHT CLINICAL INFORMATION: M25.519 - Pain in unspecified shoulder COMPARISON: November 19, 2019 TECHNIQUE: AP external rotation, Grashey, scapular Y, and axillary views of the right shoulder. FINDINGS: AC joint is intact with minimal degenerative irregularity. Small marginal osteophytes are present along the humeral head that are similar to the prior. On the axillary view, there is short linear calcific density projecting anterior to the margin of the humeral head No abnormalities are evident. No fractures are seen.. XR/XR shoulder RT min 2V IMPRESSION: Short linear calcific density is present on the axillary view adjacent to the margin of the anterior humeral head that could represent calcific tendinitis or less likely a small avulsion fracture associated with subscapularis tendon. There are mild degenerative changes involving the humeral head and AC joint. Electronically signed by: Wiley Ramirez MD 01/31/2025 12:27 PM EDT
== END 2025-01-31 08:26 | disposition home or self-care (01) ==
LOC: HO.HOSX 08:25
PROVIDERS: PCP Registered Nurse; Visit Provider Orthopaedic Surgery
DX: M25.511 Pain in right shoulder (principal); S49.91XA Unspecified injury of right shoulder and upper arm, initial encounter
CPT/HCPCS: 73030; 99212

== ENCOUNTER 2025-01-31 08:25 | Outpatient (AMB) | payer OTHER, SELFPAY ==
--- NOTE | 2025-01-31 08:27 | A.OFFVIS_ITS ---
Vital Signs 01/31/25 08:28 Height 5 ft 2 in Weight 167 lb BMI 30.5 Intake Visit Reasons: OV-RT shoulder pain f/u Intake Note: Debby is a 69 year old right hand dominant female who presents today for a follow up of her right shoulder pain. At her last visit physical therapy was ordered & if it was unhelpful we would consider injection today. Patient reports that physical therapy did not provide the results she expected. She declines cortisone injection, but she would like an xray of her shoulder Manager Home Healthcare Required: Yes Manager Home Healthcare Name: Lissett BEJARANO LM Allergies NSAIDS (Non-Steroidal Anti-Inflamma Allergy (Intermediate, Verified 01/31/25 08:45) Gastrointestinal Upset Penicillins Allergy (Intermediate, Verified 01/31/25 08:45) hives HPI HPI OV-RT shoulder pain f/u: Details: Debby is a 69 year old right hand dominant female who presents today for a follow up of her right shoulder pain. At her last visit physical therapy was ordered & if it was unhelpful we would consider injection today. Patient reports that physical therapy did not provide the results she expected. She declines cortisone injection, but she would like an xray of her shoulder PFSH Medical History (Updated 01/31/25 @ 17:19 by Jay Beltre MD) Fatigue due to sleep pattern disturbance Left knee pain Hx of thyroid nodule Acute appendicitis Back pain Osteoporosis Elevated parathyroid hormone GERD (gastroesophageal reflux disease) Numbness and tingling in left arm Sinus bradycardia Preoperative cardiovascular examination DODIE on CPAP Osteoarthritis of left knee Encounter for screening colonoscopy Vitamin D deficiency Surgical History History of total left knee replacement (TKR) (09/24/23) History of laparoscopic appendectomy (12/03/23) Hx of non-cataract eye surgery Hx of carpal tunnel repair History of esophagogastroduodenoscopy (EGD) H/O bariatric surgery History of total abdominal hysterectomy History of cholecystectomy Family History Unknown No family history of colorectal cancer Mother Uterus cancer Other Left knee pain Social History Household Members: Family Household Members Other:: Lives with her son Housing: House Are you a primary residential care facility manager to a significant other at home: No Do you presently have visiting nurse or other home services: No 75 years or older and lives alone: No Alcohol intake: never Comment: aware of trip hazard Patient Tobacco Use Status: Never used Tobacco Advance Directives Date on File: 09/26/23 service: No Current occupational status: unemployed Sexual orientation: Straight/Heterosexual Gender identity: Female Physical Exam Vital Signs: BMI result Body Mass Index 30.5 Extrem Other: On examination she has a 4+/5 empty can and positive Mckeon and Neer with external rotation to 45 degrees. Negative lift-off. Results Reviewed Results Reviewed: I personally reviewed relevant radiographs. IMPRESSION: Short linear calcific density is present on the axillary view adjacent to the margin of the anterior humeral head that could represent calcific tendinitis or less likely a small avulsion fracture associated with subscapularis tendon. There are mild degenerative changes involving the humeral head and AC joint. Assessment & Plan Assessment & Plan (1) Injury of right deltoid region: Code(s): S49.91XA - Unspecified injury of right shoulder and upper arm, initial encounter Category: Medical Plan: 70-year-old woman with pain in the right shoulder. She can not get through her day without discomfort. She is very frustrated. She does not want another steroid injection as they were not helpful in the contralateral side and she wants to know what the root cause is. Physical therapy has not helped. I ordered an MRI of the right shoulder. Orders: Orders XR shoulder RT min 2V Today M25.519 - Pain in unspecified shoulder MR shoulder RT wo con Today M24.811 - Other specific joint derangements of right shoulder, not elsewhere classified Coding Level of Care Code Est Pt Level 3 (78351) Diagnoses Injury of right deltoid region S49.91XA
[2025-01-31 08:28] VITALS: BMI 30.5
--- OUTSIDE RECORDS SUMMARY | 2025-01-31 08:36 | XMS_ITS ---
Author Organization [facility] Address [address] [place] [phone] Care Team Providers Care Roller Printing Supervisor Name Role Phone KEILA SORENSON, KEIRA Primary Care Provider Trey Toney Jr, Jean Marie Denise [phone] REASON FOR VISIT HYPERPLASTIC APPENDIX Encounters Encounter Location Date Provider Diagnosis [facility] [address] [place] [phone] 03/17/2024 Jean Marie Toney Jr Plan Of Treatment No Information Progress Notes * MILDRED IQBALDOB:1955 (70 yo F)Acc No.[id number]:03/17/2024 Progress Notes Patient:?MILDRED IQBAL Provider:?Jean Marie Toney MD :1955???Age:69 Y???Sex:Female D ate:03/17/2024 Address:[address] [place], [place] [id number] Pcp:KEIRA PEDRAZA MD Subjective: * Chief Complaints: [...] MD Date:?0 03/17/2024 Generated for Yaneth elliott/Gracy/eTjoellensmitting on:?01/31/2025 08:36 AM EDT
== END 2025-01-31 10:18 | disposition home or self-care (01) ==
LOC: HO.HOS 08:25
PROVIDERS: PCP Registered Nurse; Visit Provider Orthopaedic Surgery
DX: S49.91XA Unspecified injury of right shoulder and upper arm, initial encounter (principal)
CPT/HCPCS: 99213

== ENCOUNTER → 2025-01-31 09:16 | Outpatient (BNV) | payer OTHER, SELFPAY | PROVIDERS: PCP Registered Nurse; Visit Provider Radiology Diagnostic Radiology | DX: M25.511 Pain in right shoulder (principal); M25.711 Osteophyte, right shoulder | CPT/HCPCS: 73030 ==

== ENCOUNTER → 2025-02-22 07:18 | Outpatient (BNV) | payer OTHER, SELFPAY | PROVIDERS: PCP Registered Nurse; Visit Provider Radiology Diagnostic Radiology | DX: M75.121 Complete rotator cuff tear or rupture of right shoulder, not specified as traumatic (principal) | CPT/HCPCS: 73221 ==

== ENCOUNTER 2025-02-22 07:20 | Outpatient (REF) | payer OTHER, SELFPAY ==
--- OUTSIDE RECORDS SUMMARY | 2024-03-17 07:00 | XMS_ITS ---
Author Organization [facility] Address [address] [place] [address] Care Team Providers Care Returned Case Inspector Name Role Phone KEILA SORENSON, KEIRA Primary Care Provider Unavailhuber Toney Jr, Jean Marie Denise [phone] REASON FOR VISIT HYPERPLASTIC APPENDIX Encounters Encounter Location Date Provider Diagnosis [facility] [address] [place] [phone] 03/17/2024 Jean Marie Toney Jr Plan Of Treatment No Information Progress Notes * MILDRED IQBALDOB:1955 (70 yo F)Acc No.[id number]:03/17/2024 Progress Notes Patient: MILDRED PRASAD Provider: Noemi Toney MD :1955 A ge:69 Y S ex:Female Date:03/17/2024 Address:[address] [place] [address] , [place], [place] Pcp:KEIRA PEDRAZA MD Subjective: * Chief Complaints: [...] 0 03/17/2024 Generated for Albai earl/Gracy/eTransmitting on: 02/22/2025 07:23 AM EDT
--- NOTE | ~2025-02-22 | MR_ITS ---
EXAMINATION: MR SHOULDER WITHOUT CONTRAST, RIGHT TECHNIQUE: Multiplanar multisequence imaging through an upper extremity joint without contrast. INDICATION: Rotator cuff tear PRIOR: None FINDINGS: Rotator Cuff: There is a full-thickness tear of supraspinatus and infraspinatus tendons with 2.5 cm retraction. There is a shallow partial thickness undersurface tear of subscapularis tendon near the lesser tuberosity. Labrum: Labrum is degenerated and frayed Long biceps tendon: Long biceps tendon is thinned and indistinct in the upper biceps groove. Acromioclavicular joint: There is a small subacromial spur. There is mild degenerative hypertrophy of AC joint. Acromial morphology is curved, type II. Axillary pouch: Axillary pouch is mildly thickened. Articular cartilage: There is a deep undulating partial-thickness articular cartilage defect involving the inferomedial 1 cm of humeral head. There is likely a small focal full-thickness articular cartilage defect in the far inferior glenoid with an adjacent degenerative cyst in the marrow. Bones/Marrow: Minimal reactive marrow signal is present posterior greater tuberosity. Soft tissues: There is generalized mild fatty streaking of shoulder musculature consistent with deconditioning. MR/MR shoulder RT wo con IMPRESSION: There is a full-thickness tear of supraspinatus and infraspinatus tendons with 2.5 cm retraction. Subscapularis is partially torn on the undersurface, likely involving less than half the tendon thickness. Mild AC joint arthropathy and small subacromial spur. Degenerated and partially torn long biceps tendon through the biceps groove. Grade III chondromalacia involving inferomedial humeral head and a focal full-thickness articular cartilage defect in the inferior glenoid with adjacent degenerative cyst. Possible adhesive capsulitis: Axillary pouch is thickened with increased intrinsic signal which can be present in asymptomatic individuals but is also present in those with adhesive capsulitis. Posterior labrum is degenerated and frayed. Electronically signed by: Wiley Ramriez MD 02/22/2025 10:28 AM EDT
== END 2025-02-22 07:21 | disposition home or self-care (01) ==
LOC: HO.MRI 07:20
PROVIDERS: PCP Registered Nurse; Visit Provider Orthopaedic Surgery
DX: M24.811 Other specific joint derangements of right shoulder, not elsewhere classified (principal); G47.33 Obstructive sleep apnea (adult) (pediatric); R53.83 Other fatigue
CPT/HCPCS: 73221; 99212

== ENCOUNTER 2025-02-22 08:35 | Outpatient (AMB) | payer OTHER, SELFPAY ==
[2025-02-22 08:38] VITALS: BP 122/74; PULSE 66; O2SAT 96; BMI 31.1
--- NOTE | 2025-02-22 08:38 | MHC.OFFVIS ---
Vital Signs 02/22/25 08:38 Height 5 ft 2 in Weight 170 lb 4 oz BMI 31.1 BP 122/74 Blood Pressure Location Rt brachial Position Sitting Pulse 66 Pulse Source Pulse Oximeter Pulse Oximetry (%) 96 Oxygen Delivery Method Room Air Intake Visit Reasons: 3 mo follow up Intake Note: Patient presents follow up DODIE. Compliance requested Product Development Carpenter Required: Yes Product Development Carpenter Language: Banquet Manager Name: Naren Mazariegos([id number]) Allergies NSAIDS (Non-Steroidal Anti-Inflamma Allergy (Intermediate, Verified 02/22/25 08:41) Gastrointestinal Upset Penicillins Allergy (Intermediate, Verified 02/22/25 08:41) hives HPI Comments Details: 70 y/o female patient presents for follow up of titration results and severe sleep apnea. per diem interpreter helps with history on IPAD. 01/2022 Split night study completed, breathing and oxygen stabilized on cpap of 6cmH20. Sep 2023 PSG c/w severe dodie AHI was 32/hr and oxygen garry was 69%. Labs pending DODIE Compliance Report 10/2024- 01/2025 Total Avg use is 75/90 days and >4 hours is 17 days Daily Avg usage is 2hours 40min press APAP [id number] EPR3 Press 6cmH20 and Leaks 0.1cm varies AHI is 3.0 She goes to sleep at 12 midnight and 5-6 am, with one bathroom break, snores loudly, choking and gasping for air, the pressures are still not great for her. She has been having trouble with her cpap company [employer], she has not received supplies in months and is using the same mask over and over again. Her sleep is intermittent at best, it is difficult since she is very stressed out due to her sons' friend's living situation at her home. They are not paying the rent and it has been 6 months now. Her sleep continues to suffer, she wakes up fatigued most days. She puts the mask on 2 hours before sleeping and uses it daily, now she is trying to use it for 3 hours or more daily. Her mask has been tight around her face and leaves indentations, we discussed calling the company or stopping by for new supplies. Denies parasomnias. RLS, mild numbness and tingling pain now and she had a TKR last year and now is ambulating with a cane, however improved mobility. Memory is poor with regards to stm, word finding difficulties but denies forgetting names getting lost while driving. Mood is low today. Diet is normal. She cleans her mask daily, changes the filters and replaces distilled water in reservoir as needed. [facility] Medical History Fatigue due to sleep pattern disturbance Left knee pain Hx of thyroid nodule Acute appendicitis Back pain Osteoporosis Elevated parathyroid hormone GERD (gastroesophageal reflux disease) Numbness and tingling in left arm Sinus bradycardia Preoperative cardiovascular examination DODIE on CPAP Osteoarthritis of left knee Encounter for screening colonoscopy Vitamin D deficiency Surgical History History of total left knee replacement (TKR) (09/24/23) History of laparoscopic appendectomy (12/03/23) Hx of non-cataract eye surgery Hx of carpal tunnel repair History of esophagogastroduodenoscopy (EGD) H/O bariatric surgery History of total abdominal hysterectomy History of cholecystectomy Family History Unknown No family history of colorectal cancer Mother Uterus cancer Other Left knee pain Social History Household Members: Family Household Members Other:: Lives with her son Housing: House Are you a primary ambulatory care nurse to a significant other at home: No Do you presently have visiting nurse or other home services: No 75 years or older and lives alone: No Alcohol intake: never Comment: aware of trip hazard Patient Tobacco Use Status: Never used Tobacco Advance Directives Date on File: 09/26/23 service: No Current occupational status: unemployed Sexual orientation: Straight/Heterosexual Gender identity: Female Review of Systems ENT Reports Normal hearing present Neuro Reports Normal hearing present Physical Exam Vital Signs: Last Vital Signs Pulse 66 02/22/25 08:38 BP 122/74 02/22/25 08:38 Pulse Ox 96 02/22/25 08:38 Oxygen Delivery Method Room Air 02/22/25 08:38 BMI result Body Mass Index 31.1 Const General: cooperative Nutritional Appearance: obese Orientation/consciousness: patient oriented x3 Limitations: language barrier Eyes Pupils: Equal, round and reactive pupils present Neck Neck: Yes full ROM and Yes supple Resp Effort & Inspection: normal respiratory effort and able to speak in complete sentences Neuro General: patient oriented x3, gait normal and moves all extremities Cranial nerves: Yes Equal, round and reactive pupils present, Yes Bilaterally intact EOM present, Yes Normal facial strength present, Yes Midline tongue present, Yes Symmetric palate elevation present, Yes Normal hearing present and Yes Ability to bilaterally rotate head present Cognition (Neuro): normal cognition Gait exam (Neuro): Normal gait present Motor exam (neuro): Pronator motor function not present, no tremor noted, Abnormal motor strength present and Abnormal muscle tone present Psych Appearance: grossly normal Thought process: Normal thought process present Thought content: Normal thought content present Results Reviewed Results Reviewed: DODIE Compliance Report 10/2024- 01/2025 Total Avg use is 75/90 days and >4 hours is 17 days Daily Avg usage is 2hours 40min press APAP [id number] EPR3 Press 6cmH20 and Leaks 0.1cm varies AHI is 3.0 04/2022 Bilateral median and ulnar motor and sensory studies were performed. Bilateral radial sensory studies were performed and paraspinal muscles were tested with a needle. IMPRESSION: 1. [id number] bilateral median neuropathy across carpal tunnel. 2. Mild bilateral ulnar neuropathy across cubital tunnel. 3. Bilateral Deepak-Delvin anastomosis and normal variant. Assessment & Plan Assessment & Plan (1) DODIE (obstructive sleep apnea): Comment: Severe degree of sleep apnea. The AHI was 31/hr and oxygen garry was 69% Code(s): G47.33 - Obstructive sleep apnea (adult) (pediatric) Category: Medical (2) Fatigue due to sleep pattern disturbance: Code(s): R53.83 - Other fatigue; G47.9 - Sleep disorder, unspecified Category: Medical (3) Fatigue due to sleep pattern disturbance: Code(s): R53.83 - Other fatigue; G47.9 - Sleep disorder, unspecified Category: Medical Plan DODIE Will send Rx for titration study overnight as patient still having trouble with her pressures and mask is deteriorated. Compliance continues to improve, we are now at 3 hours. RLS mild and improved with Gabapentin 300- 400mg po daily at bedtime. Fatigue, Labs r/o deficiencies are still pending 10/2024. b12? Vit D? Folate? Cbc/cmp?/ mma/ homocysteine? Continue Magnesium citrate 400mg PO daily Magnesium Glycinate is also okay. May hold mg if loose stools. Continue B6 200mg po daily at bedtime for RLS symptoms. F/u in 3 months Orders: Orders RT PSG in-lab sleep titration Today G47.33 - Obstructive sleep apnea (adult) (pediatric) Patient Instructions: Sleep Hygiene provided: set a scheduled bedtime and wake time to help regulate the circadian rhythm and balance the release of pituitary hormones. Sleep in a dark room, temperatures below 68 degrees, and no devices n bed. Limit caffeinated products 6 hours prior to bed, and limit fluids 2-4 hours prior to bed. Gentle night yoga, diffusing essential oils, and playing soft music can be relaxing. Coding Level of Care Code Est Pt Level 4 (05015) Diagnoses DODIE (obstructive sleep apnea) G47.33 Fatigue due to sleep pattern disturbance R53.83; G47.9 Time Spent (min) 30 Comment Improving compliance
== END 2025-02-22 09:37 | disposition home or self-care (01) ==
LOC: HO.HSMS 08:35
PROVIDERS: PCP Registered Nurse; Visit Provider Physician Assistant Medical
DX: G47.33 Obstructive sleep apnea (adult) (pediatric) (principal); R53.83 Other fatigue; G47.9 Sleep disorder, unspecified
CPT/HCPCS: 99214

== ENCOUNTER 2025-03-15 08:42 | Outpatient (REF) | payer OTHER, SELFPAY ==
--- OUTSIDE RECORDS SUMMARY | 2024-03-17 07:00 | XMS_ITS ---
Author Organization [facility] Address [address] [place] [address] Care Team Providers Care Chestnut Tanner Name Role Phone KEILA SORENSON, KEIRA Primary Care Provider Unavailhuber Toney Jr, Jean Marie Denise [phone] REASON FOR VISIT HYPERPLASTIC APPENDIX Encounters Encounter Location Date Provider Diagnosis [facility] [address] [place] [phone] 03/17/2024 Jean Marie Toney Jr Plan Of Treatment No Information Progress Notes * MILDRED IQBALDOB:1955 (70 yo F)Acc No.[id number]:03/17/2024 Progress Notes Patient: MILDRED PRASAD Provider: Noemi Toney MD :1955 A ge:69 Y S ex:Female Date:03/17/2024 Address:[address] [place] [address] , [place], [place] Pcp:KEIRA PEDRAZA MD Subjective: * Chief Complaints: * 1 . HYPERPLASTIC APPENDIX. * Medical History: Objective: * Vitals: Assessment: Plan: * Treatment: * * The named appointment provid er may or may not be the originator of this progress note, and it is not deemed complete until electronically signed by the appointment provider. Sign off status: Pending * Provider: Noemi Toney MD Date: 03/17/2024 Generated for Yaneth elliott/Gracy/eTransmitting on: 03/15/2025 08:50 AM EDT
--- OUTSIDE RECORDS SUMMARY | 2025-03-15 08:50 | XMS_ITS | Clinical Summary ---
Author Organization [employer] Address [address] [place] [address] Care Team Providers Care Vp Of Product Name Role Phone LouieDot segura VENITA Primary Care Provider [phone] Allergies Active Allergy Reactions Criticality Noted Date Comments Nsaids High 11/12/2019 Other reaction(s): GI Problems Penicillin G 11/12/2019 Medications * This document contains information received from the source organization and may not represent a complete record from that organization. capsaicin (Zostrix) 0.025 % cream APPLY BY [...] Once daily. 90 tablet 1 3 Active alendronate (Fosamax) 70 MG tablet PLEASE SEE ATTACHED FOR DETAILED DIRECTIONS Active magnesium oxide (Mag-Ox) 400 (240 Mg) MG tablet Take 400 mg by mouth Once per day. 4 Active buPROPion XL (Wellbutrin XL) 300 MG 24 hr tabletIndications :BMI 29.0-29.9,adult Take 1 tablet (300 mg) by mouth Once per day. 90 tablet 1 5 Active Multiple Vitamin (Daily-Yumi Multivitamin) tablet TAKE 1 TABLET BY MOUTH EVERY DAY WITH FOOD 90 tablet 1 5 Active cholecalciferol VITAMIN D (Vitamin D-3) 50 MCG (2000 UT) capsuleIndication s:Vitamin D deficiency Take 1 capsule (50 mcg) by mouth Once per day. 90 capsule 1 5 Active pantoprazole (ProtoNix) 40 MG EC tablet TAKE 1 TABLET BY MOUTH BEFORE BREAKFAST. DO NOT CRUSH, CHEW OR SPLIT. 90 tablet 1 5 Active Acetaminophen Extra Strength 500 MG tablet TAKE 1-2 (500MG) BY ORAL ROUTE EVERY 8 HOURS NEEDED FOR PAIN 100 tablet 2 5 Active gabapentin (Neurontin) 300 MG capsuleIndication s:Sleep difficulties Take 1 capsule (300 mg) by mouth at bedtime. 90 capsule 1 5 10/08/19 26 Active cyanocobalamin (Vitamin B-12) 1000 MCG tablet TAKE 1 TABLET BY MOUTH EVERY MORNING 90 tablet 1 5 Active Active Problems Problem Noted Date Diagnosed Date Dermatophytosis of nail 03/01/2025 Assessment & Plan (03/01/2025 9:25 AM EDT): Followed by podiatry-Dr. Sprague. Nail biopsy completed during consult November 2024. Prescribed topical clotrimazole. Tear of right supraspinatus tendon 03/01/2025 Overview (03/01/2025): Following with [facility] Ortho-Dr. Beltre 02/22/2025: MRI right shoulder demonstrated full-thickness tear of supraspinatus and infraspinatus tendons with a 2.5 cm retraction. Subscapularis is partially torn on the undersurface, likely involving less than half the tendon thickness. Mild AC joint arthropathy and small subacromial spur. Degenerated and partially torn long biceps tendon through the biceps groove. Cartilage defect. Possible adhesedive capsulitis. Depression, unspecified 02/07/2025 Anxiety 02/07/2025 Impingement syndrome of right shoulder Assessment & Plan (10/08/2024 10:17 AM EST): Evaluated by [facility] Ortho-Dr. Beltre-June 2024 Plan for physical therapy, with consideration of injection after PT if pain persists Received benefit with PT, will refer to continue sessions at [facility] Chronic gastroesophageal reflux disease 10/08/19 Overview (10/08/2024): Continues with pantoprazole 40 mg daily Following with [facility] GI - EDUARDO Ansari/Dr. Wheat EGD completed Jul 2024 - demonstrated grade II hiatal hernia and mild gastritis Osteoarthritis of right knee 05/20/2024 Overview (05/20/2024): 12/12/23: XR bilat knees showed mild oA right knee BMI 29.0-29.9,adult 05/20/2024 Assessment & Plan (03/01/2025 9:21 AM EDT): Following with [facility] for weight management - [employer] Yoko Milan. History of gastric sleeve Continues with bupropion 300mg daily. Reports that med has been helpful for her anxiety as well as for helping her to not gain more weight. Denies med SE. Declines interest in GLP1 noted on consult note October 2024 Continues going to gym, aquatic therapy 2x/week Healthy, well balanced nutrition Assessment & Plan (10/08/2024 10:37 AM EST): Following with [facility] for weight management - [employer] Yoko Milan. History of gastric sleeve Continues with bupropion 300mg daily. Reports that med has been helpful for her anxiety as well as for helping her to not gain more weight. Denies med SE. Continues going to gym, aquatic therapy 2x/week Healthy, well balanced nutrition Assessment & Plan (05/20/2024 12:18 PM EDT): Following with [facility] for weight management History of gastric sleeve Continues with bupropion 300mg daily. Reports that med has been helpful for her anxiety as well as for helping her to not gain more weight. Denies med SE. Continues going to gym, aquatic therapy 2x/week Healthy, well balanced nutrition If BMI greater than 27, may try for GLP-1 authorization through [facility] per consult note Sleep difficulties 05/20/2024 Overview (05/20/2024): Magnesium 400mg nightly Gabapentin 300mg nightly. Reviewed med safety and SE. Hx of total knee arthroplasty, left 12/11/2023 Overview (12/11/2023): Left TKA 09/24/23 at [facility] w/ Dr. Beltre. Indication: OA Per ortho, [...] 24 months is advised. Currently following with [facility] GI with plan for routine repeat MRI Assessment & Plan (05/20/2024 12:04 PM EDT): -Currently following with [facility] GI. Plan for repeat MRI in 6 months per consult note in December 2023 History of appendectomy 12/11/2023 Overview (12/11/2023): Emergency appendectomy completed 12/03/23 Assessment & Plan (12/11/2023 12:06 PM EDT): Scheduled for follow up visit 12/10/23 with [facility] Surgeons No active sign of infx of incisions, avoid lifting. Elevated parathyroid hormone 06/09/2023 Overview (06/09/2023): Noted during medical evaluation in [facility]. Comprehensive workup including ultrasound, biopsy, and PET scan negative for malignancy Recommended follow up blood work (PTH) in Sep 2023 Assessment & Plan (03/01/2025 9:33 AM EDT): Repeat PTH ordered Other osteoporosis without current pathological fracture 06/09/2023 Assessment & Plan (03/01/2025 9:25 AM EDT): 04/2020: DEXA impression: osteopenia. 11/08/2022: Bone Density scan record from [facility] with impression of osteoporosis 10/05/24: DEXA impression: osteoporosis -Pt reports received Prolia injection while in [facility], continues on calcium and Vit D -Established with [facility] Wei Gregg. Per consult note December 2023: denosumab not very effective on the hips (T-score -2.4 in hips). Suggested transition to alendronate 70mg weekly. Pt reports tolerating well Assessment & Plan (10/08/2024 10:37 AM EST): 04/2020: DEXA impression: osteopenia. 11/08/2022: Bone Density scan record from [facility] with impression of osteoporosis 10/05/24: DEXA impression: osteoporosis -Pt reports received Prolia injection while in [facility], continues on calcium and Vit D -Established with [facility] Wei Gregg. Per consult note December 2023: denosumab not very effective on the hips (T-score -2.4 in hips). Suggested transition to alendronate 70mg weekly. Pt reports tolerating well Assessment & Plan (05/20/2024 12:15 PM EDT): 04/2020: DEXA impression: osteopenia. 11/08/2022: Bone Density scan record from [facility] with impression of osteoporosis -Pt reports received Prolia injection while in [facility], continues on calcium and Vit D (through multivitamin) supplementation -Established with [facility] Wei Gregg. Per consult note December 2023: denosumab not very effective on the hips (T-score -2.4 in hips). Suggested transition to alendronate 70mg weekly. Pt reports tolerating well -Next DXA: 11/08/24 at [place] Assessment & Plan (07/06/2023 11:36 AM EST): 04/2020: DEXA impression: osteopenia. 11/08/2022: Bone Density scan record from [facility] with impression of osteoporosis -Pt reports received Prolia injection while in [facility], continues on calcium and Vit D (through multivitamin) supplementation -With hx of Prolia injection, interruption or discontinuation of therapy may increase risk of fracture. Referral to Endo placed in Jun 2023, initial consult pending Assessment & Plan (06/09/2023 2:53 PM EDT): DEXA: 04/2020 osteopenia. Due April 2022. Previously ordered -Pt received ?Prolia injection while in [facility], continues on calcium and Vit D (through multivitamin) supplementation -If indeed was Prolia, interruption or discontinuation of therapy may increase risk of fracture -Will request most recent DEXA and refer to Endo given tx of bone health and PTH Healthcare maintenance 06/02/2023 Overview (03/01/2025): Pap: s/p total hysterectomy, no records but pelvis exam completed Jul 2024 at [facility] and no cervix visualized on exam. Colonoscopy: 07/20/24 at [facility], repeat in 10 years Mammogram: 10/05/24 BIRADS 1 DEXA: 04/2020 osteopenia. Subsequently completed in DR mares/ impression of osteoporosis. Completed Oct 2024, osteoporisis. OPH: UTD per patient report, follows with Dr. Craven. Dental: Established with dental home in [place], reports UTD with appts and care. Outstanding IZ: Flu, pneumococcal, Tdap, RSV, COVID, Zoster declined History of total hysterectomy 04/28/2023 Vitamin D deficiency 04/28/2023 Overview (05/20/2024): Tx with course of high dose Vit D 50,000 units weekly by Endo starting approx Oct 2023 Currently on Vit D 2000 units daily Following with [facility] Endo - Dr. Gregg Primary osteoarthritis of left knee 04/28/2023 Overview (12/11/2023): Left knee XR 04/28/23: IMPRESSION: Mild tricompartmental degenerative joint changes most consistent with osteoarthritis. Possible trace suprapatellar joint effusion. No acute fracture. Followed by [facility] Ortho - Dr. Beltre. Received steroid injection on 05/19/23 S/P left TKA on 09/24/[address] Beltre at [facility] ED. Per Ortho, pt will require prophylactic abx for dental procedures Assessment & Plan (09/01/2023 5:24 PM EST): -DME request for cane placed 07/06/23 -DME request for shower chair placed 09/01/23 -Plan for upcoming TKA 09/24/23 through [facility] Ortho Assessment & Plan (07/06/2023 11:34 AM [...] to avoid opiates rx by provider in [facility], she has rx for tapenatdol which she says is only suing rarely for severe pain Obstructive sleep apnea syndrome 06/18/2022 Assessment & Plan (03/01/2025 9:27 AM EDT): - Sleep study: completed 01/14/22 at [facility] - Impression: The baseline portion of the [...] titrations and monitoring - Currently following with [facility] Neurology & Sleep - Consult October 2024: PSG demonstrated severe degree of DODIE with AHI 31/hr. Sent in prescription for nose mask trial. Goal to use CPAP nightly more than 4 hours. Assessment & Plan (12/11/2023 11:47 AM EDT): - Sleep study: completed 01/14/22 at [facility] - Impression: The baseline portion of the [...] titrations and monitoring - Currently following with [facility] Neurology & Sleep Assessment & Plan (07/06/2023 11:38 AM EST): - Sleep study: completed 01/14/22 at [facility] - Impression: The baseline portion of the [...] EDT): - Sleep study: completed 01/14/22 at [facility] - Impression: The baseline portion of the [...] Assessment & Plan (06/09/2023 2:34 PM EDT): History of sleeve gastrectomy, pt interested in revision with gastric bypass Referred to Dr. Banks for further eval on 06/09/23 Resolved Problems Problem Noted Date Diagnosed Date Resolved Date Chronic pain of both shoulders 05/20/2024 10/08/2024 Overview (05/20/2024): Referral to [facility] Ortho and physical therapy placed on 05/19/24 Assessment & Plan (05/20/2024 12:27 PM EDT): Cont symptomatic management Encounters * This document contains information received from the source organization and may not represent a complete record from that organization. Date Type Department Care Team Description 03/03/2025 9:00 AM EDT Office Visit [facility] [address] [place] [address] Jennifer Mims 03/02/2025 Telephone [facility] [address] [place] [address] Dot Landaverde FNP Call Back Request 02/28/2025 11:15 AM EDT Office Visit [facility] [address] [place] [address] Dot Landaverde FNP Elevated parathyroid hormone (Primary Dx); Healthcare maintenance; BMI 29.0-29.9,adult; Dermatophytosis of nail; Other osteoporosis without current pathological fracture; Vitamin D deficiency; Obstructive sleep apnea syndrome; Tear of right supraspinatus tendon 02/28/2025 10:00 AM EDT Office Visit [facility] [address] [place] [address] Jennifer Mims Encounter for dental examination (Primary Dx); Dental plaque; Bone loss 02/28/2025 Travel 02/04/2025 Refill [facility] [address] [place] [id number] Dot Landaverde FNP 01/31/2025 Patient Outreach [facility] [address] [place] [id number] Dot Landaverde FNP Care Coordination (CHW outreach for SDOH CCA & food needs-referral completed /) 01/31/2025 Telephone [facility] [address] [place] [address] Dot Landaverde FNP 01/31/2025 Orders Only [facility] External Provider, [facility] 01/28/2025 Results Follow-Up [facility] [address] [place] [address] Leah Mahoney, KAVYA CBC auto differential, Comprehensive Metabolic Panel, TSH W/Reflex to FT4, Lipid Panel, Standard 01/27/2025 1:15 PM EDT Office Visit [facility] [address] [place] [address] Devin Yang MD Annual physical exam (Primary Dx); Dietary counseling; Exercise counseling; Other depression; Other osteoporosis without current pathological fracture 01/27/2025 Telephone [facility] [address] [place] [address] Dot Landaverde FNP 01/27/2025 Travel 01/18/2025 Travel 01/11/2025 Telephone [facility] [address] [place] [address] Dot Landaverde FNP Appointment Request 12/21/2024 Telephone [facility] [address] [place], [place] [phone] Dot Landaverde FNP Appointment from Last 3 Months Immunizations Immunization Administration Dates Next Due Influenza High-dose Quadrivalent Preservative Fr ee 05/17/2022 Pfizer Covid-19 Vaccine 12+ Bivalent 08/06/2022 Pfizer Covid-19 Vaccine 12+ john-sucrose (López C ap) 06/07/2022,05/17/2022 Social History Tobacco Use Types Packs/Day Years Used Date Smoking Tobacco: Never Passive Smoke Exposure: Never Smokeless Tobacco: Never Tobacco Cessation:Counseling Given: Not Answered Depression Answer Date Recorded Patient Health Questionnaire-9 Score 16 02/07/2025 Patient Health Questionnaire-9 Score 16 02/07/2025 Last PHQ-9: Questionnaire Data Not on file 0 02/07/2025 Housing Stability Answer Date Recorded What is your housing situation today? I have viola chamberlain 01/27/[address] you li ve. Do you have problems with any of the following? None of the above 01/27/2025 Food Insecurity Answer Date Recorded Within the past 12 months, y ou worried that your food would run out before you got money to buy more: Sometimes True 2024 Within the past 12 months,th e food you bought just didn't last and you didn't have enough money to get more: Sometimes True 01/27/2025 Transportation Answer Date Recorded In the past 12 months, has l ack of transportation kept you from medical appts, meetings, work or from getting things needed for daily living? No 01/27/2025 Utilities Answer Date Recorded In the past 12 months, has t he electric, gas, oil or water company threatened to shut off services in your home? Yes 01/27/2025 Depression Answer Date Recorded Patient Health Questionnaire-2 Score 3 02/07/2025 Internet Access Answer Date Recorded Internet Access Q1 Yes 01/27/2025 Internet Access Q2 Not on file 01/27/2025 Comments No Sex and Gender Information Value Date Recorded Sex Assigned at Female 07/01/2022 10:36 AM EDT Legal Sex Female 10:36 AM EDT Gender Identity Female 07/01/2022 10:36 AM EDT Sexual Orientation Straight 07/01/2022 10 :36 AM EDT Last Filed Vital Signs Vital Sign Reading Time Taken Comments Blood Pressure 110/64 03/03/2025 8:51 AM EDT Pulse 64 03/03/2025 8:51 AM EDT Temperature 36.5 C (97.7 F) 02/28/2025 11:32 AM EDT Respiratory Rate 16 02/28/2025 11:32 AM EDT Oxygen Saturation 97% 02/28/2025 11:32 AM EDT Inhaled Oxygen Concentration - - Weight 77.6 kg (171 lb) 02/28/2025 11:32 AM EDT Height 158.8 cm (5' 2.5 ) 02/28/2025 11:32 AM ED T Body Mass Index 30.78 02/28/2025 11:32 AM EDT Plan of Treatment Upcoming Encounters Date Type Department Care Team (Late st Contact Info) Description 04/07/2025 8:00 AM EDT Office Visit [facility] [address] [place], [place] [phone] Concetta Carrasco, DDS [address] [place], [place] [phone] Health Maintenance Due Date Last Done Comments CT Colonography 1955 FIT DNA/Cologuard 1955 FIT 1955 FOBT 1955 Sigmoidoscopy 1955 Influenza Vaccine (#1) 2025 , 07/01/2012 COVID-19 Vaccine (4 - 2023-2 5 season) 2025 08/06/2022, 06/07/2022, 05/17/2022 Postponed from 05/02/2024 (Patient Refused) DTaP/Tdap/Td Vaccines (2 - T d or Tdap) 05/20/2025 07/01/2012 Postponed from 07/01 (Patient Refused) Zoster Vaccines (1 of 2) 05/20/2025 Pos tponed from 01/21/2004 (Patient Refused) Depression Monitoring 08/09/2025 02/07/2025 , 02/07/2025 Dental Oral Exam 08/31/2025 02/28/2025 Dental Prophylaxis 09/04/2025 03/03/2025 Mammogram 10/05/2025 10/05/2024, 01/03/2022, 11/08/2020 Alcohol/Substance Use Screening 01/27/2026 01/27/2025 Pneumococcal Vaccine: 50+ Years (1 of 1 - PCV) 01/27/2026 Postponed from 12/31 (Patient Refused) SDOH Screening 01/27/2026 01/27/2025 Tobacco Screening 02/28/2026 02/28/2025 Dental X-Ray: Bitewings 03/01/2026 02/28/2025 Dental X-Ray: Full Mouth 03/01/2028 02/28/2025 RSV Patients and Patients Aged 60 years or older (1 - 1-dose 75+ series) 2029 Lipid Panel 01/27/2030 01/27/2025, 02/05/2022 Colonoscopy 07/20/2034 07/20/2024 Colorectal Cancer Screening 07/20/2034 [...] age to complete this topic Meningococcal B Vaccine Aged Out No l onger eligible based on patient's age to complete [...] Procedure Name Priority Date/Time Associated Diagnosis Comments PROPHYLAXIS - ADULT Routine 03/03/2025 9 :00 AM EDT TOPICAL APPLICATION OF FLUORIDE - EXCLUDING VARNISH Routine 03/03/2025 9:00 AM EDT CASE PRESENTATION, DETAILED AND EXTENSIVE TREATMENT PLANNING Routine 03/03/2025 9:00 AM EDT COMPREHENSIVE ORAL EVALUATION - NEW OR ESTABLISHED PATIENT Routine 02/28/2025 10:00 AM EDT Encounter for dental examination Dental plaque Bone loss CASE PRESENTATION, DETAILED AND EXTENSIVE TREATMENT PLANNING Routine 02/28/2025 10:00 AM EDT Encounter for dental examination Dental plaque Bone loss INTRAORAL - COMPLETE SERIES OF RADIOGRAPHIC IMAGES Routine 02/28/2025 10:00 AM EDT Encounter for dental examination Dental plaque Bone loss 25 ND COMPOSITE FILLING Routine 02/28/2025 12:00 AM EDT 24 ND COMPOSITE FILLING Routine 02/28/2025 12:00 AM EDT 7 D COMPOSITE FILLING Routine 02/28/2025 12:00 AM EDT 9 M COMPOSITE FILLING Routine 02/28/2025 12:00 AM EDT 9 D COMPOSITE FILLING Routine 02/28/2025 12:00 AM EDT 18 O COMPOSITE FILLING Routine 12:00 AM EDT 19 O COMPOSITE FILLING Routine 12:00 AM EDT 28 B(V) COMPOSITE FILLING Routine 02/28/2025 12:00 AM EDT 29 B(V) COMPOSITE FILLING Routine 02/28/2025 12:00 AM EDT 20 O AMALGAM FILLING Routine 02/28/2025 12:00 AM EDT 2 O AMALGAM FILLING Routine 02/28/2025 1 2:00 AM EDT 29 O AMALGAM FILLING Routine 02/28/2025 12:00 AM EDT 30 O AMALGAM FILLING Routine 02/28/2025 12:00 AM EDT 10 ROOT CANAL Routine 02/28/2025 12:00 AM EDT 14 PONTIC - CAST PREDOMINANTLY BASE METAL Routine 02/28/2025 12:00 AM EDT 13 PONTIC - CAST PREDOMINANTLY BASE METAL Routine 02/28/2025 12:00 AM EDT 12 PONTIC - CAST PREDOMINANTLY BASE METAL Routine 02/28/2025 12:00 AM EDT 15 ABUTMENT SUPPORTED CAST METAL CROWN (PREDOMINANTLY BASE METAL) Routine 02/28/2025 12:00 AM EDT 11 ABUTMENT SUPPORTED CAST METAL CROWN (PREDOMINANTLY BASE METAL) Routine 02/28/2025 12:00 AM EDT 10 ABUTMENT SUPPORTED CAST METAL CROWN (PREDOMINANTLY BASE METAL) Routine 02/28/2025 12:00 AM EDT 5 ABUTMENT SUPPORTED CAST METAL CROWN (PREDOMINANTLY BASE METAL) Routine 02/28/2025 12:00 AM EDT 3 ABUTMENT SUPPORTED CAST METAL CROWN (PREDOMINANTLY BASE METAL) Routine 02/28/2025 12:00 AM EDT 32 EXTRACTION Routine 02/28/2025 12:00 AM EDT 31 EXTRACTION Routine 02/28/2025 12:00 AM EDT 17 EXTRACTION Routine 02/28/2025 12:00 AM EDT 16 EXTRACTION Routine 02/28/2025 12:00 AM EDT 14 EXTRACTION Routine 02/28/2025 12:00 AM EDT 13 EXTRACTION Routine 02/28/2025 12:00 AM EDT 12 EXTRACTION Routine 02/28/2025 12:00 AM EDT 4 EXTRACTION Routine 02/28/2025 12:00 AM EDT 1 EXTRACTION Routine 02/28/2025 12:00 AM EDT 5 ROOT CANAL Routine 02/28/2025 12:00 AM EDT 4 PONTIC - CAST PREDOMINANTLY BASE METAL Routine 02/28/2025 12:00 AM EDT MR SHOULDER WO CONTRAST RIGHT Routine 02/22/2025 7:20 AM EDT XR SHOULDER 2+ VIEWS RIGHT Routine 01/31/2025 9:16 AM EDT T-SPOT(R).TB Routine 01/27/2025 2:18 PM EDT Annual physical exam LIPID PANEL, STANDARD Routine 01/27/2025 2:18 PM EDT Annual physical exam TSH W/REFLEX TO FT4 Routine 01/27/2025 2 :18 PM EDT Annual physical exam COMPREHENSIVE METABOLIC PANEL Routine 01/27/2025 2:18 PM EDT Annual physical exam CBC WITH AUTO DIFFERENTIAL Routine 01/27/2025 2:18 PM EDT Annual physical exam BI MAMMOGRAM SCREENING TOMOSYNTHESIS BILATERAL Routine 10/05/2024 9:02 AM EST HM COLONOSCOPY Routine 07/20/2024 3:14 PM EST ZZZ HISTORICAL HEPATITIS C AB W/REFL TO HCV RNA, QN, PCR Routine 02/05/2022 8:19 AM EDT from Last 3 Months or Most Recently Relevant to Health Maintenance Results * MR Shoulder w/o Contrast Right (02/22/2025 7:20 AM EDT) Anatomical Region Laterality Modality Upper Extremities, Shoulder Right Magn etic Resonance 02/22/2025 7:20 AM EDT Narrative 02/22/2025 10:31 AM EDT [place] [id number] Magnetic Resonance Report Signed Patient: Debby Gallardo MR#: [id number] 7 : 1955 Acct:[id number] Age/Sex: 70 / F ADM Date: 02/22/25 Loc: HO.MRI Attending Dr: Jay Beltre MD Ordering Physician: Jay Beltre MD Date of Service: 02/22/25 Procedure(s): MR shoulder RT wo con Accession Number(s): [id number] cc: Jay Beltre MD; Dot Landaverde EXAMINATION: MR SHOULDER WITHOUT CONTRAST, RIGHT TECHNIQUE: Multiplanar multisequence imaging through an upper extremity joint without contrast. INDICATION: Rotator cuff tear PRIOR: None FINDINGS: Rotator Cuff: There is a full-thickness tear of supraspinatus and infraspinatus tendons with 2.5 cm retraction. There is a shallow partial thickness undersurface tear of subscapularis tendon near the lesser tuberosity. Labrum: Labrum is degenerated and frayed Long biceps tendon: Long biceps tendon is thinned and indistinct in the upper biceps groove. Acromioclavicular joint: There is a small subacromial spur. There is mild degenerative hypertrophy of AC joint. Acromial morphology is curved, type II. Axillary pouch: Axillary pouch is mildly thickened. Articular cartilage: There is a deep undulating partial-thickness articular cartilage defect involving the inferomedial 1 cm of humeral head. There is likely a small focal full-thickness articular cartilage defect in the far inferior glenoid with an adjacent degenerative cyst in the marrow. Bones/Marrow: Minimal reactive marrow signal is present posterior greater tuberosity. Soft tissues: There is generalized mild fatty streaking of shoulder musculature consistent with deconditioning. MR/MR shoulder RT wo con IMPRESSION: There is a full-thickness tear of supraspinatus and infraspinatus tendons with 2.5 cm retraction. Subscapularis is partially torn on the undersurface, likely involving less than half the tendon thickness. Mild AC joint arthropathy and small subacromial spur. Degenerated and partially torn long biceps tendon through the biceps groove. Grade III chondromalacia involving inferomedial humeral head and a focal full-thickness articular cartilage defect in the inferior glenoid with adjacent degenerative cyst. Possible adhesive capsulitis: Axillary pouch is thickened with increased intrinsic signal which can be present in asymptomatic individuals but is also present in those with adhesive capsulitis. Posterior labrum is degenerated and frayed. Electronically signed by: Wiley Ramirez MD 02/22/2025 10:28 AM EDT Dictated By: Wiley Ramirez MD Signed By: <Electronically signed by Wiley Ramirez MD in OV> 02/22/25 1028 DD/ 0720 TD/TT: 02/22/25 0800 Statistics Tutor: Procedure Note Donotuseinterpreter, Image - 02/22/[address] [address] Magnetic Resonance Report Signed Patient: Debby GallardoMR#: [id number] 7 : 4Acct:[id number] Age/Sex: 70 / FADM Date: 02/22/25 Loc: .MRI Attending Dr: Jay Beltre MD Ordering Physician: Jay Beltre MD Date of Service: 02/22/25 Procedure(s): MR shoulder RT wo con Accession Number(s): [id number] cc: Jay Beltre MD; Dot Landaverde INTERACTIVE MEDIA DIRECTOR EXAMINATION: MR SHOULDER WITHOUT CONTRAST, RIGHT TECHNIQUE: Multiplanar multisequence imaging through an upper extremity joint without contrast. INDICATION: Rotator cuff tear PRIOR: None FINDINGS: Rotator Cuff: There is a full-thickness tear of supraspinatus and infraspinatus tendons with 2.5 cm retraction. There is a shallow partial thickness undersurface tear of subscapularis tendon near the lesser tuberosity. Labrum: Labrum is degenerated and frayed Long biceps tendon: Long biceps tendon is thinned and indistinct in the upper biceps groove. Acromioclavicular joint: There is a small subacromial spur. There is mild degenerative hypertrophy of AC joint. Acromial morphology is curved, type II. Axillary pouch: Axillary pouch is mildly thickened. Articular cartilage: There is a deep undulating partial-thickness articular cartilage defect involving the inferomedial 1 cm of humeral head. There is likely a small focal full-thickness articular cartilage defect in the far inferior glenoid with an adjacent degenerative cyst in the marrow. Bones/Marrow: Minimal reactive marrow signal is present posterior greater tuberosity. Soft tissues: There is generalized mild fatty streaking of shoulder musculature consistent with deconditioning. MR/MR shoulder RT wo con IMPRESSION: There is a full-thickness tear of supraspinatus and infraspinatus tendons with 2.5 cm retraction. Subscapularis is partially torn on the undersurface, likely involving less than half the tendon thickness. Mild AC joint arthropathy and small subacromial spur. Degenerated and partially torn long biceps tendon through the biceps groove. Grade III chondromalacia involving inferomedial humeral head and a focal full-thickness articular cartilage defect in the inferior glenoid with adjacent degenerative cyst. Possible adhesive capsulitis: Axillary pouch is thickened with increased intrinsic signal which can be present in asymptomatic individuals but is also present in those with adhesive capsulitis. Posterior labrum is degenerated and frayed. Electronically signed by: Wiley Ramirez MD 02/22/2025 10:28 AM EDT Dictated By: Wiley Ramirez MD Signed By: <Electronically signed by Wiley Ramirez MD in OV> 02/22/25 1028 DD/ 0720 TD/TT: 02/22/25 0800 Statistics Tutor: [facility] External Provider IMG MRI PROCEDURES Final Result * XR Shoulder 2+ Views Right (01/31/2025 9:16 AM EDT) Anatomical Region Laterality Modality Upper Extremities, Shoulder Right Radi ographic Imaging 01/31/2025 9:16 AM EDT Narrative 01/31/2025 12:30 PM EDT [facility] [address] [place] [id number] XRay Report Signed Patient: Debby Gallardo MR#: [id number] 7 : 1955 Acct:[id number] Age/Sex: 70 / F ADM Date: 01/31/25 [facility]: [facility] Attending Dr: Jay Beltre MD Ordering Physician: Jay Beltre MD Date of Service: 01/31/25 Procedure(s): XR shoulder RT min 2V Accession Number(s): [id number] cc: Jay Beltre MD; Dot Landaverde INTERACTIVE MEDIA DIRECTOR EXAMINATION: XR SHOULDER, RIGHT CLINICAL INFORMATION: M25.519 - Pain in unspecified shoulder COMPARISON: November 19, 2019 TECHNIQUE: AP external rotation, Grashey, scapular Y, and axillary views of the right shoulder. FINDINGS: AC joint is intact with minimal degenerative irregularity. Small marginal osteophytes are present along the humeral head that are similar to the prior. On the axillary view, there is short linear calcific density projecting anterior to the margin of the humeral head No abnormalities are evident. No fractures are seen.. XR/XR shoulder RT min 2V IMPRESSION: Short linear calcific density is present on the axillary view adjacent to the margin of the anterior humeral head that could represent calcific tendinitis or less likely a small avulsion fracture associated with subscapularis tendon. There are mild degenerative changes involving the humeral head and AC joint. Electronically signed by: Wiley Ramirez MD 01/31/2025 12:27 PM EDT RP Dictated By: Wiley Ramirez MD Signed By: <Electronically signed by Wiley Ramirez MD in OV> 01/31/25 1227 DD/ 0916 TD/TT: 01/31/25 0924 Statistics Tutor: Procedure Note Donotuseinterpreter, Image - 01/31/2025 [facility] [address] [place] [address] [place] [id number] XRay Report Signed Patient: Heydi Gallardo#: [id number] 7 : 4Acct:[id number] Age/Sex: 70 / FADM Date: 01/31/25 Loc: [facility] Attending Dr: Jay Beltre MD Ordering Physician: Jay Beltre MD Date of Service: 01/31/25 Procedure(s): XR shoulder RT min 2V Accession Number(s): [id number] cc: Jay Beltre MD; Dot Landaverde INTERACTIVE MEDIA DIRECTOR EXAMINATION: XR SHOULDER, RIGHT CLINICAL INFORMATION: M25.519 - Pain in unspecified shoulder COMPARISON: November 19, 2019 TECHNIQUE: AP external rotation, Grashey, scapular Y, and axillary views of the right shoulder. FINDINGS: AC joint is intact with minimal degenerative irregularity. Small marginal osteophytes are present along the humeral head that are similar to the prior. On the axillary view, there is short linear calcific density projecting anterior to the margin of the humeral head No abnormalities are evident. No fractures are seen.. XR/XR shoulder RT min 2V IMPRESSION: Short linear calcific density is present on the axillary view adjacent to the margin of the anterior humeral head that could represent calcific tendinitis or less likely a small avulsion fracture associated with subscapularis tendon. There are mild degenerative changes involving the humeral head and AC joint. Electronically signed by: Wiley Ramirez MD 01/31/2025 12:27 PM EDT RP Dictated By: Wiley Ramirze MD Signed By: <Electronically signed by Wiley Ramirez MD in OV> 01/31/25 1227 DD/ 0916 TD/TT: 01/31/25923 Statistics Tutor: [facility] External Provider IMG XR PROCEDURES Edited Result - Final * T-SPOT??.TB (01/27/2025 2:18 PM EDT) Pathologist [facility] T Spot TB Negative Negative [facility] Comment:A negative test resu lt does not exclude the possibilityof exposure to or infection with Mycobacteriumtuberculosis (M. tuberculosis). Patients with recentexposure to TB infected individuals exhibiting anegative T-SPOT.TB result should be considered forretesting within 6 weeks or if other relevant clinicalsymptoms indicate. Results from T-SPOT.TB testing mustbe used in conjunction with each individual'sepidemiological history, current medical status,and results of other diagnostic evaluations.The T-SPOT.TB test is qualitative and results arereported as positive, borderline, or negative, giventhat the test controls perform as expected. In linewith the Centers for Disease Control and Prevention's2010 recommendation to report quantitative measurementsalongside the qualitative result, the laboratoryprovides spot counts for informational purposes only.The T-SPOT.TB test should not be interpreted as aquantitative test. TS PANEL A 0 [facility] TS PANEL B 0 [facility] Negative Control Passed [facility] Positive Control Passed [facility] Comment:For additional infor mation, please refer tohttp://education.Ver[employer] Systems/faq/JYM192(This link is being provided for informational/educational purposes only.)THIS TEST WAS PERFORMED AT:[id number] [place] [address]KVULRWVMARTHA HAINES MD,PHD 01/27/2025 2:18 PM EDT 01/27/2025 5:32 PM EDT us Devin Yang MD LAB BLOOD ORDERABLES Final Result Performing Organization Address City/[facility]/ZIP Co de Phone Number [facility] [address] [place], [place] [phone] * TSH W/Reflex to FT4 (01/27/2025 2:18 PM EDT) Pathologist [facility] TSH reflex Free T4 1.44 0.32 - 4.0 uIU/mL [facility] Blood Venous blood specimen / Unknown 01/27/2025 2:18 PM EDT 01/27/2025 5:33 PM EDT us Devin Yang MD LAB BLOOD ORDERABLES Final Result Performing Organization Address [facility] Co de Phone Number [facility] [address] [place] [phone] * (ABNORMAL) CBC auto differential (01/27/2025 2:18 PM EDT) Pathologist [facility] White Blood Count 5.8 4.8 - 10.8 X10*3/uL [facility] Red Blood Count 4.16(L) 4.20 - 5.50 X10*6/uL [facility] Hemoglobin 13.0 12.0 - 16.0 g/dl [facility] Hematocrit 39.6 37.0 - 47.0 % [facility] Mean Corpuscular Volume 95.2 80.0 - 98.0 fL [facility] Mean Corpuscular Hemoglobin 31.3 27.0 - 33.0 pg [facility] Mean Corpuscular HGB Conc 32.8 31.0 - 35.0 g/dl [facility] Red Cell Distribution Width 14.5 11.0 - 16.0 % [facility] Platelet Count 227 160 - 400 X10*3/uL [facility] Mean Platelet Volume 10.1 9.4 - 12.3 fL [facility] Neutrophils Percent Auto 46.5 45 - 73 % [facility] Imm Gran Pct Auto 0.2 0.0 - 0.4 % [facility] Lymphocytes Percent Auto 38.7 20 - 40 % [facility] Monocytes Percent Auto 10.7 2 - 11 % [facility] Eosinophils Percent Auto 3.4 0 - 4 % [facility] Basophils Percent Auto 0.5 0 - 2 % [facility] NRBC Pct Auto 0.0 0.0 - 0.2 /100WBC [facility] Neutrophils Absolute Auto 2.7 2.0 - 8.3 x10*3/uL [facility] Imm Gran Abs Auto 0.01 0.00 - 0.03 X10*3/uL [facility] Lymphocytes Absolute Auto 2.3 1.2 - 4.9 X10*3/uL [facility] Monocytes Absolute Auto 0.6 0.1 - 1.2 X10*3/uL [facility] Eosinophils Absolute Auto 0.2 0.0 - 0.4 X10*3/uL [facility] Basophils Absolute Auto 0.0 0.0 - 0.2 X10*3/uL [facility] NRBC Abs Auto 0.000 0.0 - 0.012 X10*3/uL [facility] Blood Venous blood specimen / Unknown 01/27/2025 2:18 PM EDT 01/27/2025 5:33 PM EDT Devin Yang MD LAB BLOOD ORDERABLES Final Result [facility] [address] [place] [phone] * (ABNORMAL) Lipid Panel, Standard (01/27/2025 2:18 PM EDT) Triglycerides 175(H) <150 mg/dL [facility] Comment:Desirable Triglyceri de: less than 150 mg/dLBorderline High Triglyceride 150-199 mg/dLHigh Triglyceride: 200-499 mg/dLVery High Triglyceride: greater than or equal to 5OO mg/dL Cholesterol 178 <200 mg/dL [facility] Comment:Desirable Cholestero l: less than 200 mg/dLBorderline High Cholesterol: 200-239 mg/dLHigh Cholesterol: greater than 239 mg/dL LDL Cholesterol Calculated 81 <100 mg/dL [facility] Comment:Desirable LDL: less than 100 mg/dLNear Optimal/Above Optimal LDL: 110- 129 mg/dLBorderline High LDL: 130-159 mg/dLHigh LDL: 160-189 mg/dLVery High LDL: greater than or equal to 190 mg/dL HDL Cholesterol 62 >40 mg/dL [facility] Comment:Desirable HDL: great er than 40 mg/dL Note: This HDL assay may give artificially low results in patients with liver disease. Blood Venous blood specimen / Unknown 01/27/2025 2:18 PM EDT 01/27/2025 5:33 PM EDT us Devin Yang MD LAB BLOOD ORDERABLES Final Result [facility] [address] [place] [phone] * (ABNORMAL) Comprehensive Metabolic Panel (01/27/2025 2:18 PM EDT) Sodium 143 135 - 145 mmol/L [facility] Potassium 4.2 3.3 - 5.1 mmol/L [facility] Chloride 109(H) 96 - 108 mmol/L [facility] Carbon Dioxide 29 22 - 29 mmol/L [facility] Anion Gap 9(L) 12 - 20 [facility] Urea Nitrogen (BUN) 14 9 - 16 mg/dL [facility] Creatinine, Serum 0.66 0.5 - 1.4 mg/dL [facility] Estimated Glomerular Filt Rate >60 [facility] Comment:Chronic Kidney Disea se: Estimated GFR < 60 mL/min/1.29c6Yykvgw Kidney Disease: Estimated GFR < 15 mL/min/1.73m2 Glucose 85 60 - 115 mg/dL [facility] Calcium 9.1 8.4 - 10.2 mg/dL [facility] Bilirubin, Total 0.3 0.0 - 1.0 mg/dL [facility] Aspartate Amino Transferase 27 5 - 31 U/L [facility] Alanine Aminotransferase 12 0 - 31 U/L [facility] Total Protein 6.5 6.5 - 8.0 g/dL [facility] Albumin Level 3.6 3.5 - 5.0 g/dL [facility] Alkaline Phosphatase 76 39 - 117 U/L [facility] Blood Venous blood specimen / Unknown 01/27/2025 2:18 PM EDT 01/27/2025 5:33 PM EDT Devin Yang MD LAB BLOOD ORDERABLES Final Result [facility] [address] [place] [phone] * BI Mammogram Screening Tomosynthesis Bilateral (10/05/2024 9:02 AM EST) Anatomical Region Laterality Modality Breast Bilateral Mammography 10/05/2024 9:02 AM EST Narrative 10/11/2024 5:10 PM EST [facility] [address] [place] [address] Mammography Report Signed Patient: Debby Gallardo MR#: [id number] 7 : 1955 Acct:[id number] Age/Sex: 69 / F ADM Date: 10/05/24 Loc: HO.MAMMO Attending Dr: Amandeep Sullivan MD Ordering Physician: Amandeep Sullivan MD Results: 1Negativ e Date of Service: 10/05/24 Follow Up: 1 Year From Orig inal Mammogram Procedure(s): MM tomosynthesis screening BI Accession Number(s): [id number] cc: Dot Landaverde; Amandeep Sullivan MD EXAMINATION: [...] by: Luba Ontiveros DO 10/11/2024 05:07 PM [facility] Dictated By: Luba Ontiveros DO Signed By: <Electronically signed by Luba Ontiveros DO in OV> 10/11/24 1707 DD/ 0902 TD/TT: 10/05/24 0932 Statistics Tutor: Procedure Note Donotuseinterpreter, Image - 10/11/2024 [facility] [address] [place], [place] [address] Mammography Report Signed Patient: Debby GallardoMR#: [id number] 7 : 4Acct:[id number] Age/Sex: 69 / FADM Date: 10/05/24 Loc: .MAMMO Attending Dr: Amandeep Sullivan MD Ordering Physician: Amandeep Sullivan MDResults: 1Negativ e Date of Service: 10/05/24Follow Up: 1 Year From Orig inal Mammogram Procedure(s): MM tomosynthesis screening BI Accession Number(s): [id number] cc: Dot Landaverde; Amandeep Sullivan MD EXAMINATION: [...] 10/11/24 1707 DD/ 0902 TD/TT: 10/05/24 0932 Statistics Tutor: [facility] External Provider IMG BI PROCEDURES Final Result * Hm Colonoscopy (07/20/2024 3:14 PM EST) Historical Provider HEALTH MAINTENANCE Final Result * HEPATITIS C AB W/REFL TO HCV RNA, QN, PCR (02/05/2022 8:19 AM EDT) HEPATITIS C ANTIBODY NON-REACT MARY NON-REACT MARY [facility] INDEX 0.02 <1.00 [facility] Comment: HCV antibody was non-reactive. There is no laboratory evidence of HCV infection. In most cases, no further action is required. However, if recent HCV exposure is suspected, a test for HCV RNA (test code 26828) is suggested. For additional information please refer to http://education.Endomedix.Descomplica/faq/TLH61o3 (This link is being provided for informational/ educational purposes only.) 02/05/2022 8:19 AM EDT Dot NATHAN HISTORICAL/NON ORDERABLE LABS Final Result [facility] Formerly [facility] Anywhere [address] from Last 3 Months or Most Recently Relevant to Health Maintenance Insurance [facility] STANDARD [facility] OPTIONS (HMO D-SNP) [facility] Care Teams Vp Of Product Relationship Specialty Start Date End Date Dot Landaverde FNP [address] [place] [address] PCP - General Family Medicine 06/22/21
--- OUTSIDE RECORDS SUMMARY | 2025-03-15 08:51 | XMS_ITS | Clinical Summary ---
Author Organization [address] [place] [address] Address [address] [place] [address] Phone Care Team Providers Care Community Health Program Representative Name Role Phone Name, Alfredo SORENSON Primary Care Provider [phone] Allergies Active Allergy Reactions Criticality Noted Date Comments Nsaids (Non-Steroidal Anti-Inflammatory Drug) High 11/12/2019 Other reaction(s): GI Problems Penicillins 12/31/2016 Unknown response - tested positive on allergy test Medications cholecalciferol (VITAMIN D-3) 25 mcg (1,000 unit) tablet Take 1 Tab by mouth daily. 9 Active cyanocobalamin (VITAMIN B-12) 100 mcg tablet Take by mouth. 7 Active predniSONE (DELTASONE) 10 mg tablet Take 4 tabs PO QD x 2 days, then 3 tabs PO QD x 2 days, 2 tabs PO QD x 2 days, 1 tab PO QD x 2 days 9 Active clotrimazole (LOTRIMIN) 1 % cream Apply topically 2 (two) times a day. 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 (10/26/2024): Severe on left, echo 04/18 Vitamin D deficiency 02/05/2018 DODIE (obstructive sleep apnea) 01/30/2018 DDD (degenerative disc disease), lumbar 12/30/19 Bilateral carpal tunnel syndrome 11/28/2017 Overview (10/26/2024): 10/2017 - bilateral wrist braces Osteoporosis 12/31/2016 Encounters Date Type Department Care Team Description 02/14/2025 9:30 AM EDT Office Visit Orthopedic Surgery [place] [address] [phone] Kushal Sprague, DPM Dermatophytosis of nail (Primary Dx); Nail disorder, unspecified 12/28/2024 Telephone Orthopedic Surgery [facility] [address] [phone] Kushal Sprague, DPM info needed from Last 3 Months Immunizations Name Administration Dates Next Due Influenza trivalent, with pr eservative (Fluzone; Afluria) 6mo and older 07/01/2012 Tdap Tetanus diptheria acell ular pertussis (Boostrix; Adacel) 7yo and older 07/01/2012 Varicella live (Varivax) 12mo and older 07/01/20 12 Surgical History Surgery Date Site/Laterality Comments GASTRIC BYPASS 05/2015 PROCEDURE: CO GASTRIC RSTCV W/BYP W/SM INT RCNSTJ LIMIT ABSRPJ OTHER SURGICAL HISTORY PROCEDURE: CO TOTAL ABDOMINAL HYSTERECT W/WO RMVL TUBE OVARY; COMMENT: 43 yo CHOLECYSTECTOMY PROCEDURE: HISTORICAL CHOLECYSTECTOMY; COMMENT: 43 yo COLONOSCOPY 03/25/2017 PROCEDURE: HISTORICAL COLONOSCOPY; COMMENT: polyp CARPAL TUNNEL RELEASE 01/19/2019 Right PROCEDURE: CO NEUROPLASTY &/TRANSPOS MEDIAN NRV CARPAL TUNNE; COMMENT: [...] Sexual Orientation Not on file Obstetrics History Last Filed Vital Signs Vital Sign Reading Time Taken Comments Blood Pressure - - Pulse - - Temperature - - Respiratory Rate - - Oxygen Saturation - - Inhaled Oxygen Concentration - - Weight 75.8 kg (167 lb) 12/13/2024 3:41 PM EDT Height 160 cm (5' 3 ) 12/13/2024 3:41 PM EDT Body Mass Index 29.58 12/13/2024 3:41 PM EDT Plan of Treatment Upcoming Encounters Date Type Department Care Team (Late st Contact Info) Description 06/27/2025 9:00 AM EDT Office Visit Orthopedic Surgery - [place] [address] [phone] Kushal Sprague, DPM [address] [phone] Health Maintenance Due Date Last Done Comments Pneumococcal Vaccine: 50+ Years (1 of 1 - PCV) 01/21/2004 Zoster Vaccines (1 of 2) 08/26/2012 07/01/2012 Breast Cancer Screening 05/26/2021 05/26/2019 DTaP,Tdap,and Td Vaccines (2 - Td or Tdap) 07/01/2022 07/01/2012 Colorectal Cancer Screening: Colonoscopy 08/14/2022 03/25/2017 Falls Risk Assessment 08/14/2022 Medicare Annual Wellness Visit 08/14/2022 Social Influencers of Health Screening 08/14/2022 COVID-19 Vaccine ( season) 2024 08/06/2022, 06/07/2022, 05/17/2022 Influenza Vaccine (#1) 2025 05/17/2022, 2011 Depression Screening 01/27/2026 01/27/2025 Hypertension/CHF/CAD Annual BMP Blood Test 01/27/2026 01/27/2025, 08/07/2023, 12/18/2018 RSV Immunization Adult Patients (1 - 1-dose 75+ series) 2029 Cholesterol Screening (Lipid Panel) 01/27/2030 01/27/2025, 08/07/2023, 02/05/2022, Additional history exists Osteoporosis Screening (Bone Density Screening) 10/05/2034 10/05/2024, 04/01/2018 Varicella Vaccines Aged Out 07/01/2012 No longer eligible based on patient's age to complete this topic Hepatitis C Screening Completed 12/31/2016 HIB Vaccines Aged Out No longer eligi [...] to complete this topic RSV Immunization Patients Under 20 months Aged Out No longer eligible based on patient's age to complete this topic Procedures Procedure Name Priority Date/Time Associated Diagnosis Comments SCR MAMMO BI INCL CAD Routine 05/26/2019 4:13 PM EDT Encounter for screening mammogram for malignant neoplasm of breast ANNUAL BMP BLOOD TEST Routine 12/18/2018 LIPID PANEL Routine 12/18/2018 DXA BONE DENSITY STUDY 1+ SITS AXIAL SKEL Routine 04/01/2018 11:44 AM EDT Age-related osteoporosis without current pathological fracture COLONOSCOPY Routine 03/25/2017 HEPATITIS C SCREENING Routine 12/31/2016 from Last 3 Months or Most Recently [...] full field digital mammography, reviewed with CAD. The breasts are composed of fatty and fibroglandular tissue. No suspicious mass, architectural distortion or suspicious calcifications are identified. IMPRESSION: : No mammographic evidence of malignancy. BIRADS 1-Negative; N. 5 year breast cancer risk assessment 1.6 % Lifetime breast cancer risk assessment 6.5 % Breast cancer risk category Low (<15%) Procedure Note Manoj Reyes Claus - 08/20/2022 This is a summary report. [...] % Breast cancer risk category Low (<15%) Result [facility] Opal Garcia BLUE LINE OPERATOR IMG XR PROCEDURES Final Result * Annual BMP Blood Test (12/18/2018) Pathologist [facility], 1928–1983 Annual BMP Blood Test abstracted Result [facility] Historical Provider HEALTH MAINTENANCE Final Result * Lipid panel (12/18/2018) Pathologist [facility] LDL/HDL Ratio 2 0 - 4 Triglycerides 92 0 - 150 mg/dL Cholesterol 152 0 - 200 mg/dL HDL 76 >=40 mg/dL LDL Cholesterol 58 0 - 100 mg/dL Blood Venous blood specimen / Unknown Result [facility] Historical Provider LAB BLOOD ORDERABLES Cassie l Result * DXA BONE DENSITY STUDY 1+ [...] (World Health Organization Fracture Risk Assessment) [facility] Department of Internal Medicine recommends using [...] alternative screening schedule based on estephania Andrews., [facility] September 19, 2011 for patients with osteopenia [...] years. (WorldHealth Organization Fracture Risk Assessment) [facility] Department of Internal Medicine recommendsusing National [...] alternative screening schedule based on estephania Andrews., [place] for patients with osteopenia (based on hip BMD T-score) is as follows: * advanced osteopenia (T scores -2.00 to -2.49), BMD testing every year * moderate osteopenia (T scores -1.50 to -1.99), BMD testing every 5years mild osteopenia or normal BMD (T scores -1.50 and higher), BMD testingevery 15 years Usha CLARK IMG DXA PROCEDURES Final Re sult * Colonoscopy (03/25/2017) Colonoscopy no interpreta tion,abstr acted Anatomical Region Laterality Modality Other Historical Provider HEALTH MAINTENANCE Final Result * Hepatitis C Screening (12/31/2016) Pathologist [facility], [facility] Hepatitis C Screening abstracted Historical Provider HEALTH MAINTENANCE Final Result from Last 3 Months or Most Recently Relevant to Health Maintenance Insurance [place] - [place] [facility] [employer] Member Subscriber Plan / Payer (Ef fective 2025-Present) Name:Debby Gallardo Relation to Subscriber:Self Name:Debby Gallardo Payer ID:[id number] Group ID:Not on file Type:Not on file Address: [facility] [address] [phone] Care Teams Community Health Program Representative Relationship Specialty Start Date End Date Name, MD Alfredo [address] [place] PA PCP - General Internal Medicine 10/31/19
[2025-03-15 15:12] LABS: Cholesterol 185 mg/dL (<200); HDL Cholesterol 74 mg/dL (>40); Triglycerides 95 mg/dL (<150)
== END 2025-03-15 08:43 | disposition home or self-care (01) ==
LOC: HO.CHCLDS 08:42
PROVIDERS: Visit Provider Registered Nurse
DX: Z00.00 Encounter for general adult medical examination without abnormal findings (principal)
CPT/HCPCS: 36415; 80061

== ENCOUNTER → 2025-04-01 19:30 | Outpatient (REF) | payer OTHER, SELFPAY ==
--- OUTSIDE RECORDS SUMMARY | 2025-04-01 20:23 | XMS_ITS | Clinical Summary ---
Author Organization [facility] Address [address] [facility] [address] [place] [address] Care Team Providers Care Recruiter Coordinator Name Role Phone LouieDot segura VENITA Primary Care Provider [phone] Allergies Active Allergy Reactions Criticality Noted Date Comments Nsaids High 11/12/2019 Other reaction(s): GI Problems Penicillin G 11/12/2019 Medications * This document contains information received from the source organization and may not represent a complete record from that organization. capsaicin (Zostrix) 0.025 % cream APPLY BY TOPICAL ROUTE UP TO 3 TIMES EVERY DAY TO THE AFFECTED AREA(S) NEEDED FOR PAIN 06/18/20 22 Active Diclofenac Sodium (Voltaren) 1 % gel Apply thin layer to left knee as needed for joint pain 50 g 2 06/02/20 23 Active calcium citrate 250 MG tablet Take 1 tablet (250 mg) by mouth Once daily. 90 tablet 1 06/09/20 23 Active alendronate (Fosamax) 70 MG tablet PLEASE SEE ATTACHED FOR DETAILED DIRECTIONS Active magnesium oxide (Mag-Ox) 400 (240 Mg) MG tablet Take 400 mg by mouth Once per day. 04/23/20 24 Active Multiple Vitamin (Daily-Yumi Multivitamin) tablet TAKE 1 TABLET BY MOUTH EVERY DAY WITH FOOD 90 tablet 1 10/08/19 25 Active cholecalciferol VITAMIN D (Vitamin D-3) 50 MCG (2000 UT) capsuleIndicatio ns:Vitamin D deficiency Take 1 capsule (50 mcg) by mouth Once per day. 90 capsule 1 10/08/19 25 Active pantoprazole (ProtoNix) 40 MG EC tablet TAKE 1 TABLET BY MOUTH BEFORE BREAKFAST. DO NOT CRUSH, CHEW OR SPLIT. 90 tablet 1 10/08/19 25 Active Acetaminophen Extra Strength 500 MG tablet TAKE 1-2 (500MG) BY ORAL ROUTE EVERY 8 HOURS NEEDED FOR PAIN 100 tablet 2 10/08/19 25 Active gabapentin (Neurontin) 300 MG capsuleIndicatio ns:Sleep difficulties Take 1 capsule (300 mg) by mouth at bedtime. 90 capsule 1 10/08/19 25 026 Active cyanocobalamin (Vitamin B-12) 1000 MCG tablet TAKE 1 TABLET BY MOUTH EVERY MORNING 90 tablet 1 02/05/20 25 Active buPROPion XL (Wellbutrin XL) 300 MG 24 hr tabletIndication s:BMI 29.0-29.9,adult TAKE 1 TABLET BY MOUTH EVERY DAY 90 tablet 03/30/20 25 Active buPROPion XL (Wellbutrin XL) 300 MG 24 hr tabletIndication s:BMI 29.0-29.9,adult Take 1 tablet (300 mg) by mouth Once per day. 90 tablet 1 10/08/19 25 025 Discontinued Active Problems Problem Noted Date Diagnosed Date Dermatophytosis of nail 03/01/2025 Assessment & Plan (03/01/2025 9:25 AM EDT): Followed by podiatry-Dr. Sprague. Nail biopsy completed during consult November 2024. Prescribed topical clotrimazole. Tear of right supraspinatus tendon 03/01/2025 Overview (03/01/2025): Following with [facility] OrthoKishan Beltre 02/22/2025: MRI right shoulder demonstrated full-thickness [...] Plan (10/08/2024 10:17 AM EST): Evaluated by [facility] OrthoKishan Beltre-June 2024 Plan for physical therapy, with consideration of injection after PT if pain persists Received benefit with PT, will refer to continue sessions at [facility] Chronic gastroesophageal reflux disease 10/08/19 Overview (10/08/2024): Continues with pantoprazole 40 mg daily Following with [facility] GI - EDUARDO Ansari/Dr. Wheat EGChio completed Jul 2024 - demonstrated grade II hiatal hernia and mild gastritis Osteoarthritis of right knee 05/20/2024 Overview (05/20/2024): 12/12/23: XR bilat knees showed mild oA right knee BMI 29.0-29.9,adult 05/20/2024 Assessment & Plan (03/01/2025 9:21 AM EDT): Following with [facility] for weight management - [employer] Yoko [place]. History of gastric sleeve Continues [...] Plan (10/08/2024 10:37 AM EST): Following with [facility] for weight management - [employer] Yoko [place]. History of gastric sleeve Continues with bupropion 300mg daily. Reports that med has been helpful for her anxiety as well as for helping her to not gain more weight. Denies med SE. Continues going to gym, aquatic therapy 2x/week Healthy, well balanced nutrition Assessment & Plan (05/20/2024 12:18 PM EDT): Following with [facility] for weight management History of gastric sleeve Continues with bupropion 300mg daily. Reports that med has been helpful for her anxiety as well as for helping her to not gain more weight. Denies med SE. Continues going to gym, aquatic therapy 2x/week Healthy, well balanced nutrition If BMI greater than 27, may try for GLP-1 authorization through [facility] per consult note Sleep difficulties 05/20/2024 Overview (05/20/2024): Magnesium 400mg nightly Gabapentin 300mg nightly. Reviewed med safety and SE. Hx of total knee arthroplasty, left 12/11/2023 Overview (12/11/2023): Left TKA 09/24/23 at [facility] w/ Dr. Beltre. Indication: OA Per ortho, [...] 24 months is advised. Currently following with [facility] GI with plan for routine repeat MRI Assessment & Plan (05/20/2024 12:04 PM EDT): -Currently following with [facility] GI. Plan for repeat MRI in 6 months per consult note in December 2023 History of appendectomy 12/11/2023 Overview (12/11/2023): Emergency appendectomy completed 12/03/23 Assessment & Plan (12/11/2023 12:06 PM EDT): Scheduled for follow up visit 12/10/23 with [facility] Surgeons No active sign of infx of incisions, avoid lifting. Elevated parathyroid hormone 06/09/2023 Overview (06/09/2023): Noted during medical evaluation in [facility]. Comprehensive workup including ultrasound, biopsy, and PET scan negative for malignancy Recommended follow up blood work (PTH) in Sep 2023 Assessment & Plan (03/01/2025 9:33 AM EDT): Repeat PTH ordered Other osteoporosis without current pathological fracture 06/09/2023 Assessment & Plan (03/01/2025 9:25 AM EDT): 04/2020: DEXA impression: osteopenia. 11/08/2022: Bone Density scan record from [facility] with impression of osteoporosis 10/05/24: DEXA impression: osteoporosis -Pt reports received Prolia injection while in [facility], continues on calcium and Vit D -Established with [facility] Wei Gregg. Per consult note December 2023: denosumab not very effective on the hips (T-score -2.4 in hips). Suggested transition to alendronate 70mg weekly. Pt reports tolerating well Assessment & Plan (10/08/2024 10:37 AM EST): 04/2020: DEXA impression: osteopenia. 11/08/2022: Bone Density scan record from [facility] with impression of osteoporosis 10/05/24: DEXA impression: osteoporosis -Pt reports received Prolia injection while in [facility], continues on calcium and Vit D -Established with [facility] Wei Gregg. Per consult note December 2023: denosumab not very effective on the hips (T-score -2.4 in hips). Suggested transition to alendronate 70mg weekly. Pt reports tolerating well Assessment & Plan (05/20/2024 12:15 PM EDT): 04/2020: DEXA impression: osteopenia. 11/08/2022: Bone Density scan record from [facility] with impression of osteoporosis -Pt reports received Prolia injection while in [facility], continues on calcium and Vit D (through multivitamin) supplementation -Established with [facility] Wei Gregg. Per consult note December 2023: denosumab not very effective on the hips (T-score -2.4 in hips). Suggested transition to alendronate 70mg weekly. Pt reports tolerating well -Next DXA: 11/08/24 at [place] Assessment & Plan (07/06/2023 11:36 AM EST): 04/2020: DEXA impression: osteopenia. 11/08/2022: Bone Density scan record from [facility] with impression of osteoporosis -Pt reports received Prolia injection while in [facility], continues on calcium and Vit D (through multivitamin) supplementation -With hx of Prolia injection, interruption or discontinuation of therapy may increase risk of fracture. Referral to Endo placed in Jun 2023, initial consult pending Assessment & Plan (06/09/2023 2:53 PM EDT): DEXA: 04/2020 osteopenia. Due April 2022. Previously ordered -Pt received ?Prolia injection while in [facility], continues on calcium and Vit D (through multivitamin) supplementation -If indeed was Prolia, interruption or discontinuation of therapy may increase risk of fracture -Will request most recent DEXA and refer to Endo given tx of bone health and PTH Healthcare maintenance 06/02/2023 Overview (03/01/2025): Pap: s/p total hysterectomy, no records but pelvis exam completed Jul 2024 at [facility] and no cervix visualized on exam. Colonoscopy: 07/20/24 at [facility], repeat in 10 years Mammogram: 10/05/24 BIRADS 1 DEXA: 04/2020 osteopenia. Subsequently completed in DR mares/ impression of osteoporosis. Completed Oct 2024, osteoporisis. OPH: UTD per patient report, follows with Dr. Craven. Dental: Established with dental home in [place], reports UTD with appts and care. Outstanding IZ: Flu, pneumococcal, Tdap, RSV, COVID, Zoster declined History of total hysterectomy 04/28/2023 Vitamin D deficiency 04/28/2023 Overview (05/20/2024): Tx with course of high dose Vit D 50,000 units weekly by Endo starting approx Oct 2023 Currently on Vit D 2000 units daily Following with [facility] Endo - Dr. Gregg Primary osteoarthritis of left knee 04/28/2023 Overview (12/11/2023): Left knee XR 04/28/23: IMPRESSION: Mild tricompartmental degenerative joint changes most consistent with osteoarthritis. Possible trace suprapatellar joint effusion. No acute fracture. Followed by [facility] Ortho - Dr. Beltre. Received steroid injection on 05/19/23 S/P left TKA on 09/24/[address] Beltre at [facility] ED. Per Ortho, pt will require prophylactic abx for dental procedures Assessment & Plan (09/01/2023 5:24 PM EST): -DME request for cane placed 07/06/23 -DME request for shower chair placed 09/01/23 -Plan for upcoming TKA 09/24/23 through [facility] Ortho Assessment & Plan (07/06/2023 11:34 AM [...] to avoid opiates rx by provider in [facility], she has rx for tapenatdol which she says is only suing rarely for severe pain Obstructive sleep apnea syndrome 06/18/2022 Assessment & Plan (03/01/2025 9:27 AM EDT): - Sleep study: completed 01/14/22 at [facility] - Impression: The baseline portion of the [...] titrations and monitoring - Currently following with [facility] Neurology & Sleep - Consult October 2024: PSG demonstrated severe degree of DODIE with AHI 31/hr. Sent in prescription for nose mask trial. Goal to use CPAP nightly more than 4 hours. Assessment & Plan (12/11/2023 11:47 AM EDT): - Sleep study: completed 01/14/22 at [facility] - Impression: The baseline portion of the [...] titrations and monitoring - Currently following with [facility] Neurology & Sleep Assessment & Plan (07/06/2023 11:38 AM EST): - Sleep study: completed 01/14/22 at [facility] - Impression: The baseline portion of the [...] EDT): - Sleep study: completed 01/14/22 at [facility] - Impression: The baseline portion of the [...] shoulders 05/20/2024 10/08/2024 Overview (05/20/2024): Referral to [facility] Ortho and physical therapy placed on 05/19/24 Assessment & Plan (05/20/2024 12:27 PM EDT): Cont symptomatic management Encounters * This document contains information received from the source organization and may not represent a complete record from that organization. Date Type Department Care Team Description 03/30/2025 Refill [facility] [address] [place] [address] Dot Landaverde FNP BMI 29.0-29.9,adult 03/18/2025 Results Follow-Up [facility] [address] [place] [address] Dot Landaverde FNP Lipid Panel, Standard 03/03/2025 9:00 AM EDT Office Visit [facility] [address] [place] [address] Jennifer Mims 03/02/2025 Telephone [facility] [address] [place] [address] Dot Landaverde FNP Call Back Request 02/28/2025 11:15 AM EDT Office Visit [facility] [address] [place] [address] Dot Landaverde FNP Elevated parathyroid hormone (Primary Dx); Healthcare maintenance; BMI 29.0-29.9,adult; Dermatophytosis of nail; Other osteoporosis without current pathological fracture; Vitamin D deficiency; Obstructive sleep apnea syndrome; Tear of right supraspinatus tendon 02/28/2025 10:00 AM EDT Office Visit [facility] [address] [place] [address] Jennifer Mims Encounter for dental examination (Primary Dx); Dental plaque; Bone loss 02/28/2025 Travel 02/04/2025 Refill [facility] [address] [place] [address] Dot Landaverde FNP 01/31/2025 Patient Outreach [facility] [address] [place], [place] [phone] Dot Landaverde FNP Care Coordination (CHW outreach for SDOH CCA & food needs-referral completed /) 01/31/2025 Telephone [facility] [address] [place] [address] Dot Landaverde FNP 01/31/2025 Orders Only [facility] External Provider, [facility] 01/28/2025 Results Follow-Up [facility] [address] [place] [address] Leah Mahoney RN CBC auto differential, Comprehensive Metabolic Panel, TSH W/Reflex to FT4, Lipid Panel, Standard 01/27/2025 1:15 PM EDT Office Visit [facility] [address] [place] [address] Devin Ynag MD Annual physical exam (Primary Dx); Dietary counseling; Exercise counseling; Other depression; Other osteoporosis without current pathological fracture 01/27/2025 Telephone [facility] [address] [place] [address] Dot Landaverde FNP 01/27/2025 Travel 01/18/2025 Travel 01/11/2025 Telephone [facility] [address] [place] [address] [phone] Dot Landaverde FNP Appointment Request from Last 3 Months Immunizations Immunization Administration [...] Description 04/07/2025 8:00 AM EDT Office Visit [facility] [address] [place] [address] Luna Concetta, DDS [address] [place] [address] Health Maintenance Due Date Last Done Comments [...] - 1-dose 75+ series) 2029 Lipid Panel 03/15/2030 03/15/2025, 01/27/2025, 02/05/2022 Colonoscopy 07/20/2034 07/20/2024 Colorectal Cancer [...] Procedure Name Priority Date/Time Associated Diagnosis Comments LIPID PANEL, STANDARD Routine 03/15/2025 8:43 AM EDT Healthcare maintenance PROPHYLAXIS - ADULT Routine 03/03/2025 9 :00 [...] dental examination Dental plaque Bone loss 25 GA COMPOSITE FILLING Routine 02/28/2025 12:00 AM EDT 24 GA COMPOSITE FILLING Routine 02/28/2025 12:00 AM EDT [...] Recently Relevant to Health Maintenance Results * Lipid Panel, Standard (03/15/2025 8:43 AM EDT) Only the most recent of2 resultswithin the time period is included. Triglycerides 95 <150 mg/dL [facility] Comment:Desirable Triglyceri de: less than 150 mg/dLBorderline High Triglyceride 150-199 mg/dLHigh Triglyceride: 200-499 mg/dLVery High Triglyceride: greater than or equal to 5OO mg/dL Cholesterol 185 <200 mg/dL [facility] Comment:Desirable Cholestero l: less than 200 mg/dLBorderline High Cholesterol: 200-239 mg/dLHigh Cholesterol: greater than 239 mg/dL LDL Cholesterol Calculated 92 <100 mg/dL [facility] Comment:Desirable LDL: less than 100 mg/dLNear Optimal/Above Optimal LDL: 110- 129 mg/dLBorderline High LDL: 130-159 mg/dLHigh LDL: 160-189 mg/dLVery High LDL: greater than or equal to 190 mg/dL HDL Cholesterol 74 >40 mg/dL [facility] Comment:Desirable HDL: great er than 40 mg/dL Note: This HDL assay may give artificially low results in patients with liver disease. Blood Venous blood specimen / Unknown 03/15/2025 8:43 AM EDT 03/15/2025 2:32 PM EDT Dot NATHAN LAB BLOOD ORDERABLES Final Res ult Performing Organization Address City/State/[facility] Co de Phone Number [facility] [address] [place] [address] [phone] * MR Shoulder w/o Contrast Right (02/22/2025 7:20 AM EDT) Anatomical Region Laterality Modality Upper Extremities, Shoulder Right Magn etic Resonance 02/22/2025 7:20 AM EDT Narrative 02/22/2025 10:31 AM EDT [place] [address] Magnetic Resonance Report Signed Patient: Debby Gallardo MR#: [id number] 7 : 1955 Acct:[id number] Age/Sex: 70 / F ADM Date: 02/22/25 Loc: HO.MRI Attending Dr: Jay Beltre MD Ordering Physician: Jay Beltre MD Date of Service: 02/22/25 Procedure(s): MR shoulder RT wo con Accession Number(s): [id number] cc: Jay Beltre MD; Dot Landaverde EXAMINATION: [...] 02/22/25 1028 DD/ 0720 TD/TT: 02/22/25 0800 Light Rail Vehicle Operator: Procedure Note Donotuseinterpreter, Image - 02/22/[address] [facility] [address] Magnetic Resonance Report Signed Patient: Debby GallardoMR#: [id number] 7 : 4Acct:[id number] Age/Sex: 70 / FADM Date: 02/22/25 Loc: .MRI Attending Dr: Jay Beltre MD Ordering Physician: Jay Beltre MD Date of Service: 02/22/25 Procedure(s): MR shoulder RT wo con Accession Number(s): [id number] cc: Jay Beltre MD; Dot Landaverde MANAGER HUMAN RESOURCES EXAMINATION: MR SHOULDER WITHOUT CONTRAST, RIGHT TECHNIQUE: [...] 02/22/25 1028 DD/ 0720 TD/TT: 02/22/25 0800 Light Rail Vehicle Operator: [facility] External Provider IMG MRI PROCEDURES Final Result * XR Shoulder 2+ Views Right (01/31/2025 9:16 AM EDT) Anatomical Region Laterality Modality Upper Extremities, Shoulder Right Radi ographic Imaging 01/31/2025 9:16 AM EDT Narrative 01/31/2025 12:30 PM EDT [facility] [address] [place] [address] Drive [address] [place] [address] XRay Report Signed Patient: Debby Gallardo MR#: [id number] 7 : 1955 Acct:[id number] Age/Sex: 70 / F ADM Date: 01/31/25 Loc: HO.HOSX Attending Dr: Jay Beltre MD Ordering Physician: Jay Beltre MD Date of Service: 01/31/25 Procedure(s): XR shoulder RT min 2V Accession Number(s): [id number] cc: Jay Beltre MD; Dot Landaverde MANAGER HUMAN RESOURCES EXAMINATION: XR SHOULDER, RIGHT CLINICAL INFORMATION: M25.519 [...] 01/31/25 1227 DD/ 0916 TD/TT: 01/31/25 0924 Light Rail Vehicle Operator: Procedure Note Donotuseinterpreter, Image - 01/31/2025 [facility] [address] [place] [address] [address] [place] [address] XRay Report Signed Patient: Debby GallardoMR#: [id number] 7 : 1955cct:[id number] Age/Sex: 70 / FADM Date: 01/31/25 Loc: HO.HOSX Attending Dr: Jay Beltre MD Ordering Physician: Jay Beltre MD Date of Service: 01/31/25 Procedure(s): XR shoulder RT min 2V Accession Number(s): [id number] cc: Jay Beltre MD; Dot Landaverde EXAMINATION: XR SHOULDER, RIGHT CLINICAL INFORMATION: M25.519 [...] Wiley Ramirez MD 01/31/2025 12:27 PM EDT Dictated By: Wiley Ramirez MD Signed By: <Electronically signed by Wiley Ramirez MD in OV> 01/31/25 1227 DD/ 0916 TD/TT: 01/31/25 0924 Light Rail Vehicle Operator: [facility] External Provider IMG XR PROCEDURES Edited Result - Final * T-SPOT??.TB (01/27/2025 2:18 PM EDT) T Spot TB Negative Negative [facility] Comment:A negative test resu lt does [...] as aquantitative test. TS PANEL A 0 [facility] TS PANEL B 0 [facility] Negative Control Passed [facility] Positive Control Passed [facility] Comment:For additional infor mation, please refer tohttp://education.Audiolife/faq/MAA948(This link is being provided for informational/educational purposes only.)THIS TEST WAS PERFORMED AT:[employer] [id number] [place] [phone] HAINES MD,PHD 01/27/2025 2:18 PM EDT 01/27/2025 5:32 PM EDT us Devin Yang MD LAB BLOOD ORDERABLES Final Result Performing Organization Address [facility] Co de Phone Number [facility] [address] [place] [phone] * TSH W/Reflex to FT4 (01/27/2025 2:18 PM EDT) Pathologist [facility] TSH reflex Free T4 1.44 0.32 - 4.0 uIU/mL [facility] Blood Venous blood specimen / Unknown 01/27/2025 2:18 PM EDT 01/27/2025 5:33 PM EDT us Devin Yang MD LAB BLOOD ORDERABLES Final Result Performing Organization Address [facility] Phone Number [facility] [address] [place] [phone] * (ABNORMAL) CBC auto differential (01/27/2025 2:18 PM EDT) [facility] White Blood Count 5.8 4.8 - 10.8 X10*3/uL [facility] Red Blood Count 4.16(L) 4.20 - 5.50 X10*6/uL [facility] Hemoglobin 13.0 12.0 - 16.0 g/dl [facility] Hematocrit 39.6 37.0 - 47.0 % [facility] Mean Corpuscular Volume 95.2 80.0 - 98.0 fL [facility] Mean Corpuscular Hemoglobin 31.3 27.0 - 33.0 pg [facility] Mean Corpuscular HGB Conc 32.8 31.0 - 35.0 g/dl [facility] Red Cell Distribution Width 14.5 11.0 - 16.0 % [facility] Platelet Count 227 160 - 400 X10*3/uL [facility] Mean Platelet Volume 10.1 9.4 - 12.3 fL [facility] Neutrophils Percent Auto 46.5 45 - 73 % [facility] Imm Gran Pct Auto 0.2 0.0 - 0.4 % [facility] Lymphocytes Percent Auto 38.7 20 - 40 % [facility] Monocytes Percent Auto 10.7 2 - 11 % [facility] Eosinophils Percent Auto 3.4 0 - 4 % [facility] Basophils Percent Auto 0.5 0 - 2 % [facility] NRBC Pct Auto 0.0 0.0 - 0.2 /100WBC [facility] Neutrophils Absolute Auto 2.7 2.0 - 8.3 x10*3/uL [facility] Imm Gran Abs Auto 0.01 0.00 - 0.03 X10*3/uL [facility] Lymphocytes Absolute Auto 2.3 1.2 - 4.9 X10*3/uL [facility] Monocytes Absolute Auto 0.6 0.1 - 1.2 X10*3/uL [facility] Eosinophils Absolute Auto 0.2 0.0 - 0.4 X10*3/uL [facility] Basophils Absolute Auto 0.0 0.0 - 0.2 X10*3/uL [facility] NRBC Abs Auto 0.000 0.0 - 0.012 X10*3/uL [facility] Blood Venous blood specimen / Unknown 01/27/2025 2:18 PM EDT 01/27/2025 5:33 PM EDT us Devin Yang MD LAB BLOOD ORDERABLES Final Result [facility] [address] [place] [address] [phone] * (ABNORMAL) Comprehensive Metabolic Panel (01/27/2025 2:18 PM EDT) Sodium 143 135 - 145 mmol/L [facility] Potassium 4.2 3.3 - 5.1 mmol/L [facility] Chloride 109(H) 96 - 108 mmol/L [facility] Carbon Dioxide 29 22 - 29 mmol/L [facility] Anion Gap 9(L) 12 - 20 [facility] Urea Nitrogen (BUN) 14 9 - 16 mg/dL [facility] Creatinine, Serum 0.66 0.5 - 1.4 mg/dL [facility] Estimated Glomerular Filt Rate >60 [facility] Comment:Chronic Kidney Disea se: Estimated GFR < 60 mL/min/1.01f6Oesiou Kidney Disease: Estimated GFR < 15 mL/min/1.73m2 Glucose 85 60 - 115 mg/dL [facility] Calcium 9.1 8.4 - 10.2 mg/dL [facility] Bilirubin, Total 0.3 0.0 - 1.0 mg/dL [facility] Aspartate Amino Transferase 27 5 - 31 U/L [facility] Alanine Aminotransferase 12 0 - 31 U/L [facility] Total Protein 6.5 6.5 - 8.0 g/dL [facility] Albumin Level 3.6 3.5 - 5.0 g/dL [facility] Alkaline Phosphatase 76 39 - 117 U/L [facility] Blood Venous blood specimen / Unknown 01/27/2025 2:18 PM EDT 01/27/2025 5:33 PM EDT us Devin Yang MD LAB BLOOD ORDERABLES Final Result Performing Organization Address City/State/[facility] Co de Phone Number [facility] [address] [place] [address] [place] [phone] * BI Mammogram Screening Tomosynthesis Bilateral (10/05/2024 9:02 AM EST) Anatomical Region Laterality Modality Breast Bilateral Mammography 10/05/2024 9:02 AM EST Narrative 10/11/2024 5:10 PM EST [facility] [address] [place] [address] Mammography Report Signed Patient: Debby Gallardo MR#: [id number] 7 : 1955 Acct:[id number] Age/Sex: 69 / F ADM Date: 10/05/24 Loc: HO.MAMMO Attending Dr: Amandeep Sullivan MD Ordering Physician: Amandeep Sullivan MD Results: 1Negativ e Date of Service: 10/05/24 Follow Up: 1 Year From Orig ina Mammogram Procedure(s): MM tomosynthesis screening BI Accession Number(s): [id number] cc: Dot Landaverde; Amandeep Sullivan MD EXAMINATION: [...] by: Luba Ontiveros DO 10/11/2024 05:[address] [facility] Dictated By: Luba Ontiveros DO Signed By: <Electronically signed by Luba Ontiveros DO in OV> 10/11/24 1707 DD/ 0902 TD/TT: 10/05/24 0932 Light Rail Vehicle Operator: Procedure Note Donotuseinterpreter, Image - 10/11/2024 [place] [facility] [address] [place], [place] [address] Mammography Report Signed Patient: Heydi Gallardo#: [id number] 7 : 4Acct:[id number] Age/Sex: 69 / FADM Date: 10/05/24 Loc: MAMMO Attending Dr: Amandeep Sullivan MD Ordering Physician: Amandeep Sullivan MDResults: 1Negativ e Date of Service: 10/05/24Follow Up: 1 Year From Orig inal Mammogram Procedure(s): MM tomosynthesis screening BI Accession Number(s): [id number] cc: Dot Landaverde; Amandeep Sullivan MD EXAMINATION: [...] 10/11/24 1707 DD/ 0902 TD/TT: 10/05/24 0932 Light Rail Vehicle Operator: [facility] External Provider IMG BI PROCEDURES Final Result * Hm Colonoscopy (07/20/2024 3:14 PM EST) Historical Provider HEALTH MAINTENANCE Final Result * HEPATITIS C AB W/REFL TO HCV RNA, QN, PCR (02/05/2022 8:19 AM EDT) HEPATITIS C ANTIBODY NON-REACT MARY NON-REACT MARY [facility] INDEX 0.02 <1.00 [facility] Comment: HCV antibody was non-reactive. There is no laboratory evidence of HCV infection. In most cases, no further action is required. However, if recent HCV exposure is suspected, a test for HCV RNA (test code 70184) is suggested. For additional information please refer to [email or web address]/faq/GLZ39d8 (This link is being provided for informational/ educational purposes only.) 02/05/2022 8:19 AM EDT us Dot Landaverde MANAGER HUMAN RESOURCES HISTORICAL/NON ORDERABLE LABS Final Result [facility] [address] from Last 3 Months or Most Recently Relevant to Health Maintenance [place] [address] [place] [address] STANDARD [facility] OPTIONS (HMO D-SNP) D[facility]AL [facility] Care Teams Recruiter Coordinator Relationship Specialty Start Date End Date Dot Landaverde FNP [address] [place] [address] PCP - General Family Medicine 06/22/21
--- OUTSIDE RECORDS SUMMARY | 2025-04-01 20:23 | XMS_ITS | Clinical Summary ---
Author Organization [address] [place] [address] Address [address] [place] [address] Phone Care Team Providers Care Laborer Shipyard Name Role Phone Name, Alfredo SORENSON Primary Care Provider Allergies Active Allergy Reactions Criticality Noted Date [...] 30 g 3 5 03/16/20 25 Active Problems Problem Noted Date Diagnosed Date [...] 9:30 AM EDT Office Visit [facility] [place] [address] [place] [phone] Kushal Sprague, DPM Dermatophytosis of nail (Primary Dx); Nail disorder, unspecified from Last 3 Months Immunizations Name Administration Dates Next Due Influenza trivalent, with pr eservative (Fluzone; Afluria) 6mo and older 07/01/2012 Tdap Tetanus diptheria acell ular pertussis (Boostrix; Adacel) 7yo and older 07/01/2012 Varicella live (Varivax) 12mo and older 07/01/20 12 Surgical History Surgery Date Site/Laterality Comments GASTRIC BYPASS 05/2015 PROCEDURE: [place] GASTRIC RSTCV W/BYP W/SM INT RCNSTJ LIMIT ABSRPJ OTHER SURGICAL HISTORY PROCEDURE: [place] TOTAL ABDOMINAL HYSTERECT W/WO RMVL TUBE OVARY; COMMENT: 43 yo CHOLECYSTECTOMY PROCEDURE: HISTORICAL CHOLECYSTECTOMY; COMMENT: 43 yo COLONOSCOPY 03/25/2017 PROCEDURE: HISTORICAL COLONOSCOPY; COMMENT: polyp CARPAL TUNNEL RELEASE 01/19/2019 Right PROCEDURE: [place] NEUROPLASTY &/TRANSPOS MEDIAN NRV CARPAL TUNNE; COMMENT: [...] AM EDT Office Visit [facility] - [place] 250 175 [facility] [address] [place] [phone] Kushal Sprague, DPM [address] [address] Health Maintenance Due Date Last Done Comments [...] Health Screening 08/14/2022 COVID-19 Vaccine ( - season) 2024 08/06/2022, 06/07/2022, 05/17/2022 Depression Screening 09/01/2024 Influenza Vaccine (#1) 2025 05/17/2022, 2011 Hypertension/CHF/CAD Annual BMP Blood Test 01/27/2026 01/27/2025, [...] cancer risk category Low (<15%) Opal Garcia SECURITY INSTALLATION SALES TECHNICIAN IMG XR PROCEDURES Final Result * Annual BMP Blood Test (12/18/2018) Pathologist [facility] Annual BMP Blood Test abstracted Historical Provider HEALTH MAINTENANCE Final Result * Lipid panel (12/18/2018) Pathologist [facility] LDL/HDL Ratio 2 0 - 4 Triglycerides 92 0 - 150 mg/dL Cholesterol 152 0 - 200 mg/dL HDL 76 >=40 mg/dL LDL Cholesterol 58 0 - 100 mg/dL Blood Venous blood specimen / Unknown Historical Provider LAB BLOOD ORDERABLES Cassie l [...] (World Health Organization Fracture Risk Assessment) The [facility] Department of Internal Medicine recommends using National [...] alternative screening schedule based on estephania Andrews., [facility] September 19, 2011 for patients with [...] years. (WorldHealth Organization Fracture Risk Assessment) The [facility] Department of Internal Medicine recommendsusing National Osteoporosis [...] -1.50 and higher), BMD testingevery 15 years us Usha CLARK IM DXA PROCEDURES Final Re sult * Colonoscopy (03/25/2017) Colonoscopy no interpreta tion,abstr acted Anatomical Region Laterality Modality Other us Historical Provider HEALTH MAINTENANCE Final Result * Hepatitis C Screening (12/31/2016) Pathologist [facility] hospital Hepatitis C Screening abstracted us Historical Provider HEALTH MAINTENANCE Final Result from Last 3 Months or Most Recently Relevant to Health Maintenance Insurance [place] [facility] [place] [id number] [facility] Member Subscriber Plan / Payer (Ef fective 2025-Present) Name:Debby Gallardo Relation to Subscriber:Self Name:Debby Gallardo Payer ID:[id number] Group ID:Not on file Type:Not on file Address: [address] [place] [address] Care Teams Laborer Shipyard Relationship Specialty Start Date End Date Name, MD Alfredo [address] [place], [place] PCP - General Internal Medicine 10/31/19
== END ==
LOC: HO.SL 19:30
PROVIDERS: PCP Registered Nurse; Visit Provider Physician Assistant Medical
DX: G47.33 Obstructive sleep apnea (adult) (pediatric) (principal)
CPT/HCPCS: 95811

== ENCOUNTER → 2025-04-01 20:20 | Outpatient (BNV) | payer OTHER, SELFPAY | PROVIDERS: PCP Registered Nurse; Visit Provider Psychiatry & Neurology Neurology | DX: G47.33 Obstructive sleep apnea (adult) (pediatric) (principal) | CPT/HCPCS: 95811 ==

== ENCOUNTER 2025-04-11 12:58 | Outpatient (AMB) | payer OTHER, SELFPAY ==
--- NOTE | 2025-04-11 13:01 | A.OFFVIS_ITS ---
Vital Signs 04/11/25 13:02 Height 5 ft 2 in Handedness Right Intake Visit Reasons: OV-MR shoulder RT review Intake Note: Debby is a 69 year old right hand dominant female who presents today for a [facility] Shoulder MRI Review. IMPRESSION: There is a full-thickness tear of supraspinatus and infraspinatus tendons with 2.5 cm retraction. Subscapularis is partially torn on the undersurface, likely involving less than half the tendon thickness. Mild AC joint arthropathy and small subacromial spur. Degenerated and partially torn long biceps tendon through the biceps groove. Grade III chondromalacia involving inferomedial humeral head and a focal full-thickness articular cartilage defect in the inferior glenoid with adjacent degenerative cyst. Possible adhesive capsulitis: Axillary pouch is thickened with increased intrinsic signal which can be present in asymptomatic individuals but is also present in those with adhesive capsulitis. Posterior labrum is degenerated and frayed. Allergies NSAIDS (Non-Steroidal Anti-Inflamma Allergy (Intermediate, Verified 04/11/25 13:03) Gastrointestinal Upset Penicillins Allergy (Intermediate, Verified 04/11/25 13:03) hives HPI HPI OV-MR shoulder RT review: Details: Debby is a 69 year old right hand dominant female who presents today for a Right Shoulder MRI Review. She does feel better than prior with her pain more in traditional subdeltoid distribution than prior. She states she has difficulty with overhead activity. She has been doing physical therapy but it did not help her. [facility] Medical History Fatigue due to sleep pattern disturbance Left knee pain Hx of thyroid nodule Acute appendicitis Back pain Osteoporosis Elevated parathyroid hormone GERD (gastroesophageal reflux disease) Numbness and tingling in left arm Sinus bradycardia Preoperative cardiovascular examination DODIE on CPAP Osteoarthritis of left knee Encounter for screening colonoscopy Vitamin D deficiency Surgical History History of total left knee replacement (TKR) (09/24/23) History of laparoscopic appendectomy (12/03/23) Hx of non-cataract eye surgery Hx of carpal tunnel repair History of esophagogastroduodenoscopy (EGD) H/O bariatric surgery History of total abdominal hysterectomy History of cholecystectomy Family History Unknown No family history of colorectal cancer Mother Uterus cancer Other Left knee pain Social History Household Members: Family Household Members Other:: Lives with her son Housing: House Are you a primary specialist wound care to a significant other at home: No Do you presently have visiting nurse or other home services: No 75 years or older and lives alone: No Alcohol intake: never Comment: aware of trip hazard Patient Tobacco Use Status: Never used Tobacco Advance Directives Date on File: 09/26/23 service: No Current occupational status: unemployed Sexual orientation: Straight/Heterosexual Gender identity: Female Physical Exam Extrem Other: On exam Debby has 4+/5 empty can. 30//130/S1 Office Procedures Joint Inj/Aspir; Non-Pain Clin Joint Injection/Drain Details: Injected 1 mL of Decadron and 3 mL 1% lidocaine and 3 mL of 0.25% Marcaine. Site was prepped using aseptic technique. Patient tolerated the procedure well. Shoulders, Hips, Knees, Shoulder Injection Large joint 12219: Right Shoulder Coding Procedure code (CPT) selection complete Results Reviewed Results Reviewed: I personally reviewed the MR images. IMPRESSION: There is a full-thickness tear of supraspinatus and infraspinatus tendons with 2.5 cm retraction. Subscapularis is partially torn on the undersurface, likely involving less than half the tendon thickness. Mild AC joint arthropathy and small subacromial spur. Degenerated and partially torn long biceps tendon through the biceps groove. Grade III chondromalacia involving inferomedial humeral head and a focal full-thickness articular cartilage defect in the inferior glenoid with adjacent degenerative cyst. Possible adhesive capsulitis: Axillary pouch is thickened with increased intrinsic signal which can be present in asymptomatic individuals but is also present in those with adhesive capsulitis. Posterior labrum is degenerated and frayed. Assessment & Plan Assessment & Plan (1) Rotator cuff arthropathy of right shoulder: Code(s): M12.811 - Other specific arthropathies, not elsewhere classified, right shoulder Category: Medical Plan: This is a 70-year-old woman with rotator cuff arthropathy of the right shoulder. She has a retracted tear that is unlikely fixable. Regardless she is opposed to surgery and I injected her right shoulder today. I would follow up with her in 3 months. I discussed the pathophysiology of this condition. She understands that her options are limited. Theoretically attempts at repair would be better done sooner rather than later but again this does not appear to be repairable with significant retraction and I think reverse would be a more reasonable option for her. Coding Level of Care Code Est Pt Level 4 (79361) Diagnoses Rotator cuff arthropathy of right shoulder M12.811 CPT Codes Shoulders, Hips, Knees, - Shoulder Injection Large joint 31513: Right Shoulder ([id number])
--- OUTSIDE RECORDS SUMMARY | 2025-04-11 13:02 | XMS_ITS | Encounter Summary ---
Author Organization [facility] Address [address] [place] [phone] Phone Care Team Providers Care Profile Mill Operator Tape Control Name Role Phone Louieimelda Dot VENITA Primary Care Provider [phone] Encounter Details Date Type Department Care Team (Late st Contact Info) Description 03/30/2025 Telephone [facility] [address] [place] [address] [email or web address] Social History Tobacco Use Types Packs/Day Years Used Date Smoking Tobacco: Never Smokeless Tobacco: Never Education Answer Date Recorded Are you interested in more education? Not on joseph e 07/02/2023 Are you concerned about learning? Not on file 07/02/2023 No 07/02/2023 No 07/02/2023 Digital Access Answer Date Recorded No 07/02/2023 No 07/02/2023 Reliable internet access at home? Not on file 07/02/2023 Device with a working camera? Not on file Comments Unknown Sex and Gender Information Value Date Recorded Sex Assigned at Not on file Legal Sex Female 12:35 PM EDT Gender Identity Not on file Sexual Orientation Not on file documented as of this encounter Plan of Treatment Upcoming Encounters Date Type Department Care Team (Late st Contact Info) Description 12/27/2025 10:30 AM EDT Office Visit [facility] [address] [place] [phone] Cesar Gregg DO [address] [place] [address] 03/31/2026 9:30 AM EDT Office Visit [facility] [address] [place] [phone] Cesar Gregg DO [address] [place] [address] documented as of this encounter Visit Diagnoses Not on filedocumented in this encounter Care Teams Profile Mill Operator Tape Control Relationship Specialty Start Date End Date Dot Landaverde FNP [address] [place] [address] PCP - General Nurse Practitioner 06/27/23 documented as of this encounter Additional Source Comments The information contained in this document represents components of the legal health record. It is not the complete legal health record.[facility]
--- OUTSIDE RECORDS SUMMARY | 2025-04-11 13:02 | XMS_ITS | Clinical Summary ---
Author Organization [address] [place] [address] Address [address] [place] [address] Phone Care Team Providers Care Engineer System Administrator Name Role Phone Name, Alfredo SORENSON Primary Care Provider [phone] Allergies Active Allergy Reactions Criticality Noted Date [...] AM EDT Office Visit Orthopedic Surgery - [place] [address] [place] [phone] Kushal Sprague, DPM Dermatophytosis of nail (Primary Dx); Nail disorder, unspecified from Last 3 Months Immunizations Name Administration Dates Next Due Influenza trivalent, with pr eservative (Fluzone; Afluria) 6mo and older 07/01/2012 Tdap Tetanus diptheria acell ular pertussis (Boostrix; Adacel) 7yo and older 07/01/2012 Varicella live (Varivax) 12mo and older 07/01/20 12 Surgical History Surgery Date Site/Laterality Comments GASTRIC BYPASS 05/2015 PROCEDURE: [place] GASTRIC RSTCV W/BYP W/SM INT RCNSTJ LIMIT ABSRPJ OTHER SURGICAL HISTORY PROCEDURE: [place] TOTAL ABDOMINAL HYSTERECT W/WO RMVL TUBE OVARY; COMMENT: 43 yo CHOLECYSTECTOMY PROCEDURE: HISTORICAL CHOLECYSTECTOMY; COMMENT: 43 yo COLONOSCOPY 03/25/2017 PROCEDURE: HISTORICAL COLONOSCOPY; COMMENT: polyp CARPAL TUNNEL RELEASE 01/19/2019 Right PROCEDURE: [place] NEUROPLASTY &/TRANSPOS MEDIAN NRV CARPAL TUNNE; COMMENT: [...] AM EDT Office Visit Orthopedic Surgery - [place] 250 175 [facility] [address] [place] [phone] Kushal Sprague, DPM [address] [address] Health Maintenance Due Date Last Done Comments [...] cancer risk category Low (<15%) Opal Garcia OUTSIDE LABORER IMG XR PROCEDURES Final Result * Annual BMP Blood Test (12/18/2018) Pathologist [facility] Annual BMP Blood Test abstracted Historical Provider HEALTH MAINTENANCE Final Result * Lipid panel (12/18/2018) Pathologist [facility] LDL/HDL Ratio 2 0 - 4 Triglycerides [...] (World Health Organization Fracture Risk Assessment) The [facility] Department of Internal Medicine recommends using [...] alternative screening schedule based on estephania Andrews., [facility] September 19, 2011 for patients [...] years. (WorldHealth Organization Fracture Risk Assessment) The [facility] Department of Internal Medicine recommendsusing National [...] Result * Hepatitis C Screening (12/31/2016) Pathologist [facility] Hepatitis C Screening abstracted us Historical Provider HEALTH MAINTENANCE Final Result from Last 3 Months or Most Recently Relevant to Health Maintenance Insurance [place] - [place] [facility] [place] [id number] [facility] OPTIONS Member Subscriber Plan / Payer (Ef fective 2025-Present) Name:Debby Gallardo Relation to Subscriber:Self Name:Debby Gallardo Payer ID:[id number] Group ID:Not on file Type:Not on file Address: [address] [place] [address] Care Teams Engineer System Administrator Relationship Specialty Start Date End Date Name, MD Alfredo [address] [place], [place] PCP - General Internal Medicine 10/31/19
== END 2025-04-11 13:45 | disposition home or self-care (01) ==
LOC: HO.HOS 12:58
PROVIDERS: PCP Registered Nurse; Visit Provider Orthopaedic Surgery
DX: M12.811 Other specific arthropathies, not elsewhere classified, right shoulder (principal)
CPT/HCPCS: 20610; 99214

== ENCOUNTER → 2025-04-11 12:58 | Outpatient (BNVA) | payer OTHER, SELFPAY | PROVIDERS: PCP Registered Nurse; Visit Provider Orthopaedic Surgery | DX: Z71.2 Person consulting for explanation of examination or test findings (principal); M12.811 Other specific arthropathies, not elsewhere classified, right shoulder | CPT/HCPCS: 20610; 99212; J0665; J1100; J2003 ==

== ENCOUNTER 2025-05-12 10:52 | Outpatient (AMB) | payer OTHER, SELFPAY ==
--- OUTSIDE RECORDS SUMMARY | 2024-03-17 07:00 | XMS_ITS ---
Author Organization [facility] Address [address] [place] [phone] Care Team Providers Care Director Of Industrial Relations Name Role Phone KEILA SORENSON, KEIRA Primary Care Provider Unavailhuber Toney Jr, Jean Marie Denise [phone] REASON FOR VISIT HYPERPLASTIC APPENDIX Encounters Encounter Location Date Provider Diagnosis [facility] [address] [place] [phone] 03/17/2024 Jean Marie Toney Jr Plan Of Treatment No Information Progress Notes * MILDRED IQBALDOB:1955 (70 yo F)Acc No.[id number]:03/17/2024 Progress Notes Patient: MILDRED PRASAD Provider: Noemi Toney MD :1955 A ge:69 Y S ex:Female Date:03/17/2024 Address:[address] [place] [address] , [place], [place] Pcp:KEIRA PEDRAZA MD Subjective: * Chief Complaints: [...] 0 03/17/2024 Generated for Albai earl/Gracy/eTransmitting on: 05/12/2025 02:51 PM EDT
--- NOTE | 2025-05-12 10:57 | A.OFFVIS_ITS ---
Vital Signs 05/12/25 11:10 Height 5 ft 2 in Weight 164 lb 14.492 oz BMI 30.2 BP 115/62 Blood Pressure Location Lt brachial Position Sitting Pulse 47 L Pulse Source Pulse Oximeter Pulse Oximetry (%) 98 Oxygen Delivery Method Room Air Intake Visit Reasons: osteoporosis/New Patient Intake Note: New patient presents for Osteoporosis. Patient c/o of neck pain, bilateral shoulder pain, bilateral elbow pain, bilateral hand pain, back pain, bilateral hip pain, bilateral knee pain, LT ankle pain and LT foot pain. Patient stated she has been in pain for ten years. Patient stated she takes Tyleno and Acetaminophen but it doesn't take away the pain. Tape Transferrer Required: Yes Tape Transferrer Language: College Administrator Services: Tape Transferrer Present Tape Transferrer Name: Alvarado [id number] Information Interpreted: non-clinical & clinical Allergies NSAIDS (Non-Steroidal Anti-Inflamma Allergy (Intermediate, Verified 05/12/25 11:10) Gastrointestinal Upset Penicillins Allergy (Intermediate, Verified 05/12/25 11:10) hives Medication List - Last Reconciled 05/12/25 by Susy Doss MD acetaminophen 650 mg (2 x 325 mg) PO Q6H PRN 30 days alendronate 70 mg PO .weekly cholecalciferol (vitamin D3) (Vitamin D3) 25 mcg PO DAILY [commode versaframe commode] docusate sodium (Colace) 100 mg PO DAILY gabapentin 300 mg PO BEDTIME [grab bars for the shower As directed] magnesium oxide 400 mg PO DAILY 30 days multivitamin with folic acid 400 mcg (Daily-Yumi (with folic acid)) 1 tab PO DAILY pantoprazole DR 40 mg PO DAILY [shower chair As directed] walker Folding Front wheeled walker HPI Comments Details: Patient is a 70 year old female with GERD c/b Horner's esophagus, Polyarticular OA s/p left knee replacement and osteoporosis here today to establish care for worsening osteoporosis on alendronate No falls or fractures Risk Factor Assessment: * Age: 70 * Race: * Menarche - Menopause: 11 - 43 (after doing VEE BSO for uterine fibroids) * Family history including hip fracture: Mom with osteoporosis and hx of hip fracture * Low calcium/vitamin-D intake: Known Vit D deficiency on supplementation * Estrogen deficiency: No * Sedentary lifestyle: walks * Cigarette smoking: never smoking * Excessive alcohol: does not drink EtOH * Excessive caffeine: Drinks 1 cup of coffee in the morning No hx High-risk medication assessment such as * Glucocorticoids * Excess thyroid hormone * Anticonvulsants * Heparin * [place] * SSRIs * Aromatase PFSH Medical History Fatigue due to sleep pattern disturbance Left knee pain Hx of thyroid nodule Acute appendicitis Back pain Osteoporosis Elevated parathyroid hormone GERD (gastroesophageal reflux disease) Numbness and tingling in left arm Sinus bradycardia Preoperative cardiovascular examination DODIE on CPAP Osteoarthritis of left knee Encounter for screening colonoscopy Vitamin D deficiency Surgical History History of total left knee replacement (TKR) (09/24/23) History of laparoscopic appendectomy (12/03/23) Hx of non-cataract eye surgery Hx of carpal tunnel repair History of esophagogastroduodenoscopy (EGD) H/O bariatric surgery History of total abdominal hysterectomy History of cholecystectomy Family History Unknown No family history of colorectal cancer Mother Uterus cancer Other Left knee pain Social History Household Members: Family Household Members Other:: Lives with her son Housing: House Are you a primary housekeeper caregiver to a significant other at home: No Do you presently have visiting nurse or other home services: No 75 years or older and lives alone: No Alcohol intake: never Comment: aware of trip hazard Patient Tobacco Use Status: Never used Tobacco Advance Directives Date on File: 09/26/23 service: No Current occupational status: unemployed Sexual orientation: Straight/Heterosexual Gender identity: Female Review of Systems Const Details: Review of Systems Constitutional: Denies fever, chills, weight loss ENT: Denies vision changes, eye pain or eye redness, dental caries, dry mouth GI: Denies nausea, vomiting, diarrhea, abdominal pain, change in BM Pulm: Denies SOB, APPIAH, hemoptysis, wheezing Cards: Denies chest pain, palpitations Skin: Denies Raynaud's, rash, nail changes, photosensitivity, SHOE LACER: Denies headaches, weakness, paresthesias, recurrent falls MSK: as per HPI All other systems reviewed and are unremarkable except noted above Physical Exam Exam Exam: Vital signs reviewed Physical Examination CONSTITUITIONAL Patient alert and cooperative. Well appearing and in no apparent painful distress MSK Hands * Right Hand: Able to make a fist. No swelling or tenderness to palpation of the MCPs, PIPs or DIPs. No deformities noted. * Left Hand: Able to make a fist. No swelling or tenderness to palpation of the MCPs, PIPs or DIPs. No deformities noted. Wrists * Right Wrist: Full ROM to flexion and extension. No swelling or TTP * Left Wrist: Full ROM to flexion and extension. No swelling or TTP Elbows * Right Elbow: Full ROM. No swelling or TTP. No TTP of the medial epicondyle. No TTP of the lateral epicondyle * Left Elbow: Full ROM. No swelling or TTP. No TTP of the medial epicondyle. No TTP of the lateral epicondyle Shoulders * Right shoulder: Full ROM. No swelling noted. No TTP of the AC joint. No TTP of the subacromial bursa. No TTP of the posterior shoulder * Left shoulder: Full ROM. No swelling noted. No TTP of the AC joint. No TTP of the subacromial bursa. No TTP of the posterior shoulder Knees * Right knee: Full ROM. No swelling noted. No TTP of the knee joint line. No TTP of pes anserine bursa * Left knee: Full ROM. No swelling noted. No TTP of the knee joint line. No TTP of pes anserine bursa. Ankles * Right ankle: Good ankle dorsiflexion and plantar flexion. No swelling. No TTP of the ankle joint * Left ankle: Good ankle dorsiflexion and plantar flexion. No swelling. No TTP of the ankle joint Feet * Right foot: Negative squeeze test * Left foot: Negative squeeze test Tender points? * No tenderness to palpation of the bilateral trapezius, supraspinatus, anterior costochondral junctions, bilateral suboccipital muscle insertions SKIN No rashes Vital Signs: Last Vital Signs Pulse 47 L 05/12/25 11:10 BP 115/62 05/12/25 11:10 Pulse Ox 98 05/12/25 11:10 Oxygen Delivery Method Room Air 05/12/25 11:10 BMI result Body Mass Index 30.2 Results Reviewed Results Reviewed: Laboratory Tests 11/19/19 01/27/25 10:45 14:18 WBC 5.8 RBC 4.16 L Hgb 13.0 Hct 39.6 Plt Count 227 Sodium 143 Potassium 4.2 Chloride 109 H Carbon Dioxide 29 BUN 14 Creatinine 0.66 AST 27 ALT 12 25-OH Vitamin D Total 22.3 DEXA 10/2024 FINDINGS: The bone mineral density of the lumbar spine is 0.867 with a T-score of -2.6, and a Z-score of -1.2. This represents a BMD change of -8.4% compared to the prior exam. This is statistically significant. The bone mineral density of the left total hip is 0.800 with a T-score of -1.6, and a Z-score of -0.3. This represents BMD change of -5.2% compared to the prior exam. This is statistically significant. The bone mineral density of the left femoral neck is 0.695 with a T-score of -2.5, and a Z-score of -0.9. This represents BMD change of -5.6% compared to the prior exam. Assessment & Plan Assessment & Plan (1) Osteoporosis: Comment: Diagnosed in 04/2020 from DEXA (not seen) On Alendronate since 2021 DEXA 10/2024: AP Spine -2.6, Left femur neck -2.5, Left femur total -1.6 Code(s): M81.0 - Age-related osteoporosis without current pathological fracture Category: Medical Qualifiers: Osteoporosis type: age-related Presence of current pathological fracture: without current pathological fracture Qualified Code(s): M81.0 - Age-related osteoporosis without current pathological fracture Plan: #Osteoporosis Patient is a 70 year old female with osteoporosis here today for evaluation Patient previously on alendronate however bone density done in October shows worsening bone density 5 - 9% compared to her initial bone density in 2019 Given the worsening bone density on alendronate, will need to change agents Plan - Stop alendronate - Start Prolia 60mg SC every 6 months - Labs today: CMP, Vit D, PTH, Collagen Telopeptide (2) Encounter for monitoring denosumab therapy: Code(s): Z51.81 - Encounter for therapeutic drug level monitoring; Z79.620 - intermodal customer service (current) use of immunosuppressive biologic Plan: #Long-term use of Denosumab Discussed with patient the risks and benefits of denosumab (Prolia) for the management of their osteoporosis Benefits include improved bone density, decreased fracture risk Risks include rapid bone loss if denosumab stopped, osteonecrosis of the jaw especially in patients with poor oral hygiene/diabetes/use of glucocorticoids/age greater than 65 years, atypical femoral fractures, injection site reactions. Mild increased risk of infections due to RANKL on T helper cell s, increased risk of hypocalcemia especially in CKD patients Keep vitamin-D at least 35 ng/mL Advised to delay non emergent dental procedures to toward the end of the 6 month cycle and if they plan to stop denosumab would need to continue antiresorptive to maintain the effects of denosumab Plan I spent 45 minutes reviewing the record and labs, taking a history, examining the patient, discussing the treatment plan, ordering diagnostic work up and documenting in the medical record Orders: Orders Collagen Type I C-Telopeptide 05/12/25 M81.0 - Age-related osteoporosis without current pathological fracture Comprehensive Met. Panel 05/12/25 M81.0 - Age-related osteoporosis without current pathological fracture Vitamin D 25-OH Total 05/12/25 M81.0 - Age-related osteoporosis without current pathological fracture Parathyroid Hormone Intact 05/12/25 M81.0 - Age-related osteoporosis without current pathological fracture Coding Level of Care Code New Pt Level 4 (52643) Complex EM visit Add On G2211 Diagnoses Age-related osteoporosis without current pathological fracture M81.0 Osteoporosis type: age-related Presence of current pathological fracture: without current pathological fracture Encounter for monitoring denosumab therapy Z51.81; Z79.620
[2025-05-12 11:10] VITALS: BP 115/62; PULSE 47; O2SAT 98; BMI 30.2
--- OUTSIDE RECORDS SUMMARY | 2025-05-12 14:52 | XMS_ITS | Clinical Summary ---
Author Organization [address] [place] [address] Address [address] [place] [address] Phone Care Team Providers Care Signal Intelligence Analyst Name Role Phone Name, Alfredo SORENSON Primary Care Provider Allergies Active Allergy Reactions Criticality Noted Date Comments Nsaids (Non-Steroidal Anti-Inflammatory Drug) High 11/12/2019 Other reaction(s): GI Problems Penicillins 12/31/2016 Unknown response - tested positive on allergy test Medications cholecalciferol (VITAMIN D-3) 25 mcg (1,000 unit) tablet Take 1 Tab by mouth daily. 10/23/2018 Active cyanocobalamin (VITAMIN B-12) 100 mcg tablet Take by mouth. 12/31/2016 Active predniSONE (DELTASONE) 10 mg tablet Take 4 tabs PO QD x 2 days, then 3 tabs PO QD x 2 days, 2 tabs PO QD x 2 days, 1 tab PO QD x 2 days 04/16/2019 Active Active Problems Problem Noted Date Diagnosed [...] AM EDT Office Visit [facility] - [place] [address] [place] [phone] Kushal Sprague, DPM Dermatophytosis of nail (Primary Dx); Nail disorder, unspecified from Last 3 Months Immunizations Name Administration Dates Next Due Influenza trivalent, with pr eservative (Fluzone; Afluria) 6mo and older 07/01/2012 Tdap Tetanus diptheria acell ular pertussis (Boostrix; Adacel) 7yo and older 07/01/2012 Varicella live (Varivax) 12mo and older 07/01/20 12 Surgical History Surgery Date Site/Laterality Comments GASTRIC BYPASS 05/2015 PROCEDURE: TX GASTRIC RSTCV W/BYP W/SM INT RCNSTJ LIMIT ABSRPJ OTHER SURGICAL HISTORY PROCEDURE: TX TOTAL ABDOMINAL HYSTERECT W/WO RMVL TUBE OVARY; COMMENT: 43 yo CHOLECYSTECTOMY PROCEDURE: HISTORICAL CHOLECYSTECTOMY; COMMENT: 43 yo COLONOSCOPY 03/25/2017 PROCEDURE: HISTORICAL COLONOSCOPY; COMMENT: polyp CARPAL TUNNEL RELEASE 01/19/2019 Right PROCEDURE: TX NEUROPLASTY &/TRANSPOS MEDIAN NRV CARPAL TUNNE; COMMENT: [...] AM EDT Office Visit [facility] - [place] [address] [phone] Kushal Sprague, DPM [address] [phone] Health Maintenance Due Date Last Done Comments Pneumococcal Vaccine: 50+ Years (1 of 1 - PCV) 01/21/2004 Zoster Vaccines (1 of 2) 08/26/2012 07/01/2012 Breast Cancer Screening 05/26/2021 05/26/2019 DTaP,Tdap,and Td Vaccines (2 - Td or Tdap) 07/01/2022 07/01/2012 Colorectal Cancer Screening: Colonoscopy 08/14/2022 03/25/2017 Falls Risk Assessment 08/14/2022 Medicare Annual Wellness Visit 08/14/2022 Social Influencers of Health Screening 08/14/2022 Depression Screening 09/01/2024 COVID-19 Vaccine ( season) 2025 08/06/2022, 06/07/2022, 05/17/2022 Influenza Vaccine (#1) 2025 05/17/2022, 2011 Hypertension/CHF/CAD [...] NP IMG XR PROCEDURES Final Result * Annual BMP Blood Test (12/18/2018) Pathologist [facility] Annual BMP Blood Test abstracted Result [facility] Historical Provider HEALTH MAINTENANCE Final Result * Lipid panel (12/18/2018) [facility] LDL/HDL Ratio 2 0 - 4 Triglycerides 92 0 - 150 mg/dL Cholesterol 152 0 - 200 mg/dL HDL 76 >=40 mg/dL LDL Cholesterol 58 0 - 100 mg/dL Blood Venous blood specimen / Unknown Result [facility] Historical Provider LAB BLOOD ORDERABLES Cassie [...] (World Health Organization Fracture Risk Assessment) [facility] Department of Internal Medicine recommends using [...] alternative screening schedule based on estephania Andrews., [facility] September 19, 2011 for patients with [...] years. (WorldHealth Organization Fracture Risk Assessment) [facility] Department of Internal Medicine recommendsusing National [...] Final Result * Hepatitis C Screening (12/31/2016) Hepatitis C Screening abstracted us Historical Provider HEALTH MAINTENANCE Final Result from Last 3 Months or Most Recently Relevant to Health Maintenance Insurance [place] [facility] [place] [id number] [facility] Member Subscriber Plan / Payer (Ef fective 2025-Present) Name:SamiJayeshDebby Relation to Subscriber:Self Name:Debby Gallardo Payer ID:[id number] Group ID:Not on file Type:Not on file Address: [address] [place] [address] Care Teams Signal Intelligence Analyst Relationship Specialty Start Date End Date Name, MD Alfredo [address] [place], [place] PCP - General Internal Medicine 10/31/19
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
--- OUTSIDE RECORDS SUMMARY | 2025-05-12 14:52 | XMS_ITS | Encounter Summary ---
Author Organization [employer] Address [address] [place] [address] Care Team Providers Care Rivet Sticker Name Role Phone Dot Landaverde Primary Care Provider [phone] Encounter Details Date Type Department Care Team ([facility] st Contact Info) Description 07/21/2024 Orders Only [facility] MEDICINE [address] [place] [address] Provider, MD Zoila Social History Tobacco Use [...] Care Team (Late st Contact Info) Description 07/20/2025 1:00 PM EST Office Visit [facility] ADULT DENTAL [address] [place] [address] Oscar Walker, DMD [address] [place] [address] documented as of this encounter Procedures Procedure Name Priority Date/Time Associated Diagnosis Comments BACTERIAL VAGINOSIS PANEL Routine 07/21/2024 7:46 AM EST COLONOSCOPY Routine 07/20/2024 3:14 PM EST documented in this encounter Results * Bacterial Vaginosis (07/21/2024 7:46 AM EST) TRICHOMONAS VAGINALIS DETECTION BY PCR NOT DETECTED Not Detect [facility] BACTERIAL VAGINOSIS DETECTION BY PCR NEGATIVE Negative [facility] Comment:The BV organism targ ets [...] DETECTION BY PCR NOT DETECTED Not Detect [facility] Sally glab krusei PCR NOT DETECTED Not Detect [facility] 07/21/2024 7:46 AM EST 07/21/2024 3:42 PM EST us Generic External Data Provider LAB MICROBIOLOGY - GENERAL ORDERABLES Final Result [facility] [address] [place] [address] [phone] * Colonoscopy (07/20/2024 3:14 PM EST) us Historical Provider HEALTH MAINTENANCE Final Result documented in this encounter Visit Diagnoses Not on filedocumented in this encounter Additional Health Concerns Assessment Noted Time PHQ-9 Depression Total Score: 5 12/08/19 24 10:24 AM EDT documented as of this encounter Care Teams Rivet Sticker Relationship Specialty Start Date End Date Dot Landaverde FNP [address] [place] [address] PCP - General Family Medicine 06/22/21 documented as of this encounter
--- OUTSIDE RECORDS SUMMARY | 2025-05-12 14:52 | XMS_ITS | Encounter Summary ---
Author Organization [facility] Address [address] [place] [address] Phone Care Team Providers Care Sales Teacher Name Role Phone LouieimeldaAveryle VENITA Primary Care Provider [phone] Encounter Details Date Type Department Care Team (Late st Contact Info) Description 03/30/2025 Telephone [facility] [address] [place] [address] [email or web address] Social History Tobacco Use Types Packs/Day [...] 10:30 AM EDT Office Visit [facility] [address] [place] [address] Cesar Gregg DO [address] [place] [address] 03/31/2026 9:30 AM EDT Office Visit [facility] [address] [place] [address] Cesar Gregg DO [address] [place] [address] documented as of this encounter Visit Diagnoses Not on filedocumented in this encounter Care Teams Sales Teacher Relationship Specialty Start Date End Date Dot Landaverde FNP [address] [place] [address] PCP - General Nurse Practitioner 06/27/23 documented as of this encounter Additional Source Comments The information contained in this document represents components of the legal health record. It is not the complete legal health record.[facility]
--- OUTSIDE RECORDS SUMMARY | 2025-05-12 14:52 | XMS_ITS | Encounter Summary ---
Author Organization [employer] Address [address] [place] [address] Care Team Providers Care Supervisor Car Installations Name Role Phone Dot Landaverde Primary Care Provider [phone] Reason for Visit * Reason Onset Date Comments Call Back Request 10/31/2023 Encounter Details Date Type Department Care Team (Late st Contact Info) Description 10/31/2023 Telephone [facility] [address] [place] [address] Dot Landaverde FNP [address] [place] [address] Call Back Request Social History Tobacco Use [...] 4:22 PM EST Tc from afshan with [facility] states pt was admitted on 07/26 and discharged on 10/14 from rehab. Afshan is requesting to speak with a nurse to review discharge medication Please contact afshan at [phone] documented in this encounter Plan of Treatment Upcoming Encounters Date Type Department Care Team (Late st Contact Info) Description 07/20/2025 1:00 PM EST Office Visit [facility] AD[facility] [address] [place] [address] Oscar Walker, ANDREA [address] [place] [address] documented as of this encounter Visit Diagnoses Not on filedocumented in this encounter Care Teams Supervisor Car Installations Relationship Specialty Start Date End Date Dot Landaverde FNP [address] [place] [address] PCP - General Family Medicine 06/22/21 documented as of this encounter
--- OUTSIDE RECORDS SUMMARY | 2025-05-12 14:52 | XMS_ITS | Patient Health Record ---
Author Organization [facility] Address [address] [place] [address] Care Team Providers Care Campus Chaplain Name Role Phone KEIRA PEDRAZA MD Primary Care Provider Jean Marie Morejon Jr Unavailable [phone] Reason For Referral No Information Plan Of Treatment No Information Insurance Providers Payer Name Payer Address Payer Phone Subscriber Number Group Number Insured Name Patient Relationship to Insured Coverage Start Date Coverage End Date [facility] [address] [address] [place] [address] [id number] [id number] Self - patient is the insured
--- OUTSIDE RECORDS SUMMARY | 2025-05-12 14:52 | XMS_ITS | Clinical Summary ---
Author Organization [facility] Address [address] [facility] [address] [place] [address] Care Team Providers Care Hand Knitter Name Role Phone LouieDot segura VENITA Primary Care Provider [phone] Allergies Active Allergy Reactions Criticality Noted Date [...] by mouth Once per day. 4 Active Multiple Vitamin (Daily-Yumi Multivitamin) tablet [...] 2 5 Active gabapentin (Neurontin) 300 MG capsuleIndicatio ns:Sleep difficulties Take 1 capsule (300 mg) by mouth at bedtime. 90 capsule 1 5 10/08/19 26 Active cyanocobalamin (Vitamin B-12) 1000 MCG tablet TAKE 1 TABLET BY MOUTH EVERY MORNING 90 tablet 1 5 Active buPROPion XL (Wellbutrin XL) 300 MG 24 hr tabletIndication s:BMI 29.0-29.9,adult TAKE 1 TABLET BY MOUTH EVERY DAY 90 tablet 5 Active clindamycin (Cleocin) 300 MG capsuleIndicatio ns:Extraction of tooth needed Take 1 capsule (300 mg) by mouth 4 times daily for 10 days. 40 capsule 5 05/07/20 25 Active Problems Problem Noted Date Diagnosed Date Dermatophytosis of nail 03/01/2025 Assessment & Plan (03/01/2025 9:25 AM EDT): Followed by podiatry-Dr. Sprague. Nail biopsy completed during consult November 2024. Prescribed topical clotrimazole. Tear of right supraspinatus tendon 03/01/2025 Overview (03/01/2025): Following with [facility] Ortho-Dr. Beltre 02/22/2025: MRI right shoulder demonstrated [...] Plan (10/08/2024 10:17 AM EST): Evaluated by [facility] Ortho-Dr. Beltre-June 2024 Plan for physical therapy, with consideration of injection after PT if pain persists Received benefit with PT, will refer to continue sessions at [facility] Chronic gastroesophageal reflux disease 10/08/19 Overview (10/08/2024): Continues with pantoprazole 40 mg daily Following with [facility] GI - EDUARDO Ansari/Dr. Jarret HOOPER completed Jul 2024 - demonstrated grade II hiatal hernia and mild gastritis Osteoarthritis of right knee 05/20/2024 Overview (05/20/2024): 12/12/23: XR bilat knees showed mild oA right knee BMI 29.0-29.9,adult 05/20/2024 Assessment & Plan (03/01/2025 9:21 AM EDT): Following with [facility] for weight management - [employer] Yoko Milan. History of gastric sleeve Continues [...] Plan (10/08/2024 10:37 AM EST): Following with [facility] for weight management - [employer]SEM[employer] Yoko Milan. History of gastric sleeve Continues with bupropion 300mg daily. Reports that med has been helpful for her anxiety as well as for helping her to not gain more weight. Denies med SE. Continues going to gym, aquatic therapy 2x/week Healthy, well balanced nutrition Assessment & Plan (05/20/2024 12:18 PM EDT): Following with [facility] for weight management History of gastric sleeve Continues with bupropion 300mg daily. Reports that med has been helpful for her anxiety as well as for helping her to not gain more weight. Denies med SE. Continues going to gym, aquatic therapy 2x/week Healthy, well balanced nutrition If BMI greater than 27, may try for GLP-1 authorization through [facility] per consult note Sleep difficulties 05/20/2024 Overview (05/20/2024): Magnesium 400mg nightly Gabapentin 300mg nightly. Reviewed med safety and SE. Hx of total knee arthroplasty, left 12/11/2023 Overview (12/11/2023): Left TKA 09/24/23 at [facility] w/ Dr. Beltre. Indication: OA Per ortho, [...] 24 months is advised. Currently following with [facility] GI with plan for routine repeat MRI Assessment & Plan (05/20/2024 12:04 PM EDT): -Currently following with [facility] GI. Plan for repeat MRI in 6 months per consult note in December 2023 History of appendectomy 12/11/2023 Overview (12/11/2023): Emergency appendectomy completed 12/03/23 Assessment & Plan (12/11/2023 12:06 PM EDT): Scheduled for follow up visit 12/10/23 with [facility] Surgeons No active sign of infx of incisions, avoid lifting. Elevated parathyroid hormone 06/09/2023 Overview (06/09/2023): Noted during medical evaluation in [facility]. Comprehensive workup including ultrasound, biopsy, and PET scan negative for malignancy Recommended follow up blood work (PTH) in Sep 2023 Assessment & Plan (03/01/2025 9:33 AM EDT): Repeat PTH ordered Other osteoporosis without current pathological fracture 06/09/2023 Assessment & Plan (03/01/2025 9:25 AM EDT): 04/2020: DEXA impression: osteopenia. 11/08/2022: Bone Density scan record from [facility] with impression of osteoporosis 10/05/24: DEXA impression: osteoporosis -Pt reports received Prolia injection while in [facility], continues on calcium and Vit D -Established with [facility] Wei Gregg. Per consult note December 2023: denosumab not very effective on the hips (T-score -2.4 in hips). Suggested transition to alendronate 70mg weekly. Pt reports tolerating well Assessment & Plan (10/08/2024 10:37 AM EST): 04/2020: DEXA impression: osteopenia. 11/08/2022: Bone Density scan record from [facility] with impression of osteoporosis 10/05/24: DEXA impression: osteoporosis -Pt reports received Prolia injection while in [facility], continues on calcium and Vit D -Established with [facility] Wei Gregg. Per consult note December 2023: denosumab not very effective on the hips (T-score -2.4 in hips). Suggested transition to alendronate 70mg weekly. Pt reports tolerating well Assessment & Plan (05/20/2024 12:15 PM EDT): 04/2020: DEXA impression: osteopenia. 11/08/2022: Bone Density scan record from [facility] with impression of osteoporosis -Pt reports received Prolia injection while in [facility], continues on calcium and Vit D (through multivitamin) supplementation -Established with [facility] Wei Gregg. Per consult note December 2023: denosumab not very effective on the hips (T-score -2.4 in hips). Suggested transition to alendronate 70mg weekly. Pt reports tolerating well -Next DXA: 11/08/24 at [place] Assessment & Plan (07/06/2023 11:36 AM EST): 04/2020: DEXA impression: osteopenia. 11/08/2022: Bone Density scan record from [facility] with impression of osteoporosis -Pt reports received Prolia injection while in [facility], continues on calcium and Vit D (through multivitamin) supplementation -With hx of Prolia injection, interruption or discontinuation of therapy may increase risk of fracture. Referral to Endo placed in Jun 2023, initial consult pending Assessment & Plan (06/09/2023 2:53 PM EDT): DEXA: 04/2020 osteopenia. Due April 2022. Previously ordered -Pt received ?Prolia injection while in [facility], continues on calcium and Vit D (through multivitamin) supplementation -If indeed was Prolia, interruption or discontinuation of therapy may increase risk of fracture -Will request most recent DEXA and refer to Endo given tx of bone health and PTH Healthcare maintenance 06/02/2023 Overview (03/01/2025): Pap: s/p total hysterectomy, no records but pelvis exam completed Jul 2024 at [facility] and no cervix visualized on exam. Colonoscopy: 07/20/24 at [facility], repeat in 10 years Mammogram: 10/05/24 BIRADS 1 DEXA: 04/2020 osteopenia. Subsequently completed in DR mares/ impression of osteoporosis. Completed Oct 2024, osteoporisis. OPH: UTD per patient report, follows with Dr. Craven. Dental: Established with dental home in [place], reports UTD with appts and care. Outstanding IZ: Flu, pneumococcal, Tdap, RSV, COVID, Zoster declined History of total hysterectomy 04/28/2023 Vitamin D deficiency 04/28/2023 Overview (05/20/2024): Tx with course of high dose Vit D 50,000 units weekly by Endo starting approx Oct 2023 Currently on Vit D 2000 units daily Following with [facility] Endo - Dr. Gregg Primary osteoarthritis of left knee 04/28/2023 Overview (12/11/2023): Left knee XR 04/28/23: IMPRESSION: Mild tricompartmental degenerative joint changes most consistent with osteoarthritis. Possible trace suprapatellar joint effusion. No acute fracture. Followed by [facility] Ortho - Dr. Beltre. Received steroid injection on 05/19/23 S/P left TKA on 09/24/[address] Beltre at [facility] ED. Per Ortho, pt will require prophylactic abx for dental procedures Assessment & Plan (09/01/2023 5:24 PM EST): -DME request for cane placed 07/06/23 -DME request for shower chair placed 09/01/23 -Plan for upcoming TKA 09/24/23 through [facility] Ortho Assessment & Plan (07/06/2023 11:34 AM [...] to avoid opiates rx by provider in [facility], she has rx for tapenatdol which she says is only suing rarely for severe pain Obstructive sleep apnea syndrome 06/18/2022 Assessment & Plan (03/01/2025 9:27 AM EDT): - Sleep study: completed 01/14/22 at [facility] - Impression: The baseline portion of the [...] titrations and monitoring - Currently following with [facility] Neurology & Sleep - Consult October 2024: PSG demonstrated severe degree of DODIE with AHI 31/hr. Sent in prescription for nose mask trial. Goal to use CPAP nightly more than 4 hours. Assessment & Plan (12/11/2023 11:47 AM EDT): - Sleep study: completed 01/14/22 at [facility] - Impression: The baseline portion of the [...] titrations and monitoring - Currently following with [facility] Neurology & Sleep Assessment & Plan (07/06/2023 11:38 AM EST): - Sleep study: completed 01/14/22 at [facility] - Impression: The baseline portion of the [...] EDT): - Sleep study: completed 01/14/22 at [facility] - Impression: The baseline portion of the [...] shoulders 05/20/2024 10/08/2024 Overview (05/20/2024): Referral to [facility] Ortho and physical therapy placed on 05/19/24 Assessment & Plan (05/20/2024 12:27 PM EDT): Cont symptomatic management Encounters * This document contains information received from the source organization and may not represent a complete record from that organization. Date Type Department Care Team Description 04/27/2025 11:15 AM EDT Office Visit [facility] ADULT DENTAL [address] [place] [address] Oscar Walker, ANDREA Extraction of tooth needed (Primary Dx) 04/07/2025 8:00 AM EDT Office Visit [facility] ADULT DENTAL [address] [place] [address] Concetta Carrasco, DDS Recurrent dental caries extending into dentin (Primary Dx) 03/30/2025 Refill [facility] MED [facility] PED[facility] [address] [place] [address] Dot Landaverde FNP BMI 29.0-29.9,adult 03/18/2025 Results Follow-Up [facility] [address] [place] [address] Dot Landaverde FNP Lipid Panel, Standard 03/03/2025 9:00 AM EDT Office Visit [facility] ADULT DENTAL [address] [place] [address] Jennifer Mims 03/02/2025 Telephone [facility] [address] [place] [address] Dot Landaverde FNP Call Back Request 02/28/2025 11:15 AM EDT Office Visit [facility] [address] [place] [address] Dot Landaverde FNP Elevated parathyroid hormone (Primary Dx); Healthcare maintenance; BMI 29.0-29.9,adult; Dermatophytosis of nail; Other osteoporosis without current pathological fracture; Vitamin D deficiency; Obstructive sleep apnea syndrome; Tear of right supraspinatus tendon 02/28/2025 10:00 AM EDT Office Visit [facility] ADULT DENTAL [address] [place] [address] Jennifer Mims Encounter for dental examination (Primary Dx); Dental plaque; Bone loss 02/28/2025 Travel from Last 3 Months Immunizations Immunization Administration [...] Sign Reading Time Taken Comments Blood Pressure 100/70 04/07/2025 8:10 AM EDT Pulse 64 03/03/2025 8:51 AM [...] Description 07/20/2025 1:00 PM EST Office Visit [facility] ADULT DENTAL [address] [place] [address] Oscar Walker, DMD [address] [place] [address] Health Maintenance Due Date Last Done Comments CT Colonography 1955 FIT DNA/Cologuard 1955 FIT 1955 FOBT 1955 Sigmoidoscopy 1955 COVID-19 Vaccine (2024-10 6 season) 2025 08/06/2022, 06/07/2022, 05/17/2022 Influenza Vaccine (#1) 2025 , 07/01/2012 DTaP/Tdap/Td Vaccines (2 - T d or [...] 12/31 (Patient Refused) SDOH Screening 01/27/2026 01/27/2025 Dental X-Ray: Bitewings 03/01/2026 02/28/2025 Tobacco Screening 04/07/2026 04/07/2025 Dental X-Ray: Full Mouth 03/01/2028 02/28/2025 RSV [...] Procedure Name Priority Date/Time Associated Diagnosis Comments LIMITED ORAL EVALUATION - PROBLEM FOCUSED Routine 04/27/2025 11:15 AM EDT CASE PRESENTATION, DETAILED AND EXTENSIVE TREATMENT PLANNING Routine 04/07/2025 8:00 AM EDT Recurrent dental caries extending into dentin 24 MFL RESIN-BASED COMPOSITE - 3 SURF, ANTERIOR Routine 04/07/2025 8:00 AM EDT Recurrent dental caries extending into dentin 25 ML RESIN-BASED COMPOSITE - 2 SURF, ANTERIOR Routine 04/07/2025 8:00 AM EDT Recurrent dental caries extending into dentin LIPID PANEL, STANDARD Routine 03/15/2025 8:43 AM [...] dental examination Dental plaque Bone loss 25 SC COMPOSITE FILLING Routine 02/28/2025 12:00 AM EDT 24 SC COMPOSITE FILLING Routine 02/28/2025 12:00 AM EDT [...] CONTRAST RIGHT Routine 02/22/2025 7:20 AM EDT BI MAMMOGRAM SCREENING TOMOSYNTHESIS BILATERAL Routine 10/05/2024 9:02 AM EST HM COLONOSCOPY Routine 07/20/2024 3:14 PM EST ZZZ HISTORICAL HEPATITIS C AB W/REFL TO HCV RNA, QN, PCR Routine 02/05/2022 8:19 AM EDT from Last 3 Months or Most Recently Relevant to Health Maintenance Results * Lipid Panel, Standard (03/15/2025 8:43 AM EDT) Triglycerides 95 <150 mg/dL [facility] Comment:Desirable Triglyceri de: less than 150 mg/dLBorderline High Triglyceride 150-199 mg/dLHigh Triglyceride: 200-499 mg/dLVery High Triglyceride: greater than or equal to 5OO mg/dL Cholesterol 185 <200 mg/dL [facility] Comment:Desirable Cholestero l: less than 200 mg/dLBorderline High Cholesterol: 200-239 mg/dLHigh Cholesterol: greater than 239 mg/dL LDL Cholesterol Calculated 92 <100 mg/dL [facility] Comment:Desirable LDL: less than 100 mg/dLNear Optimal/Above Optimal LDL: 110- 129 mg/dLBorderline High LDL: 130-159 mg/dLHigh LDL: 160-189 mg/dLVery High LDL: greater than or equal to 190 mg/dL HDL Cholesterol 74 >40 mg/dL [facility] Comment:Desirable HDL: great er than 40 mg/dL Note: This HDL assay may give artificially low results in patients with liver disease. Blood Venous blood specimen / Unknown 03/15/2025 8:43 AM EDT 03/15/2025 2:32 PM EDT us Dot Landaverde FARM OWNER OPERATOR LAB BLOOD ORDERABLES Final Res ult [facility] [address] [place] [phone] * MR Shoulder w/o Contrast Right (02/22/2025 7:20 AM EDT) Anatomical Region Laterality Modality Upper Extremities, Shoulder Right Magn etic Resonance 02/22/2025 7:20 AM EDT Narrative 02/22/2025 10:31 AM EDT [address] [address] Magnetic Resonance Report Signed Patient: Debby Gallardo MR#: [id number] 7 : 1955 Acct:[id number] Age/Sex: 70 / F ADM Date: 02/22/25 Loc: HO.MRI Attending Dr: Jay Beltre MD Ordering Physician: Jay Beltre MD Date of Service: 02/22/25 Procedure(s): MR shoulder RT wo con Accession Number(s): [id number] cc: Jay Beltre MD; Dot Landaverde EXAMINATION: [...] 02/22/25 1028 DD/ 0720 TD/TT: 02/22/25 0800 Deer Farm Worker: Procedure Note Donotuseinterpreter, Image - 02/22/[address] [address] Magnetic Resonance Report Signed Patient: Heydi Gallardo#: [id number] 7 : 4Acct:[id number] Age/Sex: 70 / FADM Date: 02/22/25 Loc: .MRI Attending Dr: Jay Beltre MD Ordering Physician: Jay Beltre MD Date of Service: 02/22/25 Procedure(s): MR shoulder RT wo con Accession Number(s): [id number] cc: Jay Beltre MD; Dot Landaverde EXAMINATION: [...] 02/22/25 1028 DD/ 0720 TD/TT: 02/22/25 0800 Deer Farm Worker: [facility] External Provider IMG MRI PROCEDURES Final Result * BI Mammogram Screening Tomosynthesis Bilateral (10/05/2024 9:02 AM EST) Anatomical Region Laterality Modality Breast Bilateral Mammography 10/05/2024 9:02 AM EST Narrative 10/11/2024 5:10 PM EST [facility] [place], [place] [address] Mammography Report Signed Patient: Debby Gallardo MR#: [id number] 7 : 1955 Acct:[id number] Age/Sex: 69 / F ADM Date: 10/05/24 Loc: HO.MAMMO Attending Dr: Amandeep Sullivan MD Ordering Physician: Amandeep Sullivan MD Results: 1Negativ e Date of Service: 10/05/24 Follow Up: 1 Year From Orig ina Mammogram Procedure(s): MM tomosynthesis screening BI Accession Number(s): [id number] cc: Dot Landaverde; Amandeep Sullivan MD EXAMINATION: [...] by: Luba Ontiveros DO 10/11/2024 05:07 PM [facility] Dictated By: Luba Ontiveros DO Signed By: <Electronically signed by Luba Ontiveros DO in OV> 10/11/24 1707 DD/ 0902 TD/TT: 10/05/24 0932 Deer Farm Worker: Procedure Note Donotuseinterpreter, Image - 10/11/2024 [facility] [address] [place], [place] [address] Mammography Report Signed Patient: Heydi Gallardo#: [id number] 7 : 4Acct:[id number] Age/Sex: 69 / FADM Date: 10/05/24 Loc: MAMMO Attending Dr: Amandeep Sullivan MD Ordering Physician: Amandeep Sullivan MDResults: 1Negativ e Date of Service: 10/05/24Follow Up: 1 Year From Orig inal Mammogram Procedure(s): MM tomosynthesis screening BI Accession Number(s): [id number] cc: Dot Landaverde; Amandeep Sullivan MD EXAMINATION: [...] Luba Ontiveros DO 10/11/2024 05:07 PM EST RP Dictated By: Luba Ontiveros DO Signed By: <Electronically signed by Luba Ontiveros DO in OV> 10/11/24 1707 DD/ 0902 TD/TT: 10/05/24 0932 Deer Farm Worker: [facility] External Provider IMG BI PROCEDURES Final Result * Hm Colonoscopy (07/20/2024 3:14 PM EST) Historical Provider HEALTH MAINTENANCE Final Result * HEPATITIS C AB W/REFL TO HCV RNA, QN, PCR (02/05/2022 8:19 AM EDT) HEPATITIS C ANTIBODY NON-REACT MARY NON-REACT MARY [facility] INDEX 0.02 <1.00 [facility] Comment: HCV antibody was non-reactive. There is no laboratory evidence of HCV infection. In most cases, no further action is required. However, if recent HCV exposure is suspected, a test for HCV RNA (test code 48092) is suggested. For additional information please refer to http://education.oroeco/faq/QGT01j6 (This link is being provided for informational/ educational purposes only.) 02/05/2022 8:19 AM EDT Dot Phalen FARM OWNER OPERATOR HISTORICAL/NON ORDERABLE LABS Final Result [facility] [address] from Last 3 Months or Most Recently Relevant to Health Maintenance [place] [address] [place] [address] STANDARD [facility], [facility] LONG TERM OPTIONS (O D-SNP) [facility] Care Teams Hand Knitter Relationship Specialty Start Date End Date Dot Landaverde FNP [address] [place] [id number] PCP - General Family Medicine 06/22/21
== END 2025-05-12 11:46 | disposition home or self-care (01) ==
LOC: HO.RHES 10:53
PROVIDERS: PCP Registered Nurse; Visit Provider Student in an Organized Health Care Education/Training Program
DX: M81.0 Age-related osteoporosis without current pathological fracture (principal); Z51.81 Encounter for therapeutic drug level monitoring; Z79.620 Long term (current) use of immunosuppressive biologic
CPT/HCPCS: 99204; G2211

== ENCOUNTER 2025-05-12 10:52 | Outpatient (REF) | payer OTHER, SELFPAY ==
[2025-05-12 17:53] LABS: Parathyroid Hormone Intact 186.8 pg/mL (8.7-77.1)
[2025-05-12 18:13] LABS: Alanine Aminotransferase 16 U/L (0-31); Albumin Level 3.9 g/dL (3.5-5.0); Alkaline Phosphatase 66 U/L (39-117); Anion Gap 9 (12-20); Aspartate Amino Transferase 37 U/L (5-31); Blood Urea Nitrogen 16 mg/dL (9-16); Calcium 8.8 mg/dL (8.4-10.2); Carbon Dioxide 29 mmol/L (22-29); Chloride 109 mmol/L (96-108); Estimated Glomerular Filt Rate > 60; Potassium 4.2 mmol/L (3.3-5.1); Sodium 143 mmol/L (135-145); Total Protein 6.6 g/dL (6.5-8.0)
[2025-05-17 22:14] LABS: Collagen Type I C-Telopeptide 129 pg/mL (see note)
== END 2025-05-12 10:53 | disposition home or self-care (01) ==
LOC: HO.HKASLDS 10:52
PROVIDERS: PCP Registered Nurse; Visit Provider Student in an Organized Health Care Education/Training Program
DX: Z51.81 Encounter for therapeutic drug level monitoring (principal); M81.0 Age-related osteoporosis without current pathological fracture; Z79.620 Long term (current) use of immunosuppressive biologic; Z79.899 Other long term (current) drug therapy
CPT/HCPCS: 36415; 80053; 82306; 82523; 83970; 99202

== ENCOUNTER 2025-05-25 08:49 | Outpatient (AMB) | payer OTHER, SELFPAY ==
--- OUTSIDE RECORDS SUMMARY | 2024-03-17 07:00 | XMS_ITS ---
Author Organization [facility] Address [address] [place] [phone] Care Team Providers Care Performing Arts Technicians Name Role Phone KEILA SORENSON, KEIRA Primary Care Provider Unavailhuber Toney Jr, Jean Marie Denise [phone] REASON FOR VISIT HYPERPLASTIC APPENDIX Encounters Encounter Location Date Provider Diagnosis [facility] [address] [place] [phone] 03/17/2024 Jean Marie Toney Jr Plan Of Treatment No Information Progress Notes * MILDRED IQBALDOB:1955 (70 yo F)Acc No.[id number]:03/17/2024 Progress Notes Patient: MILDRED PRASAD Provider: Noemi Toney MD :1955 A ge:69 Y S ex:Female Date:03/17/2024 Address:[address] [place] [address] , [place], [place] Pcp:KEIRA PEDRAZA MD Subjective: * Chief Complaints: * 1 . HYPERPLASTIC APPENDIX. * Medical History: Objective: * Vitals: Assessment: Plan: * Treatment: * * The named appointment provid er may or may not be the originator of this progress note, and it is not deemed complete until electronically signed by the appointment provider. Sign off status: Pending * Provider: Noemi Toney MD Date: 0 03/17/2024 Generated for Albai earl/Gracy/eTransmitting on: 05/25/2025 10:04 AM EDT
--- NOTE | 2025-05-25 08:59 | MHC.OFFVIS ---
Vital Signs 05/25/25 09:00 Height 5 ft 2 in Weight 164 lb 2 oz BMI 30.0 BP 126/84 Blood Pressure Location Lt brachial Position Sitting Pulse 61 Pulse Oximetry (%) 93 Oxygen Delivery Method Room Air Intake Visit Reasons: 3m follow up Intake Note: Patient presents follow up DODIE. PSG in chart(AHI-32, REM AHI-71, GARRY-74%. Trailed 4-8cm. Stabilized on 8cm.)Compliance in chart(85/90days, >=4hrs-46%, Average Usage-3hrs 27min, Med Pressure-7.4, Med Leaks-1.5, AHI-2.8. Draw String Knotter Required: Yes Draw String Knotter Language: Account Leader Services: Draw String Knotter Present Draw String Knotter Name: Luciano [id number] Information Interpreted: non-clinical & clinical Accompanied by: Self / Same As Patient Allergies NSAIDS (Non-Steroidal Anti-Inflamma Allergy (Intermediate, Verified 05/25/25 09:09) Gastrointestinal Upset Penicillins Allergy (Intermediate, Verified 05/25/25 09:09) hives HPI Comments Details: 70 y/o female patient presents for follow up of titration results and severe sleep apnea. 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 05/2025 Split night study completed and pressures adjusted as breathing and oxygen stabilized at 8cmH20. She washes her mask daily, rinses hoses, changes filters and fills reservoir with water. She goes to bed at midnight and wakes up around 5-6 am, with one bathroom break as she is unable to fall asleep once she is awake. She snores and gasping for air when she does not have her cpap. She denies morning headaches, bruxism and jaw clenching. Her mood has improved as she now has better tenants who pay rent on time. She puts the mask on 2 hours before sleeping and uses it daily, now she is trying to be more consistent with >5 hours of use daily. Denies parasomnias. 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 RLS, symptoms with paresthesias and she had a TKR last year, she uses a cane to ambulate as she is still leans due to gait and balance difficulties. Memory is poor with regards to stm, word finding difficulties but denies forgetting names and or getting lost while driving. Mood has improved, as she is now attending the elderly care center 2 x a week. Diet is stable she is mindful of empty calories vs nutrient dense foods. She will be traveling for 2 weeks and taking her cpap machine with her. [facility] Medical History Fatigue due to sleep pattern disturbance Left knee pain Hx of thyroid nodule Acute appendicitis Back pain Osteoporosis Elevated parathyroid hormone GERD (gastroesophageal reflux disease) Numbness and tingling in left arm Sinus bradycardia Preoperative cardiovascular examination DODIE on CPAP Osteoarthritis of left knee Encounter for screening colonoscopy Vitamin D deficiency Surgical History History of total left knee replacement (TKR) (09/24/23) History of laparoscopic appendectomy (12/03/23) Hx of non-cataract eye surgery Hx of carpal tunnel repair History of esophagogastroduodenoscopy (EGD) H/O bariatric surgery History of total abdominal hysterectomy History of cholecystectomy Family History Unknown No family history of colorectal cancer Mother Uterus cancer Other Left knee pain Social History Household Members: Family Household Members Other:: Lives with her son Housing: House Are you a primary college and career counselor to a significant other at home: No Do you presently have visiting nurse or other home services: No 75 years or older and lives alone: No Alcohol intake: never Comment: aware of trip hazard Patient Tobacco Use Status: Never used Tobacco Advance Directives Date on File: 09/26/23 service: No Current occupational status: unemployed Sexual orientation: Straight/Heterosexual Gender identity: Female Review of Systems ENT Reports Normal hearing present Neuro Reports Normal hearing present Physical Exam Vital Signs: Last Vital Signs Pulse 61 05/25/25 09:00 BP 126/84 05/25/25 09:00 Pulse Ox 93 05/25/25 09:00 Oxygen Delivery Method Room Air 05/25/25 09:00 BMI result Body Mass Index 30.0 Const General: cooperative Nutritional Appearance: obese Orientation/consciousness: patient oriented x3 Limitations: language barrier Eyes Pupils: Equal, round and reactive pupils present Neck Neck: Yes full ROM and Yes supple Resp Effort & Inspection: normal respiratory effort and able to speak in complete sentences Neuro Other: r. should rom limited l. hand paresthesias due to cts General: patient oriented x3, gait normal and moves all extremities Cranial nerves: Yes Equal, round and reactive pupils present, Yes Bilaterally intact EOM present, Yes Normal facial strength present, Yes Midline tongue present, Yes Symmetric palate elevation present, Yes Normal hearing present and Yes Ability to bilaterally rotate head present Cognition (Neuro): normal cognition Gait exam (Neuro): Normal gait present and Assistive device used Motor exam (neuro): Pronator motor function not present, no tremor noted, Abnormal motor strength present and Abnormal muscle tone present Psych Appearance: grossly normal Thought process: Normal thought process present Thought content: Normal thought content present Results Reviewed Results Reviewed: 05/2025 Split night study completed and pressures adjusted as breathing and oxygen stabilized at 8cmH20. Assessment & Plan Assessment & Plan (1) DODIE (obstructive sleep apnea): Comment: Severe degree of sleep apnea. The AHI was 31/hr and oxygen garry was 69% Code(s): G47.33 - Obstructive sleep apnea (adult) (pediatric) Category: Medical (2) Left hand paresthesia: Comment: CTS/ Code(s): R20.2 - Paresthesia of skin Category: Medical (3) Cubital tunnel syndrome on left: Code(s): G56.22 - Lesion of ulnar nerve, left upper limb Category: Medical (4) Fatigue due to sleep pattern disturbance: Code(s): R53.83 - Other fatigue; G47.9 - Sleep disorder, unspecified Category: Medical (5) Fatigue due to sleep pattern disturbance: Code(s): R53.83 - Other fatigue; G47.9 - Sleep disorder, unspecified Category: Medical (6) RLS (restless legs syndrome): Code(s): G25.81 - Restless legs syndrome Category: Medical (7) Excessive daytime sleepiness: Code(s): G47.19 - Other hypersomnia Category: Medical Plan DODIE on cpap 8cmH20, rx sent per psg. Her compliance continues to improve, we are now at 4 hours now. RLS mild and improved with Gabapentin 300mg po daily to 300mg po BID per paresthesias. Excessive daytime Fatigue, Labs r/o deficiencies are still pending 10/2024. b12, folate, ferritin Vit D/ Folate/ mma/ homocysteine, Type 1 c telopeptide and pth elevated defer to pcp. Continue Magnesium citrate 400mg PO daily Magnesium Glycinate is also okay. May hold mg if loose stools. F/u in 6 months Orders: Orders Vitamin D 25-OH Total Today G25.81 - Restless legs syndrome, G47.19 - Other hypersomnia Vitamin B6 Today G25.81 - Restless legs syndrome, G47.19 - Other hypersomnia Vitamin B1 Today G25.81 - Restless legs syndrome, G47.19 - Other hypersomnia Methylmalonic Acid Today G25.81 - Restless legs syndrome, G47.19 - Other hypersomnia, G47.9 - Sleep disorder, unspecified, R53.83 - Other fatigue Ferritin Today G25.81 - Restless legs syndrome, G47.19 - Other hypersomnia Vitamin B12 and Folate Today G25.81 - Restless legs syndrome, G47.19 - Other hypersomnia Homocysteine Today G25.81 - Restless legs syndrome, G47.19 - Other hypersomnia, G47.9 - Sleep disorder, unspecified, R53.83 - Other fatigue Medications: Changed From gabapentin 300 mg PO BEDTIME 30 caps 6RF G56.22 - Lesion of ulnar nerve, left upper limb, R20.2 - Paresthesia of skin To gabapentin 300 mg PO BID 180 caps 6RF paresthesias 3 months MDD 600mg G56.22 - Lesion of ulnar nerve, left upper limb, R20.2 - Paresthesia of skin Refilled gabapentin 300 mg PO BEDTIME 30 caps 6RF Coding Level of Care Code Est Pt Level 4 (68919) Diagnoses DODIE (obstructive sleep apnea) G47.33 Left hand paresthesia R20.2 Cubital tunnel syndrome on left G56.22 Fatigue due to sleep pattern disturbance R53.83; G47.9 RLS (restless legs syndrome) G25.81 Excessive daytime sleepiness G47.19
[2025-05-25 09:00] VITALS: BP 126/84; PULSE 61; O2SAT 93
--- OUTSIDE RECORDS SUMMARY | 2025-05-25 10:04 | XMS_ITS | Patient Health Record ---
Author Organization [facility] Address [address] [place] [address] Care Team Providers Care Fiscal Assistant Name Role Phone KEIRA PEDRAZA MD Primary Care Provider Jean Marie Morejon Jr Unavailable Reason For Referral No Information Plan Of Treatment No Information Insurance Providers Payer Name Payer Address Payer Phone Subscriber Number Group Number Insured Name Patient Relationship to Insured Coverage Start Date Coverage End Date [facility] [address] [address] [place] [address] [phone] [id number] MILDRED IQ[employer] Self - patient is the insured
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
--- OUTSIDE RECORDS SUMMARY | 2025-05-25 10:05 | XMS_ITS | Encounter Summary ---
Author Organization [facility] Address [address] [place] [address] Care Team Providers Care Dragsaw Operator Name Role Phone Dot Landaverde Primary Care Provider [phone] Encounter Details Date Type Department Care Team ([facility] st Contact Info) Description 05/24/2025 Telephone [facility] MEDICINE [address] [place] [address] Dot Landaverde FNP [address] [place] [address] Social History Tobacco Use Types Packs/Day Years [...] encounter Miscellaneous Notes * Telephone Encounter - Angela Allison LPN - 05/24/2025 1:17 PM EDT TC to [facility] to obtain signed and dated SUSIE for completed form. LVM. Last phone call 05/19/2025. Spoke to Soniya. Faxed a copy of [facility]'s SUSIE for their convenience. Have not received to date. documented in this encounter Plan of Treatment Upcoming Encounters Date Type Department Care Team (Late st Contact Info) Description 07/20/2025 1:00 PM EST Office Visit [facility] ADULT DENTAL [address] [place] [address] Oscar Walker, DMD [address] [place] [address] documented as of this encounter Visit Diagnoses Not on filedocumented in this encounter Additional Health Concerns Assessment Noted Time PHQ-9 Depression Total Score: 16 025 2:34 PM EDT documented as of this encounter Care Teams Dragsaw Operator Relationship Specialty Start Date End Date Dot Landaverde FNP [address] [place] [address] PCP - General Family Medicine 06/22/21 documented as of this encounter
--- OUTSIDE RECORDS SUMMARY | 2025-05-25 10:05 | XMS_ITS | Encounter Summary ---
Author Organization [facility] Address [address] [place] [address] Phone Care Team Providers Care Lead Case Manager Name Role Phone LouieimeldaAveryle VENITA Primary Care Provider [phone] Encounter Details Date Type Department Care Team (Late st Contact Info) Description 03/30/2025 Telephone [facility] [address] [place] [address] Joyce [email or web address] Social History Tobacco Use Types Packs/Day [...] 10:30 AM EDT Office Visit [facility] [address] [place] [address] Cesar Gregg DO [address] [place] [address] [email or web address] 03/31/2026 9:30 AM EDT Office Visit [facility] [address] [place] [address] Cesar Gregg DO [address] [place] [address] documented as of this encounter Visit Diagnoses Not on filedocumented in this encounter Care Teams Lead Case Manager Relationship Specialty Start Date End Date Dot Landaverde FNP [address] [place] [address] PCP - General Nurse Practitioner 06/27/23 documented as of this encounter Additional Source Comments The information contained in this document represents components of the legal health record. It is not the complete legal health record.[facility]
--- OUTSIDE RECORDS SUMMARY | 2025-05-25 10:05 | XMS_ITS | Encounter Summary ---
Author Organization [facility] Address [address] [place] [address] Care Team Providers Care Pharmacy Analyst Name Role Phone Dot Landaverde Primary Care Provider [phone] Encounter Details Date Type Department Care Team ([facility] st Contact Info) Description 07/21/2024 Orders Only [facility] MEDICINE [address] [place] [address] Provider, MD Zoila Social History Tobacco Use [...] Description 07/20/2025 1:00 PM EST Office Visit [facility] ADULT DENTAL [address] [place] [address] Oscar Walker, DMD [address] [place] [address] documented as of this encounter Procedures Procedure Name Priority Date/Time Associated Diagnosis Comments BACTERIAL VAGINOSIS PANEL Routine 07/21/2024 7:46 AM EST COLONOSCOPY Routine 07/20/2024 3:14 PM EST documented in this encounter Results * Bacterial Vaginosis (07/21/2024 7:46 AM EST) TRICHOMONAS VAGINALIS DETECTION BY PCR NOT DETECTED Not Detect [facility] BACTERIAL VAGINOSIS DETECTION BY PCR NEGATIVE Negative [facility] Comment:The BV organism targ ets of [...] DETECTION BY PCR NOT DETECTED Not Detect [facility] Sally glab krusei PCR NOT DETECTED Not Detect [facility] 07/21/2024 7:46 AM EST 07/21/2024 3:42 PM EST us Generic External Data Provider LAB MICROBIOLOGY - GENERAL ORDERABLES Final Result [facility] [address] [place] [address] [phone] * Colonoscopy (07/20/2024 3:14 PM EST) us Historical Provider HEALTH MAINTENANCE Final Result documented in this encounter Visit Diagnoses Not on filedocumented in this encounter Additional Health Concerns Assessment Noted Time PHQ-9 Depression Total Score: 5 12/08/19 24 10:24 AM EDT documented as of this encounter Care Teams Pharmacy Analyst Relationship Specialty Start Date End Date Dot Landaverde FNP [address] [place] [address] PCP - General Family Medicine 06/22/21 documented as of this encounter
--- OUTSIDE RECORDS SUMMARY | 2025-05-25 10:05 | XMS_ITS | Clinical Summary ---
Author Organization [employer] Address [address] [place] [address] Care Team Providers Care Material Hauler Name Role Phone LouieDot segura VENITA Primary Care Provider [phone] Allergies Active Allergy Reactions Criticality Noted Date [...] supraspinatus tendon 03/01/2025 Overview (03/01/2025): Following with [facility] Ortho-Dr. Beltre 02/22/2025: MRI right shoulder demonstrated [...] Plan (10/08/2024 10:17 AM EST): Evaluated by [facility] Ortho-Dr. Beltre-June 2024 Plan for physical therapy, with consideration of injection after PT if pain persists Received benefit with PT, will refer to continue sessions at [facility] Chronic gastroesophageal reflux disease 10/08/19 Overview (10/08/2024): Continues with pantoprazole 40 mg daily Following with [facility] GI - EDUARDO Ansari/Dr. Jarret HOOPER completed Jul 2024 - demonstrated grade II hiatal hernia and mild gastritis Osteoarthritis of right knee 05/20/2024 Overview (05/20/2024): 12/12/23: XR bilat knees showed mild oA right knee BMI 29.0-29.9,adult 05/20/2024 Assessment & Plan (03/01/2025 9:21 AM EDT): Following with [facility] for weight management - FOUNDATION RELATIONS MANAGER Yoko Milan. History of gastric sleeve [...] Plan (10/08/2024 10:37 AM EST): Following with [facility] for weight management - FOUNDATION RELATIONS MANAGER Yoko Milan. History of gastric sleeve Continues with bupropion 300mg daily. Reports that med has been helpful for her anxiety as well as for helping her to not gain more weight. Denies med SE. Continues going to gym, aquatic therapy 2x/week Healthy, well balanced nutrition Assessment & Plan (05/20/2024 12:18 PM EDT): Following with [facility] for weight management History of gastric sleeve Continues with bupropion 300mg daily. Reports that med has been helpful for her anxiety as well as for helping her to not gain more weight. Denies med SE. Continues going to gym, aquatic therapy 2x/week Healthy, well balanced nutrition If BMI greater than 27, may try for GLP-1 authorization through [facility] per consult note Sleep difficulties 05/20/2024 Overview (05/20/2024): Magnesium 400mg nightly Gabapentin 300mg nightly. Reviewed med safety and SE. Hx of total knee arthroplasty, left 12/11/2023 Overview (12/11/2023): Left TKA 09/24/23 at [facility] w/ Dr. Beltre. Indication: OA Per ortho, [...] 24 months is advised. Currently following with [facility] GI with plan for routine repeat MRI Assessment & Plan (05/20/2024 12:04 PM EDT): -Currently following with [facility] GI. Plan for repeat MRI in 6 months per consult note in December 2023 History of appendectomy 12/11/2023 Overview (12/11/2023): Emergency appendectomy completed 12/03/23 Assessment & Plan (12/11/2023 12:06 PM EDT): Scheduled for follow up visit 12/10/23 with [facility] Surgeons No active sign of infx of incisions, avoid lifting. Elevated parathyroid hormone 06/09/2023 Overview (06/09/2023): Noted during medical evaluation in [facility]. Comprehensive workup including ultrasound, biopsy, and PET scan negative for malignancy Recommended follow up blood work (PTH) in Sep 2023 Assessment & Plan (03/01/2025 9:33 AM EDT): Repeat PTH ordered Other osteoporosis without current pathological fracture 06/09/2023 Assessment & Plan (03/01/2025 9:25 AM EDT): 04/2020: DEXA impression: osteopenia. 11/08/2022: Bone Density scan record from [facility] with impression of osteoporosis 10/05/24: DEXA impression: osteoporosis -Pt reports received Prolia injection while in [facility], continues on calcium and Vit D -Established with [facility] Wei Gregg. Per consult note December 2023: denosumab not very effective on the hips (T-score -2.4 in hips). Suggested transition to alendronate 70mg weekly. Pt reports tolerating well Assessment & Plan (10/08/2024 10:37 AM EST): 04/2020: DEXA impression: osteopenia. 11/08/2022: Bone Density scan record from [facility] with impression of osteoporosis 10/05/24: DEXA impression: osteoporosis -Pt reports received Prolia injection while in [facility], continues on calcium and Vit D -Established with [facility] Wei Gregg. Per consult note December 2023: denosumab not very effective on the hips (T-score -2.4 in hips). Suggested transition to alendronate 70mg weekly. Pt reports tolerating well Assessment & Plan (05/20/2024 12:15 PM EDT): 04/2020: DEXA impression: osteopenia. 11/08/2022: Bone Density scan record from [facility] with impression of osteoporosis -Pt reports received Prolia injection while in [facility], continues on calcium and Vit D (through multivitamin) supplementation -Established with [facility] Wei Gregg. Per consult note December 2023: denosumab not very effective on the hips (T-score -2.4 in hips). Suggested transition to alendronate 70mg weekly. Pt reports tolerating well -Next DXA: 11/08/24 at [facility] Assessment & Plan (07/06/2023 11:36 AM EST): 04/2020: DEXA impression: osteopenia. 11/08/2022: Bone Density scan record from [facility] with impression of osteoporosis -Pt reports received Prolia injection while in [facility], continues on calcium and Vit D (through multivitamin) supplementation -With hx of Prolia injection, interruption or discontinuation of therapy may increase risk of fracture. Referral to Endo placed in Jun 2023, initial consult pending Assessment & Plan (06/09/2023 2:53 PM EDT): DEXA: 04/2020 osteopenia. Due April 2022. Previously ordered -Pt received ?Prolia injection while in [facility], continues on calcium and Vit D (through multivitamin) supplementation -If indeed was Prolia, interruption or discontinuation of therapy may increase risk of fracture -Will request most recent DEXA and refer to Endo given tx of bone health and PTH Healthcare maintenance 06/02/2023 Overview (03/01/2025): Pap: s/p total hysterectomy, no records but pelvis exam completed Jul 2024 at [facility] and no cervix visualized on exam. Colonoscopy: 07/20/24 at [facility], repeat in 10 years Mammogram: 10/05/24 BIRADS 1 DEXA: 04/2020 osteopenia. Subsequently completed in DR mares/ impression of osteoporosis. Completed Oct 2024, osteoporisis. OPH: UTD per patient report, follows with Dr. Craven. Dental: Established with dental home in [place], reports UTD with appts and care. Outstanding IZ: Flu, pneumococcal, Tdap, RSV, COVID, Zoster declined History of total hysterectomy 04/28/2023 Vitamin D deficiency 04/28/2023 Overview (05/20/2024): Tx with course of high dose Vit D 50,000 units weekly by Endo starting approx Oct 2023 Currently on Vit D 2000 units daily Following with [facility] Endo - Dr. Gregg Primary osteoarthritis of left knee 04/28/2023 Overview (12/11/2023): Left knee XR 04/28/23: IMPRESSION: Mild tricompartmental degenerative joint changes most consistent with osteoarthritis. Possible trace suprapatellar joint effusion. No acute fracture. Followed by [facility] Ortho - Dr. Beltre. Received steroid injection on 05/19/23 S/P left TKA on 09/24/[address] Beltre at [facility] ED. Per Ortho, pt will require prophylactic abx for dental procedures Assessment & Plan (09/01/2023 5:24 PM EST): -DME request for cane placed 07/06/23 -DME request for shower chair placed 09/01/23 -Plan for upcoming TKA 09/24/23 through [facility] Ortho Assessment & Plan (07/06/2023 11:34 AM [...] to avoid opiates rx by provider in [facility], she has rx for tapenatdol which she says is only suing rarely for severe pain Obstructive sleep apnea syndrome 06/18/2022 Assessment & Plan (03/01/2025 9:27 AM EDT): - Sleep study: completed 01/14/22 at [facility] - Impression: The baseline portion of the [...] titrations and monitoring - Currently following with [facility] Neurology & Sleep - Consult October 2024: PSG demonstrated severe degree of DODIE with AHI 31/hr. Sent in prescription for nose mask trial. Goal to use CPAP nightly more than 4 hours. Assessment & Plan (12/11/2023 11:47 AM EDT): - Sleep study: completed 01/14/22 at [facility] - Impression: The baseline portion of the [...] titrations and monitoring - Currently following with [facility] Neurology & Sleep Assessment & Plan (07/06/2023 11:38 AM EST): - Sleep study: completed 01/14/22 at [facility] - Impression: The baseline portion of the [...] EDT): - Sleep study: completed 01/14/22 at [facility] - Impression: The baseline portion of the [...] shoulders 05/20/2024 10/08/2024 Overview (05/20/2024): Referral to [facility] Ortho and physical therapy placed on 05/19/24 Assessment & Plan (05/20/2024 12:27 PM EDT): Cont symptomatic management Encounters Date Type Department Care Team Description 05/24/2025 Telephone [facility] MEDICINE [address] [place] [address] Dot Landaverde FNP 05/12/2025 Orders Only GENERIC EXTERNAL DATA DEPARTMENT Provider, Generic External Data 04/27/2025 11:15 AM EDT Office Visit [facility] ADULT DENTAL [address] [place] [address] Oscar Walker DMD Extraction of tooth needed (Primary Dx) 04/07/2025 8:00 AM EDT Office Visit [facility] ADULT DENTAL [address] [place] [address] Briseno-Jung, Concetta, DDS Recurrent dental caries extending into dentin (Primary Dx) 03/30/2025 Refill [facility] MED & PEDS [address] [place] [address] Dot Landaverde FNP BMI 29.0-29.9,adult 03/18/2025 Results Follow-Up [facility] [address] [place] [address] Dot Landaverde FNP Lipid Panel, Standard 03/03/2025 9:00 AM EDT Office Visit [facility] ADULT DENTAL [address] [place] [address] Jennifer Mims 03/02/2025 Telephone [facility] [address] [place] [address] Dot Landaverde FNP Call Back Request 02/28/2025 11:15 AM EDT Office Visit [facility] PEDS [address] [place] [address] Phalen, Dot, RADIATION SAFETY OFFICER Elevated parathyroid hormone (Primary Dx); Healthcare maintenance; BMI 29.0-29.9,adult; Dermatophytosis of nail; Other osteoporosis without current pathological fracture; Vitamin D deficiency; Obstructive sleep apnea syndrome; Tear of right supraspinatus tendon 02/28/2025 10:00 AM EDT Office Visit [facility] ADULT DENTAL [address] [place] [address], [place] [phone] Jennifer Mims Encounter for dental examination (Primary [...] Description 07/20/2025 1:00 PM EST Office Visit [facility] ADULT DENTAL [address] [place] [address] Oscar Walker, DMD [address] [place] [address] Health Maintenance Due Date Last Done Comments CT Colonography 1955 FIT DNA/Cologuard 1955 FIT 1955 FOBT 1955 Sigmoidoscopy 1955 Zoster Vaccines (1 of 2) 01/21/2004 DTaP/Tdap/Td Vaccines (2 - T d or Tdap) 07/01/2022 07/01/2012 COVID-19 Vaccine (4 - 2024-2 6 season) 2025 08/06/2022, 06/07/2022, 05/17/2022 Influenza Vaccine (#1) 2025 , 07/01/2012 Depression Monitoring 08/09/2025 02/07/2025 , 02/07/2025 Dental [...] Procedure Name Priority Date/Time Associated Diagnosis Comments COLLAGEN TYPE I C-TELOPEPTIDE (CTX) Routine 05/12/2025 11:56 AM EDT VITAMIN D,25-OH,TOTAL,IA Routine 05/12/2025 11:56 AM EDT COMPREHENSIVE METABOLIC PANEL Routine 05/12/2025 11:56 AM EDT PTH, INTACT WITHOUT CALCIUM Routine 05/12/2025 11:56 AM EDT LIMITED ORAL EVALUATION - PROBLEM FOCUSED Routine [...] Recently Relevant to Health Maintenance Results * Collagen Type I C-Telopeptide (CTx) (05/12/2025 11:56 AM EDT) C-Telopeptide (CTx) 129 see note pg/mL [facility] Comment: Unable to flag abnormal result(s), please refer to reference range(s) below:Reference Range, Females: <5 years: Not Established 5-9 years: 574-1849 pg/mL 10-13 years: 519-2415 pg/mL 14-17 years: 242-1291 pg/mL 18-29 years: 64-640 pg/mL 30-39 years: 60-650 pg/mL 40-49 years: 50-465 pg/mL >49 years: Not EstablishedNo reference range is provided for postmenopausal womenbecause of the increased rate of bone turnoverpost-menopause. It is recommended that results forpostmenopausal women be compared to the premenopausalreference range as this will give a better indicationof their rate of bone loss.For additional information, please refer tohttps://education.[employer].G[employer]/faq/LMD080(This link is being provided for informational/educational purposes only.)THIS TEST WAS PERFORMED AT:[employer] [id number] [place] [address]BPXUXKOMARTHA HAINES MD,PHD 05/12/2025 11:5 6 AM EDT 05/12/2025 5:23 PM EDT us Generic External Data Provider LAB BLOOD ORDERAB LES Final Result [facility] [address] [place] [address] [phone] * Vitamin D, 25-Hydroxy, Total, Immunoassay (05/12/2025 11:56 AM EDT) Vitamin D 25-OH Total 40.3 >30 ng/mL [facility] Comment: Health Based Reference Values*< 20 ng/mL Koikerxea43-69 ng/mL Insufficient> 30 ng/mL Sufficient*Salvatore GUZMAN. N Engl J Med. 2007;357:266-280There is no well-established upper level of normal vitamin Dlevels. Some laboratories use 50 ng/mL as an upper limit ofnormal. However, toxicity is patient-dependent and may occurat any level. Careful correlation with the patient'spresentation is necessary and, if there is concern forvitamin D toxicity, treatment should be consideredirrespective of the serum level.Care must be taken in interpreting Vitamin D results fromdifferent laboratories and methodologies. Published datademonstrated that results from patients undergoinghemodialysis may show a negative bias when tested withvarious automated 25-OH vitamin D assays when compared toLC-MS/MS.When testing samples from patients whose predominant form ofVitamin D is Vitamin D2, such as patients receiving VitaminD2 supplementation, results that are subtherapeutic shouldbe confirmed with another method such as LC-MS/MS. 05/12/2025 11:5 6 AM EDT 05/12/2025 5:23 PM EDT Generic External Data Provider LAB BLOOD ORDERAB LES Final Result Performing Organization Address City/[facility]/ZIP Co de Phone Number [facility] [address] [place] [phone] [phone] * (ABNORMAL) PTH, Intact Without Calcium (05/12/2025 11:56 AM EDT) Parathyroid Hormone, Intact 186.8(H) 8.7 - 77.1 pg/mL [facility] 05/12/2025 11:5 6 AM EDT 05/12/2025 5:23 PM EDT us Generic External Data Provider LAB BLOOD ORDERAB LES Final Result Performing Organization Address City/[facility]/ZIP Co de Phone Number [facility] [address] [place] [address] [phone] * (ABNORMAL) Comprehensive Metabolic Panel (05/12/2025 11:56 AM EDT) Sodium 143 135 - 145 mmol/L [facility] Potassium 4.2 3.3 - 5.1 mmol/L [facility] Chloride 109(H) 96 - 108 mmol/L [facility] Carbon Dioxide 29 22 - 29 mmol/L [facility] Anion Gap 9(L) 12 - 20 [facility] Urea Nitrogen (BUN) 16 9 - 16 mg/dL [facility] Creatinine, Serum 0.79 0.5 - 1.4 mg/dL [facility] Estimated Glomerular Filt Rate >60 [facility] Comment:Chronic Kidney Disea se: Estimated GFR < 60 mL/min/1.86x3Wzwqfi Kidney Disease: Estimated GFR < 15 mL/min/1.73m2 Glucose 90 60 - 115 mg/dL [facility] Calcium 8.8 8.4 - 10.2 mg/dL [facility] Bilirubin, Total 0.4 0.0 - 1.0 mg/dL [facility] Aspartate Amino Transferase 37(H) 5 - 31 U/L [facility] Alanine Aminotransferase 16 0 - 31 U/L [facility] Total Protein 6.6 6.5 - 8.0 g/dL [facility] Albumin Level 3.9 3.5 - 5.0 g/dL [facility] Alkaline Phosphatase 66 39 - 117 U/L [facility] 05/12/2025 11:5 6 AM EDT 05/12/2025 5:23 PM EDT us Generic External Data Provider LAB BLOOD ORDERAB LES Final Result [facility] [address] [place] [address] [phone] * Lipid Panel, Standard (03/15/2025 8:43 AM EDT) Triglycerides 95 <150 mg/dL [facility] Comment:Desirable Triglyceri de: less than 150 mg/dLBorderline High Triglyceride 150-199 mg/dLHigh Triglyceride: 200-499 mg/dLVery High Triglyceride: greater than or equal to 5OO mg/dL Cholesterol 185 <200 mg/dL [facility] Comment:Desirable Cholestero l: less than 200 mg/dLBorderline High Cholesterol: 200-239 mg/dLHigh Cholesterol: greater than 239 mg/dL LDL Cholesterol Calculated 92 <100 mg/dL [facility] Comment:Desirable LDL: less than 100 mg/dLNear Optimal/Above Optimal LDL: 110- 129 mg/dLBorderline High LDL: 130-159 mg/dLHigh LDL: 160-189 mg/dLVery High LDL: greater than or equal to 190 mg/dL HDL Cholesterol 74 >40 mg/dL [facility] Comment:Desirable HDL: great er than 40 mg/dL Note: This HDL assay may give artificially low results in patients with liver disease. Blood Venous blood specimen / Unknown 03/15/2025 8:43 AM EDT 03/15/2025 2:32 PM EDT us Dot Landaverde RADIATION SAFETY OFFICER LAB BLOOD ORDERABLES Final Res ult [facility] [address] [place] [phone] * MR Shoulder w/o Contrast Right (02/22/2025 7:20 AM EDT) Anatomical Region Laterality Modality Upper Extremities, Shoulder Right Magn etic Resonance 02/22/2025 7:20 AM EDT Narrative 02/22/2025 10:31 AM EDT [address] [address] Magnetic Resonance Report Signed Patient: Debby Gallardo MR#: [id number] 7 : 1955 Acct:[id number] Age/Sex: 70 / F ADM Date: 02/22/25 Loc: HO.MRI Attending Dr: Jay Beltre MD Ordering Physician: Jay Beltre MD Date of Service: 02/22/25 Procedure(s): MR shoulder RT wo con Accession Number(s): [id number] cc: Jay Beltre MD; Dot Landaverde RADIATION SAFETY OFFICER EXAMINATION: MR SHOULDER WITHOUT CONTRAST, RIGHT TECHNIQUE: [...] 02/22/25 1028 DD/ 0720 TD/TT: 02/22/25 0800 Hearth Feeder: Procedure Note Donotuseinterpreter, Image - 02/22/[address] [address] Magnetic Resonance Report Signed Patient: Heydi Gallardo#: [id number] 7 : 4Acct:[id number] Age/Sex: 70 / FADM Date: 02/22/25 Loc: HO.MRI Attending Dr: Jay Beltre MD Ordering Physician: Jay Beltre MD Date of Service: 02/22/25 Procedure(s): MR shoulder RT wo con Accession Number(s): [id number] cc: Jay Beltre MD; Dot Landaverde EXAMINATION: [...] 02/22/25 1028 DD/ 0720 TD/TT: 02/22/25 0800 Hearth Feeder: [facility] External Provider IMG MRI PROCEDURES Final Result * BI Mammogram Screening Tomosynthesis Bilateral (10/05/2024 9:02 AM EST) Anatomical Region Laterality Modality Breast Bilateral Mammography 10/05/2024 9:02 AM EST Narrative 10/11/2024 5:10 PM EST [facility] [address] [place] [address] Mammography Report Signed Patient: Debby Gallardo MR#: [id number] 7 : 1955 Acct:[id number] Age/Sex: 69 / F ADM Date: 10/05/24 Loc: SAMMIE Attending Dr: Amandeep Sullivan MD Ordering Physician: Amandeep Sullivan MD Results: 1Negativ e Date of Service: 10/05/24 Follow Up: 1 Year From Orig inal Mammogram Procedure(s): MM tomosynthesis screening BI Accession Number(s): [id number] cc: Dot Landaverde; Amandeep Sullivan MD EXAMINATION: [...] by: Luba Ontiveros DO 10/11/2024 05:07 PM [facility] Dictated By: Luba Ontiveros DO Signed By: <Electronically signed by Luba Ontiveros DO in OV> 10/11/24 1707 DD/ 0902 TD/TT: 10/05/24 0932 Hearth Feeder: Procedure Note Donotuseinterpreter, Image - 10/11/2024 [facility] [address] [place] [address] Mammography Report Signed Patient: Debby Gallardo#: [id number] 7 : 4Acct:[id number] Age/Sex: 69 / FADM Date: 10/05/24 Loc: HO.MAMMO Attending Dr: Amandeep Sullivan MD Ordering Physician: Amandeep Sullivan MDResults: 1Negativ e Date of Service: 10/05/24Follow Up: 1 Year From Orig inal Mammogram Procedure(s): MM tomosynthesis screening BI Accession Number(s): [id number] cc: Dot Landaverde; Amandeep Sullivan MD EXAMINATION: [...] 10/11/24 1707 DD/ 0902 TD/TT: 10/05/24 0932 Hearth Feeder: [facility] External Provider IMG BI PROCEDURES Final Result * Hm Colonoscopy (07/20/2024 3:14 PM EST) Historical Provider HEALTH MAINTENANCE Final Result * HEPATITIS C AB W/REFL TO HCV RNA, QN, PCR (02/05/2022 8:19 AM EDT) HEPATITIS C ANTIBODY NON-REACT MARY NON-REACT [facility] INDEX 0.02 <1.00 [facility] Comment: HCV antibody was non-reactive. There is no laboratory evidence of HCV infection. In most cases, no further action is required. However, if recent HCV exposure is suspected, a test for HCV RNA (test code 76150) is suggested. For additional information please refer to http://education.[employer]faq/XUS74x3 (This link is being provided for informational/ educational purposes only.) 02/05/2022 8:19 AM EDT us Dot Louieimelda RADIATION SAFETY OFFICER HISTORICAL/NON ORDERABLE LABS Final Result [facility] [address] [place], [place] [address] from Last 3 Months or Most Recently Relevant to Health Maintenance Insurance [facility] [employer] [employer] OPT[employer] (O D-SNP) DENTAL [facility] Care Teams Material Hauler Relationship Specialty Start Date End Date Dot Landaverde FNP [address] [place] [phone] PCP - General Family Medicine 06/22/21
--- OUTSIDE RECORDS SUMMARY | 2025-05-25 10:05 | XMS_ITS | Clinical Summary ---
Author Organization [address] [place] [address] Address [address] [place] [address] Phone Care Team Providers Care Product/Industry Consultant Name Role Phone Name, Alfredo SORENSON Primary Care Provider [phone] Allergies Active Allergy Reactions Criticality Noted Date [...] 10/2017 - bilateral wrist braces Osteoporosis 12/31/2016 Immunizations Name Administration Dates Next Due Influenza [...] 9:00 AM EDT Office Visit Orthopedic Surgery [address] [address] Kushal Sprague DPM [address] [facility] [address] [place] [address] Health Maintenance Due Date Last Done [...] cancer risk category Low (<15%) Opal Garcia TAX INVESTIGATOR IMG XR PROCEDURES Final Result * Annual BMP Blood Test (12/18/2018) Annual BMP Blood Test abstracted Historical Provider HEALTH MAINTENANCE Final Result * Lipid panel (12/18/2018) LDL/HDL Ratio 2 0 - 4 Triglycerides 92 0 - 150 mg/dL Cholesterol 152 0 - 200 mg/dL HDL 76 >=40 mg/dL LDL Cholesterol 58 0 - 100 mg/dL Blood Venous blood specimen / Unknown Historical Provider LAB BLOOD ORDERABLES Cassie l Result * DXA BONE DENSITY STUDY 1+ SITS AXIAL SK (04/01/2018 11:44 AM EDT) Anatomical Region Laterality [...] (World Health Organization Fracture Risk Assessment) [facility] Department of Internal Medicine recommends using National [...] alternative screening schedule based on estephania Andrews., [facility] September 19, 2011 for patients with osteopenia (based on hip BMD T-score) is as follows: * advanced osteopenia (T scores -2.00 to -2.49), BMD testing every year * moderate osteopenia (T scores -1.50 to -1.99), BMD testing every 5 years mild osteopenia or normal BMD (T scores -1.50 and higher), BMD testing every 15 years Procedure Note Deborah Hodge, DO - 08/20/2022 DEXA SCAN: Lumbar Spine [...] years. (WorldHealth Organization Fracture Risk Assessment) [facility] Department of Internal Medicine recommendsusing National Osteoporosis [...] screening schedule based on douglas Andrews al., NEJMJanuary 2011 for patients with osteopenia (based on hip BMD T-score) is as follows: * advanced osteopenia (T scores -2.00 to -2.49), BMD testing every year * moderate osteopenia (T scores -1.50 to -1.99), BMD testing every 5years mild osteopenia or normal BMD (T scores -1.50 and higher), BMD testingevery 15 years Usha CLARK IMG DXA PROCEDURES Final Re sult * Colonoscopy (03/25/2017) [facility] Colonoscopy no interpreta tion,abstr acted Anatomical Region Laterality Modality Other Historical Provider HEALTH MAINTENANCE Final Result * Hepatitis C Screening (12/31/2016) [facility] Hepatitis C Screening abstracted Historical Provider HEALTH MAINTENANCE Final Result from Last 3 Months or Most Recently Relevant to Health Maintenance Insurance [place]ICA[place] - [place] [facility] [place] [id number] [facility] Member Subscriber Plan / Payer (Ef fective 2025-Present) Name:Debby Gallardo Relation to Subscriber:Self Name:Debby Gallardo Payer ID:[id number] Group ID:Not on file Type:Not on file Address: [address] [place] [address] Care Teams Product/Industry Consultant Relationship Specialty Start Date End Date Name, MD Alfredo [address] [place], [place] PCP - General Internal Medicine 10/31/19
--- OUTSIDE RECORDS SUMMARY | 2025-05-25 10:05 | XMS_ITS | Encounter Summary ---
Author Organization [employer] Address [address] [facility] 7 [place] [address] Care Team Providers Care Metal Machinist Name Role Phone Dot Landaverde Primary Care Provider [phone] Reason for Visit * Reason Onset Date Comments Call Back Request 10/31/2023 Encounter Details Date Type Department Care Team (Late st Contact Info) Description 10/31/2023 Telephone [facility] [address] [place] [address] Dot Landaverde FNP [address] [place] [address] Call Back Request Social History Tobacco Use [...] 4:22 PM EST Tc from afshan with [facility] states pt was admitted on 07/26 and discharged on 10/14 from rehab. Afshan is requesting to speak with a nurse to review discharge medication Please contact afshan at [phone] documented in this encounter Plan of Treatment Upcoming Encounters Date Type Department Care Team (Late st Contact Info) Description 07/20/2025 1:00 PM EST Office Visit [facility] [address] [place] [address] Oscar Walker, ANDREA [address] [place] [address] documented as of this encounter Visit Diagnoses Not on filedocumented in this encounter Care Teams Metal Machinist Relationship Specialty Start Date End Date Dot Landaverde FNP [address] [place] [address] PCP - General Family Medicine 06/22/21 documented as of this encounter
== END 2025-05-25 09:43 | disposition home or self-care (01) ==
LOC: HO.HSMC 08:49
PROVIDERS: PCP Registered Nurse; Visit Provider Physician Assistant Medical
DX: G47.33 Obstructive sleep apnea (adult) (pediatric) (principal); R20.2 Paresthesia of skin; G56.22 Lesion of ulnar nerve, left upper limb; R53.83 Other fatigue; G47.9 Sleep disorder, unspecified; G25.81 Restless legs syndrome; G47.19 Other hypersomnia
CPT/HCPCS: 99214

== ENCOUNTER → 2025-05-25 08:49 | Outpatient (BNVA) | payer OTHER, SELFPAY | PROVIDERS: PCP Registered Nurse; Visit Provider Physician Assistant Medical | DX: G47.33 Obstructive sleep apnea (adult) (pediatric) (principal); G25.81 Restless legs syndrome; R53.83 Other fatigue; R20.2 Paresthesia of skin; G56.22 Lesion of ulnar nerve, left upper limb; G47.19 Other hypersomnia; Z99.89 Dependence on other enabling machines and devices | CPT/HCPCS: 99212 ==

== ENCOUNTER 2025-06-22 08:29 | Outpatient (AMB) | payer OTHER, SELFPAY ==
--- OUTSIDE RECORDS SUMMARY | 2024-03-17 07:00 | XMS_ITS ---
Author Organization [facility] Address [address] [place] [phone] Care Team Providers Care Geophysical Laboratory Director Name Role Phone KEILA SORENSON, KEIRA Primary Care Provider Unavailhuber Toney Jr, Jean Marie Denise [phone] REASON FOR VISIT HYPERPLASTIC APPENDIX Encounters Encounter Location Date Provider Diagnosis [facility] [address] [place] [phone] 03/17/2024 Jean Marie Toney Jr Plan Of Treatment No Information Progress Notes * MILDRED IQBALDOB:1955 (70 yo F)Acc No.[id number]:03/17/2024 Progress Notes Patient: MILDRED PRASAD Provider: Noemi Toney MD :1955 A ge:69 Y S ex:Female Date:03/17/2024 Address:[address] [place] [address] , [place], [place] Pcp:KEIRA PEDRAZA MD Subjective: * Chief Complaints: [...] 0 03/17/2024 Generated for Albai earl/Gracy/eTransmitting on: 08:47 AM EDT
--- OUTSIDE RECORDS SUMMARY | 2025-06-22 08:47 | XMS_ITS | Clinical Summary ---
Author Organization [address] [place] [address] Address [address] [place] [address] Phone Care Team Providers Care Paraffin Plant Sweater Operator Name Role Phone Name, Alfredo SORENSON Primary Care Provider [phone] Allergies Active Allergy Reactions Criticality Noted Date [...] - bilateral wrist braces Osteoporosis 12/31/2016 Immunizations Immunization Administration Dates Next Due Influenza trivalent, with pr eservative (Fluzone; Afluria) 6mo and older 07/01/2012 Tdap Tetanus diptheria acell ular pertussis (Boostrix; Adacel) 7yo and older 07/01/2012 Varicella live (Varivax) 12mo and older 07/01/20 12 Surgical History Surgery Date Site/Laterality Comments GASTRIC BYPASS 05/2015 PROCEDURE: OR GASTRIC RSTCV W/BYP W/SM INT RCNSTJ LIMIT ABSRPJ OTHER SURGICAL HISTORY PROCEDURE: OR TOTAL ABDOMINAL HYSTERECT W/WO RMVL TUBE OVARY; COMMENT: 43 yo CHOLECYSTECTOMY PROCEDURE: HISTORICAL CHOLECYSTECTOMY; COMMENT: 43 yo COLONOSCOPY 03/25/2017 PROCEDURE: HISTORICAL COLONOSCOPY; COMMENT: polyp CARPAL TUNNEL RELEASE 01/19/2019 Right PROCEDURE: OR NEUROPLASTY &/TRANSPOS MEDIAN NRV CARPAL TUNNE; COMMENT: [...] 9:00 AM EDT Office Visit Orthopedic Surgery [address] [address] Kushal Sprague DPM [address] [facility] [address] [place] [address] Health Maintenance Due Date Last Done Comments Pneumococcal Vaccine: 50+ Years (1 of 1 - PCV) 01/21/2004 Zoster Vaccines (1 of 2) 08/26/2012 07/01/2012 Breast Cancer Screening 05/26/2021 05/26/2019 Colorectal Cancer Screening: Colonoscopy 03/25/2022 03/25/2017 DTaP,Tdap,and Td Vaccines (2 - Td or Tdap) 07/01/2022 07/01/2012 Falls Risk Assessment 08/14/2022 Medicare Annual Wellness [...] cancer risk category Low (<15%) Opal Garcia ELECTRIC TRUCK CRANE OPERATOR IMG XR PROCEDURES Final Result * [...] (World Health Organization Fracture Risk Assessment) [facility] Department of Internal Medicine recommends using [...] alternative screening schedule based on estephania Andrews., [facility] September 19, 2011 for patients with [...] years. (WorldHealth Organization Fracture Risk Assessment) [facility] Department of Internal Medicine recommendsusing National [...] PROCEDURES Final Re sult * Colonoscopy (03/25/2017) [facility] Colonoscopy no interpreta tion,abstr acted Anatomical Region Laterality Modality Other Historical Provider HEALTH MAINTENANCE Final Result * Hepatitis C Screening (12/31/2016) [facility] Hepatitis C Screening abstracted Historical Provider HEALTH MAINTENANCE Final Result from Last 3 Months or Most Recently Relevant to Health Maintenance Insurance [place] [facility] [place] [id number] [facility] Member Subscriber Plan / Payer (Ef fective 2025-Present) Name:Debby Gallardo Relation to Subscriber:Self Name:Debby Gallardo Payer ID:[id number] Group ID:Not on file Type:Not on file Address: [address] [place] [address] Care Teams Paraffin Plant Sweater Operator Relationship Specialty Start Date End Date Name, MD Alfredo [address] [place], [place] PCP - General Internal Medicine 10/31/19
--- OUTSIDE RECORDS SUMMARY | 2025-06-22 08:47 | XMS_ITS | Patient Health Record ---
Author Organization [facility] Address [address] [place] [address] Care Team Providers Care Nurse Transition Name Role Phone KEIRA PEDRAZA MD Primary Care Provider Jean Marie Morejon Jr Unavailable Reason For Referral No Information Plan Of Treatment No Information Insurance Providers Payer Name Payer Address Payer Phone Subscriber Number Group Number Insured Name Patient Relationship to Insured Coverage Start Date Coverage End Date [facility] [address] [address] [place] [address] [id number] [employer] Self - patient is the insured
--- OUTSIDE RECORDS SUMMARY | 2025-06-22 08:47 | XMS_ITS | Encounter Summary ---
Author Organization [employer] Address [address] [facility] [address] [place] [address] Care Team Providers Care Branch Lending Manager Name Role Phone Dto Landaverde HOMEMAKER COMPANION Primary Care Provider [phone] Reason for Visit * Reason Onset Date Comments DR LUCIO PT 06/20/2025 Encounter Details Date Type Department Care Team ([facility] st Contact Info) Description 06/20/2025 Telephone [facility] ADULT D[facility]AL [address] [place] [address] Oscar Lucio, ANDREA [address] [place] [address] DR LUCIO PT Social History Tobacco Use Types Packs/Day Years [...] encounter Miscellaneous Notes * Telephone Encounter - Diana Torres - 06/20/2025 2:41 PM EDT PT is getting thyroid check the same day as extractions and would like to know if her appointment will effect her thyroid. Please give pt a call if she needs to be rs documented in this encounter Plan of Treatment Upcoming Encounters Date Type Department Care Team (Late st Contact Info) Description 07/20/2025 1:00 PM EST Office Visit [facility] [address] [place] [address] HardikOscar villa, DMD [address] [place] [address] documented as of this encounter Visit Diagnoses Not on filedocumented in this encounter Additional Health Concerns Assessment Noted Time PHQ-9 Depression Total Score: 16 025 2:34 PM EDT documented as of this encounter Care Teams Branch Lending Manager Relationship Specialty Start Date End Date Dot Landaverde FNP [address] [place] [address] PCP - General Family Medicine 06/22/21 documented as of this encounter
--- OUTSIDE RECORDS SUMMARY | 2025-06-22 08:48 | XMS_ITS | Clinical Summary ---
Author Organization [employer] Address [address] [facility] 7t [place] [address] Care Team Providers Care Donation Specialist Name Role Phone LouieDot segura VENITA Primary Care Provider [phone] Allergies Active Allergy Reactions Criticality Noted Date [...] 300 MG 24 hr tabletIndications :BMI 29.0-29.9,adult TAKE 1 TABLET BY MOUTH EVERY DAY 90 tablet 5 Active Active Problems Problem Noted Date Diagnosed Date Dermatophytosis of nail 03/01/2025 Assessment & Plan (03/01/2025 9:25 AM EDT): Followed by podiatry-Dr. Sprague. Nail biopsy completed during consult November 2024. Prescribed topical clotrimazole. Tear of right supraspinatus tendon 03/01/2025 Overview (03/01/2025): Following with [facility] Ortho-Dr. Beltre 02/22/2025: MRI right shoulder demonstrated [...] Plan (10/08/2024 10:17 AM EST): Evaluated by [facility] Ortho-Dr. Beltre-June 2024 Plan for physical therapy, with consideration of injection after PT if pain persists Received benefit with PT, will refer to continue sessions at [facility] Chronic gastroesophageal reflux disease 10/08/19 Overview (10/08/2024): Continues with pantoprazole 40 mg daily Following with [facility] GI - EDUARDO Ansari/Dr. Wheat EGChio completed Jul 2024 - demonstrated grade II hiatal hernia and mild gastritis Osteoarthritis of right knee 05/20/2024 Overview (05/20/2024): 12/12/23: XR bilat knees showed mild oA right knee BMI 29.0-29.9,adult 05/20/2024 Assessment & Plan (03/01/2025 9:21 AM EDT): Following with [facility] for weight management - COMPUTATIONAL GENETICIST Yoko Milan. History of gastric sleeve Continues [...] Plan (10/08/2024 10:37 AM EST): Following with [facility] for weight management - COMPUTATIONAL GENETICIST Yoko Milan. History of gastric sleeve Continues with bupropion 300mg daily. Reports that med has been helpful for her anxiety as well as for helping her to not gain more weight. Denies med SE. Continues going to gym, aquatic therapy 2x/week Healthy, well balanced nutrition Assessment & Plan (05/20/2024 12:18 PM EDT): Following with [facility] for weight management History of gastric sleeve Continues with bupropion 300mg daily. Reports that med has been helpful for her anxiety as well as for helping her to not gain more weight. Denies med SE. Continues going to gym, aquatic therapy 2x/week Healthy, well balanced nutrition If BMI greater than 27, may try for GLP-1 authorization through [facility] per consult note Sleep difficulties 05/20/2024 Overview (05/20/2024): Magnesium 400mg nightly Gabapentin 300mg nightly. Reviewed med safety and SE. Hx of total knee arthroplasty, left 12/11/2023 Overview (12/11/2023): Left TKA 09/24/23 at [facility] w/ Dr. Beltre. Indication: [...] 24 months is advised. Currently following with [facility] GI with plan for routine repeat MRI Assessment & Plan (05/20/2024 12:04 PM EDT): -Currently following with [facility] GI. Plan for repeat MRI in 6 months per consult note in December 2023 History of appendectomy 12/11/2023 Overview (12/11/2023): Emergency appendectomy completed 12/03/23 Assessment & Plan (12/11/2023 12:06 PM EDT): Scheduled for follow up visit 12/10/23 with [facility] Surgeons No active sign of infx of incisions, avoid lifting. Elevated parathyroid hormone 06/09/2023 Overview (06/09/2023): Noted during medical evaluation in [facility]. Comprehensive workup including ultrasound, biopsy, and PET scan negative for malignancy Recommended follow up blood work (PTH) in Sep 2023 Assessment & Plan (03/01/2025 9:33 AM EDT): Repeat PTH ordered Other osteoporosis without current pathological fracture 06/09/2023 Assessment & Plan (03/01/2025 9:25 AM EDT): 04/2020: DEXA impression: osteopenia. 11/08/2022: Bone Density scan record from [facility] with impression of osteoporosis 10/05/24: DEXA impression: osteoporosis -Pt reports received Prolia injection while in [facility], continues on calcium and Vit D -Established with [facility] Wei Gregg. Per consult note December 2023: denosumab not very effective on the hips (T-score -2.4 in hips). Suggested transition to alendronate 70mg weekly. Pt reports tolerating well Assessment & Plan (10/08/2024 10:37 AM EST): 04/2020: DEXA impression: osteopenia. 11/08/2022: Bone Density scan record from [facility] with impression of osteoporosis 10/05/24: DEXA impression: osteoporosis -Pt reports received Prolia injection while in [facility], continues on calcium and Vit D -Established with [facility] Wei Gregg. Per consult note December 2023: denosumab not very effective on the hips (T-score -2.4 in hips). Suggested transition to alendronate 70mg weekly. Pt reports tolerating well Assessment & Plan (05/20/2024 12:15 PM EDT): 04/2020: DEXA impression: osteopenia. 11/08/2022: Bone Density scan record from [facility] with impression of osteoporosis -Pt reports received Prolia injection while in [facility], continues on calcium and Vit D (through multivitamin) supplementation -Established with [facility] Wei Gregg. Per consult note December 2023: denosumab not very effective on the hips (T-score -2.4 in hips). Suggested transition to alendronate 70mg weekly. Pt reports tolerating well -Next DXA: 11/08/24 at [place] Assessment & Plan (07/06/2023 11:36 AM EST): 04/2020: DEXA impression: osteopenia. 11/08/2022: Bone Density scan record from [facility] with impression of osteoporosis -Pt reports received Prolia injection while in [facility], continues on calcium and Vit D (through multivitamin) supplementation -With hx of Prolia injection, interruption or discontinuation of therapy may increase risk of fracture. Referral to Endo placed in Jun 2023, initial consult pending Assessment & Plan (06/09/2023 2:53 PM EDT): DEXA: 04/2020 osteopenia. Due April 2022. Previously ordered -Pt received ?Prolia injection while in [facility], continues on calcium and Vit D (through multivitamin) supplementation -If indeed was Prolia, interruption or discontinuation of therapy may increase risk of fracture -Will request most recent DEXA and refer to Endo given tx of bone health and PTH Healthcare maintenance 06/02/2023 Overview (03/01/2025): Pap: s/p total hysterectomy, no records but pelvis exam completed Jul 2024 at [facility] and no cervix visualized on exam. Colonoscopy: 07/20/24 at [facility], repeat in 10 years Mammogram: 10/05/24 BIRADS 1 DEXA: 04/2020 osteopenia. Subsequently completed in DR mares/ impression of osteoporosis. Completed Oct 2024, osteoporisis. OPH: UTD per patient report, follows with Dr. Craven. Dental: Established with dental home in [place], reports UTD with appts and care. Outstanding IZ: Flu, pneumococcal, Tdap, RSV, COVID, Zoster declined History of total hysterectomy 04/28/2023 Vitamin D deficiency 04/28/2023 Overview (05/20/2024): Tx with course of high dose Vit D 50,000 units weekly by Endo starting approx Oct 2023 Currently on Vit D 2000 units daily Following with [facility] Endo - Dr. Gregg Primary osteoarthritis of left knee 04/28/2023 Overview (12/11/2023): Left knee XR 04/28/23: IMPRESSION: Mild tricompartmental degenerative joint changes most consistent with osteoarthritis. Possible trace suprapatellar joint effusion. No acute fracture. Followed by [facility] Ortho - Dr. Beltre. Received steroid injection on 05/19/23 S/P left TKA on 09/24/[address] Beltre at [facility] ED. Per Ortho, pt will require prophylactic abx for dental procedures Assessment & Plan (09/01/2023 5:24 PM EST): -DME request for cane placed 07/06/23 -DME request for shower chair placed 09/01/23 -Plan for upcoming TKA 09/24/23 through [facility] Ortho Assessment & Plan [...] to avoid opiates rx by provider in [facility], she has rx for tapenatdol which she says is only suing rarely for severe pain Obstructive sleep apnea syndrome 06/18/2022 Assessment & Plan (03/01/2025 9:27 AM EDT): - Sleep study: completed 01/14/22 at [facility] - Impression: The baseline [...] titrations and monitoring - Currently following with [facility] Neurology & Sleep - Consult October 2024: PSG demonstrated severe degree of DODIE with AHI 31/hr. Sent in prescription for nose mask trial. Goal to use CPAP nightly more than 4 hours. Assessment & Plan (12/11/2023 11:47 AM EDT): - Sleep study: completed 01/14/22 at [facility] - Impression: The baseline [...] titrations and monitoring - Currently following with [facility] Neurology & Sleep Assessment & Plan (07/06/2023 11:38 AM EST): - Sleep study: completed 01/14/22 at [facility] - Impression: The baseline [...] EDT): - Sleep study: completed 01/14/22 at [facility] - Impression: The baseline [...] shoulders 05/20/2024 10/08/2024 Overview (05/20/2024): Referral to [facility] Ortho and physical therapy placed on 05/19/24 Assessment & Plan (05/20/2024 12:27 PM EDT): Cont symptomatic management Encounters Date Type Department Care Team Description 06/20/2025 Telephone [facility] ADULT DENTAL [address] [place] [address] SUDOL PT 06/02/2025 Telephone [facility] MEDICINE [address] [place] [address] Dot Landaverde FNP 05/26/2025 Telephone [facility] MEDICINE [address] [place] [address] Dot Landaverde FNP 05/24/2025 Telephone [facility] [address] [place] [phone] Dot Landaverde FNP 05/12/2025 Orders Only GENERIC EXTERNAL DATA DEPARTMENT Provider, Generic External Data 04/27/2025 11:15 AM EDT Office Visit [facility] ADULT DENTAL [address] [place], [place] [phone] Oscar Wakler, ANDREA Extraction of tooth needed (Primary Dx) 04/07/2025 8:00 AM EDT Office Visit [facility] ADULT DENTAL [address] [place] [address] Briseno-Jung, Concetta, DDS Recurrent dental caries extending into dentin (Primary Dx) 03/30/2025 Refill [facility] MED & PEDS [address] [place], [place] [phone] Dot Landaverde FNP BMI 29.0-29.9,adult from Last 3 Months Immunizations Immunization Administration [...] Description 07/20/2025 1:00 PM EST Office Visit [facility] ADULT DENTAL [address] [place] [address] Oscar Walker, DMD [address] [place] [address] Health Maintenance Due Date Last Done Comments [...] ADULT Routine 03/03/2025 9 :00 AM EDT INTRAORAL - COMPLETE SERIES OF RADIOGRAPHIC IMAGES Routine 02/28/2025 10:00 AM EDT Encounter for dental examination Dental plaque Bone loss COMPREHENSIVE ORAL EVALUATION - NEW OR ESTABLISHED PATIENT Routine 02/28/2025 10:00 AM EDT Encounter for dental examination Dental plaque Bone loss BI MAMMOGRAM SCREENING TOMOSYNTHESIS BILATERAL Routine 10/05/2024 9:02 AM EST HM COLONOSCOPY Routine 07/20/2024 3:14 PM EST ZZZ HISTORICAL HEPATITIS C AB W/REFL TO HCV RNA, QN, PCR Routine 02/05/2022 8:19 AM EDT from Last 3 Months or Most Recently Relevant to Health Maintenance Results * Collagen Type I C-Telopeptide (CTx) (05/12/2025 11:56 AM EDT) C-Telopeptide (CTx) 129 see note pg/mL [facility] Comment: Unable to flag abnormal result(s), [...] of bone loss.For additional information, please refer tohttps://education.[employer]faq/RFI414(This link is being provided for informational/educational purposes only.)THIS TEST WAS PERFORMED AT:[employer]/PEREZ [id number] [place] [address]JLGVWEPMARTHA HAINES MD,PHD 05/12/2025 11:5 6 AM EDT 05/12/2025 5:23 PM EDT Generic External Data Provider LAB BLOOD ORDERAB LES Final Result Performing Organization Address [facility]/ZIP Co de Phone Number [facility] [address] [place] [phone] * Vitamin D, 25-Hydroxy, Total, Immunoassay (05/12/2025 11:56 AM EDT) Vitamin D 25-OH Total 40.3 >30 ng/mL [facility] Comment: Health Based Reference Values*< 20 ng/mL [id number] ng/mL Insufficient> 30 ng/mL Sufficient*Salvatore GUZMAN. N [...] ORDERAB LES Final Result Performing Organization Address [facility]/ZIP Co de Phone Number [facility] [address] [place] [address] [phone] * (ABNORMAL) PTH, Intact Without Calcium (05/12/2025 11:56 AM EDT) Parathyroid Hormone, Intact 186.8(H) 8.7 - 77.1 pg/mL [facility] 05/12/2025 11:5 6 AM EDT 05/12/2025 5:23 PM EDT us Generic External Data Provider LAB BLOOD ORDERAB LES Final Result [facility] [address] [place] [phone] [phone] * (ABNORMAL) Comprehensive Metabolic Panel (05/12/2025 11:56 AM EDT) Sodium 143 135 - 145 mmol/L [facility] Potassium 4.2 3.3 - 5.1 mmol/L [facility] Chloride 109(H) 96 - 108 mmol/L [facility] Carbon Dioxide 29 22 - 29 mmol/L [facility] Anion Gap 9(L) 12 - 20 [facility] Urea Nitrogen (BUN) 16 9 - 16 mg/dL [facility] Creatinine, Serum 0.79 0.5 - 1.4 mg/dL [facility] Estimated Glomerular Filt Rate >60 [facility] Comment:Chronic Kidney Disea se: Estimated GFR < 60 mL/min/1.56j5Jdcmrk Kidney Disease: Estimated GFR < 15 mL/min/1.73m2 Glucose 90 60 - 115 mg/dL [facility] Calcium 8.8 8.4 - 10.2 mg/dL [facility] Bilirubin, Total 0.4 0.0 - 1.0 mg/dL [facility] Aspartate Amino Transferase 37(H) 5 - 31 U/L [facility] Alanine Aminotransferase 16 0 - 31 U/L [facility] Total Protein 6.6 6.5 - 8.0 g/dL [facility] Albumin Level 3.9 3.5 - 5.0 g/dL [facility] Alkaline Phosphatase 66 39 - 117 U/L [facility] 05/12/2025 11:5 6 AM EDT 05/12/2025 5:23 PM EDT us Generic External Data Provider LAB BLOOD ORDERAB LES Final Result Performing Organization Address [facility]/ZIP Co de Phone Number [facility] [address] [place] [phone] * Lipid Panel, Standard (03/15/2025 8:43 AM EDT) Triglycerides 95 <150 mg/dL [facility] Comment:Desirable Triglyceri de: less than 150 mg/dLBorderline High Triglyceride 150-199 mg/dLHigh Triglyceride: 200-499 mg/dLVery High Triglyceride: greater than or equal to 5OO mg/dL Cholesterol 185 <200 mg/dL [facility] Comment:Desirable Cholestero l: less than 200 mg/dLBorderline High Cholesterol: 200-239 mg/dLHigh Cholesterol: greater than 239 mg/dL LDL Cholesterol Calculated 92 <100 mg/dL [facility] Comment:Desirable LDL: less than 100 mg/dLNear Optimal/Above Optimal LDL: 110- 129 mg/dLBorderline High LDL: 130-159 mg/dLHigh LDL: 160-189 mg/dLVery High LDL: greater than or equal to 190 mg/dL HDL Cholesterol 74 >40 mg/dL [facility] Comment:Desirable HDL: great er than 40 mg/dL Note: This HDL assay may give artificially low results in patients with liver disease. Blood Venous blood specimen / Unknown 03/15/2025 8:43 AM EDT 03/15/2025 2:32 PM EDT us Dot Landaverde SWIMMING POOL SALESPERSON LAB BLOOD ORDERABLES Final Res ult Performing Organization Address City/[facility]/ZIP Co de Phone Number [facility] [address] [place] [phone] * BI Mammogram Screening Tomosynthesis Bilateral (10/05/2024 9:02 AM EST) Anatomical Region Laterality Modality Breast Bilateral Mammography 10/05/2024 9:02 AM EST Narrative 10/11/2024 5:10 PM EST [address] [place] [address] Mammography Report Signed Patient: Debby Gallardo MR#: [id number] 7 : 1955 Acct:[id number] Age/Sex: 69 / F ADM Date: 10/05/24 Loc: HO.MAMMO Attending Dr: Amandeep Sullivan MD Ordering Physician: Amandeep Sullivan MD Results: 1Negativ e Date of Service: 10/05/24 Follow Up: 1 Year From Orig inal Mammogram Procedure(s): MM tomosynthesis screening BI Accession Number(s): [id number] cc: Dot Landaverde; Amandeep Sullivan MD EXAMINATION: [...] Ontiveros DO in OV> 10/11/24 1707 DD/ 1 TD/TT: 10/05/24 0932 Law Firm Partner: Procedure Note Donotuseinterpreter, Image - 10/11/[address] [place] [address] Mammography Report Signed Patient: Heydi Gallardo#: [id number] 7 : 4Acct:[id number] Age/Sex: 69 / FADM Date: 10/05/24 Loc: HO.MAMMO Attending Dr: Amandeep Sullivan MD Ordering Physician: Amandeep Sullivan MDResults: 1Negativ e Date of Service: 10/05/24Follow Up: 1 Year From Orig inal Mammogram Procedure(s): MM tomosynthesis screening BI Accession Number(s): [id number] cc: Dot Landaverde; Amandeep Sullivan MD EXAMINATION: [...] 10/11/24 1707 DD/ 0902 TD/TT: 10/05/24 0932 Law Firm Partner: [facility] External Provider IMG BI PROCEDURES Final Result * Hm Colonoscopy (07/20/2024 3:14 PM EST) Historical Provider HEALTH MAINTENANCE Final Result * HEPATITIS C AB W/REFL TO HCV RNA, QN, PCR (02/05/2022 8:19 AM EDT) HEPATITIS C ANTIBODY NON-REACT MARY NON-REACT [facility] INDEX 0.02 <1.00 [facility] Comment: HCV antibody was non-reactive. There is no laboratory evidence of HCV infection. In most cases, no further action is required. However, if recent HCV exposure is suspected, a test for HCV RNA (test code 50517) is suggested. For additional information please refer to http://education.[employer]faq/CGX36b7 (This link is being provided for informational/ educational purposes only.) 02/05/2022 8:19 AM EDT Dot NATHAN HISTORICAL/NON ORDERABLE LABS Final Result [facility] [address] from Last 3 Months or Most Recently Relevant to Health Maintenance Insurance [facility]AND[facility] LONG TERM OPTIONS (HMO D-SNP) D[facility]AL - [facility] Care Teams Donation Specialist Relationship Specialty Start Date End Date Dot Landaverde FNP [address] [place] [phone] PCP - General Family Medicine 06/22/21
--- OUTSIDE RECORDS SUMMARY | 2025-06-22 08:48 | XMS_ITS | Encounter Summary ---
Author Organization [employer] Address [address] [facility] 7 [place] [address] Care Team Providers Care Customer Service Receptionist Name Role Phone Dot Landaverde Primary Care Provider [phone] Reason for Visit * Reason Onset Date Comments Call Back Request 10/31/2023 Encounter Details Date Type Department Care Team (Late st Contact Info) Description 10/31/2023 Telephone [facility] MED & PEDS [address] [place] [address] Dot Landaverde FNP [address] [place] [address] Call Back Request Social History Tobacco Use [...] 4:22 PM EST Tc from afshan with [facility] states pt was admitted on 07/26 and discharged on 10/14 from rehab. Afshan is requesting to speak with a nurse to review discharge medication Please contact afshan at [phone] documented in this encounter Plan of Treatment Upcoming Encounters Date Type Department Care Team (Late st Contact Info) Description 07/20/2025 1:00 PM EST Office Visit [facility] ADULT DENTAL [address] [place] [address] Oscar Walker, ANDREA [address] [place] [address] documented as of this encounter Visit Diagnoses Not on filedocumented in this encounter Care Teams Customer Service Receptionist Relationship Specialty Start Date End Date Dot Landaverde FNP [address] [place] [phone] PCP - General Family Medicine 06/22/21 documented as of this encounter
--- OUTSIDE RECORDS SUMMARY | 2025-06-22 08:48 | XMS_ITS | Encounter Summary ---
Author Organization [facility] Address [address] [place] [phone] Phone Care Team Providers Care Straw Hat Brim Cutter Operator Name Role Phone LouieimeldaAveryle VENITA Primary Care Provider [phone] Encounter Details Date Type Department Care Team (Late st Contact Info) Description 03/30/2025 Telephone [facility] [place] [address] [place] [address] [email or web address] Social History Tobacco Use Types Packs/Day [...] 10:30 AM EDT Office Visit [facility] [address] [place] [phone] Cesar Gregg DO [address] [place] [address] 03/31/2026 9:30 AM EDT Office Visit [facility] [address] [place] [phone] Cesar Gregg DO [address] [place] [address] documented as of this encounter Visit Diagnoses Not on filedocumented in this encounter Care Teams Straw Hat Brim Cutter Operator Relationship Specialty Start Date End Date Dot Landaverde FNP [address] [place] [address] PCP - General Nurse Practitioner 06/27/23 documented as of this encounter Additional Source Comments The information contained in this document represents components of the legal health record. It is not the complete legal health record.[facility]
--- OUTSIDE RECORDS SUMMARY | 2025-06-22 08:48 | XMS_ITS | Encounter Summary ---
Author Organization [employer] Address [address] [facility] [address] [place] [address] Care Team Providers Care Billet Heater Name Role Phone Dot Landaverde Primary Care Provider [phone] Encounter Details Date Type Department Care Team ([facility] st Contact Info) Description 07/21/2024 Orders Only [facility] MEDICINE [address] [place] [address] Provider, MD Zoila Social History Tobacco Use [...] [facility] ADULT DENTAL [address] [place] [address] Oscar Walker, DMD [address] [place] [address] documented as of this encounter Procedures Procedure Name Priority Date/Time Associated Diagnosis Comments BACTERIAL VAGINOSIS PANEL Routine 07/21/2024 7:46 AM EST COLONOSCOPY Routine 07/20/2024 3:14 PM EST documented in this encounter Results * Bacterial Vaginosis (07/21/2024 7:46 AM EST) TRICHOMONAS VAGINALIS DETECTION BY PCR NOT DETECTED Not Detect [facility] BACTERIAL VAGINOSIS DETECTION BY PCR NEGATIVE Negative [facility] Comment:The BV organism targ ets [...] DETECTION BY PCR NOT DETECTED Not Detect [facility] Sally glab krusei PCR NOT DETECTED Not Detect [facility] 07/21/2024 7:46 AM EST 07/21/2024 3:42 PM EST us Generic External Data Provider LAB MICROBIOLOGY - GENERAL ORDERABLES Final Result [facility] [address] [place] [address] [phone] * Colonoscopy (07/20/2024 3:14 PM EST) us Historical Provider HEALTH MAINTENANCE Final Result documented in this encounter Visit Diagnoses Not on filedocumented in this encounter Additional Health Concerns Assessment Noted Time PHQ-9 Depression Total Score: 5 12/08/19 24 10:24 AM EDT documented as of this encounter Care Teams Billet Heater Relationship Specialty Start Date End Date Dto Landaverde FNP [address] [place] [address] PCP - General Family Medicine 06/22/21 documented as of this encounter
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
--- NOTE | 2025-06-22 09:03 | AM.OFFVISNUR ---
Intake Visit Reasons: prolia injection Allergies NSAIDS (Non-Steroidal Anti-Inflamma Allergy (Intermediate, Verified 05/25/25 09:09) Gastrointestinal Upset Penicillins Allergy (Intermediate, Verified 05/25/25 09:09) hives Office Meds Prolia 60 mg/mL subcutaneous syringe Performing Provider: Susy Doss MD Performing Location[facility] Administered by: Akua Samson RN on 06/22/25 09:04 Dose Route Admin Location Dispensed Lot Number Expiration Date [facility] Super[employer] 60 mg subcut left posterior arm 1 mL [id number] 10/30/27 88222-487-98 AMGEN Total Dispensed Waste 1 mL 0 % Comments: pt arrived by herself and i provided a middle school spanish teacher, id# [id number]. i explained the reactions/adverse effects of the injection and to monitor for any reaction. i explained that since this is the first time receiving this medication, that we need to monitor her for 15 minutes. injection site was clear, dry, and intact. i administered the injection in her left posterior arm. no adverse reactions reported. pt was monitored for 15 minutes and informed to contact us if she has any further concerns. Assessment & Plan Assessment & Plan Orders: Orders AMB Denosumab Injection Practice Supplied Today M81.0 - Age-related osteoporosis without current pathological fracture Coding
== END 2025-06-22 09:02 | disposition home or self-care (01) ==
LOC: HO.RHES 08:29
PROVIDERS: PCP Registered Nurse; Visit Provider Student in an Organized Health Care Education/Training Program
DX: M81.0 Age-related osteoporosis without current pathological fracture (principal)

== ENCOUNTER → 2025-06-22 08:29 | Outpatient (BNVA) | payer OTHER, SELFPAY | PROVIDERS: PCP Registered Nurse; Visit Provider Student in an Organized Health Care Education/Training Program | DX: M81.0 Age-related osteoporosis without current pathological fracture (principal) | CPT/HCPCS: 96372; J0897 ==

== ENCOUNTER → 2025-07-25 10:29 | Outpatient (REF) | payer OTHER, SELFPAY ==
--- NOTE | ~2025-07-25 | NM_ITS ---
EXAMINATION: [place] PARATHYROID SPECT AND CT HISTORY: E21.3 - Hyperparathyroidism, unspecified. TECHNIQUE: A parathyroid imaging study was performed following the intravenous administration of 30 mCi technetium 99m-sestamibi. Planar images of the neck were obtained at 20 minutes and 90 minutes. SPECT/CT was performed from the skull base through the ml at approximately 2 hours. COMPARISON: There are no prior studies available for comparison. FINDINGS: Early planar images demonstrate a homogeneous distribution of activity throughout both thyroid lobes as well as salivary gland activity. No foci of abnormal increased uptake are identified. No persistent foci of increased uptake are identified in the neck on delayed images. No abnormality is seen on SPECT/CT imaging. NM/NM parathyroid SPECT w CT IMPRESSION: No scintigraphic evidence of a parathyroid adenoma. Electronically signed by: Wilfredo Rodas MD 07/25/2025 02:[address] [facility]
--- OUTSIDE RECORDS SUMMARY | 2025-07-25 13:03 | XMS_ITS | Clinical Summary ---
Author Organization [address] [place] [address] Address [address] [place] [address] Phone Care Team Providers Care Armored Car Guard Name Role Phone Name, Alfredo SORENSON Primary Care Provider [phone] Allergies Active Allergy Reactions Criticality Noted Date [...] Date Site/Laterality Comments GASTRIC BYPASS 05/2015 PROCEDURE: [place] GASTRIC RSTCV W/BYP W/SM INT RCNSTJ LIMIT ABSRPJ OTHER SURGICAL HISTORY PROCEDURE: [place] TOTAL ABDOMINAL HYSTERECT W/WO RMVL TUBE OVARY; COMMENT: 43 yo CHOLECYSTECTOMY PROCEDURE: HISTORICAL CHOLECYSTECTOMY; COMMENT: 43 yo COLONOSCOPY 03/25/2017 PROCEDURE: HISTORICAL COLONOSCOPY; COMMENT: polyp CARPAL TUNNEL RELEASE 01/19/2019 Right PROCEDURE: [place] NEUROPLASTY &/TRANSPOS MEDIAN NRV CARPAL TUNNE; COMMENT: [...] 12/13/2024 3:41 PM EDT Plan of Treatment Health Maintenance Due Date [...] Breast cancer risk category Low (<15%) Opal Jose DELIVERY LEAD IMG XR PROCEDURES Final Result * Annual BMP Blood Test (12/18/2018) Pathologist [facility] Annual BMP Blood Test abstracted Result [facility] Historical Provider HEALTH MAINTENANCE Final Result * Lipid panel (12/18/2018) [facility] LDL/HDL Ratio 2 0 - 4 Triglycerides 92 0 - 150 mg/dL Cholesterol 152 0 - 200 mg/dL HDL 76 >=40 mg/dL LDL Cholesterol 58 0 - 100 mg/dL Blood Venous blood specimen / Unknown Result [facility] Historical Provider LAB BLOOD ORDERABLES Cassie l [...] (World Health Organization Fracture Risk Assessment) [facility] Department of Internal Medicine recommends using National [...] alternative screening schedule based on estephania Andrews., [facility] September 19, 2011 for patients with [...] years. (WorldHealth Organization Fracture Risk Assessment) [facility] Department of Internal Medicine recommendsusing National Osteoporosis [...] screening schedule based on douglas Andrews al., [facility] for patients with osteopenia (based on hip BMD T-score) is as follows: * advanced osteopenia (T scores -2.00 to -2.49), BMD testing every year * moderate osteopenia (T scores -1.50 to -1.99), BMD testing every 5years mild osteopenia or normal BMD (T scores -1.50 and higher), BMD testingevery 15 years Usha CLARK IMG DXA PROCEDURES Final Re sult * Colonoscopy (03/25/2017) [facility] Colonoscopy no interpreta tion,abstr acted Anatomical Region Laterality Modality Other Historical Provider HEALTH MAINTENANCE Final Result * Hepatitis C Screening (12/31/2016) [facility] Hepatitis C Screening abstracted Historical Provider HEALTH MAINTENANCE Final Result from Last 3 Months or Most Recently Relevant to Health Maintenance Insurance [place] Member Subscriber Plan / Payer (Ef fective 2024-Present) Name:DEBBY STARKS Relation to Subscriber:Self Name:Debby Gallardo Payer ID:[id number] Group ID:Not on file Type:Not on file Address[facility] ATTN:CLAIMS [address] [place] [address] [facility] OPTIONS Member Subscriber Plan / Payer (Ef fective 2025-Present) Name:Debby Gallardo Relation to Subscriber:Self Name:Debby Gallardo Payer ID:[id number] Group ID:Not on file Type:Not on file Address: [address] [place] [address] Care Teams Armored Car Guard Relationship Specialty Start Date End Date Name, MD Alfredo [address] [place], [place] PCP - General Internal Medicine 10/31/19
--- OUTSIDE RECORDS SUMMARY | 2025-07-25 13:03 | XMS_ITS | Clinical Summary ---
Author Organization [employer] Address [address] [facility] 7[address] [place] [address] Care Team Providers Care Manager Cardiac Cath Name Role Phone LouieDot segura VENITA Primary Care Provider [phone] Allergies Active Allergy Reactions Criticality Noted Date [...] mouth Once per day. 04/23/20 24 Active cholecalciferol VITAMIN D (Vitamin D-3) 50 MCG (1999 UT) capsuleIndicatio ns:Vitamin D deficiency Take 1 capsule (50 mcg) by mouth Once per day. 90 capsule 1 10/08/19 25 Active Acetaminophen Extra Strength [...] EVERY DAY 90 tablet 03/30/20 25 Active pantoprazole (ProtoNix) 40 MG EC tablet TAKE 1 TABLET BY MOUTH BEFORE BREAKFAST. DO NOT CRUSH, CHEW OR SPLIT. 90 tablet 1 07/11/20 25 Active Multiple Vitamin (Daily-Yumi Multivitamin) tablet TOME 1 TABLETA POR VIA ORAL TODOS LOS SOLIMAN CON ALIMENTO 90 tablet 1 07/11/20 25 Active Multiple Vitamin (Daily-Yumi Multivitamin) tablet TAKE 1 TABLET BY MOUTH EVERY DAY WITH FOOD 90 tablet 1 10/08/19 25 025 Discontinued pantoprazole (ProtoNix) 40 MG EC tablet TAKE 1 TABLET BY MOUTH BEFORE BREAKFAST. DO NOT CRUSH, CHEW OR SPLIT. 90 tablet 1 10/08/19 25 025 Discontinued Active Problems Problem Noted Date Diagnosed Date Dermatophytosis of nail 03/01/2025 Assessment & Plan (03/01/2025 9:25 AM EDT): Followed by podiatry-Dr. Sprague. Nail biopsy completed during consult November 2024. Prescribed topical clotrimazole. Tear of right supraspinatus tendon 03/01/2025 Overview (03/01/2025): Following with [facility] Ortho-Dr. Beltre 02/22/2025: MRI right shoulder demonstrated [...] Plan (10/08/2024 10:17 AM EST): Evaluated by [facility] Ortho-Dr. Beltre-June 2024 Plan for physical therapy, with consideration of injection after PT if pain persists Received benefit with PT, will refer to continue sessions at [facility] Chronic gastroesophageal reflux disease 10/08/19 Overview (10/08/2024): Continues with pantoprazole 40 mg daily Following with [facility] GI - EDUARDO Ansari/Dr. Wheat EGChio completed Jul 2024 - demonstrated grade II hiatal hernia and mild gastritis Osteoarthritis of right knee 05/20/2024 Overview (05/20/2024): 12/12/23: XR bilat knees showed mild oA right knee BMI 29.0-29.9,adult 05/20/2024 Assessment & Plan (03/01/2025 9:21 AM EDT): Following with [facility] for weight management - MANAGER TESTING Yoko Milan. History of gastric sleeve Continues [...] Plan (10/08/2024 10:37 AM EST): Following with [facility] for weight management - MANAGER TESTING Yoko Milan. History of gastric sleeve Continues with bupropion 300mg daily. Reports that med has been helpful for her anxiety as well as for helping her to not gain more weight. Denies med SE. Continues going to gym, aquatic therapy 2x/week Healthy, well balanced nutrition Assessment & Plan (05/20/2024 12:18 PM EDT): Following with [facility] for weight management History of gastric sleeve Continues with bupropion 300mg daily. Reports that med has been helpful for her anxiety as well as for helping her to not gain more weight. Denies med SE. Continues going to gym, aquatic therapy 2x/week Healthy, well balanced nutrition If BMI greater than 27, may try for GLP-1 authorization through [facility] per consult note Sleep difficulties 05/20/2024 Overview (05/20/2024): Magnesium 400mg nightly Gabapentin 300mg nightly. Reviewed med safety and SE. Hx of total knee arthroplasty, left 12/11/2023 Overview (12/11/2023): Left TKA 09/24/23 at [facility] w/ Dr. Beltre. Indication: OA Per ortho, [...] 24 months is advised. Currently following with [facility] GI with plan for routine repeat MRI Assessment & Plan (05/20/2024 12:04 PM EDT): -Currently following with [facility] GI. Plan for repeat MRI in 6 months per consult note in December 2023 History of appendectomy 12/11/2023 Overview (12/11/2023): Emergency appendectomy completed 12/03/23 Assessment & Plan (12/11/2023 12:06 PM EDT): Scheduled for follow up visit 12/10/23 with [facility] Surgeons No active sign of infx of [...] on calcium and Vit D -Established with [facility] Wei Gregg. Per consult note December 2023: [...] on calcium and Vit D -Established with [facility] Wei Gregg. Per consult note December 2023: [...] Vit D (through multivitamin) supplementation -Established with [facility] Wei Gregg. Per consult note December 2023: denosumab not very effective on the hips (T-score -2.4 in hips). Suggested transition to alendronate 70mg weekly. Pt reports tolerating well -Next DXA: 11/08/24 at [place] Assessment & Plan (07/06/2023 11:36 AM EST): [...] but pelvis exam completed Jul 2024 at [facility] and no cervix visualized on exam. Colonoscopy: 07/20/24 at [facility], repeat in 10 years Mammogram: 10/05/24 BIRADS 1 DEXA: 04/2020 osteopenia. Subsequently completed in DR mares/ impression of osteoporosis. Completed Oct 2024, osteoporisis. OPH: UTD per patient report, follows with Dr. Craven. Dental: Established with dental home in [place], reports UTD with appts and care. Outstanding IZ: Flu, pneumococcal, Tdap, RSV, COVID, Zoster declined History of total hysterectomy 04/28/2023 Vitamin D deficiency 04/28/2023 Overview (05/20/2024): Tx with course of high dose Vit D 50,000 units weekly by Wei starting approx Oct 2023 Currently on Vit D 2000 units daily Following with [facility] Wei - Dr. Gregg Primary osteoarthritis of left knee 04/28/2023 Overview (12/11/2023): Left knee XR 04/28/23: IMPRESSION: Mild tricompartmental degenerative joint changes most consistent with osteoarthritis. Possible trace suprapatellar joint effusion. No acute fracture. Followed by [facility] Ortho - Dr. Beltre. Received steroid injection on 05/19/23 S/P left TKA on 09/24/[address] Beltre at [facility] ED. Per Ortho, pt will require prophylactic abx for dental procedures Assessment & Plan (09/01/2023 5:24 PM EST): -DME request for cane placed 07/06/23 -DME request for shower chair placed 09/01/23 -Plan for upcoming TKA 09/24/23 through [facility] Ortho Assessment & Plan (07/06/2023 11:34 AM [...] EDT): - Sleep study: completed 01/14/22 at [facility] - Impression: The baseline portion of the [...] titrations and monitoring - Currently following with [facility] Neurology & Sleep - Consult October 2024: PSG demonstrated severe degree of DODIE with AHI 31/hr. Sent in prescription for nose mask trial. Goal to use CPAP nightly more than 4 hours. Assessment & Plan (12/11/2023 11:47 AM EDT): - Sleep study: completed 01/14/22 at [facility] - Impression: The baseline portion of the [...] titrations and monitoring - Currently following with [facility] Neurology & Sleep Assessment & Plan (07/06/2023 11:38 AM EST): - Sleep study: completed 01/14/22 at [facility] - Impression: The baseline portion of the [...] EDT): - Sleep study: completed 01/14/22 at [facility] - Impression: The baseline portion of the [...] shoulders 05/20/2024 10/08/2024 Overview (05/20/2024): Referral to [facility] Ortho and physical therapy placed on 05/19/24 Assessment & Plan (05/20/2024 12:27 PM EDT): Cont symptomatic management Encounters Date Type Department Care Team Description 07/09/2025 Refill [facility] [address] [place], [place] [phone] Dot Landaverde FNP 06/20/2025 Telephone [facility] [address] [place] [address] SUDOL PT; rs OS appt DR. Walker 06/02/2025 Telephone [facility] [address] [place] [address] Dot Landaverde FNP 05/26/2025 Telephone [facility] [address] [place] [address] Dot Landaverde FNP 05/24/2025 Telephone [facility] [address] [place] [address] Dot Landaverde FNP 05/12/2025 Orders Only GENERIC EXTERNAL DATA DEPARTMENT Provider, Generic External Data 04/27/2025 11:15 AM EDT Office Visit [facility] [address] [place] [address] Oscar Walker DMD Extraction of tooth needed (Primary Dx) from Last 3 Months Immunizations Immunization Administration [...] 02/28/2025 11:32 AM EDT Plan of Treatment Health Maintenance Due [...] PROBLEM FOCUSED Routine 04/27/2025 11:15 AM EDT LIPID PANEL, STANDARD Routine 03/15/2025 8:43 AM [...] EDT) C-Telopeptide (CTx) 129 see note pg/mL [facility] Comment: Unable to flag abnormal result(s), [...] of bone loss.For additional information, please refer tohttps://education.Victrio/faq/PHM001(This link is being provided for informational/educational purposes only.)THIS TEST WAS PERFORMED AT:[facility] [id number] [place] [address]AEDYIQVMARTHA HAINES MD,PHD 05/12/2025 11:5 6 AM EDT 05/12/2025 5:23 PM EDT us Generic External Data Provider LAB BLOOD ORDERAB LES Final Result [facility] [address] [place] [phone] * Vitamin D, 25-Hydroxy, Total, Immunoassay (05/12/2025 11:56 AM EDT) Vitamin D 25-OH Total 40.3 >30 ng/mL [facility] Comment: Health Based Reference Values*< 20 ng/mL [id number] ng/mL Insufficient> 30 ng/mL Sufficient*Salvatore GUZMAN. N [...] ORDERAB LES Final Result Performing Organization Address City/[facility]/ZIP Co de Phone Number [facility] [address] [place] [phone] * (ABNORMAL) PTH, Intact Without Calcium (05/12/2025 11:56 AM EDT) Parathyroid Hormone, Intact 186.8(H) 8.7 - 77.1 pg/mL [facility] 05/12/2025 11:5 6 AM EDT 05/12/2025 5:23 PM EDT us Generic External Data Provider LAB BLOOD ORDERAB LES Final Result Performing Organization Address City/[facility]/ZIP Co de Phone Number [facility] [address] [place] [phone] * (ABNORMAL) Comprehensive Metabolic Panel (05/12/2025 11:56 AM EDT) Sodium 143 135 - 145 mmol/L [facility] Potassium 4.2 3.3 - 5.1 mmol/L [facility] Chloride 109(H) 96 - 108 mmol/L [facility] Carbon Dioxide 29 22 - 29 mmol/L [facility] Anion Gap 9(L) 12 - 20 [facility] Urea Nitrogen (BUN) 16 9 - 16 mg/dL [facility] Creatinine, Serum 0.79 0.5 - 1.4 mg/dL [facility] Estimated Glomerular Filt Rate >60 [facility] Comment:Chronic Kidney Disea se: Estimated GFR < 60 mL/min/1.07k4Lnrqqz Kidney Disease: Estimated GFR < 15 mL/min/1.73m2 Glucose 90 60 - 115 mg/dL [facility] Calcium 8.8 8.4 - 10.2 mg/dL [facility] Bilirubin, Total 0.4 0.0 - 1.0 mg/dL [facility] Aspartate Amino Transferase 37(H) 5 - 31 U/L [facility] Alanine Aminotransferase 16 0 - 31 U/L [facility] Total Protein 6.6 6.5 - 8.0 g/dL [facility] Albumin Level 3.9 3.5 - 5.0 g/dL [facility] Alkaline Phosphatase 66 39 - 117 U/L [facility] 05/12/2025 11:5 6 AM EDT 05/12/2025 5:23 PM EDT us Generic External Data Provider LAB BLOOD ORDERAB LES Final Result [facility] [address] [place] [phone] * Lipid Panel, Standard (03/15/2025 8:43 AM EDT) Triglycerides 95 <150 mg/dL [facility] Comment:Desirable Triglyceri de: less than 150 mg/dLBorderline High Triglyceride 150-199 mg/dLHigh Triglyceride: 200-499 mg/dLVery High Triglyceride: greater than or equal to 5OO mg/dL Cholesterol 185 <200 mg/dL [facility] Comment:Desirable Cholestero l: less than 200 mg/dLBorderline High Cholesterol: 200-239 mg/dLHigh Cholesterol: greater than 239 mg/dL LDL Cholesterol Calculated 92 <100 mg/dL [facility] Comment:Desirable LDL: less than 100 mg/dLNear Optimal/Above Optimal LDL: 110- 129 mg/dLBorderline High LDL: 130-159 mg/dLHigh LDL: 160-189 mg/dLVery High LDL: greater than or equal to 190 mg/dL HDL Cholesterol 74 >40 mg/dL [facility] Comment:Desirable HDL: great er than 40 mg/dL Note: This HDL assay may give artificially low results in patients with liver disease. Blood Venous blood specimen / Unknown 03/15/2025 8:43 AM EDT 03/15/2025 2:32 PM EDT us Dot Landaverde UNDERGROUND MINING SECTION FOREMAN LAB BLOOD ORDERABLES Final Res ult [facility] [address] [place] [address] [phone] * BI Mammogram Screening Tomosynthesis Bilateral (10/05/2024 9:02 AM EST) Anatomical Region Laterality Modality Breast Bilateral Mammography 10/05/2024 9:02 AM EST Narrative 10/11/2024 5:10 PM EST [facility] [address] [place] [address] [place] [address] Mammography Report Signed Patient: Debby Gallardo MR#: [id number] 7 : 1955 Acct:[id number] Age/Sex: 69 / F ADM Date: 10/05/24 Loc: DREW.MAMMO Attending Dr: Amandeep Sullivan MD Ordering Physician: Amandeep Sullivan MD Results: 1Negativ e Date of Service: 10/05/24 Follow Up: 1 Year From Orig inal Mammogram Procedure(s): MM tomosynthesis screening BI Accession Number(s): [id number] cc: Dto Landaverde; Amandeep Sullivan MD EXAMINATION: MM SCREENING [...] by: Luba Ontiveros DO 10/11/2024 05:07 PM [facility] Dictated By: Luba Ontiveros DO Signed By: <Electronically signed by Luba Ontiveros DO in OV> 10/11/24 1707 DD/ 0902 TD/TT: 10/05/24 0932 Salesperson Shoes: Procedure Note Donotuseinterpreter, Image - 10/11/2024 [facility] [address] [place], [place] [address] Mammography Report Signed Patient: Debby Gallardo#: [id number] 7 : 4Acct:[id number] Age/Sex: 69 / FADM Date: 10/05/24 Loc: HO.MAMMO Attending Dr: Amandeep Sullivan MD Ordering Physician: Amandeep Sullivan MDResults: 1Negativ e Date of Service: 10/05/24Follow Up: 1 Year From Orig inal Mammogram Procedure(s): MM tomosynthesis screening BI Accession Number(s): [id number] cc: Dot Landaverde; Amandeep Sullivan MD EXAMINATION: [...] 10/11/24 1707 DD/ 0902 TD/TT: 10/05/24 0932 Salesperson Shoes: [facility] External Provider IMG BI PROCEDURES Final Result * Hm Colonoscopy (07/20/2024 3:14 PM EST) Historical Provider HEALTH MAINTENANCE Final Result * HEPATITIS C AB W/REFL TO HCV RNA, QN, PCR (02/05/2022 8:19 AM EDT) HEPATITIS C ANTIBODY NON-REACT MARY NON-REACT MARY [facility] INDEX 0.02 <1.00 [facility] Comment: HCV antibody was non-reactive. There is no laboratory evidence of HCV infection. In most cases, no further action is required. However, if recent HCV exposure is suspected, a test for HCV RNA (test code 92218) is suggested. For additional information please refer to http://education.Victrio/faq/THU38t7 (This link is being provided for informational/ educational purposes only.) 02/05/2022 8:19 AM EDT us Dot Landaverde UNDERGROUND MINING SECTION FOREMAN HISTORICAL/NON ORDERABLE LABS Final Result [facility] [address] [place] [address], from Last 3 Months or Most Recently Relevant to Health Maintenance Insurance [facility] STANDARD [facility] (O D-SNP) EDUARDO CHURCH [id number] DENTAL - [facility] Care Teams Manager Cardiac Cath Relationship Specialty Start Date End Date Dot Landaverde FNP [address] [place] [phone] PCP - General Family Medicine 06/22/21
--- OUTSIDE RECORDS SUMMARY | 2025-07-25 13:03 | XMS_ITS | Encounter Summary ---
Author Organization [employer] Address [address] [facility] [address] [place] [address] Care Team Providers Care Biomass Boiler Operator Name Role Phone Dot Landaverde NURSE AUDITOR Primary Care Provider [phone] Reason for Visit * Reason Onset Date Comments DR LUCIO PT 06/20/[address] Lucio 06/20/2025 Encounter Details Date Type Department Care Team ([facility] st Contact Info) Description 06/20/[address] [facility] ADULT DENT[facility] [address] [place] [address] Oscar Lucio, ANDREA [address] [place] [address] DR LUCIO PT; rs OS appt DR. Lucio Social History Tobacco Use Types Packs/Day Years [...] encounter Miscellaneous Notes * Telephone Encounter - Dilma Fournier - 06/27/2025 1:43 PM EDT Patient is currently under medical treatment and received a shot that prevents her from having any surgery including oral. Recommendation is for her to continue treatment in [address] Lucio schedule is currently not open, Being placed back on wait list however patient advised she may call in September to verify availability of appts DR * Telephone Encounter - Diana Torres - [...] documented as of this encounter Care Teams Biomass Boiler Operator Relationship Specialty Start Date End Date Dot Landaverde FNP [address] [place], [place] [phone] PCP - General Family Medicine 06/22/21 documented as of this encounter
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
--- OUTSIDE RECORDS SUMMARY | 2025-07-25 13:04 | XMS_ITS | Encounter Summary ---
Author Organization [facility] Address [address] [place] [address] Phone Care Team Providers Care Boxing Promoter Name Role Phone LouieimeldaAveryle VENITA Primary Care Provider [phone] Encounter Details Date Type Department Care Team (Late st Contact Info) Description 03/30/2025 Telephone [facility] [address] [place] [address] [email or web address] Social History Tobacco Use Types Packs/Day [...] 10:30 AM EDT Office Visit [facility] [address] [place] [address] Cesar Gregg DO [address] [place] [address] [email or web address] 03/31/2026 9:30 AM EDT Office Visit [facility] [address] [place] [address] Cesar Gregg DO [address] [place] [address] documented as of this encounter Visit Diagnoses Not on filedocumented in this encounter Care Teams Boxing Promoter Relationship Specialty Start Date End Date Dot Landaverde FNP [address] [place] [address] PCP - General Nurse Practitioner 06/27/23 documented as of this encounter Additional Source Comments The information contained in this document represents components of the legal health record. It is not the complete legal health record.[facility]
--- OUTSIDE RECORDS SUMMARY | 2025-07-25 13:04 | XMS_ITS | Encounter Summary ---
Author Organization [employer] Address [address] [place] [address] 7 [place] [address] Care Team Providers Care Convenience Store Manager Name Role Phone Dot Landaverde Primary Care Provider [phone] Reason for Visit * Reason Onset Date Comments Call Back Request 10/31/2023 Encounter Details Date Type Department Care Team ([facility] st Contact Info) Description 10/31/2023 Telephone [facility] CHC MED & PEDS [address] [place] [address] Dot Landaverde FNP [address] [place] [address] Call Back Request Social History Tobacco Use [...] 4:22 PM EST Tc from afshan with [facility] states pt was admitted on 07/26 and discharged on 10/14 from rehab. Afshan is requesting to speak with a nurse to review discharge medication Please contact afshan at [phone] documented in this encounter Plan of Treatment Not on file documented as of this encounter Visit Diagnoses Not on filedocumented in this encounter Care Teams Convenience Store Manager Relationship Specialty Start Date End Date Dot Landaverde FNP [address] [place] [address] PCP - General Family Medicine 06/22/21 documented as of this encounter
--- OUTSIDE RECORDS SUMMARY | 2025-07-25 13:04 | XMS_ITS | Encounter Summary ---
Author Organization [employer] Address [address] [facility] 7t [place] [address] Care Team Providers Care Agricultural Research Director Name Role Phone Dot Landaverde Primary Care Provider [phone] Encounter Details Date Type Department Care Team ([facility] st Contact Info) Description 07/21/2024 Orders Only [facility] MEDICINE [address] [place] [address] Provider, MD Zoila Social History Tobacco Use [...] DETECTION BY PCR NOT DETECTED Not Detect [facility] BACTERIAL VAGINOSIS DETECTION BY PCR NEGATIVE Negative [facility] Comment:The BV organism targ ets [...] DETECTION BY PCR NOT DETECTED Not Detect [facility] Sally glab krusei PCR NOT DETECTED Not Detect [facility] 07/21/2024 7:46 AM EST 07/21/2024 3:42 PM EST us Generic External Data Provider LAB MICROBIOLOGY - GENERAL ORDERABLES Final Result [facility] [address] [place] [phone] * Colonoscopy (07/20/2024 3:14 PM EST) us Historical Provider MD HEALTH MAINTENANCE Final Result documented in this encounter Visit Diagnoses Not on filedocumented in this encounter Additional Health Concerns Assessment Noted Time PHQ-9 Depression Total Score: 5 12/08/19 24 10:24 AM EDT documented as of this encounter Care Teams Agricultural Research Director Relationship Specialty Start Date End Date Dot Landaverde FNP [address] [place] [address] PCP - General Family Medicine 06/22/21 documented as of this encounter
== END ==
LOC: HO.NUCMED 10:29
PROVIDERS: PCP Registered Nurse; Visit Provider Student in an Organized Health Care Education/Training Program
DX: E21.3 Hyperparathyroidism, unspecified (principal)
CPT/HCPCS: 78072; A9500

== ENCOUNTER → 2025-07-25 10:31 | Outpatient (BNV) | payer OTHER, SELFPAY | PROVIDERS: PCP Registered Nurse; Visit Provider Radiology Diagnostic Radiology | DX: E21.3 Hyperparathyroidism, unspecified (principal) | CPT/HCPCS: 78072 ==

== ENCOUNTER 2025-08-01 11:19 | Outpatient (AMB) | payer OTHER, SELFPAY ==
--- NOTE | 2025-08-01 11:20 | A.OFFVIS_ITS ---
Vital Signs 08/01/25 11:20 Height 5 ft 2 in Weight 164 lb 2 oz BMI 30.0 Intake Visit Reasons: OV-Right Retracted RTC Tear-Last injection 04/11/25 Intake Note: Debby is a 70 year old right hand dominant female who presents today for a follow up of her Right Shoulder Retracted RTC Tear. At her last visit we discussed that it is unlikely repairable & Reverse TSA would be a more appropriate interventions. She is not interested in surgery at this time. The right shoulder was injected on 04/11/25. Last injection was mildly helpful, she is unsure if she would like to repeat injection today Allergies NSAIDS (Non-Steroidal Anti-Inflamma Allergy (Intermediate, Verified 08/01/25 11:21) Gastrointestinal Upset Penicillins Allergy (Intermediate, Verified 08/01/25 11:21) hives HPI HPI OV-Right Retracted RTC Tear-Last injection 04/11/25: Details: Debby is a 70 year old right hand dominant female who presents today for a follow up of her Right Shoulder Retracted RTC Tear. At her last visit we discussed that it is unlikely repairable & Reverse TSA would be a more appropriate interventions. She is not interested in surgery at this time. The right shoulder was injected on 04/11/25. Last injection was mildly helpful, she is unsure if she would like to repeat injection today. She is pretty adamant that she does not want surgery and does not want injections but wants to see if there is any alternative treatments for pain. [facility] Medical History Fatigue due to sleep pattern disturbance Left knee pain Hx of thyroid nodule Acute appendicitis Back pain Osteoporosis Elevated parathyroid hormone GERD (gastroesophageal reflux disease) Numbness and tingling in left arm Sinus bradycardia Preoperative cardiovascular examination DODIE on CPAP Osteoarthritis of left knee Encounter for screening colonoscopy Vitamin D deficiency Surgical History History of total left knee replacement (TKR) (09/24/23) History of laparoscopic appendectomy (12/03/23) Hx of non-cataract eye surgery Hx of carpal tunnel repair History of esophagogastroduodenoscopy (EGD) H/O bariatric surgery History of total abdominal hysterectomy History of cholecystectomy Family History Unknown No family history of colorectal cancer Mother Uterus cancer Other Left knee pain Social History Household Members: Family Household Members Other:: Lives with her son Housing: House Are you a primary career information specialist to a significant other at home: No Do you presently have visiting nurse or other home services: No 75 years or older and lives alone: No Alcohol intake: never Comment: aware of trip hazard Patient Tobacco Use Status: Never used Tobacco Advance Directives Date on File: 09/26/23 service: No Current occupational status: unemployed Sexual orientation: Straight/Heterosexual Gender identity: Female Physical Exam Vital Signs: BMI result Body Mass Index 30.0 Extrem Other: On exam Debby has 4/5 empty can. /130/S1 Assessment & Plan Assessment & Plan (1) Rotator cuff arthropathy of right shoulder: Code(s): M12.811 - Other specific arthropathies, not elsewhere classified, right shoulder Category: Medical Plan: Referral to pain management. Not interested in surgery. Injections minimally helpful. (2) Carpal tunnel syndrome on left: Code(s): G56.02 - Carpal tunnel syndrome, left upper limb Category: Medical Plan: Referral to hand surgery for carpal tunnel. Coding Level of Care Code Complex visit Add On G2211 Diagnoses Rotator cuff arthropathy of right shoulder M12.811 Carpal tunnel syndrome on left G56.02
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
--- OUTSIDE RECORDS SUMMARY | 2025-08-01 14:51 | XMS_ITS | Encounter Summary ---
Author Organization [employer] Address [address] [facility] 7t [place] [address] Care Team Providers Care Respooler Name Role Phone Dot Landaverde Primary Care Provider [phone] Encounter Details Date Type Department Care Team ([facility] st Contact Info) Description 07/21/2024 Orders Only [facility] MEDICINE [address] [place] [address] Provider, MD Zoila Social History Tobacco Use [...] DETECTION BY PCR NOT DETECTED Not Detect [facility] BACTERIAL VAGINOSIS DETECTION BY PCR NEGATIVE Negative [facility] Comment:The BV organism targ ets [...] DETECTION BY PCR NOT DETECTED Not Detect [facility] Sally glab krusei PCR NOT DETECTED Not Detect [facility] 07/21/2024 7:46 AM EST 07/21/2024 3:42 PM EST us Generic External Data Provider LAB MICROBIOLOGY - GENERAL ORDERABLES Final Result [facility] [address] [place] [phone] * Colonoscopy (07/20/2024 3:14 PM EST) us Historical Provider MD HEALTH MAINTENANCE Final Result documented in this encounter Visit Diagnoses Not on filedocumented in this encounter Additional Health Concerns Assessment Noted Time PHQ-9 Depression Total Score: 5 12/08/19 24 10:24 AM EDT documented as of this encounter Care Teams Respooler Relationship Specialty Start Date End Date Dot Landaverde FNP [address] [place] [address] PCP - General Family Medicine 06/22/21 documented as of this encounter
--- OUTSIDE RECORDS SUMMARY | 2025-08-01 14:51 | XMS_ITS | Encounter Summary ---
Author Organization [employer] Address [address] [place] [address] 7 [place] [address] Care Team Providers Care Armature Inspector Name Role Phone Dot Landaverde Primary Care Provider [phone] Reason for Visit * Reason Onset Date Comments Call Back Request 10/31/2023 Encounter Details Date Type Department Care Team ([facility] st Contact Info) Description 10/31/2023 Telephone [facility] CHC MED & PEDS [address] [place] [address] Dot Landaverde FNP [address] [place] [address] Call Back Request Social History Tobacco Use [...] 4:22 PM EST Tc from afshan with [facility] states pt was admitted on 07/26 and discharged on 10/14 from rehab. Afshan is requesting to speak with a nurse to review discharge medication Please contact afshan at [phone] documented in this encounter Plan of Treatment Not on file documented as of this encounter Visit Diagnoses Not on filedocumented in this encounter Care Teams Armature Inspector Relationship Specialty Start Date End Date Dot Landaverde FNP [address] [place] [address] PCP - General Family Medicine 06/22/21 documented as of this encounter
--- OUTSIDE RECORDS SUMMARY | 2025-08-01 14:51 | XMS_ITS | Encounter Summary ---
Author Organization [facility] Address [address] [place] [address] Phone Care Team Providers Care Human Resources Clerk Name Role Phone LouieimeldaAveryle VENITA Primary Care Provider [phone] Encounter Details Date Type Department Care Team (Late st Contact Info) Description 03/30/2025 Telephone [facility] [address] [place] [address] [email or web address] Social History Tobacco Use Types Packs/Day Years [...] AM EDT Office Visit [facility] [address] [place] [address] Cesar Gregg DO [address] [place] [address] 03/31/2026 9:30 AM EDT Office Visit [facility] [address] [place] [address] Cesar Gregg DO [address] [place] [address] documented as of this encounter Visit Diagnoses Not on filedocumented in this encounter Care Teams Human Resources Clerk Relationship Specialty Start Date End Date Dot Landaverde FNP [address] [place] [address] PCP - General Nurse Practitioner 06/27/23 documented as of this encounter Additional Source Comments The information contained in this document represents components of the legal health record. It is not the complete legal health record.[facility]
--- OUTSIDE RECORDS SUMMARY | 2025-08-01 14:51 | XMS_ITS | Clinical Summary ---
Author Organization [address] [place] [address] Address [address] [place] [address] Phone Care Team Providers Care Multimedia Developer Name Role Phone Name, Alfredo SORENSON Primary Care Provider [phone] Allergies Active Allergy Reactions Criticality Noted Date [...] Date Site/Laterality Comments GASTRIC BYPASS 05/2015 PROCEDURE: IA GASTRIC RSTCV W/BYP W/SM INT RCNSTJ LIMIT ABSRPJ OTHER SURGICAL HISTORY PROCEDURE: IA TOTAL ABDOMINAL HYSTERECT W/WO RMVL TUBE OVARY; COMMENT: 43 yo CHOLECYSTECTOMY PROCEDURE: HISTORICAL CHOLECYSTECTOMY; COMMENT: 43 yo COLONOSCOPY 03/25/2017 PROCEDURE: HISTORICAL COLONOSCOPY; COMMENT: polyp CARPAL TUNNEL RELEASE 01/19/2019 Right PROCEDURE: IA NEUROPLASTY &/TRANSPOS MEDIAN NRV CARPAL TUNNE; COMMENT: [...] cancer risk category Low (<15%) Opal Jose CHARTER BOAT CAPTAIN IMG XR PROCEDURES Final Result * Annual BMP Blood Test (12/18/2018) Pathologist [facility] Annual BMP Blood Test abstracted Result [facility] Historical Provider HEALTH MAINTENANCE Final Result * Lipid panel (12/18/2018) [facility] LDL/HDL Ratio 2 0 - 4 Triglycerides 92 0 - 150 mg/dL Cholesterol 152 0 - 200 mg/dL HDL 76 >=40 mg/dL LDL Cholesterol 58 0 - 100 mg/dL Blood Venous blood specimen / Unknown Result [facility] Historical Provider LAB BLOOD ORDERABLES Cassie [...] (World Health Organization Fracture Risk Assessment) [facility] Department of Internal Medicine recommends using National [...] screening schedule based on estephania Andrews., [facility] September 19, 2011 for patients [...] years. (WorldHealth Organization Fracture Risk Assessment) [facility] Department of Internal Medicine recommendsusing National Osteoporosis [...] schedule based on douglas Andrews al., [facility] for patients with osteopenia [...] PROCEDURES Final Re sult * Colonoscopy (03/25/2017) [facility] Colonoscopy no interpreta tion,abstr acted Anatomical Region Laterality Modality Other Historical Provider HEALTH MAINTENANCE Final Result * Hepatitis C Screening (12/31/2016) [facility] Hepatitis C Screening abstracted Historical Provider HEALTH MAINTENANCE Final Result from Last 3 Months or Most Recently Relevant to Health Maintenance Insurance [place] Member Subscriber Plan / Payer (Ef fective 2024-Present) Name:DEBBY STARKS Relation to Subscriber:Self Name:Debby Gallardo Payer ID:[id number] Group ID:Not on file Type:Not on file Address[facility] [place] ATTN:CLAIMS [address] [place] [address] [facility] OPTIONS Member Subscriber Plan / Payer (Ef fective 2025-Present) Name:Debby Gallardo Relation to Subscriber:Self Name:Debby Gallardo Payer ID:[id number] Group ID:Not on file Type:Not on file Address: [address] [place] [address] Care Teams Multimedia Developer Relationship Specialty Start Date End Date Name, MD Alfredo [address] [place], [place] PCP - General Internal Medicine 10/31/19
--- OUTSIDE RECORDS SUMMARY | 2025-08-01 14:51 | XMS_ITS | Clinical Summary ---
Author Organization [employer] Address [address] [facility] 7[address] [place] [address] Care Team Providers Care Wall Attendant Name Role Phone LouieDot segura VENITA Primary Care Provider [phone] Allergies Active Allergy Reactions Criticality Noted Date [...] supraspinatus tendon 03/01/2025 Overview (03/01/2025): Following with [facility] Ortho-Dr. Beltre 02/22/2025: MRI right shoulder demonstrated [...] Plan (10/08/2024 10:17 AM EST): Evaluated by [facility] Ortho-Dr. Beltre-June 2024 Plan for physical therapy, with consideration of injection after PT if pain persists Received benefit with PT, will refer to continue sessions at [facility] Chronic gastroesophageal reflux disease 10/08/19 Overview (10/08/2024): Continues with pantoprazole 40 mg daily Following with [facility] GI - EDUARDO Ansari/Dr. Wheat EGChio completed Jul 2024 - demonstrated grade II hiatal hernia and mild gastritis Osteoarthritis of right knee 05/20/2024 Overview (05/20/2024): 12/12/23: XR bilat knees showed mild oA right knee BMI 29.0-29.9,adult 05/20/2024 Assessment & Plan (03/01/2025 9:21 AM EDT): Following with [facility] for weight management - [employer]G [employer] OFFICER Yoko Milan. History of gastric sleeve Continues [...] (10/08/2024 10:37 AM EST): Following with [facility] for weight management - DOG CONTROL OFFICER Yoko Milan. History of gastric sleeve Continues with bupropion 300mg daily. Reports that med has been helpful for her anxiety as well as for helping her to not gain more weight. Denies med SE. Continues going to gym, aquatic therapy 2x/week Healthy, well balanced nutrition Assessment & Plan (05/20/2024 12:18 PM EDT): Following with [facility] for weight management History of gastric sleeve Continues with bupropion 300mg daily. Reports that med has been helpful for her anxiety as well as for helping her to not gain more weight. Denies med SE. Continues going to gym, aquatic therapy 2x/week Healthy, well balanced nutrition If BMI greater than 27, may try for GLP-1 authorization through [facility] per consult note Sleep difficulties 05/20/2024 Overview (05/20/2024): Magnesium 400mg nightly Gabapentin 300mg nightly. Reviewed med safety and SE. Hx of total knee arthroplasty, left 12/11/2023 Overview (12/11/2023): Left TKA 09/24/23 at [facility] w/ Dr. Beltre. Indication: OA Per ortho, [...] 24 months is advised. Currently following with [facility] GI with plan for routine repeat MRI Assessment & Plan (05/20/2024 12:04 PM EDT): -Currently following with [facility] GI. Plan for repeat MRI in 6 months per consult note in December 2023 History of appendectomy 12/11/2023 Overview (12/11/2023): Emergency appendectomy completed 12/03/23 Assessment & Plan (12/11/2023 12:06 PM EDT): Scheduled for follow up visit 12/10/23 with [facility] Surgeons No active sign of infx of incisions, avoid lifting. Elevated parathyroid hormone 06/09/2023 Overview (06/09/2023): Noted during [facility] evaluation [facility] with impression of osteoporosis 10/05/24: DEXA impression: osteoporosis -Pt reports received Prolia injection while in [facility], continues on calcium and Vit D -Established with [facility] Wei Gregg. Per consult note December 2023: denosumab not very effective on the hips (T-score -2.4 in hips). Suggested transition to alendronate 70mg weekly. Pt reports tolerating well Assessment & Plan (10/08/2024 10:37 AM EST): 04/2020: DEXA impression: osteopenia. 11/08/2022: Bone Density scan record from [facility] with impression of osteoporosis 10/05/24: DEXA impression: osteoporosis -Pt reports received Prolia injection while in [facility], continues on calcium and Vit D -Established with [facility] Wei Gregg. Per consult note December [...] D (through multivitamin) supplementation -Established with [facility] Wei Gregg. Per consult note December 2023: denosumab not very effective on the hips (T-score -2.4 in hips). Suggested transition to alendronate 70mg weekly. Pt reports tolerating well -Next DXA: 11/08/24 at [place] Assessment & Plan (07/06/2023 11:36 AM EST): [...] ordered -Pt received ?Prolia injection while in [facility], continues on calcium and Vit D (through multivitamin) supplementation -If indeed was Prolia, interruption or discontinuation of therapy may increase risk of fracture -Will request most recent DEXA and refer to Endo given tx of bone health and PTH Healthcare maintenance 06/02/2023 Overview (03/01/2025): Pap: s/p total hysterectomy, no records but pelvis exam completed Jul 2024 at [facility] and no cervix visualized on exam. Colonoscopy: 07/20/24 at [facility], repeat in 10 years Mammogram: 10/05/24 BIRADS 1 DEXA: 04/2020 osteopenia. Subsequently completed in DR mares/ impression of osteoporosis. Completed Oct 2024, osteoporisis. OPH: UTD per patient report, follows with Dr. Craven. Dental: Established with dental home in [place], reports UTD with appts and care. Outstanding IZ: Flu, pneumococcal, Tdap, RSV, COVID, Zoster declined History of total hysterectomy 04/28/2023 Vitamin D deficiency 04/28/2023 Overview (05/20/2024): Tx with course of high dose Vit D 50,000 units weekly by Wei starting approx Oct 2023 Currently on Vit D 2000 units daily Following with [facility] Wei - Dr. Gregg Primary osteoarthritis of left knee 04/28/2023 Overview (12/11/2023): Left knee XR 04/28/23: IMPRESSION: Mild tricompartmental degenerative joint changes most consistent with osteoarthritis. Possible trace suprapatellar joint effusion. No acute fracture. Followed by [facility] Ortho - Dr. Beltre. Received steroid injection on 05/19/23 S/P left TKA on 09/24/[address] Beltre at [facility] ED. Per Ortho, pt will require prophylactic abx for dental procedures Assessment & Plan (09/01/2023 5:24 PM EST): -DME request for cane placed 07/06/23 -DME request for shower chair placed 09/01/23 -Plan for upcoming TKA 09/24/23 through [facility] Ortho Assessment & Plan (07/06/2023 11:34 AM [...] to avoid opiates rx by provider in [facility], she has rx for tapenatdol which she says is only suing rarely for severe pain Obstructive sleep apnea syndrome 06/18/2022 Assessment & Plan (03/01/2025 9:27 AM EDT): - Sleep study: completed 01/14/22 at [facility] - Impression: The baseline portion of the [...] titrations and monitoring - Currently following with [facility] Neurology & Sleep - Consult October 2024: PSG demonstrated severe degree of DODIE with AHI 31/hr. Sent in prescription for nose mask trial. Goal to use CPAP nightly more than 4 hours. Assessment & Plan (12/11/2023 11:47 AM EDT): - Sleep study: completed 01/14/22 at [facility] - Impression: The baseline portion of the [...] titrations and monitoring - Currently following with [facility] Neurology & Sleep Assessment & Plan (07/06/2023 11:38 AM EST): - Sleep study: completed 01/14/22 at [facility] - Impression: The baseline portion of the [...] EDT): - Sleep study: completed 01/14/22 at [facility] - Impression: The baseline portion of the [...] shoulders 05/20/2024 10/08/2024 Overview (05/20/2024): Referral to [facility] Ortho and physical therapy placed on 05/19/24 Assessment & Plan (05/20/2024 12:27 PM EDT): Cont symptomatic management Encounters Date Type Department Care Team Description 07/25/2025 Orders Only [facility] External Provider, [facility] 07/09/2025 Refill [facility]EDS [address] [place], [place] [phone] Dot Landaverde FNP 06/20/2025 Telephone [facility] ADULT DENTAL [address] [place] [address] Oscar Walker, DMD DR WALKER PT; rs OS appt DR. Walker 06/02/2025 Telephone [facility] MEDICINE [address] [place] [address] Dot Landaverde FNP 05/26/2025 Telephone [facility] MEDICINE [address] [place] [address] Dot Landaverde FNP 05/24/2025 Telephone [facility] MEDICINE [address] [place] [address] Dot Landaverde FNP 05/12/2025 Orders Only GENERIC EXTERNAL DATA DEPARTMENT Provider, Generic External Data from Last 3 Months Immunizations Immunization Administration [...] Procedure Name Priority Date/Time Associated Diagnosis Comments NM/CT PARATHYROID SPECT Routine 07/25/2025 10:35 AM EST COLLAGEN TYPE I C-TELOPEPTIDE (CTX) Routine 05/12/2025 11:56 AM EDT VITAMIN D,25-OH,TOTAL,IA Routine 05/12/2025 11:56 AM EDT COMPREHENSIVE METABOLIC PANEL Routine 05/12/2025 11:56 AM EDT PTH, INTACT WITHOUT CALCIUM Routine 05/12/2025 11:56 AM EDT LIPID PANEL, STANDARD Routine 03/15/2025 8:43 AM EDT Healthcare maintenance PROPHYLAXIS - ADULT Routine 03/03/2025 9:00 AM EDT INTRAORAL - COMPLETE SERIES OF [...] Recently Relevant to Health Maintenance Results * NM/CT parathyroid SPECT (07/25/2025 10:35 AM EST) Anatomical Region Laterality Modality Nuclear Medicine 07/25/2025 10:3 5 AM EST Narrative 07/25/2025 2:09 PM EST [place] [address] Nuclear Medicine Report Signed Patient: Debby Gallardo MR#: [id number] 7 : 1955 Acct:[id number] Age/Sex: 70 / F ADM Date: 07/25/25 Loc: [facility] Attending Dr: Susy Doss MD Ordering Physician: Susy Doss MD Date of Service: 07/25/25 Procedure(s): NM parathyroid SPECT w CT Accession Number(s): [id number] cc: Susy Doss MD; Dot Landaverde Reason for Exam: E21.3 - Hyperparathyroidism, unspecified EXAMINATION: NM PARATHYROID SPECT AND CT HISTORY: E21.3 - Hyperparathyroidism, unspecified. TECHNIQUE: A parathyroid imaging study was performed following the intravenous administration of 30 mCi technetium 99m-sestamibi. Planar images of the neck were obtained at 20 minutes and 90 minutes. SPECT/CT was performed from the skull base through the ml at approximately 2 hours. COMPARISON: There are no prior studies available for comparison. FINDINGS: Early planar images demonstrate a homogeneous distribution of activity throughout both thyroid lobes as well as salivary gland activity. No foci of abnormal increased uptake are identified. No persistent foci of increased uptake are identified in the neck on delayed images. No abnormality is seen on SPECT/CT imaging. NM/NM parathyroid SPECT w CT IMPRESSION: No scintigraphic evidence of a parathyroid adenoma. Electronically signed by: Wilfredo Rodas MD 07/25/2025 02:05 PM EST Dictated By: Wilfredo Rodas MD Signed By: <Electronically signed by Wilfredo Rodas MD in OV> 07/25/25 1405 DD/ 1035 TD/TT: 07/25/25 1345 Assembly Machine Set Up Mechanic: Procedure Note Donotuseinterpreter, Image - 07/25/2025 [place] [address] Nuclear Medicine Report Signed Patient: Heydi Gallardo#: [id number] 7 : 4Acct:[id number] Age/Sex: 70 / FADM Date: 07/25/25 Loc: K[facility] Attending Dr: Susy Doss MD Ordering Physician: Susy Doss MD Date of Service: 07/25/25 Procedure(s): NM parathyroid SPECT w CT Accession Number(s): [id number] cc: Susy Doss MD; Dot Landaverde Reason for Exam: E21.3 - Hyperparathyroidism, unspecified EXAMINATION: NM PARATHYROID SPECT AND CT HISTORY: E21.3 - Hyperparathyroidism, unspecified. TECHNIQUE: A parathyroid imaging study was performed following the intravenous administration of 30 mCi technetium 99m-sestamibi. Planar images of the neck were obtained at 20 minutes and 90 minutes. SPECT/CT was performed from the skull base through the ml at approximately 2 hours. COMPARISON: There are no prior studies available for comparison. FINDINGS: Early planar images demonstrate a homogeneous distribution of activity throughout both thyroid lobes as well as salivary gland activity. No foci of abnormal increased uptake are identified. No persistent foci of increased uptake are identified in the neck on delayed images. No abnormality is seen on SPECT/CT imaging. NM/NM parathyroid SPECT w CT IMPRESSION: No scintigraphic evidence of a parathyroid adenoma. Electronically signed by: Wilfredo Rodas MD 07/25/2025 02:05 PM [facility] Dictated By: Wilfredo Rodas MD Signed By: <Electronically signed by Wilfredo Rodas MD in OV> 07/25/25 1405 DD/ 1035 TD/TT: 07/25/25 1345 Assembly Machine Set Up Mechanic: [facility] External Provider IMG NM PROCEDURES Final Result * Collagen Type I C-Telopeptide (CTx) (05/12/2025 11:56 AM EDT) C-Telopeptide (CTx) 129 see note pg/mL [facility] Comment: Unable to flag abnormal [...] of bone loss.For additional information, please refer tohttps://education.[employer]/faq/HKZ806(This link is being provided for informational/educational purposes only.)THIS TEST WAS PERFORMED AT:[facility] [id number] [place] [address]HMBKMOZMARTHA HAINES MD,PHD 05/12/2025 11:5 6 AM EDT 05/12/2025 5:23 PM EDT us Generic External Data Provider LAB BLOOD ORDERAB LES Final Result [facility] [address] [place] [phone] * Vitamin D, 25-Hydroxy, Total, Immunoassay (05/12/2025 11:56 AM EDT) Vitamin D 25-OH Total 40.3 >30 ng/mL [facility] Comment: Health Based Reference Values*< 20 ng/mL Isolktrej03-47 ng/mL Insufficient> 30 ng/mL Sufficient*Salvatore GUZMAN. N [...] ORDERAB LES Final Result Performing Organization Address [facility]/ZIP Co de Phone Number [facility] [address] [place] [phone] * (ABNORMAL) PTH, Intact Without Calcium (05/12/2025 11:56 AM EDT) Parathyroid Hormone, Intact 186.8(H) 8.7 - 77.1 pg/mL [facility] 05/12/2025 11:5 6 AM EDT 05/12/2025 5:23 PM EDT us Generic External Data Provider LAB BLOOD ORDERAB LES Final Result Performing Organization Address City/[facility]/ZIP Co de Phone Number [facility] [address] [place] [phone] * (ABNORMAL) Comprehensive Metabolic Panel (05/12/2025 11:56 AM EDT) Sodium 143 135 - 145 mmol/L [facility] Potassium 4.2 3.3 - 5.1 mmol/L [facility] Chloride 109(H) 96 - 108 mmol/L [facility] Carbon Dioxide 29 22 - 29 mmol/L [facility] Anion Gap 9(L) 12 - 20 [facility] Urea Nitrogen (BUN) 16 9 - 16 mg/dL [facility] Creatinine, Serum 0.79 0.5 - 1.4 mg/dL [facility] Estimated Glomerular Filt Rate >60 [facility] Comment:Chronic Kidney Disea se: Estimated GFR < 60 mL/min/1.90h6Aypphi Kidney Disease: Estimated GFR < 15 mL/min/1.73m2 Glucose 90 60 - 115 mg/dL [facility] Calcium 8.8 8.4 - 10.2 mg/dL [facility] Bilirubin, Total 0.4 0.0 - 1.0 mg/dL [facility] Aspartate Amino Transferase 37(H) 5 - 31 U/L [facility] Alanine Aminotransferase 16 0 - 31 U/L [facility] Total Protein 6.6 6.5 - 8.0 g/dL [facility] Albumin Level 3.9 3.5 - 5.0 g/dL [facility] Alkaline Phosphatase 66 39 - 117 U/L [facility] 05/12/2025 11:5 6 AM EDT 05/12/2025 5:23 PM EDT us Generic External Data Provider LAB BLOOD ORDERAB LES Final Result [facility] [address] [place] [phone] * Lipid Panel, Standard (03/15/2025 8:43 AM EDT) Triglycerides 95 <150 mg/dL [facility] Comment:Desirable Triglyceri de: less than 150 mg/dLBorderline High Triglyceride 150-199 mg/dLHigh Triglyceride: 200-499 mg/dLVery High Triglyceride: greater than or equal to 5OO mg/dL Cholesterol 185 <200 mg/dL [facility] Comment:Desirable Cholestero l: less than 200 mg/dLBorderline High Cholesterol: 200-239 mg/dLHigh Cholesterol: greater than 239 mg/dL LDL Cholesterol Calculated 92 <100 mg/dL [facility] Comment:Desirable LDL: less than 100 mg/dLNear Optimal/Above Optimal LDL: 110- 129 mg/dLBorderline High LDL: 130-159 mg/dLHigh LDL: 160-189 mg/dLVery High LDL: greater than or equal to 190 mg/dL HDL Cholesterol 74 >40 mg/dL [facility] Comment:Desirable HDL: great er than 40 mg/dL Note: This HDL assay may give artificially low results in patients with liver disease. Blood Venous blood specimen / Unknown 03/15/2025 8:43 AM EDT 03/15/2025 2:32 PM EDT us Dot Landaverde RAILROAD CAR LOADER LAB BLOOD ORDERABLES Final Res ult [facility] [address] [place] [phone] * BI Mammogram Screening Tomosynthesis Bilateral (10/05/2024 9:02 AM EST) Anatomical Region Laterality Modality Breast Bilateral Mammography 10/05/2024 9:02 AM EST Narrative 10/11/2024 5:10 PM EST [facility]'s [address] [place] [address] Mammography Report Signed Patient: Debby Gallardo MR#: [id number] 7 : 1955 Acct:[id number] Age/Sex: 69 / F ADM Date: 10/05/24 Loc: HO.MAMMO Attending Dr: Amandeep Sullivan MD Ordering Physician: Amandeep Sullivan MD Results: 1Negativ e Date of Service: 10/05/24 Follow Up: 1 Year From Orig inal Mammogram Procedure(s): MM tomosynthesis screening BI Accession Number(s): [id number] cc: Dot Landaverde; Amandeep Sullivan MD EXAMINATION: [...] by: Luba Ontiveros DO 10/11/2024 05:07 PM [facility] Dictated By: Luba Ontiveros DO Signed By: <Electronically signed by Luba Ontiveros DO in OV> 10/11/24 1707 DD/ 0902 TD/TT: 10/05/24 0932 Assembly Machine Set Up Mechanic: Procedure Note Donotuseinterpreter, Image - 10/11/2024 [place] [facility] [address] [place] [address] Mammography Report Signed Patient: Heydi Gallardo#: [id number] 7 : 4Acct:[id number] Age/Sex: 69 / FADM Date: 10/05/24 Loc: ZEINAO Attending Dr: Amandeep Sullivan MD Ordering Physician: Amandeep Sullivan MDResults: 1Negativ e Date of Service: 10/05/24Follow Up: 1 Year From Orig ina Mammogram Procedure(s): MM tomosynthesis screening BI Accession Number(s): [id number] cc: Dot Landaverde; Amandeep Sullivan MD EXAMINATION: [...] 10/11/24 1707 DD/ 0902 TD/TT: 10/05/24 0932 Assembly Machine Set Up Mechanic: [facility] External Provider IMG BI PROCEDURES Final Result * Hm Colonoscopy (07/20/2024 3:14 PM EST) Historical Provider HEALTH MAINTENANCE Final Result * HEPATITIS C AB W/REFL TO HCV RNA, QN, PCR (02/05/2022 8:19 AM EDT) HEPATITIS C ANTIBODY NON-REACT MARY NON-REACT MARY [facility] INDEX 0.02 <1.00 [facility] Comment: HCV antibody was non-reactive. There is no laboratory evidence of HCV infection. In most cases, no further action is required. However, if recent HCV exposure is suspected, a test for HCV RNA (test code 13886) is suggested. For additional information please refer to http://education.[employer]/faq/EIW45w0 (This link is being provided for informational/ educational purposes only.) 02/05/2022 8:19 AM EDT Dot Landaverde RAILROAD CAR LOADER HISTORICAL/NON ORDERABLE LABS Final Result [facility] [address] [place] [address], from Last 3 Months or Most Recently Relevant to Health Maintenance Insurance [facility] STANDARD [facility] [employer] OPTIONS (HMO D-SNP) [facility] Care Teams Wall Attendant Relationship Specialty Start Date End Date Dot Landaverde FNP [address] [place] [phone] PCP - General Family Medicine 06/22/21
--- OUTSIDE RECORDS SUMMARY | 2025-08-01 14:51 | XMS_ITS | Encounter Summary ---
Author Organization [employer] Address [address] [facility] [address] [place] [address] Care Team Providers Care Casting House Laborer Name Role Phone Dot Landaverde TAR MAN Primary Care Provider [phone] Reason for Visit * Reason Onset Date Comments DR LUCIO PT 06/20/[address] Lucio 06/20/2025 Encounter Details Date Type Department Care Team ([facility] st Contact Info) Description 06/20/2025 Telephone [facility] ADULT DENTAL [address] [place] [address] Oscar Lucio, ANDREA [address] [place] [address] DR LUCIO PT; rs OS appt DR. [...] documented as of this encounter Care Teams Casting House Laborer Relationship Specialty Start Date End Date Dot Landaverde FNP [address] [place], [place] [phone] PCP - General Family Medicine 06/22/21 documented as of this encounter
== END 2025-08-01 11:39 | disposition home or self-care (01) ==
LOC: HO.HOS 11:19
PROVIDERS: PCP Registered Nurse; Visit Provider Orthopaedic Surgery
DX: M12.811 Other specific arthropathies, not elsewhere classified, right shoulder (principal); G56.02 Carpal tunnel syndrome, left upper limb
CPT/HCPCS: 99213; G2211

== ENCOUNTER → 2025-08-01 11:19 | Outpatient (BNVA) | payer OTHER, SELFPAY | PROVIDERS: PCP Registered Nurse; Visit Provider Orthopaedic Surgery | DX: M12.811 Other specific arthropathies, not elsewhere classified, right shoulder (principal); G56.02 Carpal tunnel syndrome, left upper limb | CPT/HCPCS: 99212 ==